=== PATIENT | female | born 1970 | race Caucasian/White ===

== ENCOUNTER 2019-08-08 15:26 | Emergency (ER) | payer BC, SELFPAY ==
--- NOTE | ~2019-08-08 | XR_ITS ---
EXAMINATION: XR chest 2V DATE: 08/08/2019 15:48 INDICATION: Cough. TECHNIQUE: Frontal and lateral views of the chest were obtained. COMPARISON: Chest 2 views 07/23/2017, CT abdomen and pelvis 08/12/2018 FINDINGS: The chest demonstrates clear lungs without pneumonia, pleural effusion, or pneumothorax. Th e heart size is normal. IMPRESSION: 1. No acute cardiopulmonary disease. Reviewed, dictated and finalized at location A. LOFT WORKER
[2019-08-08 15:35] VITALS: BP 140/65; PULSE 106; RESP 20; TEMP 36.9; O2SAT 99
--- NOTE | 2019-08-08 15:53 | ED.URI ---
HPI - URI/Sore Throat General Chief Complaint: Upper Respiratory Infection Stated Complaint: cough/fever/back pain/SOB Time Seen by Provider: 08/08/19 15:36 Source: patient and RN notes reviewed Mode of arrival: ambulatory Limitations: no limitations History of Present Illness HPI Narrative: Patient presents today with a 4-week history of cough. Reports it started out productive, but is now nonproductive. Associated symptoms include subjective fever with sweats and chills, shortness of breath, and right mid back pain. The back pain has been present for 3 days. Symptoms have been worsening since onset. Denies congestion, rhinorrhea, sore throat. No history of asthma or COPD. Patient takes warfarin for pulmonary embolism 2 years ago. States she checks her INR at home and it runs 2-3. She has been treating symptoms with Mucinex without relief. She is a former smoker. She quit 2 years ago. MD elicited complaint: cough Related Data Home Medications Medication Instructions Recorded Confirmed escitalopram oxalate mg 08/08/19 mesalamine PO 08/08/19 topiramate 08/08/19 warfarin 08/08/19 Allergies Allergy/AdvReac Type Severity Reaction Status Date / Time clindamycin Allergy Unknown Verified 03/05/18 09:00 rosuvastatin Allergy Unknown Feet Verified 07/11/17 21:20 cramping and aching Sulfa (Sulfonamide Allergy Unknown Verified 01/13/17 08:57 Antibiotics) Review of Systems Review of Systems: Narrative: CONSTITUTIONAL: Denies body aches,+ subjective fever, sweats, chills EYES: Denies visual changes, redness, or discharge. ENT: Denies rhinorrhea, congestion, sore throat, or otalgia. CARDIOVASCULAR: Denies chest pain, palpitations, or edema. RESPIRATORY: + Cough, shortness of breath GASTROINTESTINAL: Denies abdominal pain, nausea, vomiting, or diarrhea. GENITOURINARY: Denies dysuria or hematuria. SKIN: Denies rash, itching, or wounds. MUSCULOSKELETAL: Denies joint pain, or myalgia.+ Right mid back pain NEUROLOGIC: Denies headache, numbness, tingling, or weakness. PSYCH: Denies depression or anxiety. [facility] Past Medical History Medical History (Updated 08/08/19 @ 16:06 by Leandra Somers, PERFORATOR, ) GERD (gastroesophageal reflux disease) Pulmonary embolism Restless leg syndrome Ulcerative proctitis Family History Family History (Updated 01/13/17 @ 09:00 by DOCTOR UNKNOWN) Father Hypertension Malignant neoplasm of prostate Mother Family history of malignant neoplasm of breast in first degree relative Other Depression Social History Social History Smoking status: Former smoker Second hand tobacco smoke exposure: Yes Smoking end date: 07/07/16 Alcohol intake: current Comments At time of signature, I have reviewed and agree with nursing past medical, surgical, social and family history unless otherwise noted. Please see nursing chart for further information. There is no relevant family history pertinent to the presenting complaint Exam Narrative: Exam Narrative: GENERAL: Mildly ill-appearing, well-nourished, and in no acute distress. HEAD: Normocephalic, atraumatic. EYES: EOMI. No redness or drainage. Conjunctivae normal. ENT: Mucous membranes pink and moist. Nares clear. No rhinorrhea. TMs normal bilaterally. Throat normal. Uvula midline. NECK: Normal AROM. Supple. No lymphadenopathy. CHEST: No respiratory distress. Diminished in right base. HEART: Regular rate and rhythm. No murmur appreciated. Normal peripheral pulses. MUSCULOSKELETAL: No bony tenderness of the spine. No posterior rib tenderness.. EXTREMITIES: Normal range of motion. No edema. SKIN: Warm, dry, no rash. NEURO: No focal deficits. Alert and oriented x3. Gait steady. PSYCH: Normal affect. No signs of depression or anxiety. Course Vital Signs Vital signs: Vital Signs Temperature 98.4 F 08/08/19 15:35 Pulse Rate 106 H 08/08/19 15:35 Respiratory Rate 20 08/08/19 15:35 Blood
== END 2019-08-08 16:26 | disposition home or self-care (01) ==
PROVIDERS: Emergency Provider Nurse Practitioner; PCP Family Medicine
DX: J40 Bronchitis, not specified as acute or chronic (principal); Z86.711 Personal history of pulmonary embolism; Z79.01 Long term (current) use of anticoagulants; Z87.891 Personal history of nicotine dependence
CPT/HCPCS: 71046; 99213; G0463

== ENCOUNTER 2019-12-10 09:18 | Outpatient (CLI) | payer BC, SELFPAY ==
[2019-12-10 10:56] LABS: Folic Acid > 20.0 ng/mL (2.76->20)
== END 2019-12-10 09:19 | disposition home or self-care (01) ==
LOC: ANHLAB 09:20
PROVIDERS: PCP Family Medicine; Visit Provider Family Medicine
DX: R20.0 Anesthesia of skin (principal); R20.2 Paresthesia of skin
CPT/HCPCS: 36415; 82607; 82746

== ENCOUNTER → 2020-02-24 10:35 | Outpatient (CLI) | payer BC, SELFPAY ==
--- NOTE | ~2020-02-24 | XR_ITS ---
EXAMINATION: XR lumbar spine 2-3V DATE: 02/24/2020 11:06 INDICATION: Chronic low back pain TECHNIQUE: Anteroposterior and lateral views of the lumbar spine, and cone-down lateral view of the l umbosacral junction were obtained. COMPARISON: None. FINDINGS: Lumbar levocurvature is noted. There are bilateral L5 pars defects. There are 3 mm of anter olisthesis of L5 on S1. Vertebral body alignment is otherwise maintained. The vertebral body heights are normal. There is mild loss of intervertebral disc space height at L5-S1. Phleboliths are noted in the pelvis. The bowel gas pattern is normal. IMPRESSION: 1. Bilateral L5 pars defects and mild lower lumbar spondylosis without acute findings. Reviewed, dictated and finalized at location A. IMPRESSION: 1. Bilateral L5 pars defects and mild lower lumbar spondylosis without acute fi ndings.
== END ==
PROVIDERS: PCP Family Medicine; Visit Provider Physician Assistant
DX: M54.41 Lumbago with sciatica, right side (principal); M43.8X6 Other specified deforming dorsopathies, lumbar region; M47.816 Spondylosis without myelopathy or radiculopathy, lumbar region
CPT/HCPCS: 72100

== ENCOUNTER 2020-07-26 08:39 | Outpatient (NON) | payer BC, SELFPAY ==
[2020-07-26 21:57] LABS: SARS-CoV-2 RNA PCR Positive
== END 2020-07-26 08:40 ==
PROVIDERS: Nurse Practitioner Family; PCP Family Medicine; Visit Provider Family Medicine
DX: U07.1 COVID-19 (principal)
CPT/HCPCS: C9803; U0003; U0005

== ENCOUNTER 2020-08-01 10:34 | Emergency (ER) | payer BC, SELFPAY ==
--- NOTE | ~2020-08-01 | XR_ITS ---
EXAMINATION: XR chest 1V portable DATE: 08/01/2020 11:10 INDICATION: Shortness of breath. COVID-19 positive. TECHNIQUE: A single frontal view of the chest was obtained. COMPARISON: Chest 2 views 08/08/2019, CT abdomen and pelvis 08/12/2018 FINDINGS: There are airspace opacities in the mid and lower lung zones with a peripheral predominance . No pleural effusion or pneumothorax. The heart size is normal. IMPRESSION: 1. Airspace opacities in the mid and lower lung zones, consistent with COVID-19 pneumonia. Reviewed, dictated and finalized at location A. ESS MANAGER
--- NOTE | 2020-08-01 10:43 | ECG_ITS ---
Measurements Intervals [place] Rate: 109 P: 41 WI: 132 QRS: 23 QRSD: 94 T: 71 QT: 341 QTc: 460 Interpretive Statements SINUS TACHYCARDIA BORDERLINE ST-T WAVE ABNORMALITY- HIGH LATERAL LEADS ABNORMAL ECG Electronically Signed On 08-01-2020 11:07:36 SUPERVISOR MACHINE WORKERS by Tyler Villegas D.O.
[2020-08-01 10:50] VITALS: BP 126/94; PULSE 118; RESP 19; TEMP 37.6; O2SAT 96
[2020-08-01 10:54] LABS: Basophils Percent Auto 0.2 % (0.2-1.2); Eosinophils Percent Auto 0.2 % (0-4.4); Hematocrit 44.5 % (37.0-47.0); Hemoglobin 14.9 g/dL (12.0-15.0); Immature Granulocyte Absolute 0.01 K/mm3 (0.00-0.031); Immature Granulocyte Percent A 0.2 % (0-0.5); Lymphocytes Absolute Auto 1.01 K/mm3 (0.9-3.2); Mean Corpuscular HGB Conc 33.5 g/dl (32-36); Mean Corpuscular Hemoglobin 30.3 pg (26-34); Mean Corpuscular Volume 90.4 fl (80-100); Monocytes Absolute Auto 0.2 K/mm3 (0.1-0.6); Monocytes Percent Auto 3.7 % (2.6-8.5); Neutrophils Absolute Auto 3.4 K/mm3 (1.3-6.7); Neutrophils Percent Auto 73.7 % (45.5-73.1); Platelet Count Result 262 k/mm3 (150-375); Red Blood Count 4.92 M/mm3 (4.2-5.4); Red Cell Distribution Width 13.2 % (11.5-14.5); White Blood Count 4.6 K/mm3 (4.5-10.0)
[2020-08-01 11:06] LABS: Anion Gap 12 mmol/L (8-16); Blood Urea Nitrogen 12 mg/dL (7-17); Carbon Dioxide 22 mmol/L (22-30); Chloride 102 mmol/L (98-107); Estimated Glomerular Filt Rate > 60; Glucose 158 mg/dL (65-105); Lactic Acid Reflex 1.6 mmol/L (0.7-2.1); Potassium 3.6 mmol/L (3.4-5.0); Sodium 136 mmol/L (137-145)
[2020-08-01] MEDS: ONDANSETRON INJ 4 MG/2 ML VIAL IV PUSH (11:21)
--- NOTE | 2020-08-01 11:48 | ED.FEVER ---
HPI - Fever General Chief Complaint: Fever Stated Complaint: COVID+ N/V Time Seen by Provider: 08/01/20 10:59 Source: patient Mode of arrival: ambulatory Limitations: no limitations History of Present Illness HPI Narrative: A 50-year-old female presents to the emergency department with complaints of fever chills, headache, body aches, cough and shortness of breath. Patient states that she has been diagnosed with COVID-19. She states that this was on last Friday and that she has been declining ever since. Patient states that she has been taking [id number] medications without any relief. She does note that she is getting more tired and has an increase in her headache. Related Data Home Medications Medication Instructions Recorded Confirmed mesalamine PO 08/08/19 02/24/20 warfarin 08/08/19 02/24/20 topiramate 50 mg tablet 75 mg PO .qhs tablet 10/22/19 02/24/20 levothyroxine 137 mcg tablet 137 mcg PO DAILY 05/25/20 linaclotide 290 mcg capsule 290 mcg PO QAM 05/25/20 melatonin 3 mg capsule mg PO 05/25/20 niacin 500 mg tablet 500 mg PO DAILY 05/25/20 progesterone micronized 200 mg 300 mg PO ONCE cap 05/25/20 capsule Allergies Allergy/AdvReac Type Severity Reaction Status Date / Time clindamycin Allergy Unknown hives Verified 05/25/20 08:52 rosuvastatin Allergy Unknown Feet Verified 05/25/20 08:52 cramping and aching Sulfa (Sulfonamide Allergy Unknown hives Verified 05/25/20 08:52 Antibiotics) Review of Systems Review of Systems: Narrative: CONSTITUTIONAL: Endorses fever, chills, malaise and fatigue. EYES: Denies visual changes, redness, or discharge. ENT: Denies rhinorrhea, congestion, sore throat, or otalgia. CARDIOVASCULAR: Denies chest pain, palpitations, or edema. RESPIRATORY: Endorses cough and shortness of breath. GASTROINTESTINAL: Denies abdominal pain, nausea, vomiting, or diarrhea. GENITOURINARY: Denies dysuria or hematuria. SKIN: Denies rash or itching. MUSCULOSKELETAL: Denies back pain, joint pain, or myalgia. NEUROLOGIC: Denies numbness, dizziness, or weakness. Endorses headache PSYCHIATRIC: Denies anxiety or depression. [facility] Past Medical History Medical History GERD (gastroesophageal reflux disease) Pulmonary embolism Restless leg syndrome Ulcerative colitis, chronic Surgical History Surgical History H/O: hysterectomy History of appendectomy Hx of breast reduction, elective [place] teeth removed Family History Family History Father Hypertension Malignant neoplasm of prostate Mother Family history of malignant neoplasm of breast in first degree relative Other Depression Social History Social History Smoking packs per day: 1 Smoking cigarettes per day: 20.0 Years smoked: 30 Smoking pack-years: 30.00 Smoking status: Former smoker Second hand tobacco smoke exposure: Yes Smoking end date: 07/07/16 Alcohol intake: current Substance use: never Substance use type: does not use Gender identity (if verbalized by the patient): Female Exam Narrative: Exam Narrative: GENERAL: Well-appearing, well-nourished, and in no acute distress. HEAD: Normocephalic, atraumatic. EYES: PERRLA and EOMI. ENT: Nares clear, no rhinorrhea or epistaxis. Mucous membranes moist. Oropharynx without tonsillar hypertrophy exudate or other lesions. Bilateral TMs pearly carbajal nonbulging NECK: Supple. No adenopathy or masses. No carotid bruits or JVD CHEST: Clear to auscultation. No respiratory distress. No wheezes rales or rhonchi HEART: Regular rate and rhythm. No murmur heard. Normal peripheral pulses. ABDOMEN: Soft, nontender, nondistended, normal active bowel sounds. EXTREMITIES: Normal range of motion. No edema. SKIN: Warm, dry, no rash. NEURO: No f
[2020-08-01] MEDS: LACTATED RINGERS 1,000 ML 999 ML IV CONT (11:59)
[2020-08-01] MEDS: KETOROLAC 15 MG/ML VIAL (*BKC) IV PUSH (12:00)
[2020-08-01] MEDS: DEXAMETHASONE SOD PHOS INJ 4 MG/ML VIAL 6 MG IV PUSH (12:00)
[2020-08-01 12:40] VITALS: BP 125/96; PULSE 114; RESP 22; O2SAT 95
[2020-08-01] MEDS: guaiFENesin/DEXTROMETHORPHAN 10 ML UDC PO (12:40)
[2020-08-01 13:38] VITALS: BP 130/88; PULSE 114; RESP 13; O2SAT 96
[2020-08-01 15:03] VITALS: BP 126/88; PULSE 110; RESP 19; O2SAT 92
== END 2020-08-01 15:04 | disposition home or self-care (01) ==
PROVIDERS: Emergency Provider Emergency Medicine; PCP Family Medicine
DX: U07.1 COVID-19 (principal); K21.9 Gastro-esophageal reflux disease without esophagitis; Z86.711 Personal history of pulmonary embolism; G25.81 Restless legs syndrome; Z79.01 Long term (current) use of anticoagulants; Z87.891 Personal history of nicotine dependence; R91.8 Other nonspecific abnormal finding of lung field; R00.0 Tachycardia, unspecified; R94.31 Abnormal electrocardiogram [ECG] [EKG]
CPT/HCPCS: 36415; 71045; 80048; 83605; 85025; 87040; 93005; 96361; 96374; 96375; 99284; A9270; J1100; J1885; J2405; J7120

== ENCOUNTER 2022-01-16 16:47 | Outpatient (CLI) | payer BC, SELFPAY ==
--- NOTE | ~2022-01-16 | XR_ITS ---
EXAMINATION: XR chest 2V 01/16/2022 17:03 INDICATION: Chest pain PROCEDURE: 2 view chest COMPARISON: Comparison to multiple prior studies sequentially, with oldest reviewed study dated 07/2013. FINDINGS: The lungs are clear. The cardiomediastinal silhouette is within normal limits. There are no pleural effusions. There is no pneumothorax suspected. IMPRESSION: 1: NO ACUTE CARDIOPULMONARY DISEASE. Reviewed, dictated and finalized at location A.
== END 2022-01-16 16:48 | disposition home or self-care (01) ==
PROVIDERS: PCP Family Medicine; Visit Provider Nurse Practitioner Family
DX: R07.89 Other chest pain (principal)
CPT/HCPCS: 71046

== ENCOUNTER → 2022-03-19 12:48 | Outpatient (CLI) | payer BC, SELFPAY ==
--- NOTE | ~2022-03-19 | CT_ITS ---
EXAMINATION: CT sinus wo con DATE: 03/19/2022 13:26 INDICATION: Chronic sinusitis TECHNIQUE: Computed tomography (CT) of the paranasal sinuses was performed without intravenous contra st. The dose-length product (DLP) was 298.59 mGy-cm. Iterative reconstruction was used. COMPARISON: None FINDINGS: There is normal development and pneumatization of the paranasal sinuses. There is minimal o pacification anteriorly in the right ethmoid air cells at the communication with the right frontal si nus. The frontal, sphenoid, left ethmoid, and maxillary sinuses are clear. The bilateral ostiomeatal complexes are patent. Visualized soft tissues are unremarkable. IMPRESSION: 1. Minimal opacification of the right ethmoid air cells anteriorly at the communication with the righ t frontal sinus. Reviewed, dictated and finalized at location B. IMPRESSION: 1. Minimal opacification of the right ethmoid air cells anteriorly at the commu nication with the right frontal sinus.
== END ==
PROVIDERS: PCP Family Medicine; Visit Provider Otolaryngology
DX: J32.9 Chronic sinusitis, unspecified (principal)
CPT/HCPCS: 70486

== ENCOUNTER → 2023-03-03 07:32 | Outpatient (CLI) | payer BC, SELFPAY ==
--- NOTE | ~2023-03-03 | MM_ITS ---
EXAMINATION: MM screening [facility] BI w sergio HISTORY: Screening mammogram TECHNIQUE: Craniocaudal and mediolateral oblique 3-D tomosynthesis images were obtained and synthetic 2-D images were generated. CAD analysis was submitted and interpreted. COMPARISON: 03/31/2009, 09/17/2006 BREAST PARENCHYMAL COMPOSITION: There are scattered areas of fibroglandular density. FINDINGS: No suspicious mass, calcification, or architectural distortion are identified in either shireen ast to suggest malignancy. There has been no suspicious interval change. IMPRESSION: 1. No mammographic evidence of malignancy. 2. Recommend routine screening mammography in one year. BI-RADS Category 1: Negative Reviewed, dictated and finalized at location A.
== END ==
PROVIDERS: PCP Family Medicine; Visit Provider Obstetrics & Gynecology
DX: Z12.31 Encounter for screening mammogram for malignant neoplasm of breast (principal)
CPT/HCPCS: 77063; 77067

== ENCOUNTER → 2023-05-09 10:29 | Outpatient (CLI) | payer BC, SELFPAY ==
--- NOTE | ~2023-05-09 | XR_ITS ---
XR lumbar spine 2-3V DATE: 05/09/2023 11:24 INDICATION: Lumbago with right sciatica TECHNIQUE: Standing AP, lateral and coned lateral lumbosacral views COMPARISON: 12/29/2009 CT abdomen pelvis images are not available but bilateral L5 spondylolysis was r eported. FINDINGS: Diffuse osteopenia. Mild dextroscoliosis of the lower thoracic and lumbar spine. There is grade 1 anterolisthesis at L5-S1 due to bilateral L5 pars interarticularis defects. Otherwise there is normal alignment of the lumbar spine. No fracture or bone destruction is evident. Included lower thoracic and lumbar pedicles are intact. There is moderate loss of interspace height at L5-S1. There is moderate degenerative disc disease at L3-4. The sacroiliac joints are intact. IMPRESSION: Osteopenia Mild dextro scoliosis Bilateral L5 pars intra-articular is defects with grade 1 anterolisthesis at L5-S1 Moderate degenerative disc disease at L3-4 and L5-S1 Reviewed, dictated and finalized at location B. IMPRESSION: Osteopenia Mild dextro scoliosis Bilateral L5 pars intra-articular is defects with grade 1 anterolisthesis at L5 -S1 Moderate degenerative disc disease at L3-4 and L5-S1
--- NOTE | ~2023-05-09 | XR_ITS ---
XR thoracic spine 2V DATE: 05/09/2023 11:24 INDICATION: Back pain TECHNIQUE: Standing AP and lateral and swimmer views COMPARISON: None FINDINGS: There is osteopenia. Very slight dextroscoliosis of the thoracic spine. There is minimal degenerative spurring of the thoracic spine. No fracture or dislocation or bone destruction is detected. The pedicles are intact. No paraspinal so ft tissue thickening. IMPRESSION: Osteopenia and minimal degenerative spurring Reviewed, dictated and finalized at location B.
== END ==
PROVIDERS: PCP Physician Assistant; Visit Provider Physician Assistant
DX: M41.85 Other forms of scoliosis, thoracolumbar region (principal); M51.36 Other intervertebral disc degeneration, lumbar region; M51.37 Other intervertebral disc degeneration, lumbosacral region; M54.41 Lumbago with sciatica, right side; G89.29 Other chronic pain
CPT/HCPCS: 72070; 72100

== ENCOUNTER 2023-08-15 13:31 | Outpatient (CLI) | payer BC, SELFPAY ==
--- NOTE | ~2023-08-15 | MR_ITS ---
EXAMINATION: MR lumbar spine wo con DATE: 08/15/2023 14:12 INDICATION: Lumbago with sciatica, right-sided. TECHNIQUE: Magnetic resonance imaging (MRI) of the lumbar spine was performed without intravenous con trast. Sequences included sagittal T2-weighted FSE, sagittal T2-weighted FS FSE, sagittal T1-weighted FSE, and axial T2-weighted FSE. COMPARISON: Lumbar spine radiographs 05/09/2023 FINDINGS: There is 10 degrees dextroscoliosis of thoracolumbar spine. There are chronic bilateral L5 pars defects. There is 4 mm anterolisthesis of L5 on S1. Vertebral body heights are normal. There is mildly decreased disc height at L5-S1. The distal spinal cord signal intensity is normal. The conus m edullaris is at L1. There is a 15 mm cyst in right kidney. The following disc levels are specifically discussed: L1-L2: The disc does not extend beyond the endplate margin. There is moderate right and mild left fac et joint osteoarthritis. There is no neural foraminal stenosis. There is no central canal stenosis. L2-L3: The disc does not extend beyond the endplate margin. There is severe right and mild left facet joint osteoarthritis. There is no neural foraminal stenosis. There is no central canal stenosis. L3-L4: There is a left foraminal protrusion. There is mild bilateral facet joint osteoarthritis. Ther e is no neural foraminal stenosis. There is no central canal stenosis. L4-L5: The disc does not extend beyond the endplate margin. There is mild lateral facet joint osteoar thritis. There is no neural foraminal stenosis. There is no central canal stenosis. L5-S1: The disc is bulging. There is mild bilateral facet joint osteoarthritis. There is mild bilater al neural foraminal stenosis. There is mild central canal stenosis. IMPRESSION: 1. Mild lumbar spondylosis. 2. Chronic bilateral L5 pars defects with grade 1 anterolisthesis of L5 on S1. 3. Thoracolumbar dextroscoliosis. Reviewed, dictated and finalized at location E. TEACHER
== END 2023-08-15 13:32 | disposition home or self-care (01) ==
PROVIDERS: PCP Family Medicine; Visit Provider Physician Assistant
DX: M54.41 Lumbago with sciatica, right side (principal); G89.29 Other chronic pain; M47.816 Spondylosis without myelopathy or radiculopathy, lumbar region; M41.9 Scoliosis, unspecified
CPT/HCPCS: 72148

== ENCOUNTER 2023-08-19 10:10 | Outpatient (CLI) | payer BC, SELFPAY ==
--- NOTE | 2023-08-19 10:22 | EST_ITS ---
Patient Info Name: Zen Garcia Age: 53 years : 1970 Gender: Female Ht: 58 in Wt: 128 lbs BSA: 1.56 m2 HR: 105 bpm BP: 114 / 75 mmHg Heart Rhythm: Sinus Rhythm Exam Date: 08/19/2023 11:15 AM Exam Location: Echo Lab Patient Status: Outpatient Admit Date: 08/19/2023 Staff Ordering Physician: Cleveland Francisco PA-C Attending Provider: Cleveland Francisco PA-C Exercise Technologist: Jeana Wilson CT Exercise Physician: Tyler Villegas DO Exam Type: CA stress test treadmill Study Info Indications R07.89 - Other chest pain A treadmill exercise stress test was performed. Summary 1. 1. Negative [place] exercise stress test for ischemic ST changes by ECG criteria. 2. 2. Reduced functional capacity, achieving 8.9 METs of workload. 3. 3. Appropriate HR response to exercise. 4. 4. Appropriate HR recovery at 1 minute post exercise. 5. 5. No imaging with stress testing. 6. 6. Patient informed of the above results. Protocol: [place] Stress ECG Details Stage: REST Duration (min): 0 min : 50 sec Speed (mph): 0.0 Grade (%): 0 HR (bpm): 105 SBP (mmHg): 114 DBP (mmHg): 75 METS: --- Stage: REST Duration (min): 6 min : 25 sec Speed (mph): 0.0 Grade (%): 0 HR (bpm): 99 SBP (mmHg): 114 DBP (mmHg): 75 METS: --- Stage: STAGE 1 Duration (min): 1 min : 0 sec Speed (mph): 1.7 Grade (%): 10 HR (bpm): 123 SBP (mmHg): 114 DBP (mmHg): 75 METS: --- Stage: STAGE 1 Duration (min): 2 min : 0 sec Speed (mph): 1.7 Grade (%): 10 HR (bpm): 127 SBP (mmHg): 114 DBP (mmHg): 75 METS: --- Stage: STAGE 1 Duration (min): 3 min : 0 sec Speed (mph): 1.7 Grade (%): 10 HR (bpm): 129 SBP (mmHg): 121 DBP (mmHg): 73 METS: --- Stage: STAGE 2 Duration (min): 1 min : 0 sec Speed (mph): 2.5 Grade (%): 12 HR (bpm): 132 SBP (mmHg): 121 DBP (mmHg): 73 METS: --- Stage: STAGE 2 Duration (min): 2 min : 0 sec Speed (mph): 2.5 Grade (%): 12 HR (bpm): 134 SBP (mmHg): 120 DBP (mmHg): 74 METS: --- Stage: STAGE 2 Duration (min): 3 min : 0 sec Speed (mph): 2.5 Grade (%): 12 HR (bpm): 138 SBP (mmHg): 120 DBP (mmHg): 74 METS: --- Stage: STAGE 3 Duration (min): 1 min : 0 sec Speed (mph): 3.4 Grade (%): 14 HR (bpm): 142 SBP (mmHg): 120 DBP (mmHg): 74 METS: --- Stage: STAGE 3 Duration (min): 1 min : 6 sec Speed (mph): 3.4 Grade (%): 14 HR (bpm): 134 SBP (mmHg): 120 DBP (mmHg): 74 METS: --- Stage: RECOVERY Duration (min): 0 min : 53 sec Speed (mph): 0.0 Grade (%): 0 HR (bpm): 142 SBP (mmHg): 165 DBP (mmHg): 88 METS: --- Stage: RECOVERY Duration (min): 1 min : 53 sec Speed (mph): 0.0 Grade (%): 0 HR (bpm): 133 SBP (mmHg): 165 DBP (mmHg): 88 METS: --- Stage: RECOVERY Duration (min): 2 min : 53 sec Speed (mph): 0.0 Grade (%): 0 HR (bpm): 128 SBP (mmHg): 143 DBP (mmHg):
== END 2023-08-19 10:11 | disposition home or self-care (01) ==
LOC: ANHCARD 10:11
PROVIDERS: PCP Family Medicine; Visit Provider Physician Assistant
DX: R07.89 Other chest pain (principal)
CPT/HCPCS: 93017

== ENCOUNTER 2023-08-26 17:17 | Outpatient (CLI) | payer BC, SELFPAY ==
--- NOTE | ~2023-08-26 | XR_ITS ---
EXAMINATION: XR chest 2V DATE: 08/26/2023 17:13 INDICATION: Cough, unspecified. TECHNIQUE: Frontal and lateral views of the chest were obtained. COMPARISON: Chest 2 views 01/16/2022 FINDINGS: There is no pneumonia, pleural effusion, or pneumothorax. The heart size is normal. IMPRESSION: 1. No acute cardiopulmonary disease. Reviewed, dictated and finalized at location E. SURY ASSISTANT
[2023-08-26 19:13] LABS: Influenza A QL RT-PCR Positive (Negative); Influenza B QL RT-PCR Negative (Negative); RSV RNA, RT-PCR Negative (Negative); SARS-CoV-2 RNA PCR Negative (Negative)
== END 2023-08-26 17:18 | disposition home or self-care (01) ==
PROVIDERS: PCP Family Medicine; Visit Provider Physician Assistant
DX: R05.9 Cough, unspecified (principal); R50.9 Fever, unspecified; Z20.822 Contact with and (suspected) exposure to COVID-19
CPT/HCPCS: 71046; 87637

== ENCOUNTER 2023-09-01 20:55 | Emergency (ER) | payer BC, SELFPAY ==
--- NOTE | ~2023-09-01 | XR_ITS ---
EXAMINATION: XR chest 2V Exam Date/Time: 09/01/2023 21:20 HUMAN RESOURCES REPRESENTATIVE HISTORY: cough, weakness,dizziness, COMPARE TO LAST WEEK Comparison: 08/26/2023. RESULT: Lines, tubes, and devices: None. Lungs and pleura: Patchy areas of ill-defined groundglass opacity in the bilateral upper lobes, grea ter on the right. Cardiomediastinal silhouette: Stable. Other: No acute osseous or upper abdominal finding. IMPRESSION: Pulmonary opacities may represent atypical/viral infection in the appropriate clinical context. Reviewed, dictated and finalized at location K. N RESOURCES REPRESENTATIVE IMPRESSION: Pulmonary opacities may represent atypical/viral infection in the appropriate c linical context.
--- NOTE | ~2023-09-01 | CT_ITS ---
EXAMINATION: CTA chest PE protocol DATE: 09/01/2023 22:49 INDICATION: hemoptysis, rule out PE TECHNIQUE: Computed tomography angiography (CTA) of the chest was performed with 100 mL Omnipaque-350 intravenous contrast timed to evaluate the pulmonary arteries. Coronal maximum intensity projection 3D-reconstructions were created by the technologist. The dose-length product (DLP) was 238.55 mGy-cm. Automated exposure control and iterative reconstruction technique were employed. COMPARISON: None. FINDINGS: Lung parenchyma and airways: Peripheral groundglass opacities in the right upper lobe the largest of which demonstrates peripheral consolidation (reversed halo sign). Rounded focal peripheral consolidat ion in the left upper lobe. Patchy and centrilobular nodular groundglass opacities in the right lower lobe. Airways are clear. Pleura: Unremarkable. Thoracic inlet, axillae and chest wall: Unremarkable. Thoracic aorta: Normal. Mediastinum: Small hiatal hernia. Small uncomplicated distal esophageal diverticulum. Prominent left hilar and mediastinal lymph nodes. Enlarged right hilar lymph nodes. Heart and pericardium: Normal. Coronary artery calcifications: Absent. Upper abdomen: No significant finding. Bones: No acute osseous finding. Pulmonary arteries: Study quality: Adequate. No pulmonary emboli detected. IMPRESSION: No CT evidence of acute pulmonary embolus. Bilateral upper lobe opacities may represent fungal pneumonia (including angioinvasive fungal infecti on - particularly if the patient is immunocompromised), bacterial pneumonia, and other infections, in cluding including atypical infection such as tuberculosis and foley virus. Other less likely considerations include granulomatosis with polyarteritis, sarcoidosis, and radiatio n pneumonitis, among others. Right lower lobe opacities may represent an additional sites of infection although aspiration, includ ing hemoaspiration, could appear similarly. Right hilar and borderline mediastinal and left hilar lymphadenopathy. Reviewed, dictated and finalized at location K. [facility] ADMINISTRATOR IMPRESSION: No CT evidence of acute pulmonary embolus. Bilateral upper lobe opacities may represent fungal pneumonia (including angioi nvasive fungal infection - particularly if the patient is immunocompromised), b acterial pneumonia, and other infections, including including atypical infectio n such as tuberculosis and foley virus. Other less likely considerations include granulomatosis with polyarteritis, crescencio coidosis, and radiation pneumonitis, among others. Right lower lobe opacities may represent an additional sites of infection altho ugh aspiration, including hemoaspiration, could appear similarly. Right hilar and borderline mediastinal and left hilar lymphadenopathy.
--- NOTE | 2023-09-01 20:57 | ECG_ITS ---
Measurements Intervals [place] Rate: 134 P: 21 [place]: 114 QRS: 11 QRSD: 82 T: 67 QT: 280 QTc: 419 Interpretive Statements SINUS TACHYCARDIA WITH SHORT [place] INTERVAL NONSPECIFIC ST & T-WAVE ABNORMALITY BASELINE ARTIFACT ABNORMAL RHYTHM ECG COMPARED TO ECG 08/01/2020 10:46:22 T-WAVE ABNORMALITY NOW PRESENT Electronically Signed On 09-02-2023 12:29:33 ELEMENTARY SCHOOL BAND DIRECTOR by Padmini Wilson M.D.
[2023-09-01 20:58] VITALS: BP 147/97; PULSE 140; RESP 24; TEMP 36.9; O2SAT 100
[2023-09-01 21:25] LABS: Basophils Absolute Auto 0.1 K/mm3 (0.0-0.1); Basophils Percent Auto 0.4 % (0.2-1.2); Eosinophils Absolute Auto 0.4 K/mm3 (0-0.3); Eosinophils Percent Auto 3.5 % (0-4.4); Hematocrit 40.7 % (37.0-47.0); Hemoglobin 12.8 g/dL (12.0-15.0); Immature Granulocyte Absolute 0.05 K/mm3 (0.00-0.031); Immature Granulocyte Percent A 0.4 % (0-0.5); Lymphocytes Absolute Auto 4.12 K/mm3 (0.9-3.2); Lymphocytes Percent Auto 33.1 % (18.3-44.2); Mean Corpuscular HGB Conc 31.4 g/dl (32-36); Mean Corpuscular Hemoglobin 29.8 pg (26-34); Mean Corpuscular Volume 94.9 fl (80-100); Mean Platelet Volume 8.2 fl (7.4-10.4); Monocytes Absolute Auto 0.7 K/mm3 (0.1-0.6); Monocytes Percent Auto 5.9 % (2.6-8.5); Neutrophils Absolute Auto 7.1 K/mm3 (1.3-6.7); Neutrophils Percent Auto 56.7 % (45.5-73.1); Platelet Count Result 653 k/mm3 (150-375); Red Blood Count 4.29 M/mm3 (4.2-5.4); White Blood Count 12.5 K/mm3 (4.5-10.0)
[2023-09-01 21:36] LABS: Alanine Aminotransferase 22 U/L (6-35); Albumin Level 3.7 g/dL (3.5-5.1); Alkaline Phosphatase 121 U/L (38-126); Anion Gap 9 mmol/L (8-16); Aspartate Amino Transferase 31 U/L (14-36); Bilirubin,Total 0.4 mg/dL (0.2-1.3); Blood Urea Nitrogen 9 mg/dL (7-17); Carbon Dioxide 22 mmol/L (22-30); Chloride 111 mmol/L (98-107); Estimated Glomerular Filt Rate > 60; Glucose 115 mg/dL (65-110); Potassium 3.9 mmol/L (3.4-5.0); Sodium 142 mmol/L (137-145)
[2023-09-01] MEDS: SODIUM CHLORIDE 0.9% IV 1,000 ML 999 ML IV CONT ×2 (22:12)
[2023-09-01] MEDS: IPRATROPIUM BR 0.02% INH SOLN 0.5 MG/2.5 ML VIAL 1 MG INHALATION (22:17)
[2023-09-01] MEDS: ALBUTEROL SULFATE NEB 2.5 MG/3 ML INH INHALATION (22:18)
--- NOTE | 2023-09-01 22:18 | ED.GENADULT ---
HPI - General Adult General Chief complaint: Shortness of Breath/Dyspnea Stated complaint: short of breath Time Seen by Provider: 09/01/23 21:31 Source: patient Mode of arrival: ambulatory Limitations: no limitations History of Present Illness HPI narrative: This is a 53-year-old female with PMH of PE, restless leg who presents to the ED with chief complaint of cough x2 weeks. Reports she was diagnosed with flu a and B on 08/27/2023. Reports the cough is worsening and she is feeling more and more fatigued. Patient reports since then she has started to have hemoptysis and chest tightness. States she takes warfarin for past PE. Endorses shortness of breath. Endorses fevers greater than 100 every day for the past couple of weeks until today. Endorses sore throat and congestion. Denies abdominal pain, nausea, vomiting, syncope. Related Data Home Medications Medication Instructions Recorded Confirmed mesalamine 1.2 gram tablet,delayed PO 08/08/19 08/05/23 release levothyroxine 137 mcg tablet 137 mcg PO DAILY 05/25/20 08/05/23 linaclotide 290 mcg capsule 290 mcg PO QAM 05/25/20 08/05/23 (Linzess) melatonin 3 mg capsule mg PO 05/25/20 08/05/23 niacin 500 mg tablet 500 mg PO DAILY 05/25/20 08/05/23 warfarin 1 mg tablet PO 08/14/21 08/05/23 berberine-herbal comb no.18 capsule cap PO 04/12/22 08/05/23 cholecalciferol (vitamin D3) 50 50 mcg PO DAILY 04/12/22 08/05/23 mcg (2,000 unit) capsule coenzyme Q10 75 mg capsule (Ultra 75 mg PO DAILY 04/12/22 08/05/23 CoQ10) valacyclovir 1 gram tablet 2,000 mg PO Q12H PRN 04/12/22 08/05/23 (Valtrex) fremanezumab-vfrm 225 mg/1.5 mL 225 mg subcut MONTHLY 05/13/23 08/05/23 subcutaneous auto-injector (Ajovy) Allergies Allergy/AdvReac Type Severity Reaction Status Date / Time clindamycin Allergy Unknown hives Verified 08/05/23 08:29 rosuvastatin Allergy Unknown Feet Verified 08/05/23 08:29 cramping and aching Sulfa (Sulfonamide Allergy Unknown hives Verified 08/05/23 08:29 Antibiotics) Review of Systems Review of Systems: All systems as dictated in [facility] Past Medical History Medical History COVID-19 DVT (deep venous thrombosis) GERD (gastroesophageal reflux disease) History of Pulmonary embolism Restless leg syndrome Ulcerative colitis, chronic (vaginal after ) Ventral hernia Surgical History Surgical History H/O abdominoplasty H/O laparoscopy (~2011) Op Lap extensive adhesiolysis with the RSO Dr Ojeda. H/O: hysterectomy (~2001) History of appendectomy Lap Appendectomy History of section (~1995) History of mastopexy Ptosis-bilateral History of right salpingo-oophorectomy (~2011) Dr Ojeda [place] teeth removed Family History Family History Father Hypertension Malignant neoplasm of prostate Alzheimer disease Mother Family history of malignant neoplasm of breast in first degree relative Cerebrovascular accident Other Depression Social History Social History Smoking packs per day: 1 Smoking cigarettes per day: 20.0 Years smoked: 30 Smoking pack-years: 30.00 Smoking status: Current every day smoker Tobacco type: cigarettes Second hand tobacco smoke exposure: Yes Smoking end date: 07/07/16 Alcohol intake: current Alcohol use details: social drinker Substance use: never Substance use type: does not use Lack of Transportation: No Lack of Food: Never True Current Housing: I Have Housing Concerned About Future Housing: No Difficulty Paying Gas/Electric Bills: No Difficulty Paying for Meds: No Currently Unemployed: No Difficulty w/ Childcare or Family Care: No Living arrangements: with family Occupation/Education: occupation
[2023-09-01 22:19] VITALS: PULSE 109; RESP 20
[2023-09-01 22:32] VITALS: PULSE 111; RESP 14
[2023-09-01] MEDS: ORPHENADRINE CITRATE 100 MG TABLET.ER PO (23:25)
[2023-09-01 23:39] LABS: Procalcitonin 0.1 ng/mL
[2023-09-01 23:48] VITALS: BP 156/86; PULSE 104; RESP 15; O2SAT 98
[2023-09-02 00:26] LABS: Prothrombin Time 73.3 Seconds (11.1-14.7)
[2023-09-02 00:28] LABS: Influenza A QL RT-PCR Positive (Negative); Influenza B QL RT-PCR Negative (Negative); Partial Thromboplastin Time 134.3 SECONDS (22.3-36.8); RSV RNA, RT-PCR Negative (Negative); SARS-CoV-2 RNA PCR Negative (Negative)
[2023-09-02 00:29] LABS: INR 7.8
[2023-09-02] MEDS: AZITHROMYCIN 500 MG/NS 250 ML 500 MG/250 ML BAG 250 MG IVPB (00:33)
[2023-09-02] MEDS: ACETAMINOPHEN 500 MG TABLET 1000 MG PO (01:09)
[2023-09-02] MEDS: ONDANSETRON INJ 4 MG/2 ML VIAL IV PUSH (01:09)
[2023-09-02 01:40] LABS: Lactic Acid Reflex 2.3 mmol/L (0.7-2.0)
[2023-09-02 02:05] VITALS: BP 150/84; PULSE 98; RESP 16; O2SAT 100
[2023-09-02 04:28] LABS: Reflex Lactic Acid Yes or No Add Lactic
== END 2023-09-02 02:05 | disposition home or self-care (01) ==
PROVIDERS: Emergency Medicine; Emergency Provider Physician Assistant; PCP Family Medicine
DX: J10.00 Influenza due to other identified influenza virus with unspecified type of pneumonia (principal); Z20.822 Contact with and (suspected) exposure to COVID-19; G25.81 Restless legs syndrome; K51.90 Ulcerative colitis, unspecified, without complications; K21.9 Gastro-esophageal reflux disease without esophagitis; Z86.718 Personal history of other venous thrombosis and embolism; Z86.16 Personal history of COVID-19; Z86.711 Personal history of pulmonary embolism; Z87.891 Personal history of nicotine dependence; Z90.710 Acquired absence of both cervix and uterus; Z90.721 Acquired absence of ovaries, unilateral; Z90.79 Acquired absence of other genital organ(s); Z79.01 Long term (current) use of anticoagulants
CPT/HCPCS: 36415; 71046; 71275; 80053; 83605; 84145; 85025; 85610; 85730; 87637; 93005; 94640; 96361; 96365; 96367; 96375; 99284; A9270; J0456; J0696; J2405; J7030; Q9967

== ENCOUNTER 2023-09-10 09:17 | Outpatient (CLI) | payer BC, SELFPAY ==
--- NOTE | ~2023-09-10 | XR_ITS ---
EXAMINATION: XR ribs BI 3V w CXR 2V INDICATION: Pneumonia and rib pain from coughing TECHNIQUE: PA and lateral views of the chest and 3 views of the bilateral ribs were obtained. COMPARISON: 09/01/2023 FINDINGS: The previously described airspace opacities have nearly completely resolved. There is minim al persistent airspace opacity of the left lung base. No pleural effusion or pneumothorax. There is a minimally displaced anterior fracture of the left seventh rib. IMPRESSION: 1. Minimally displaced anterior fracture of the left seventh rib. 2. Subtle left basilar airspace opacities, likely resolving pneumonia. Reviewed, dictated and finalized at location B. SORTER
== END 2023-09-10 09:18 | disposition home or self-care (01) ==
LOC: ANHIMG 09:19
PROVIDERS: PCP Family Medicine; Visit Provider Physician Assistant Medical
DX: J18.9 Pneumonia, unspecified organism (principal); R07.81 Pleurodynia; S22.32XA Fracture of one rib, left side, initial encounter for closed fracture; R91.8 Other nonspecific abnormal finding of lung field
CPT/HCPCS: 71046; 71110

== ENCOUNTER 2023-10-20 12:51 | Outpatient (CLI) | payer BC, SELFPAY ==
--- NOTE | ~2023-10-20 | CT_ITS ---
CT Scan of the Chest without Contrast: Clinical Indication: Chest pain Technique: Contiguous sections were acquired throughout the chest without intravenous contrast. Dose reduction technique was used on this scan by utilizing automated exposure control and iterative recon struction technique. The dose-length product (DLP) was 115.97 mGy-cm. COMPARISON: 09/01/2023 Findings: There is no evidence of any significant mediastinal, hilar or axillary lymphadenopathy. The mediastin al soft tissues appear normal. There is no evidence of pleural or pericardial effusion. The lungs are clear. No pulmonary nodules or infiltrates are noted. Images through the upper abdomen reveal no abnormalities. Impression: No significant abnormalities seen. Reviewed, dictated and finalized at location . Impression: No significant abnormalities seen.
== END 2023-10-20 12:52 | disposition home or self-care (01) ==
PROVIDERS: PCP Family Medicine; Visit Provider Physician Assistant Medical
DX: R07.89 Other chest pain (principal); R93.89 Abnormal findings on diagnostic imaging of other specified body structures
CPT/HCPCS: 71250

== ENCOUNTER 2024-02-26 01:13 | Day surgery (SDC) | payer BC, SELFPAY ==
[2024-02-06 10:48] VITALS: BMI 25.4
--- NOTE | 2024-02-06 11:06 | SUR.PREOP ---
Spoke with patient regarding the medication Warfarin. Pt. verbalizes understanding that the last dose of Warfarin is to be taken on 02/21/2024 and the endoscopist will let the patient know when to resume at discharge.
[2024-02-26 07:38] VITALS: BP 137/103; PULSE 95; RESP 18; TEMP 36.1; O2SAT 99
[2024-02-26] MEDS: LACTATED RINGERS 1,000 ML 150 ML IV CONT (07:41)
--- NOTE | 2024-02-26 08:05 | WPDANESEPPF ---
Anes - Initial Pre Proc Eval Procedure: Operation Date: 02/26/24 08:30 Proposed Procedures p Esophagogastroduodenoscopy - Art Saenz MD Date/Time: 02/26/24 08:05 Surgeon: Art Saenz MD Pre Op Diagnosis: Other chest pain Patient Data Age: 53 Gender: F Height: 1.5 m Weight: 57 kg Last Vital Signs Temp 96.9 F L 02/26/24 07:38 Pulse 95 02/26/24 07:38 Resp 18 02/26/24 07:38 BP 137/103 H 02/26/24 07:38 Pulse Ox 99 02/26/24 07:38 O2 Del Method Room Air 02/26/24 07:38 Allergies Allergy/AdvReac Type Severity Reaction Status Date / Time clindamycin Allergy Unknown hives Verified 02/26/24 07:33 Sulfa (Sulfonamide Allergy Unknown hives Verified 02/26/24 07:33 Antibiotics) rosuvastatin AdvReac Unknown Feet Verified 02/26/24 07:33 cramping and aching Home Medications Medication Instructions Recorded Confirmed Type mesalamine 1.2 gram tablet,delayed 1.2 g PO BID 08/08/19 02/26/24 History release linaclotide 290 mcg capsule 290 mcg PO QAM 05/25/20 02/26/24 History (Linzess) melatonin 3 mg capsule 3 mg PO HS 05/25/20 02/26/24 History niacin 500 mg tablet 500 mg PO DAILY 05/25/20 02/26/24 History omeprazole 20 mg capsule,delayed 20 mg PO DAILY #90 caps 06/27/20 02/26/24 Rx release topiramate 50 mg tablet 100 mg PO DAILY #30 tabs 08/14/21 02/26/24 Rx vortioxetine 20 mg tablet 20 mg PO DAILY #30 tabs 08/14/21 02/26/24 Rx (Trintellix) warfarin 1 mg tablet 1 mg PO DAILY 08/14/21 02/26/24 History vilazodone 20 mg tablet (Viibryd) 20 mg PO DAILY #90 tabs 01/16/22 02/26/24 Rx berberine-herbal comb no.18 capsule 1 cap PO DAILY 04/12/22 02/26/24 History cholecalciferol (vitamin D3) 50 50 mcg PO DAILY 04/12/22 02/26/24 History mcg (2,000 unit) capsule coenzyme Q10 75 mg capsule (Ultra 75 mg PO DAILY 04/12/22 02/26/24 History CoQ10) valacyclovir 1 gram tablet 2,000 mg PO Q12H PRN Cold Sores 04/12/22 02/26/24 History (Valtrex) fremanezumab-vfrm 225 mg/1.5 mL 225 mg subcut MONTHLY 05/13/23 02/26/24 History subcutaneous auto-injector (Ajovy) lisinopril 10 mg tablet 10 mg PO DAILY #90 tabs 08/05/23 02/26/24 Rx dextroamphetamine-amphetamine 10 10 mg PO BID #60 tabs 08/07/23 02/26/24 Rx mg tablet (Adderall) albuterol sulfate 90 mcg/actuation 1 inh inhalation Q4H PRN shortness 08/28/23 02/26/24 Rx aerosol inhaler of breath or wheezing #8.5 grams Patient hx anesthesia problems: none Family hx anesthesia problems: none Results Review: All pre-operative results and documents have been reviewed as part of the pre-operative evaluation. [facility] Past Medical History Medical History COVID-19 DVT (deep venous thrombosis) GERD (gastroesophageal reflux disease) History of Pulmonary embolism Restless leg syndrome Ulcerative colitis, chronic (vaginal after ) Ventral hernia Surgical History Surgical History H/O abdominoplasty H/O laparoscopy (~2011) Op Lap extensive adhesiolysis with the RSO Dr Ojeda. H/O: hysterectomy (~2001) History of appendectomy Lap Appendectomy History of section (~1995) History of mastopexy Ptosis-bilateral History of right salpingo-oophorectomy (~2011) Dr Ojeda [place] teeth removed Family History Family History Father Hypertension Malignant neoplasm of prostate Alzheimer disease Mother Family history of malignant neoplasm of breast in first degree relative Cerebrovascular accident Other Depression Social History Social History (Updated 10/23/23 @ 08:41 by Ashely Hoover [facility]) Smoking packs per day: 0.5 Smoking cigarettes per day: 10.0 Years smoked: 30 Smoking pack-years: 15.00 Smoking status: Current every day smoker Tobacco type: cigarettes Second hand tobacco smok
--- NOTE | 2024-02-26 08:24 | PM.HPGS ---
History of Present Illness History of Present Illness Consent: Risks, benefits, and alternatives have been discussed and questions answered. Patient agrees to proceed with procedure. Chief complaint: Other chest pain Narrative: Zen Garcia is a 53 year old female with intermittent chest pain, on omeprazole for more than 20 years Review of Systems Review of Systems: All systems reviewed & are unremarkable except as noted in HPI and below PMFSH Past Medical History Medical History (Updated 02/26/24 @ 08:25 by Art Saenz MD) COVID-19 DVT (deep venous thrombosis) GERD (gastroesophageal reflux disease) History of Non-cardiac chest pain Pulmonary embolism Restless leg syndrome Ulcerative colitis, chronic (vaginal after ) Ventral hernia Surgical History Surgical History H/O abdominoplasty H/O laparoscopy (~2011) Op Lap extensive adhesiolysis with the RSO Dr Ojeda. H/O: hysterectomy (~2001) History of appendectomy Lap Appendectomy History of section (~1995) History of mastopexy Ptosis-bilateral History of right salpingo-oophorectomy (~2011) Dr Ojeda [place] teeth removed Family History Family History Father Hypertension Malignant neoplasm of prostate Alzheimer disease Mother Family history of malignant neoplasm of breast in first degree relative Cerebrovascular accident Other Depression Social History Social History (Updated 10/23/23 @ 08:41 by Ashely Hoover CMA) Smoking packs per day: 0.5 Smoking cigarettes per day: 10.0 Years smoked: 30 Smoking pack-years: 15.00 Smoking status: Current every day smoker Tobacco type: cigarettes Second hand tobacco smoke exposure: Yes Smoking end date: 07/07/16 Alcohol intake: current Drinks per week: 2 Alcohol use details: social drinker Substance use: never Substance use type: does not use Lack of Transportation: YES Lack of Food: Never True Current Housing: I Have Housing Concerned About Future Housing: No Difficulty Paying Gas/Electric Bills: No Difficulty Paying for Meds: No Currently Unemployed: No Education: Associate Degree Difficulty w/ Childcare or Family Care: No Living arrangements: other Additional living arrangements comments: with sp Occupation/Education: occupation Gender identity (if verbalized by the patient): Female Sexual Orientation (if Verbalized by the Patient): Straight or Heterosexual Spiritual care concerns: No Meds Home Medications and Allergies Home Medications Medication Instructions Recorded Confirmed Type mesalamine 1.2 gram tablet,delayed 1.2 g PO BID 08/08/19 02/26/24 History release linaclotide 290 mcg capsule 290 mcg PO QAM 05/25/20 02/26/24 History (Linzess) melatonin 3 mg capsule 3 mg PO HS 05/25/20 02/26/24 History niacin 500 mg tablet 500 mg PO DAILY 05/25/20 02/26/24 History omeprazole 20 mg capsule,delayed 20 mg PO DAILY #90 caps 06/27/20 02/26/24 Rx release topiramate 50 mg tablet 100 mg PO DAILY #30 tabs 08/14/21 02/26/24 Rx vortioxetine 20 mg tablet 20 mg PO DAILY #30 tabs 08/14/21 02/26/24 Rx (Trintellix) warfarin 1 mg tablet 1 mg PO DAILY 08/14/21 02/26/24 History vilazodone 20 mg tablet (Viibryd) 20 mg PO DAILY #90 tabs 01/16/22 02/26/24 Rx berberine-herbal comb no.18 capsule 1 cap PO DAILY 04/12/22 02/26/24 History cholecalciferol (vitamin D3) 50 50 mcg PO DAILY 04/12/22 02/26/24 History mcg (2,000 unit) capsule coenzyme Q10 75 mg capsule (Ultra 75 mg PO DAILY 04/12/22 02/26/24 History CoQ10) valacyclovir 1 gram tablet 2,000 mg PO Q12H PRN Cold Sores 04/12/22 02/26/24 History (Valtrex) fremanezumab-vfrm 225 mg/1.5 mL 225 mg subcut MONTHLY 05/13/23 02/26/24 History subcutaneous auto-injector (Ajovy) lisinopril 10 mg tablet 10 mg PO DAILY #90 tabs
--- NOTE | 2024-02-26 08:25 | SUR.PREOP ---
0815: DR SHEPARD MADE AWARE OF PT BLOOD PRESSURES, NO NEW ORDERS, DR SEEING PT.
[2024-02-26 08:37] VITALS: BP 135/74; PULSE 98; RESP 19; O2SAT 97
[2024-02-26 08:47] VITALS: BP 113/62; PULSE 93; RESP 23; O2SAT 98
[2024-02-26 08:57] VITALS: BP 127/72; PULSE 83; RESP 22; O2SAT 100
== END 2024-02-26 09:14 ==
PROVIDERS: PCP Family Medicine; Referring Provider Family Medicine; Visit Provider Internal Medicine Gastroenterology
PROC: 0DJ08ZZ Inspection of Upper Intestinal Tract, Via Natural or Artificial Opening Endoscopic (ICD-10-PCS; CPT 43235; principal; 2024-02-26 08:30)
DX: R07.89 Other chest pain (principal); K29.70 Gastritis, unspecified, without bleeding; K44.9 Diaphragmatic hernia without obstruction or gangrene; K21.9 Gastro-esophageal reflux disease without esophagitis; G25.81 Restless legs syndrome; F17.210 Nicotine dependence, cigarettes, uncomplicated; Z79.01 Long term (current) use of anticoagulants; Z79.51 Long term (current) use of inhaled steroids; Z98.890 Other specified postprocedural states; Z86.718 Personal history of other venous thrombosis and embolism; Z80.42 Family history of malignant neoplasm of prostate; Z80.3 Family history of malignant neoplasm of breast; Z82.49 Family history of ischemic heart disease and other diseases of the circulatory system
CPT/HCPCS: 43239; 88305; J2704; J7120

== ENCOUNTER 2024-04-09 15:03 | Outpatient (CLI) | payer BC, SELFPAY ==
--- NOTE | ~2024-04-09 | MM_ITS ---
EXAMINATION: MM screening shaq BI w sergio HISTORY: Screening TECHNIQUE: Craniocaudal and mediolateral oblique 3-D tomosynthesis images were obtained and synthetic 2-D images were generated. CAD analysis was submitted and interpreted. COMPARISON: Comparison to multiple prior studies sequentially, with oldest reviewed study dated 08/2016. BREAST PARENCHYMAL COMPOSITION: Dense: The breasts are heterogeneously dense, which may obscure small masses FINDINGS: There is no evidence of suspicious mass, calcification, or architectural distortion to sugg est malignancy in either breast. There has been no suspicious interval change. IMPRESSION: 1. No mammographic evidence of malignancy. 2. Recommend routine screening mammography in one year. BI-RADS Category 1: Negative Reviewed, dictated and finalized at location B.
== END 2024-04-09 15:04 | disposition home or self-care (01) ==
LOC: ANHIMG 15:27
PROVIDERS: PCP Family Medicine; Visit Provider Obstetrics & Gynecology
DX: Z12.31 Encounter for screening mammogram for malignant neoplasm of breast (principal); Z80.3 Family history of malignant neoplasm of breast
CPT/HCPCS: 77063; 77067

== ENCOUNTER 2024-09-29 12:05 | Outpatient (CLI) | payer BC, SELFPAY ==
--- NOTE | ~2024-09-29 | XR_ITS ---
3 VIEWS LUMBAR SPINE Ordering provider: Albertina Lea DC History: . Segmental and somatic dysfunction of lumbar region . Comparison: May 09, 2023 FINDINGS: VERTEBRAL BODIES: No visible fracture or subluxation. Spondylolysis at the level of L5-S1 with spondy lolisthesis. DISK SPACES: Normal. SOFT TISSUES: Normal. IMPRESSION: No acute osseous abnormality lumbar spine. Spondylolisthesis with spondylolysis at the level of L5-S1. Reviewed, dictated and finalized at location A.
--- NOTE | ~2024-09-29 | XR_ITS ---
[id number] Ordering provider: Albertina Lea DC History: . Radiculopathy, cervicothoracic region . Comparison: None. FINDINGS: VERTEBRAL BODIES: Normal height and alignment. No visible fracture or subluxation. The dens is intact . DISK SPACES: Well maintained. PARASPINOUS SOFT TISSUES: No prevertebral soft tissue swelling. IMPRESSION: No acute osseous abnormality cervical spine. . Reviewed, dictated and finalized at location A.
--- NOTE | ~2024-09-29 | XR_ITS ---
3 VIEWS THORACIC SPINE Ordering provider: Albertina Lea DC History: . Segmental and somatic dysfunction of thoracic region . Comparison: None. FINDINGS: VERTEBRAL BODIES: Normal height and alignment. No visible fracture or subluxation. DISK SPACES: Multilevel degenerative disc disease. SOFT TISSUES: Normal. IMPRESSION: No acute osseous abnormality of the thoracic spine. Multilevel degenerative disc disease. Reviewed, dictated and finalized at location A.
== END 2024-09-29 12:06 | disposition home or self-care (01) ==
PROVIDERS: PCP Family Medicine
DX: M51.34 Other intervertebral disc degeneration, thoracic region (principal); M43.17 Spondylolisthesis, lumbosacral region; M99.01 Segmental and somatic dysfunction of cervical region; M99.02 Segmental and somatic dysfunction of thoracic region; M99.03 Segmental and somatic dysfunction of lumbar region; M54.41 Lumbago with sciatica, right side
CPT/HCPCS: 72040; 72072; 72100

== ENCOUNTER 2024-10-05 10:29 | Outpatient (CLI) | payer BC, SELFPAY ==
--- NOTE | ~2024-10-05 | MR_ITS ---
MR breast BI wo/w con 10/05/2024 16:24 CDT INDICATION: Dense breast. TECHNIQUE: MRI of the breasts perform using standard protocol pre-and post IV contrast with the follo wing sequences: Axial T2 STIR, axial T1, axial vibrant T1 with fat suppression precontrast and multip hasic postcontrast. ProHance 11 mL administered intravenously. COMPARISON: Comparison to multiple prior studies sequentially, with oldest reviewed study dated 09/17. FINDINGS: The breasts are composed of heterogeneously content. Right breast: There are no abnormalities on the precontrast sequences. There is minimal background pa renchymal enhancement. No enhancing lesions following contrast administration. No areas of enhancem ent meeting threshold criteria on CAD analysis. No evidence of signal abnormalities in the axillary or internal mammary node distributions. LEFT BREAST: No signal abnormalities on precontrast sequences. There is mild background parenchymal enhancement. There are scattered nodular areas of nonmass-like enhancement in the lateral aspect of t he left breast, likely background enhancement. No enhancing lesions following contrast administration . No areas of enhancement meeting threshold criteria on CAD analysis. No evidence of signal abnorm alities in the axillary or internal mammary node distributions. IMPRESSION: 1: Right breast: Negative. No evidence of malignancy. BI-RADS category 1. Recommend annual mammo graphy follow-up. 2: Left breast: Scattered areas of nodular non-masslike enhancement lateral aspect of the left breas t, likely background enhancement. Recommend correlation with left breast ultrasound to exclude underl ema mass. BI-RADS CATEGORY 0 - INCOMPLETE STUDY, NEED ADDITIONAL IMAGING EVALUATION. Reviewed, dictated and finalized at location A. IMPRESSION: 1: Right breast: Negative. No evidence of malignancy. BI-RADS category 1. Recommend annual mammography follow-up. 2: Left breast: Scattered areas of nodular non-masslike enhancement lateral as pect of the left breast, likely background enhancement. Recommend correlation w ith left breast ultrasound to exclude underlying mass. BI-RADS CATEGORY 0 - INC OMPLETE STUDY, NEED ADDITIONAL IMAGING EVALUATION.
--- OUTSIDE RECORDS SUMMARY | 2024-10-05 11:33 | XMS_ITS | Encounter Summary ---
Author Organization [facility] [employer] 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 Gender Identity Not on file Sexual Orientation Straight 12/29/2020 8: 23 AM CDT documented as of this encounter Plan of Treatment Not on file documented as of this encounter Procedures Procedure Name Priority Date/Time Associated Diagnosis Comments VASCULAR LABORATORY REPORT 10/20/2017 10:34 AM CDT documented in this encounter Results * VASCULAR LABORATORY REPORT (10/20/2017 10:34 AM CDT) Anatomical Region Laterality Modality Ultrasound us Provider Scanning CV VASCULAR PROCEDURES Final R esult documented in this encounter Visit Diagnoses Not on filedocumented in this encounter Care Teams Retail Sales Clerk Relationship Specialty Start Date End Date Bayron Ferraro MD [address] [place] [address] PCP - General 03/26/17 Rossi Mckeon MD [address] [place] [address] Medical Oncologist/Dentist Attendant Hematology 08/24/20 documented as of this encounter
--- OUTSIDE RECORDS SUMMARY | 2024-10-05 11:33 | XMS_ITS | Encounter Summary ---
Author Organization [facility] Address [address] [place] [address] Phone Care Team Providers Care Homeowner Association Manager Name Role Phone Bayron Ferraro MD Primary Care Provider Rossi Mckeon MD Unavailable [phone] Encounter Details Date Type Department Care Team (Latest Contact Info) Description 01/24/2018 Orders Only [facility] Scanning, Provider Social History Tobacco Use Types Packs/Day Years Used Date Smoking Tobacco: Former Smokeless Tobacco: Never Comments Unknown Sex and Gender Information Value Date Recorded Sex Assigned at Not on file 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 Gender Identity Not on file Sexual Orientation Straight 12/29/2020 8: 23 AM CDT documented as of this encounter Plan of Treatment Not on file documented as of this encounter Procedures Procedure Name Priority Date/Time Associated Diagnosis Comments SCAN - LABS 01/24/2018 documented in this encounter Results * SCAN - LABS (01/24/2018) us Provider Scanning Edited Result - Final documented in this encounter Visit Diagnoses Not on filedocumented in this encounter Care Teams Homeowner Association Manager Relationship Specialty Start Date End Date Bayron Ferraro MD [address] [place] [address] PCP - General 03/26/17 Rossi Mckeon MD [address] [place] [address] Medical Oncologist/Shipping Inspector Hematology 08/24/20 documented as of this encounter
--- OUTSIDE RECORDS SUMMARY | 2024-10-05 11:33 | XMS_ITS ---
Author Organization [facility] [employer] [facility] Address [facility] [facility] [address] [facility] [address] [place] [address] Care Team Providers Care Sales Process Manager Name Role Phone Bayron Ferraro MD Primary Care Provider Tonja Chowdary Unavailable [phone] REASON FOR VISIT RE:Important Update [facility] Social History Sex Assigned At : Social History Observation Description Sex Assigned At Female Encounters Encounter Location Date Provider Diagnosis [place] [address] [facility] [address] [place] [address] 10/04/2024 Tonja Inman Plan Of Treatment Next Appt Details Provider Name:Tonja Inman , 12/27/2024 08:15:00 AM, [address], [facility] [address], [place], [address], Progress Notes * RUCHI AN LDOB:[birth year] (54 yo F)Acc No.[id number]:10/04/2024 Patient: RUCHI SHEIKH :1970 A ge:54 Y S ex:Female Address:[address] [place] [address], [address] * true * Date: Generated for Printi ng/Faxing/eTransmitting on: 0 10/05/2024 11:33 AM CDT
--- OUTSIDE RECORDS SUMMARY | 2024-10-05 11:34 | XMS_ITS | Encounter Summary ---
Author Organization [facility] [employer] [facility] Address [address] [place] [address] Phone Care Team Providers Care Ear Nose And Throat Specialist Name Role Phone Bayron Ferraro MD Primary Care Provider Rossi Mckeon MD Unavailable [phone] Encounter Details Date Type Department Care Team (Latest Contact Info) Description 02/16/2020 Orders Only [facility] Scanning, Provider Social History Tobacco Use Types Packs/Day Years Used Date Smoking Tobacco: Former Cigarettes Q uit: 09/2017 Smokeless Tobacco: Never Alcohol Use Standard Drinks/Week Comments Yes 0 (1 standard drink = 0.6 oz pur e alcohol) occasional Comments No Sex and Gender Information Value Date Recorded Sex Assigned at Not on file 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 Gender Identity Not on file Sexual Orientation Straight 12/29/2020 8: 23 AM CDT documented as of this encounter Plan of Treatment Not on file documented as of this encounter Procedures Procedure Name Priority Date/Time Associated Diagnosis Comments SCAN - LABS 02/16/2020 documented in this encounter Results * SCAN - LABS (02/16/2020) us Provider Scanning Final Result documented in this encounter Visit Diagnoses Not on filedocumented in this encounter Care Teams Ear Nose And Throat Specialist Relationship Specialty Start Date End Date Bayron Ferraro MD [address] [place] [address] PCP - General 03/26/17 Rossi Mckeon MD [address] [place] [address] Medical Oncologist/Mercury Cracking Tester Hematology 08/24/20 documented as of this encounter
--- OUTSIDE RECORDS SUMMARY | 2024-10-05 11:34 | XMS_ITS | Encounter Summary ---
Author Organization [facility] [employer] [facility] Address [address] [place] [address] Phone Care Team Providers Care Rad Technologist Name Role Phone Bayron Ferraro MD Primary Care Provider Rossi Mckeon MD Unavailable [phone] Encounter Details Date Type Department Care Team (Latest Contact Info) Description 04/18/2020 Orders Only [facility] Scanning, Provider Social History Tobacco Use Types Packs/Day Years Used Date Smoking Tobacco: Former Cigarettes Q uit: 09/2017 Smokeless Tobacco: Never Alcohol Use Standard Drinks/Week Comments Yes 0 (1 standard drink = 0.6 oz pur e alcohol) occasional Comments No Sex and Gender Information Value Date Recorded Sex Assigned at Not on file 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 Gender Identity Not on file Sexual Orientation Straight 12/29/2020 8: 23 AM CDT documented as of this encounter Plan of Treatment Not on file documented as of this encounter Procedures Procedure Name Priority Date/Time Associated Diagnosis Comments SCAN - LABS 04/18/2020 documented in this encounter Results * SCAN - LABS (04/18/2020) us Provider Scanning Final Result documented in this encounter Visit Diagnoses Not on filedocumented in this encounter Care Teams Rad Technologist Relationship Specialty Start Date End Date Bayron Ferraro MD [address] [place] [address] PCP - General 03/26/17 Rossi Mckeon MD [address] [place] [address] Medical Oncologist/Bank Worker Hematology 08/24/20 documented as of this encounter
--- OUTSIDE RECORDS SUMMARY | 2024-10-05 11:34 | XMS_ITS | CONTINUITY OF CARE DOCUMENT ---
Author Name jo ann cherry Address Unknown Organization [facility] Address [address] [place] [address] Phone [phone] Care Team Providers Care Plumber And Tinner Name Role Phone Alejandro SHELBY, Denise Unavailable [phone] ZACHARY CLARKE MD Unavailable [phone] INSURANCE PROVIDERS Payer name Policy type / Coverage type Zuleika red libertarian ID [employer] [facility] Other [id number]
--- OUTSIDE RECORDS SUMMARY | 2024-10-05 11:34 | XMS_ITS | Encounter Summary ---
Author Organization [facility] Address [address] [place] [address] Phone Care Team Providers Care Art Installer Name Role Phone Bayron Ferraro MD Primary Care Provider Rossi Mckeon MD Unavailable [phone]- [phone] Encounter Details Date Type Department Care Team (Latest Contact Info) Description 12/03/2019 Orders Only [facility] Scanning, Provider Social History Tobacco Use Types Packs/Day Years Used Date Smoking Tobacco: Former Cigarettes Q uit: 09/2017 Smokeless Tobacco: Never Alcohol Use Standard Drinks/Week Comments Yes 0 (1 standard drink = 0.6 oz pur e alcohol) occasional Comments No Sex and Gender Information Value Date Recorded Sex Assigned at Not on file Legal 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 Female 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 Gender Identity Not on file Sexual Orientation Straight 12/29/2020 8: 23 AM CDT documented as of this encounter Plan of Treatment Not on file documented as of this encounter Procedures Procedure Name Priority Date/Time Associated Diagnosis Comments SCAN - LABS 12/03/2019 documented in this encounter Results * SCAN - LABS (12/03/2019) us Provider Scanning Final Result documented in this encounter Visit Diagnoses Not on filedocumented in this encounter Care Teams Art Installer Relationship Specialty Start Date End Date Bayron Ferraro MD [address] [place] [address] PCP - General 03/26/17 Rossi Mckeon MD [address] [place] [address] Medical Oncologist/Supervisor Roving Hematology 08/24/20 documented as of this encounter
--- OUTSIDE RECORDS SUMMARY | 2024-10-05 11:34 | XMS_ITS | Encounter Summary ---
Author Organization [facility] Address [address] [place] [address] Phone Care Team Providers Care Nba Player Name Role Phone Bayron Ferraro MD Primary Care Provider Rossi Mckeon MD Unavailable [phone]- [phone] Encounter Details Date Type Department Care Team (Latest Contact Info) Description 11/19/2019 Orders Only [facility] Scanning, Provider Social History Tobacco Use Types Packs/Day Years Used Date Smoking Tobacco: Former Cigarettes Q uit: 09/2017 Smokeless Tobacco: Never Alcohol Use Standard Drinks/Week Comments Yes 0 (1 standard drink = 0.6 oz pur e alcohol) occasional Comments No Sex and Gender Information Value Date Recorded Sex Assigned at Not on file Legal Sex Female 7:48 PM 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 Gender Identity Not on file Sexual Orientation Straight 12/29/2020 8: 23 AM CDT documented as of this encounter Plan of Treatment Not on file documented as of this encounter Procedures Procedure Name Priority Date/Time Associated Diagnosis Comments SCAN - LABS 11/19/2019 documented in this encounter Results * SCAN - LABS (11/19/2019) us Provider Scanning Final Result documented in this encounter Visit Diagnoses Not on filedocumented in this encounter Care Teams Nba Player Relationship Specialty Start Date End Date Bayron Ferraro MD [address] [place] [address] PCP - General 03/26/17 Rossi Mckeon MD [address] [place] [address] Medical Oncologist/Senior Research Fellow Hematology 08/24/20 documented as of this encounter
--- OUTSIDE RECORDS SUMMARY | 2024-10-05 11:34 | XMS_ITS ---
Author Organization [facility] Address [address] [place] [address] Care Team Providers Care Mechanical Assembly Technician Name Role Phone Bayron Ferraro MD Primary Care Provider Unavaila Ronak Fragoso Unavailable [phone] Betito Gastelum Unavailable Unavailable REASON FOR VISIT UC Warfarin 4ft11 125 Encounters Encounter Location Date Provider Diagnosis [facility] [address] [place] [address] 08/05/2024 Ronak Santoyo Encounter for screening for malignant neoplasm of colon Z12.11 and Ulcerative colitis K51.90 Assessments Encounter Date Diagnosis (ICD Code) Assessment Notes Treatment Notes Treatment Clinical Notes Section Notes 08/05/2024 Encounter for screening for malignant neoplasm of colon (ICD-10 - Z12.11) 08/05/2024 Ulcerative colitis (ICD-10 - K51.90) Plan Of Treatment Next Appt Details Follow Up: Repeat in 2 years , Reason: Progress Notes * Zen AN LDOB:[birth year] (54 yo F)Acc No.[id number]:08/05/2024 Patient: Zen SHEIKH Joshua Provider: Jesse Santoyo MD :1970 A ge:54 Y S ex:Female Date:08/05/2024 [place] [place] Pcp:Bayron Ferraro MD Subjective: * Chief Complaints: * U C Warfarin 4ft11 125 * Medical History: * Surgical History: * Hospitalization/Major Diagno stic Procedure: * Medications: Objective: * Vitals: Assessment: * Assessment: 1. E ncounter for screening for malignant neoplasm of colon - Z12.11 (Primary) 2 . U lcerative colitis - K51.90 Plan: * Treatment: * Procedure Codes: 4 5380 COLONOSCOPY AND BIOPSY, Modifiers: 33 * Follow Up: R aquiles in 2 years * Images: * ON THERAPIST Sign off status: Completed true * Provider: Jesse Santoyo MD Date: 0 08/05/2024 Generated for Eliseo paula/Kari/Juvencioitting on: 0 10/05/2024 11:33 AM CDT
--- OUTSIDE RECORDS SUMMARY | 2024-10-05 11:34 | XMS_ITS | Encounter Summary ---
Author Organization [facility] Address [address] [place] [address] Phone Care Team Providers Care Balance Bridge Assembler Name Role Phone Bayron Ferraro MD Primary Care Provider Rossi Mckeon MD Unavailable [phone]- [phone] Encounter Details Date Type Department Care Team (Latest Contact Info) Description 01/26/2020 Orders Only [facility] Scanning, Provider Social History Tobacco Use Types Packs/Day Years Used Date Smoking Tobacco: Former Cigarettes Q uit: 09/2017 Smokeless Tobacco: Never Alcohol Use Standard Drinks/Week Comments Yes 0 (1 standard drink = 0.6 oz pur e alcohol) occasional Comments No Sex and Gender Information Value Date Recorded Sex Assigned at Not on file Legal Sex Female 7:48 PM 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 Gender Identity Not on file Sexual Orientation Straight 12/29/2020 8: 23 AM CDT documented as of this encounter Plan of Treatment Not on file documented as of this encounter Procedures Procedure Name Priority Date/Time Associated Diagnosis Comments SCAN - LABS 01/26/2020 documented in this encounter Results * SCAN - LABS (01/26/2020) us Provider Scanning Final Result documented in this encounter Visit Diagnoses Not on filedocumented in this encounter Care Teams Balance Bridge Assembler Relationship Specialty Start Date End Date Bayron Ferraro MD [address] [place] [address] PCP - General 03/26/17 Rossi Mckeon MD [address] [place] [address] Medical Oncologist/Composition Worker Hematology 08/24/20 documented as of this encounter
--- OUTSIDE RECORDS SUMMARY | 2024-10-05 11:34 | XMS_ITS | Encounter Summary ---
Author Organization [facility] Address [address] [place] [address] Phone Care Team Providers Care Plastic Tubing Insulation Supervisor Name Role Phone Bayron Ferraro MD Primary Care Provider Rossi Mckeon MD Unavailable [phone]- [phone] Encounter Details Date Type Department Care Team (Latest Contact Info) Description 02/01/2020 Orders Only [facility] Scanning, Provider Social History Tobacco Use Types Packs/Day Years Used Date Smoking Tobacco: Former Cigarettes Q uit: 09/2017 Smokeless Tobacco: Never Alcohol Use Standard Drinks/Week Comments Yes 0 (1 standard drink = 0.6 oz pur e alcohol) occasional Comments No Sex and Gender Information Value Date Recorded Sex Assigned at Not on file Legal Sex Female 7:48 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 Gender Identity Not on file Sexual Orientation Straight 12/29/2020 8: 23 AM CDT documented as of this encounter Plan of Treatment Not on file documented as of this encounter Procedures Procedure Name Priority Date/Time Associated Diagnosis Comments SCAN - LABS 02/01/2020 documented in this encounter Results * SCAN - LABS (02/01/2020) us Provider Scanning Final Result documented in this encounter Visit Diagnoses Not on filedocumented in this encounter Care Teams Plastic Tubing Insulation Supervisor Relationship Specialty Start Date End Date Bayron Ferraro MD [address] [place] [address] PCP - General 03/26/17 Rossi Mckeon MD [address] [place] [address] Medical Oncologist/Outreach Worker Hematology 08/24/20 documented as of this encounter
--- OUTSIDE RECORDS SUMMARY | 2024-10-05 11:34 | XMS_ITS | Encounter Summary ---
Author Organization [facility] Address [address] [place] [address] Phone Care Team Providers Care Dry Transfer Worker Name Role Phone Bayron Ferraro MD Primary Care Provider Rossi Mckeon MD Unavailable [phone]- [phone] Encounter Details Date Type Department Care Team (Late st Contact Info) Description 08/12/2018 Orders Only [facility] Scanning, Provider Social History Tobacco Use Types Packs/Day Years Used Date Smoking Tobacco: Former Cigarettes Q uit: 09/2017 Smokeless Tobacco: Never Alcohol Use Standard Drinks/Week Comments Yes 0 (1 standard drink = 0.6 oz pur e alcohol) occasional Comments No Sex and Gender Information Value Date Recorded Sex Assigned at Not on file Legal Sex Female 7:48 PM HOSPITAL EDUCATOR Gender Identity Not on file Sexual Orientation Straight 12/29/2020 8: 23 AM CDT documented as of this encounter Plan of Treatment Not on file documented as of this encounter Procedures Procedure Name Priority Date/Time Associated Diagnosis Comments SCAN - RADIOLOGY/IMAGING 08/12/2018 documented in this encounter Results * SCAN - RADIOLOGY/IMAGING (08/12/2018) Anatomical Region Laterality Modality Other us Provider Scanning Final Result documented in this encounter Visit Diagnoses Not on filedocumented in this encounter Care Teams Dry Transfer Worker Relationship Specialty Start Date End Date Bayron Ferraro MD [address] [place] [address] PCP - General 03/26/17 Rossi Mckeon MD [address] [place] [address] Medical Oncologist/Head Of Stock Hematology 08/24/20 documented as of this encounter
--- OUTSIDE RECORDS SUMMARY | 2024-10-05 11:34 | XMS_ITS | Encounter Summary ---
Author Organization [facility] Address [address] [place] [address] Phone Care Team Providers Care Music Educator Name Role Phone Bayron Ferraro MD Primary Care Provider Rossi Mckeon MD Unavailable [phone]- [phone] Encounter Details Date Type Department Care Team (Latest Contact Info) Description 12/02/2022 Orders Only [facility] Scanning, Provider Social History Tobacco Use Types Packs/Day Years Used Date Smoking Tobacco: Former Cigarettes Q uit: 09/2017 Smokeless Tobacco: Never Alcohol Use Standard Drinks/Week Comments Yes 0 (1 standard drink = 0.6 oz pur e alcohol) occasional Comments No Sex and Gender Information Value Date Recorded Sex Assigned at Not on file Legal Sex Female 7:48 PM SHANK 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 Gender Identity Not on file Sexual Orientation Straight 12/29/2020 8: 23 AM CDT documented as of this encounter Plan of Treatment Not on file documented as of this encounter Procedures Procedure Name Priority Date/Time Associated Diagnosis Comments SCAN - LABS 12/02/2022 documented in this encounter Results * SCAN - LABS (12/02/2022) us Provider Scanning Final Result documented in this encounter Visit Diagnoses Not on filedocumented in this encounter Care Teams Music Educator Relationship Specialty Start Date End Date Bayron Ferraro MD [address] [place] [address] PCP - General 03/26/17 Rossi Mckeon MD [address] [place] [address] Medical Oncologist/Floating Derrick Operator Hematology 08/24/20 documented as of this encounter
--- OUTSIDE RECORDS SUMMARY | 2024-10-05 11:34 | XMS_ITS | Encounter Summary ---
Author Organization [facility] Address [address] [place] [address] Phone Care Team Providers Care Assembly Operator Name Role Phone Bayron Ferraro MD Primary Care Provider Rossi Mckeon MD Unavailable [phone] Encounter Details Date Type Department Care Team (Latest Contact Info) Description 11/07/2022 Orders Only [facility] Scanning, Provider Social History Tobacco Use Types Packs/Day Years Used Date Smoking Tobacco: Former Cigarettes Q uit: 09/2017 Smokeless Tobacco: Never Alcohol Use Standard Drinks/Week Comments Yes 0 (1 standard drink = 0.6 oz pur e alcohol) occasional Comments No Sex and Gender Information Value Date Recorded Sex Assigned at Not on file Legal Sex Female 7:48 PM MOLD LOFT WORKER Gender Identity Not on file Sexual Orientation Straight 12/29/2020 8: 23 AM CDT documented as of this encounter Plan of Treatment Not on file documented as of this encounter Procedures Procedure Name Priority Date/Time Associated Diagnosis Comments SCAN - LABS 11/07/2022 documented in this encounter Results * SCAN - LABS (11/07/2022) us Provider Scanning Final Result documented in this encounter Visit Diagnoses Not on filedocumented in this encounter Care Teams Assembly Operator Relationship Specialty Start Date End Date Bayron Ferraro MD [address] [place] [address] PCP - General 03/26/17 Rossi Mckeon MD [address] [place] [address] Medical Oncologist/Line Builder Hematology 08/24/20 documented as of this encounter
--- OUTSIDE RECORDS SUMMARY | 2024-10-05 11:34 | XMS_ITS | Referral Summary ---
Author Organization [facility] Address [address] [place] [address] Care Team Providers Care Poured Pipe Maker Name Role Phone Bayron Ferraro MD Primary Care Provider Rossi Mckeon MD Unavailable +- [phone] Encounters Date Type Department Care Team Description 10/04/2024 Anticoagulation Visit [facility] Hematology [address] [facility] Floor 6 [place] [address] Lorraine Hood, RN 09/24/2024 Anticoagulation Visit [facility] Hematology [address] [facility] [address] 6 [place] [address] Lorraine Hood, RN 09/16/2024 Anticoagulation Visit [facility] Physicians [facility] Oncology [address] [place] [address] Jeana Morales NP 09/13/2024 Telephone [facility] General Neurology [address] [facility] 6th Floor [address] [place] [address] Marimar Frausto PA Ajovy PA Renewal 09/07/2024 1:18 PM CRANE LADLE PERSON - 09/07/2024 11:59 PM CRANE LADLE PERSON Hospital Encounter [facility] [address] [place] [address] Kevan Lemos MD Lumbar radiculitis (Primary Dx); Anterolisthesis of lumbar spine Discharge Disposition: Discharge to home or self care 08/31/2024 Anticoagulation Visit [facility] Hematology [address] [facility] Floor 6 [place] [address] Lorraine Hood, YURIY 08/24/2024 Orders Only [facility] Orthopaedic Surgery [address] [facility] 1st Floor [address] [place] [address] Kevan Lemos MD Anterolisthesis of lumbar spine (Primary Dx) 08/11/2024 Anticoagulation Visit [facility] Hematology [address] [facility] Floor 6 [place] [address] Lorraine Hood RN 08/04/2024 Telephone [facility] Orthopaedic Surgery [address] [place] [address] 2nd Floor [address] [place] [address] Kevan Lemos MD 08/02/2024 9:08 AM CRANE LADLE PERSON - 08/02/2024 11:59 PM CRANE LADLE PERSON Hospital Encounter [facility] ([facility]) [address] [place] [address] Kevan Lemos MD Right leg pain (Primary Dx); Bilateral low back pain, unspecified chronicity, unspecified whether sciatica present Discharge Disposition: Discharge to home or self care 07/20/2024 Anticoagulation Visit [facility] Hematology [facility] [facility] Floor 6 [place] [address] Lorraine Hood, YURIY 07/14/2024 Orders Only [facility] Orthopaedic Surgery [address] [facility] Medical Office Building [address] [place] [address] Kevan Lemos MD 07/14/2024 Telephone [facility] Orthopaedic Surgery [address] [facility] 1st Floor [address] [place] [address] Fariha Charles CMA from Last 3 Months Allergies Active Allergy Reactions Criticality Noted Date Comments Amoxicillin-Pot Clavulanate Itching,Other (See comments) Low 01/02/2022 Gave pt yeast infection Clindamycin Unknown 10/18/2017 Sulfasalazine Hives Medium 08/15/2023 Medications niacin 500 mg tabletIndications :hyperlipidemia Take 1 tablet (500 mg total) by mouth daily with breakfast Active thyroid (ARMOUR THYROID) 90 mg tablet daily. Active coenzyme Q10 100 mg capsule daily. Active MELATONIN ORAL TAKE 1 CAPSULE AT BEDTIME NEEDED. Active cholecalciferol (VITAMIN D-3) 5,000 unit capsule pt states once daily Active progesterone (PROMETRIUM) 200 mg capsule daily. Active vortioxetine (TRINTELLIX) 20 mg tabletIndications :major depressive disorder 1 tablet (20 mg total) daily Active dextroamphetamine -amphetamine (ADDERALL) 15 mg tablet 0.6667 tablets (10 mg total) 2 (two) times a day Active enoxaparin (LOVENOX) 100 mg/mL syringeIndication s:DVT (deep venous thrombosis) (HCC),Other pulmonary embolism without acute cor pulmonale, unspecified chronicity (HCC) Inject 0.9 mL (90 mg total) under the skin daily 5 mL 1 1 Active vilazodone (VIIBRYD) 40 mg tabletIndications :major depressive disorder 1 tablet (40 mg total) daily Active omeprazole (PriLOSEC) 40 mg capsule 2 Active Linzess 72 mcg capsule Take by mouth daily 2 Active valACYclovir (VALTREX) 500 mg tablet Take 1 tablet (500 mg total) by mouth daily 3 Active folic acid (FOLVITE) 1 mg tablet 4 Active lisinopriL (PRINIVIL,ZESTRIL ) 10 mg tablet Take 1 tablet (10 mg total) by mouth daily 3 Active atomoxetine (STRATTERA) 60 mg capsule 4 Active mesalamine (LIALDA) 1.2 gram EC tablet Take 2 tablets (2.4 g total) by mouth 2 (two) times a day 4 Active varenicline tartrate (CHANTIX ANTONINO) 0.5 mg (11)- 1 mg (42) tablet 4 Active warfarin (COUMADIN) 3 mg tabletIndications :Deep vein thrombosis (DVT) of other vein of lower extremity, unspecified chronicity, unspecified laterality (HCC),Other pulmonary embolism without acute cor pulmonale, unspecified chronicity (HCC) TAKE 1 TABLET(3 MG) BY MOUTH DAILY 90 tablet 3 4 Active topiramate (TOPAMAX) 100 mg tabletIndications :Migraine without aura and without status migrainosus, not intractable TAKE 2 TABLETS(200 MG) BY MOUTH EVERY MORNING 180 tablet 3 4 Active fremanezumab-vfrm (Ajovy Autoinjector) 225 mg/1.5 mL auto-injector subcutaneous auto-injectorIndi cations:Migraine without aura and without status migrainosus, not intractable Inject 1.5 mL (225 mg total) under the skin every 30 (thirty) days 1.5 mL 11 4 Active rizatriptan (MAXALT) 10 mg tabletIndications :Migraine Take 1 tablet (10 mg total) by mouth once as needed for migraine May repeat in 2 hours if unresolved. Do not exceed 30 mg in 24 hours. 9 tablet 5 4 03/26/20 25 Active traMADoL (ULTRAM) 50 mg tablet Take 1 tablet (50 mg total) by mouth every 8 (eight) hours as needed for pain 30 tablet 5 Active Active Problems Problem Noted Date Diagnosed Date Abdominal bloating 12/31/2023 Flatulence, eructation and gas pain 12/31/2023 GERD (gastroesophageal reflux disease) 4 Ulcerative (chronic) proctitis without complicat ions 12/31/2023 Anemia 08/24/2020 Migraine without aura and wi thout status migrainosus, not intractable 10/21/2019 Other pulmonary embolism without acute cor pulmo nale 12/09/2017 DVT (deep venous thrombosis) 10/21/2017 Headache 03/26/2017 Ulcerative colitis 05/11/2011 Social History Tobacco Use Types Packs/Day Years Used Date Smoking Tobacco: Every Day Cigarettes 0.3 0.8 Started: 12/31/2023; Last attempted to quit: 09/2017 Smokeless Tobacco: Never Tobacco Cessation:Ready to Q uit: Not Asked; Counseling Given: Not Answered Comments:Quit about a week ago. Alcohol Use Standard Drinks/Week Comments Yes 0 (1 standard drink = 0.6 oz pur e alcohol) occasional Comments No Sex and Gender Information Value Date Recorded Sex Assigned at Not on file Legal Sex Female 7:48 PM CRANE LADLE PERSON Gender Identity Not on file Sexual Orientation Straight 12/29/2020 8: 23 AM CDT Last Filed Vital Signs Vital Sign Reading Time Taken Comments Blood Pressure 120/73 09/07/2024 2:21 PM CRANE LADLE PERSON Pulse 112 09/07/2024 2:21 PM CRANE LADLE PERSON Temperature 36.7 C (98.1 F) 08/15/2023 10:35 AM CRANE LADLE PERSON Respiratory Rate 16 09/07/2024 2:21 PM CRANE LADLE PERSON Oxygen Saturation 99% 08/15/2023 10:35 AM CRANE LADLE PERSON Inhaled Oxygen Concentration - - Weight 57.3 kg (126 lb 6.4 oz) 06/07/2024 1:47 P M CRANE LADLE PERSON Height 151.3 cm (4' 11.57 ) 06/07/2024 1:[address] Body Mass Index 25.05 06/07/2024 1:47 PM CRANE LADLE PERSON Plan of Treatment Not on file Procedures Procedure Name Priority Date/Time Associated Diagnosis Comments PROTIME-INR Routine 10/04/2024 PROTIME-INR Routine 09/24/2024 PROTIME-INR Routine 09/16/2024 TRANSFORAMINAL EPIDURAL INJECTION LUMBAR SACRAL 1 LEVEL RIGHT Schedule Routine, Read Routine (OP Routine) 09/07/2024 2:15 PM CRANE LADLE PERSON Anterolisthesis of lumbar spine PROTIME-INR Routine 08/10/2024 TRANSFORAMINAL EPIDURAL INJECTION LUMBAR SACRAL 1 LEVEL RIGHT Schedule Routine, Read Routine (OP Routine) 08/02/2024 9:43 AM CRANE LADLE PERSON Bilateral low back pain, unspecified chronicity, unspecified whether sciatica present Right leg pain PROTIME-INR Routine 07/14/2024 COLONOSCOPY REPORT 10/13/2017 from Last 3 Months or Most Recently Relevant to Health Maintenance Results * (ABNORMAL) Protime-INR (10/04/2024) INR 2.00(A) 0.90 - 1.10 EXTERNAL LAB Blood Result [facility] Provider MD LAB BLOOD ORDERABLES Trina l Result Performing Organization Address [facility] de Phone Number EXTERNAL LAB * (ABNORMAL) Protime-INR (09/24/2024) INR 2.30(A) 0.90 - 1.10 EXTERNAL LAB Blood Result [facility] Provider MD LAB BLOOD ORDERABLES Trina l Result Performing Organization Address [facility] de Phone Number EXTERNAL LAB * (ABNORMAL) Protime-INR (09/16/2024) INR 1.40(A) 0.90 - 1.10 EXTERNAL LAB Blood 09/16/2024 Result [facility] Provider MD LAB BLOOD ORDERABLES Trina l Result Performing Organization Address [facility] de Phone Number EXTERNAL LAB * IR Transforaminal Epidural Injection Lumbar Sacral 1 Level Right (09/07/2024 2:15 PM CRANE LADLE PERSON) Narrative [facility]_PACS[facility] - 09/07/2024 2:17 PM CRANE LADLE PERSON The images from this study are not interpreted by Radiology. Please refer to the physician's procedure / OR operative note. Result [facility] Kevan Lemos MD IMG IR PROCEDURES Final Res ult Performing Organization Address [facility] de Phone Number [facility]_P[facility] * (ABNORMAL) Protime-INR (08/10/2024) INR 2.00(A) 0.90 - 1.10 EXTERNAL LAB Blood Result [facility] Provider MD LAB BLOOD ORDERABLES Trina l Result Performing Organization Address [facility] de Phone Number EXTERNAL LAB * IR Transforaminal Epidural Injection Lumbar Sacral 1 Level Right (08/02/2024 9:43 AM CRANE LADLE PERSON) Narrative RAMA_MARLENI[facility] - 08/02/2024 9:43 AM CRANE LADLE PERSON The images from this study are not interpreted by Radiology. Please refer to the physician's procedure / OR operative note. Kevan Lemos MD IMG IR PROCEDURES Final Res ult Performing Organization Address [facility]/ZIP Co de Phone Number [facility] * (ABNORMAL) Protime-INR (07/14/2024) INR 2.00(A) 0.90 - 1.10 EXTERNAL LAB Blood Historical Provider LAB BLOOD ORDERABLES Trina l Result Performing Organization Address [facility] Co de Phone Number EXTERNAL LAB * COLONOSCOPY REPORT (10/13/2017) Anatomical Region Laterality Modality Other Provider Scanning GI PROCEDURE ORDERABLES Final Result from Last 3 Months or Most Recently Relevant to Health Maintenance Insurance [facility] PPO [facility] HMO/PPO Address: [facility] [id number] [place] [id number] [employer] [facility] PPO [place] Advance Directives For more information, please contact: [phone] * Full Code (Latest Code Status on File) Date Activated Date Inactivated Comments 07/14/2018 8:43 AM 07/14/2018 1:17 PM Care Teams Poured Pipe Maker Relationship Specialty Start Date End Date Bayron Ferraro MD [address] [facility] [address] [place] [address] PCP - General 03/26/17 Rossi Mckeon MD [address] [place] [address] Medical Oncologist/Programmer Operator Numerical Control Hematology 08/24/20
--- OUTSIDE RECORDS SUMMARY | 2024-10-05 11:34 | XMS_ITS | Encounter Summary ---
Author Organization [facility] [employer] [facility] Address [address] [place] [address] Phone Care Team Providers Care Catering Assistant Name Role Phone Bayron Ferraro MD Primary Care Provider Rossi Mckeon MD Unavailable [phone] Encounter Details Date Type Department Care Team (Latest Contact Info) Description 04/25/2020 Orders Only [facility] Scanning, Provider Social History Tobacco Use Types Packs/Day Years Used Date Smoking Tobacco: Former Cigarettes Q uit: 09/2017 Smokeless Tobacco: Never Alcohol Use Standard Drinks/Week Comments Yes 0 (1 standard drink = 0.6 oz pur e alcohol) occasional Comments No Sex and Gender Information Value Date Recorded Sex Assigned at Not on file Legal Sex Female 7:48 PM QUALITY REP Gender Identity Not on file Sexual Orientation Straight 12/29/2020 8: 23 AM CDT documented as of this encounter Plan of Treatment Not on file documented as of this encounter Procedures Procedure Name Priority Date/Time Associated Diagnosis Comments SCAN - LABS 04/25/2020 documented in this encounter Results * SCAN - LABS (04/25/2020) us Provider Scanning Final Result documented in this encounter Visit Diagnoses Not on filedocumented in this encounter Care Teams Catering Assistant Relationship Specialty Start Date End Date Bayron Ferraro MD [address] [place] [address] PCP - General 03/26/17 Rossi Mckeon MD [address] [place] [address] Medical Oncologist/Feeder Operator Automatic Hematology 08/24/20 documented as of this encounter
--- OUTSIDE RECORDS SUMMARY | 2024-10-05 11:34 | XMS_ITS | Encounter Summary ---
Author Organization [facility] [employer] [facility] Address [address] [place] [address] Phone Care Team Providers Care Green Material Value Added Assessor Name Role Phone Bayron Ferraro MD Primary Care Provider Rossi Mckeon MD Unavailable [phone] Encounter Details Date Type Department Care Team (Latest Contact Info) Description 09/20/2019 Orders Only [facility] Scanning, Provider Social History Tobacco Use Types Packs/Day Years Used Date Smoking Tobacco: Former Cigarettes Q uit: 09/2017 Smokeless Tobacco: Never Alcohol Use Standard Drinks/Week Comments Yes 0 (1 standard drink = 0.6 oz pur e alcohol) occasional Comments No Sex and Gender Information Value Date Recorded Sex Assigned at Not on file Legal Sex Female 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 Gender Identity Not on file Sexual Orientation Straight 12/29/2020 8: 23 AM CDT documented as of this encounter Plan of Treatment Not on file documented as of this encounter Procedures Procedure Name Priority Date/Time Associated Diagnosis Comments SCAN - LABS 09/20/2019 documented in this encounter Results * SCAN - LABS (09/20/2019) us Provider Scanning Final Result documented in this encounter Visit Diagnoses Not on filedocumented in this encounter Care Teams Green Material Value Added Assessor Relationship Specialty Start Date End Date Bayron Ferraro MD [address] [place] [address] PCP - General 03/26/17 Rossi Mckeon MD [address] [place] [address] Medical Oncologist/Data Virtualization Consultant Hematology 08/24/20 documented as of this encounter
--- OUTSIDE RECORDS SUMMARY | 2024-10-05 11:34 | XMS_ITS | Encounter Summary ---
Author Organization [facility] [employer] [facility] Address [address] [place] [address] Phone Care Team Providers Care Rounder Hand Name Role Phone Bayron Ferraro MD Primary Care Provider Rossi Mckeon MD Unavailable [phone] Encounter Details Date Type Department Care Team (Latest Contact Info) Description 03/07/2020 Orders Only [facility] Scanning, Provider Social History Tobacco Use Types Packs/Day Years Used Date Smoking Tobacco: Former Cigarettes Q uit: 09/2017 Smokeless Tobacco: Never Alcohol Use Standard Drinks/Week Comments Yes 0 (1 standard drink = 0.6 oz pur e alcohol) occasional Comments No Sex and Gender Information Value Date Recorded Sex Assigned at Not on file 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 Sex Female 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 Gender Identity Not on file Sexual Orientation Straight 12/29/2020 8: 23 AM CDT documented as of this encounter Plan of Treatment Not on file documented as of this encounter Procedures Procedure Name Priority Date/Time Associated Diagnosis Comments SCAN - LABS 03/07/2020 documented in this encounter Results * SCAN - LABS (03/07/2020) us Provider Scanning Final Result documented in this encounter Visit Diagnoses Not on filedocumented in this encounter Care Teams Rounder Hand Relationship Specialty Start Date End Date Bayron Ferraro MD [address] [place] [address] PCP - General 03/26/17 Rossi Mckeon MD [address] [place] [address] Medical Oncologist/Ingot Supervisor Hematology 08/24/20 documented as of this encounter
--- OUTSIDE RECORDS SUMMARY | 2024-10-05 11:34 | XMS_ITS | Clinical Summary ---
Author Organization [employer] [facility] [place] Address [address] [place] [address] Phone Care Team Providers Care Clothing Cutter Name Role Phone Bayron Ferraro MD Primary Care Provider Allergies Active Allergy Reactions Criticality Noted Date Comments Amoxicillin-Pot Clavulanate Other (See Comments) 01/02/2022 Gave pt yeast infection Clindamycin Unknown 09/04/2009 Medications omeprazole (PRILOSEC) 20 mg Oral CpDR Take 20 mg by mouth daily. Active escitalopram oxalate (LEXAPRO) 20 mg tablet 5 Active topiramate (TOPAMAX) 100 mg tablet 5 Active topiramate (TOPAMAX) 50 mg tablet 5 Active rOPINIRole (REQUIP) 1 mg tablet 5 Active warfarin (COUMADIN) 3 mg tablet TAKE 1 TABLET(3 MG) BY MOUTH DAILY 1 Active linaCLOtide (LINZESS) 145 mcg capsule Take 145 mcg by mouth 2 times daily. 9 Active niacin (NIACOR) 500 mg tablet Take 500 mg by mouth. Active progesterone micronized (PROMETRIUM) 200 mg Capsule daily. Active thyroid, pork, (ARMOUR THYROID) 90 mg tablet daily. Active coenzyme Q10 100 mg Capsule daily. Active dextroamphetamine -amphetamine (ADDERALL) 20 mg tablet 20 mg. Active atomoxetine HCl (STRATTERA ORAL) Take by mouth. Active linaCLOtide (LINZESS) 72 mcg Capsule capsule 1 Active dextroamphetamine -amphetamine (ADDERALL) 15 mg tablet TAKE 1 TABLET BY MOUTH IN THE MORNING AND AT NOON 2 Active vilazodone (VIIBRYD) 40 mg Tablet TAKE 1 TABLET BY MOUTH EVERY DAY IN THE EVENING 2 Active Ajovy Autoinjector 225 mg/1.5 mL Auto-Injector 2 Active Active Problems Patient Care Coordination No te Formatting of this note migh t be different from the original. Pt denies any family hx of ovarian ca Primary Care: Bayron Ferraro MD (General) Referring Provider: Ashlyn Ojeda MD [address] [facility] [address] [place] [address] Other: Dr. Ojeda Problem Noted Date Diagnosed Date Axillary swelling 03/10/2015 Family history of malignant neoplasm of breast 0 09/04/2009 Benign breast lumps 09/04/2009 Crohn disease Psychiatric disorder HTN (hypertension) Resolved Problems Problem Noted Date Diagnosed Date Resolved Date Abnormal mammogram, unspecified 04/29/2013 03/10/2015 Family History Medical History Relation Name Comments Prostate Cancer Father Cancer Maternal Grandfather brain Cancer Maternal Grandmother brain Breast Cancer Mother Ovarian Cancer Neg Hx Relation Name Status Comments Father Maternal Grandfather Maternal Grandmother Mother Alive Social History Tobacco Use Types Packs/Day Years Used Date Smoking Tobacco: Every Day Tobacco Cessation:Ready to Q uit: No; Counseling Given: No Alcohol Use Standard Drinks/Week Comments Yes 0 (1 standard drink = 0.6 oz pur e alcohol) Comments No Sex and Gender Information Value Date Recorded Sex Assigned at Not on file Legal Sex Female 5:51 AM VETERINARIAN SMALL ANIMAL Gender Identity Not on file Sexual Orientation Not on file Occupation Industry Job Start Date Job End Date Not on file Not on file Not on file Not on file Not on file Not on file Not on file Not on file Last Filed Vital Signs Vital Sign Reading Time Taken Comments Blood Pressure 132/82 09/02/2022 9:02 AM VETERINARIAN SMALL ANIMAL Pulse 118 09/02/2022 9:02 AM VETERINARIAN SMALL ANIMAL Temperature 37.3 C (99.1 F) 09/02/2022 9:02 AM VETERINARIAN SMALL ANIMAL Respiratory Rate - - Oxygen Saturation 96% 09/02/2022 9:02 AM VETERINARIAN SMALL ANIMAL Inhaled Oxygen Concentration - - Weight 58.1 kg (128 lb) 09/02/2022 9:02 AM VETERINARIAN SMALL ANIMAL Height 148.6 cm (4' 10.5 ) 09/02/2022 9:02 AM CS T Body Mass Index 26.3 09/02/2022 9:02 AM VETERINARIAN SMALL ANIMAL Plan of Treatment Health Maintenance Due Date Last Done Comments DTAP/TDAP/TD VACCINES (1 - Tdap) 1990 HEPATITIS B VACCINES (1 of 3 - 19+ 3-dose series) 1990 PAP SMEAR 2001 FIT-DNA Q 3 years 2016 FIT/FOBT Q 1 year 2016 ZOSTER VACCINE (1 of 2) 2021 BREAST CANCER SCREENING 01/02/2023 01/03/20, 12/28/2020, 12/16/2019, Additional history exists Flex Sig/CT Colonography Q 5 years 07/14/20232018 INFLUENZA VACCINE (#1) 2024 COLORECTAL SCREENING 05/15/2031 05/15/2021, 07/14/19 Colorectal Cancer Screening 05/15/2031 Procedures Procedure Name Priority Date/Time Associated Diagnosis Comments MAMMO 3D ZARIA SCREEN BILAT W OR WO CAD Routine 01/02/2022 7:23 AM CDT Family history of malignant neoplasm of breast Visit for screening mammogram from Last 3 Months or Most Recently Relevant to Health Maintenance Results * MAMMO SCRN BILAT 3D ZARIA W OR WO CAD (01/02/2022 7:23 AM CDT) Anatomical Region Laterality Modality Breast Bilateral Mammography 01/02/2022 7:25 AM CDT Impressions 01/02/2022 8:41 AM CDT IMPRESSION: No mammographic evidence of malignancy in the bilateral breasts. Routine screening mammography is recommended in 1 year. OVERALL FINAL ASSESSMENT: BI-RADS CATEGORY 2 - Benign findings DICTATION LOCATION: [facility] 01/02/2022 8:41 AM CDT EXAMINATION: BILATERAL SCREENING DIGITAL MAMMOGRAPHY WITH TOMOSYNTHESIS AND CAD DATE: 01/02/2022 7:23 AM HISTORY: Routine screening mammography. COMPARISON: Multiple prior mammograms with dates ranging from 12/28/2020 to 05/06/2016. TECHNIQUE: A bilateral screening mammogram was performed. Low-dose full-field digital breast tomosynthesis examination was performed with 2D and 3D acquisitions. Examination is read in conjunction with computer aided detection. BREAST COMPOSITION: There are scattered areas of fibroglandular density. FINDINGS: There are post-operative findings of prior bilateral reduction mammoplasty. There are no suspicious masses, suspicious calcifications, or other suspicious findings in either breast. There has been no suspicious interval change. Computer aided detection was used in the interpretation of this examination. Procedure Note Milton Estevez MD - 01/02/2022 EXAMINATION: BILATERAL SCREENING DIGITAL MAMMOGRAPHY WITH TOMOSYNTHESIS AND CAD DATE: 01/02/2022 7:23 AM HISTORY: Routine screening mammography. COMPARISON: Multiple prior mammograms with dates ranging from 12/28/2020 to 05/06/2016. TECHNIQUE: A bilateral screening mammogram was performed. Low-dose full-field digital breast tomosynthesis examination was performed with 2D and 3D acquisitions. Examination is read in conjunction with computer aided detection. BREAST COMPOSITION: There are scattered areas of fibroglandular density. FINDINGS: There are post-operative findings of prior bilateral reduction mammoplasty. There are no suspicious masses, suspicious calcifications, or other suspicious findings in either breast. There has been no suspicious interval change. Computer aided detection was used in the interpretation of this examination. IMPRESSION: No mammographic evidence of malignancy in the bilateral breasts. Routine screening mammography is recommended in 1 year. OVERALL FINAL ASSESSMENT: BI-RADS CATEGORY 2 - Benign findings DICTATION LOCATION: [facility] Jessenia Alarcon NP MAMMO ORDERABLES Final Result from Last 3 Months or Most Recently Relevant to Health Maintenance Insurance [facility] Care Teams Clothing Cutter Relationship Specialty Start Date End Date Bayron Ferraro MD [address] [facility] [address] [place] [address] PCP - General Family Practice 04/01/14
--- OUTSIDE RECORDS SUMMARY | 2024-10-05 11:34 | XMS_ITS | Encounter Summary ---
Author Organization [facility] Address [address] [place] [address] Phone Care Team Providers Care Continuous Improvement Consultant Name Role Phone Bayron Ferraro MD Primary Care Provider Rossi Mckeon MD Unavailable [phone]- [phone] Encounter Details Date Type Department Care Team (Latest Contact Info) Description 01/18/2020 Orders Only [facility] Scanning, Provider Social History Tobacco Use Types Packs/Day Years Used Date Smoking Tobacco: Former Cigarettes Q uit: 09/2017 Smokeless Tobacco: Never Alcohol Use Standard Drinks/Week Comments Yes 0 (1 standard drink = 0.6 oz pur e alcohol) occasional Comments No Sex and Gender Information Value Date Recorded Sex Assigned at Not on file 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 Gender Identity Not on file Sexual Orientation Straight 12/29/2020 8: 23 AM CDT documented as of this encounter Plan of Treatment Not on file documented as of this encounter Procedures Procedure Name Priority Date/Time Associated Diagnosis Comments SCAN - LABS 01/18/2020 documented in this encounter Results * SCAN - LABS (01/18/2020) us Provider Scanning Final Result documented in this encounter Visit Diagnoses Not on filedocumented in this encounter Care Teams Continuous Improvement Consultant Relationship Specialty Start Date End Date Bayron Ferraro MD [address] [place] [address] PCP - General 03/26/17 Rossi Mckeon MD [address] [place] [address] Medical Oncologist/Outside Sales Account Manager Hematology 08/24/20 documented as of this encounter
--- OUTSIDE RECORDS SUMMARY | 2024-10-05 11:34 | XMS_ITS | Encounter Summary ---
Author Organization [facility] Address [address] [place] [address] Phone Care Team Providers Care Toxics Program Officer Name Role Phone Bayron Ferraro MD Primary Care Provider Rossi Mckeon MD Unavailable [phone]- [phone] Encounter Details Date Type Department Care Team (Latest Contact Info) Description 03/29/2020 Orders Only [facility] Scanning, Provider Social History Tobacco Use Types Packs/Day Years Used Date Smoking Tobacco: Former Cigarettes Q uit: 09/2017 Smokeless Tobacco: Never Alcohol Use Standard Drinks/Week Comments Yes 0 (1 standard drink = 0.6 oz pur e alcohol) occasional Comments No Sex and Gender Information Value Date Recorded Sex Assigned at Not on file Legal Sex Female 7: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 FIRER 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 Gender Identity Not on file Sexual Orientation Straight 12/29/2020 8: 23 AM CDT documented as of this encounter Plan of Treatment Not on file documented as of this encounter Procedures Procedure Name Priority Date/Time Associated Diagnosis Comments SCAN - LABS 03/29/2020 documented in this encounter Results * SCAN - LABS (03/29/2020) us Provider Scanning Final Result documented in this encounter Visit Diagnoses Not on filedocumented in this encounter Care Teams Toxics Program Officer Relationship Specialty Start Date End Date Bayron Ferraro MD [address] [place] [address] PCP - General 03/26/17 Rossi Mckeon MD [address] [place] [address] Medical Oncologist/Charter Pilot Hematology 08/24/20 documented as of this encounter
--- OUTSIDE RECORDS SUMMARY | 2024-10-05 11:34 | XMS_ITS | Clinical Summary ---
Author Organization [facility] Address [facility] [place] [address] Care Team Providers Care Shrimp Picker Name Role Phone Geovanni Fuentes MD Primary Care Provi salena Allergies No known active allergies Medications amphetamine-dex troamphetamine (ADDERALL) 15 MG tablet 15 mg 2 (two) times daily. 11/29/2021 Active vitamin D3, cholecalciferol , (CHOLECALCIFERO L) 5000 UNITS capsule pt states once daily Active coenzyme Q10 100 MG capsule daily. Activ e linaCLOtide (LINZESS) 72 MCG capsule Take 1 capsule by mouth daily. Active mesalamine EC (LIALDA) 1.2 g Tab EC tablet Take 2 tablets by mouth 2 (two) times daily. Active niacin 500 MG Tab Take 500 mg by mouth daily. Active omeprazole (PRILOSEC) 20 MG capsule Take 20 mg by mouth daily. Active progesterone (PROMETRIUM) 200 MG capsule daily. Activ e thyroid (ARMOUR) 90 MG OR TABS tablet daily. Activ e topiramate (TOPAMAX) 100 MG tablet Take 2 tabs (200mg) by mouth every morning 03/04/2022 Active vilazodone (VIIBRYD) 40 MG tablet Take 1 tablet by mouth every evening. 12/27/2021 Active vilazodone (VIIBRYD) 40 MG tablet 40 mg daily. Active azithromycin (ZITHROMAX) 250 MG tablet Take once daily starting on 07/23/2022 4 tablet 07/22/2022 Active Active Problems Problem Noted Date Diagnosed Date CHF (congestive heart failure) ([facility]) 10/08/2017 Pulmonary embolus ([facility]) 10/08/2017 Social History Tobacco Use Types Packs/Day Years Used Date Smoking Tobacco: Never Assessed Comments Unknown Sex and Gender Information Value Date Recorded Sex Assigned at Not on file Legal Sex Female 5:14 PM CDT Gender Identity Not on file Sexual Orientation Not on file Last Filed Vital Signs Vital Sign Reading Time Taken Comments Blood Pressure 144/99 07/22/2022 3:52 PM MOTOR VEHICLE DISPATCHER Pulse 88 07/22/2022 3:52 PM MOTOR VEHICLE DISPATCHER Temperature 37.1 C (98.7 F) 07/22/2022 3:52 PM MOTOR VEHICLE DISPATCHER Respiratory Rate 20 07/22/2022 3:52 PM MOTOR VEHICLE DISPATCHER Oxygen Saturation 99% 07/22/2022 3:52 PM MOTOR VEHICLE DISPATCHER Inhaled Oxygen Concentration - - Weight 67.1 kg (148 lb) 07/22/2022 3:52 PM MOTOR VEHICLE DISPATCHER Height 142.2 cm (4' 8 ) 07/22/2022 3:52 PM MOTOR VEHICLE DISPATCHER Body Mass Index 33.18 07/22/2022 3:52 PM MOTOR VEHICLE DISPATCHER Plan of Treatment Health Maintenance Due Date Last Done Comments Cervical Cancer Screening Pa p Smear (Age 30 to 64) Every 3 Years 1971 Colorectal Cancer Screening Colonoscopy (10 Years) 1971 Annual Physical 1974 Pneumococcal Vaccine: Pediatrics (0 to 5 Years) and At-Risk Patients (6 to 64 Years) (1 of 2 - PCV) 1977 Hepatitis C 1989 DTaP, Tdap and Td Vaccines ( 1 - Tdap) 1990 Hepatitis B Vaccines (1 of 3 - 19+ 3-dose series) 1990 Cervical Cancer Screening Pa p with HPV Testing (Age 30 to 64) Every 5 Years 2001 Cervical Cancer Screening wi th HPV 2001 Mammogram Screening 2011 Zoster Vaccines (1 of 2) 2021 COVID-19 Vaccine (2023-2 5 season) 2024 12/26/2020, 11/28/2020 Influenza Adult (#1) 2024 Meningococcal B Vaccine Aged Out No l onger eligible based on patient's age to complete this topic Meningococcal Vaccine Aged Out No jeff romaine eligible based on patient's age to complete this topic RSV Immunizations Under 20 Months Aged Out No longer eligible b ased on patient's age to complete this topic Insurance [employer] BLUE CROSS BLUE SHIELD BLUE CROSS BLUE SHIELD Care Teams Shrimp Picker Relationship Specialty Start Date End Date Geovanni Fuentes MD [address] [place] [address]; [place] [address] PCP - General GASTROENTEROLOGY 04/20/19
--- OUTSIDE RECORDS SUMMARY | 2024-10-05 11:34 | XMS_ITS | Encounter Summary ---
Author Organization [facility] Address [address] [place] [address] Phone Care Team Providers Care Patient Navigator Name Role Phone Bayron Ferraro MD Primary Care Provider Rossi Mckeon MD Unavailable [phone]- [phone] Encounter Details Date Type Department Care Team (Latest Contact Info) Description 04/16/2023 Orders Only [facility] Scanning, Provider Social History Tobacco Use Types Packs/Day Years Used Date Smoking Tobacco: Former Cigarettes Q uit: 09/2017 Smokeless Tobacco: Never Alcohol Use Standard Drinks/Week Comments Yes 0 (1 standard drink = 0.6 oz pur e alcohol) occasional Comments No Sex and Gender Information Value Date Recorded Sex Assigned at Not on file 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 Female 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 Gender Identity Not on file Sexual Orientation Straight 12/29/2020 8: 23 AM CDT documented as of this encounter Plan of Treatment Not on file documented as of this encounter Procedures Procedure Name Priority Date/Time Associated Diagnosis Comments SCAN - LABS 04/16/2023 documented in this encounter Results * SCAN - LABS (04/16/2023) us Provider Scanning Final Result documented in this encounter Visit Diagnoses Not on filedocumented in this encounter Care Teams Patient Navigator Relationship Specialty Start Date End Date Bayron Ferraro MD [address] [place] [address] PCP - General 03/26/17 Rossi Mckeon MD [address] [place] [address] Medical Oncologist/Him Tech Hematology 08/24/20 documented as of this encounter
--- OUTSIDE RECORDS SUMMARY | 2024-10-05 11:34 | XMS_ITS | Encounter Summary ---
Author Organization [facility] Address [address] [place] [address] Phone Care Team Providers Care Spinning Supervisor Name Role Phone Bayron Ferraro MD Primary Care Provider Rossi Mckeon MD Unavailable [phone]- [phone] Encounter Details Date Type Department Care Team (Late st Contact Info) Description 10/04/2024 Anticoagulation Visit [place] [address] [facility] [address] [place] [address] Lorraine Hood, RN Social History Tobacco Use Types Packs/Day Years Used Date Smoking Tobacco: Every Day Cigarettes 0.3 0.8 Started: 12/31/2023; Last attempted to quit: 09/2017 Smokeless Tobacco: Never Comments:Quit about a week a go. 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 Gender Identity Not on file Sexual Orientation Straight 12/29/2020 8: 23 AM CDT documented as of this encounter Plan of Treatment Not on file documented as of this encounter Procedures Procedure Name Priority Date/Time Associated Diagnosis Comments PROTIME-INR Routine 10/04/2024 documented in this encounter Results * (ABNORMAL) Protime-INR (10/04/2024) INR 2.00(A) 0.90 - 1.10 EXTERNAL LAB Blood us Historical Provider LAB BLOOD ORDERABLES Trina l Result EXTERNAL LAB documented in this encounter Visit Diagnoses Not on filedocumented in this encounter Care Teams Spinning Supervisor Relationship Specialty Start Date End Date Bayron Ferraro MD [address] [place] [address] PCP - General 03/26/17 Rossi Mckeon MD [address] [place] [address] Medical Oncologist/Airplane Electrician Hematology 08/24/20 documented as of this encounter
--- OUTSIDE RECORDS SUMMARY | 2024-10-05 11:34 | XMS_ITS ---
Author Organization [facility] Address [address] [place] [address] [address] [place] [address] Care Team Providers Care Scenic Designer Name Role Phone Bayron Ferraro MD Primary Care Provider Unavaila Ronak Fragoso Unavailable [phone] Betito Gastelum Unavailable REASON FOR VISIT prep questions 08/05/24 appt Encounters Encounter Location Date Provider Diagnosis [facility] [address] [place] [address] [address] [place] [address] 08/04/2024 Ronak Santoyo Plan Of Treatment No Information Progress Notes * Zen AN LDOB:[birth year] (54 yo F)Acc No.[id number]:08/04/2024 Patient: Zen SHEIKH :1970 A ge:54 Y S ex:Female Address:[address] [place], [address] * true * Date: Generated for Printi ng/Faxing/eTransmitting on: 0 10/05/2024 11:34 AM CDT
--- OUTSIDE RECORDS SUMMARY | 2024-10-05 11:35 | XMS_ITS | Encounter Summary ---
Author Organization [facility] [employer] [facility] Address [address] [place] [address] Phone Care Team Providers Care Computer Engineer Name Role Phone Bayron Ferraro MD Primary Care Provider Rossi Mckeon MD Unavailable [phone]- [phone] Encounter Details Date Type Department Care Team (Latest Contact Info) Description 06/14/2020 Orders Only [facility] Scanning, Provider Social History Tobacco Use Types Packs/Day Years Used Date Smoking Tobacco: Former Cigarettes Q uit: 09/2017 Smokeless Tobacco: Never Alcohol Use Standard Drinks/Week Comments Yes 0 (1 standard drink = 0.6 oz pur e alcohol) occasional Comments No Sex and Gender Information Value Date Recorded Sex Assigned at Not on file Legal Sex Female 7:48 PM PROMOTIONS PRODUCER Gender Identity Not on file Sexual Orientation Straight 12/29/2020 8: 23 AM CDT documented as of this encounter Plan of Treatment Not on file documented as of this encounter Procedures Procedure Name Priority Date/Time Associated Diagnosis Comments SCAN - LABS 06/14/2020 documented in this encounter Results * SCAN - LABS (06/14/2020) us Provider Scanning Final Result documented in this encounter Visit Diagnoses Not on filedocumented in this encounter Care Teams Computer Engineer Relationship Specialty Start Date End Date Bayron Ferraro MD [address] [place] [address] PCP - General 03/26/17 Rossi Mckeon MD [address] [place] [address] Medical Oncologist/Personalized Living Manager Nurse Hematology 08/24/20 documented as of this encounter
--- OUTSIDE RECORDS SUMMARY | 2024-10-05 11:35 | XMS_ITS | Encounter Summary ---
Author Organization [facility] [employer] [facility] Address [address] [place] [address] Phone Care Team Providers Care Hand Stripper Name Role Phone Bayron Ferraro MD Primary Care Provider Rossi Mckeon MD Unavailable [phone]- [phone] Encounter Details Date Type Department Care Team (Latest Contact Info) Description 09/13/2020 Orders Only [facility] Scanning, Provider Social History Tobacco Use Types Packs/Day Years Used Date Smoking Tobacco: Former Cigarettes Q uit: 09/2017 Smokeless Tobacco: Never Alcohol Use Standard Drinks/Week Comments Yes 0 (1 standard drink = 0.6 oz pur e alcohol) occasional Comments No Sex and Gender Information Value Date Recorded Sex Assigned at Not on file 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 Gender Identity Not on file Sexual Orientation Straight 12/29/2020 8: 23 AM CDT documented as of this encounter Plan of Treatment Not on file documented as of this encounter Procedures Procedure Name Priority Date/Time Associated Diagnosis Comments SCAN - LABS 09/13/2020 documented in this encounter Results * SCAN - LABS (09/13/2020) us Provider Scanning Final Result documented in this encounter Visit Diagnoses Not on filedocumented in this encounter Care Teams Hand Stripper Relationship Specialty Start Date End Date Bayron Ferraro MD [address] [place] [address] PCP - General 03/26/17 Rossi Mckeon MD [address] [place] [address] Medical Oncologist/Steam Shovel Oiler Hematology 08/24/20 documented as of this encounter
--- OUTSIDE RECORDS SUMMARY | 2024-10-05 11:35 | XMS_ITS | Encounter Summary ---
Author Organization [facility] Address [address] [place] [address] Phone Care Team Providers Care Rn Spine Name Role Phone Bayron Ferraro MD Primary Care Provider Rossi Mckeon MD Unavailable [phone]- [phone] Encounter Details Date Type Department Care Team (Latest Contact Info) Description 07/25/2020 Orders Only [facility] Scanning, Provider Social History Tobacco Use Types Packs/Day Years Used Date Smoking Tobacco: Former Cigarettes Q uit: 09/2017 Smokeless Tobacco: Never Alcohol Use Standard Drinks/Week Comments Yes 0 (1 standard drink = 0.6 oz pur e alcohol) occasional Comments No Sex and Gender Information Value Date Recorded Sex Assigned at Not on file 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 Gender Identity Not on file Sexual Orientation Straight 12/29/2020 8: 23 AM CDT documented as of this encounter Plan of Treatment Not on file documented as of this encounter Procedures Procedure Name Priority Date/Time Associated Diagnosis Comments SCAN - LABS 07/25/2020 documented in this encounter Results * SCAN - LABS (07/25/2020) us Provider Scanning Final Result documented in this encounter Visit Diagnoses Not on filedocumented in this encounter Care Teams Rn Spine Relationship Specialty Start Date End Date Bayron Ferraro MD [address] [place] [address] PCP - General 03/26/17 Rossi Mckeon MD [address] [place] [address] Medical Oncologist/Jewel Staker Hematology 08/24/20 documented as of this encounter
--- OUTSIDE RECORDS SUMMARY | 2024-10-05 11:35 | XMS_ITS ---
Author Organization [facility] [employer] [facility] Address [address] [place] [address] Care Team Providers Care Crepe Box Tender Name Role Phone Bayron Ferraro MD Primary Care Provider Tonja Chowdary Unavailable [phone] REASON FOR VISIT Refill Medications Medication SIG (Take, Route, Fr equency, Duration) Notes Start Date End Date Status Trintellix 20 MG 1 tablet Oral Once a day for 30 days Active Social History Sex Assigned At : Social History Observation Description Sex Assigned At Female Encounters Encounter Location Date Provider Diagnosis [facility] [employer] [facility] [address] [place] [address] 09/27/2024 Tonja Inman Major depressive disorder, recurrent, in remission, unspecified F33.40 Assessments Encounter Date Diagnosis (ICD Code) Assessment Notes Treatment Notes Treatment Clinical Notes Section Notes 09/27/2024 Major depressive disorder, recurrent, in remission, unspecified (ICD-10 - F33.40) Plan Of Treatment Medication Medication Name Sig Start Date Stop Date Notes Trintellix 20 MG 1 tablet Oral Once a day for 30 days Next Appt Details Provider Name:Tonja Inman , 12/27/2024 08:15:00 AM, [address], [place], [address], Progress Notes * RUCHI AN LDOB:[birth year] (54 yo F)Acc No.[id number]:09/27/2024 Patient: RUCHI SHEIKH :1970 A ge:54 Y S ex:Female Address:[address] [place] [address], [address] * Refills Refill Trintellix Tablet, 20 MG, Oral, 30 Tablet, 1 tablet, Once a day, 30 days, Refills=0 * true * Date: Generated for Eliseo paula/Kari/Eddie on: 0 10/05/2024 11:35 AM CDT
--- OUTSIDE RECORDS SUMMARY | 2024-10-05 11:35 | XMS_ITS | Continuity of Care Document ---
Author Organization [facility] Address [address] [place] [address] Phone Care Team Providers Care Creel Selector Name Role Phone Estela SHELBY, Sergio Unavailable Unavailable Advance Directives Directive Yes / No Effective Date File Name No Information Encounters Encounter Description Practice Location Reason(s) For Visit Diagnoses Date Provider Providers Copied on Encounter [facility] , [address] [facility] [address], [place], [address], [place] [phone] [facility] No Information [address] [facility] [address] , [place], [place], [id number] . tel: [phone] Family History Family Member Type Diagnosis Age At Onset No Information Payers Payer name Insurance type Covered constitution party ID Authoriza tion(s) No Information Social History Type Description Quantity Date Captured Comments Sex Female Smoking Status No Information Chief Complaint And Reason For Visit No Information Reason For Referral Reason For Referral No Information History Of Present Illness Encounter Date Complaint History Of Prese nt Illness No Information Functional Status Date Functional Assessmen t No Information Instructions Date Instruction Additional Infor mation No Information Assessments Type Assessment Date No Information Patient Care Teams Name Effective Dates (start - stop) Status Members No Information
--- OUTSIDE RECORDS SUMMARY | 2024-10-05 11:35 | XMS_ITS | Patient Health Record ---
Author Organization [facility] Address [address] [facility] [address] [place] [address] Care Team Providers Care Kennel Keeper Name Role Phone Bayron Ferraro MD Primary Care Provider UnavailRonak Ontiveros Unavailable [phone] Betito Gastelum Unavailable Unavailable Abby Estrada Unavailable [phone] Allergies Allergen (clinical drug ingredient) Drug/Non Drug Allergy documented on EMR Reaction Allergy Type Onset Date Status clindamycin Clindamycin HCl Rash Drug Allergy Active sulfasalazine Sulfasalazine Unknown Drug Allergy Active Results Component Value Reference Range Notes Pathology Report Reviewed date:08/10/2024 02:17:53 PM Interpretation: Performing Lab: Notes/Report: DIAGNOSES A. Right Colon , Biopsy: -Colonic mucosa with no diagnostic abnormality. -No evidence of chronic or active colitis, including lymphocytic and collagenous colitis. -Negative for dysplasia or malignancy. B. Left Colon , Biopsy: -Colonic mucosa with no diagnostic abnormality. -No evidence of chronic or active colitis, including lymphocytic and collagenous colitis. -Negative for dysplasia or malignancy. CLINICAL HISTORY High risk screening for colorectal malignant neoplasm due to ulcerative pancolitis of 8 or more years duration. GROSSING DESCRIPTION A. The specimen is received in a Formalin-filled container labeled with the patient's name and designated Right Colon It contains 3 fragments of magdaleno tissue that measure 1x1x1, 3x1x1 and 4x1x1 mm. The specimen was entirely submitted into a single cassette for processing. B. The specimen is received in a Formalin-filled container labeled with the patient's name and designated Left Colon It contains 2 fragments of magdaleno tissue that measure 2x2x1 and 3x2x1 mm. The specimen was entirely submitted into a single cassette for processing. MICROSCOPIC DESCRIPTION Complete 100 microscopic examination is performed. The findings are included in the diagnosis rendered. Specimens A and B were evaluated with H&E stain. Textual Pathology Report SEE NOTES Reason For Referral No Information Medications Medication SIG (Take, Route, Frequency, Duration) Notes Start Date End Date Status Mesalamine 1.2 GM TAKE 2 TABLETS BY MOUTH TWICE DAILY for 90 days Active Folic Acid 1 MG TAKE 1 TABLET BY MOUTH EVERY DAY for 90 Active Omeprazole 20 MG TAKE 1 CAPSULE BY MOUTH DAILY for 30 days Active OTC/Vitamins Vit D Active Sutab 2531-867-939 MG [address] dose the evening before and second dose the morning of colonoscopy Orally Twice a day for 1 days Date of colon -08/05 Cell number -[phone] Normal or 2 day colon prep Pt wants Sutab 06/14/2024 Active Linzess 72 MCG TAKE 1 CAPSULE BY MOUTH EVERY DAY for 90 days Active Omeprazole 40 MG TAKE 1 CAPSULE BY MOUTH EVERY DAY 30 MINUTES BEFORE BREAKFAST for 90 days Active Immunizations Vaccine Route Administration Date Status Comme nts DTaP Unknown 01/19/2024 Administered Social History Tobacco Use: Social History Observation Description Date Details (start date - stop date) Current Smoker NA - NA Tobacco Use/Smoking Question Answer Notes Are you a current smoker How often do you smoke cigarettes? every day Problems Problem Type SNOMED Code ICD Code Onset Dates Problem Status W/U Status Risk Notes Problem [id number] Ulcerative (chronic) proctitis without complications (K51.20) Active confirmed She continues to do well. Continue current regimen. She will be due for surveillance in 2025. Problem 427814090 GERD (gastroesophagea l reflux disease) (K21.9) Active confirmed Continue omeprazole 40mg daily. Labs ordered today. Problem Abdominal bloating (112759994) Abdominal bloating (R14.0) Active confirmed I suspect s ome of this is due to her constipation. She is doing ok on Linzess right now. However, given the bloating symptoms, will switch to motegrity 2mg daily. She will try this for 4 weeks and then give me an update. Problem Ulcerative colitis (32532227) UC (ulcerative colitis) (K51.90) Active confirmed Problem Flatulence, eructation and gas pain (163227181) Abdominal distension (R14.0) Active confirmed I am her second opinion regarding this issue. She has not had any abdominal imaging outside of a KUB and small bowel series. Abdominal ultrasound ordered today. I am also giving her neomycin for possible persistent SIBO for 10 days. Future treatments may include atrantil. Vital Signs Height 59 in 06/10/2024 Weight 126 lbs 06/10/2024 BMI 25.45 kg/m2 06/10/2024 Procedures Procedure Date Ordered Date Performed Result Body Sit e Colonoscopy 06/10/2024 N/A Encounters Encounter Location Date Provider Diagnosis [facility], [facility] [address] [facility] [place] [address] 06/10/2024 Abby Estrada UC (ulcerative colitis) K51.90 ; Abdominal bloating R14.0 ; GERD (gastroesophageal reflux disease) K21.9 and Chronic constipation K59.09 [facility] [address] [place] [address] 08/05/2024 Merged With [facility] Encounter for screening for malignant neoplasm of colon Z12.11 and Ulcerative colitis K51.90 [facility], [facility] [address] [facility] [place] [address] 10/08/2023 [facility], [address] [place] [address] 10/13/2023 [facility], [facility] [address] [facility] [place] [address] 12/10/2023 [facility], [address] [place] [address] 02/04/2024 [facility], [facility] [address] [facility] [place] [address] 03/03/2024 [facility], [address] [place] [address] 04/06/2024 Ronak Ramgopal [facility] [address] [facility] [place] [address] [facility] [address] [facility] [place] [address] 04/06/2024 [facility] [address] [facility] [place] [address] 04/06/2024 [facility] [address] [place] [address] [place] [address] 04/06/2024 [facility] [address] [facility] [place] [address] 06/10/2024 Merged With [facility] UC (ulcerative colitis) K51.90 [facility] [address] [facility] [place] [address] 06/11/2024 Merged With [facility] [address] [facility] [place] [address] 06/11/2024 Merged With [facility] [address] [place] [address] [place] [address] 06/16/2024 [facility] UC (ulcerative colitis) K51.90 [facility] [address] [place] [address] [place] [address] 06/22/2024 [facility] [address] [facility] [place] [address] 06/28/2024 Merged With [facility] [address] [place] [address] [place] [address] 07/13/2024 [facility] [address] [facility] [place] [address] 08/04/2024 Merged With [facility] Assessments Encounter Date Diagnosis (ICD Code) Assessment Notes Treatment Notes Treatment Clinical Notes Section Notes 06/10/2024 UC (ulcerative colitis) (ICD-10 - K51.90) Procedure risks, benefits, alternatives, and indications were discussed. She replied understanding and wishes to proceed. 06/16/2024 UC (ulcerative colitis) (ICD-10 - K51.90) 08/05/2024 Encounter for screening for malignant neoplasm of colon (ICD-10 - Z12.11) 08/05/2024 Ulcerative colitis (ICD-10 - K51.90) 06/10/2024 Abdominal bloating (ICD-10 - R14.0) ULCERATIVE COLITIS: Currently on mesalamine daily. Previous cramping, bloating, nausea, and loose stools improved after lactose-free diet. Continues to have cramping roughly once weekly loose stools 4 times a week. Reviewed 2020 colonoscopy. Differentials include uncontrolled ulcerative colitis, C. difficile, IBS, secondary to medications, and others. CHRONIC CONSTIPATION: Constipation has resolved on Linzess 72 mcg. Having 4 loose stools a week. She is happy with this. Differentials include uncontrolled IBD, food sensitivities, cdiff, and others. ABDOMINAL BLOATING: Intermittent abdominal bloating occurring once weekly. Symptoms have improved with lactose free diet. Differentials include lactose intolerance, IBS, IBD, celiac disease, H. pylori, and others. GERD: Well-controlled on omeprazole 40 mg daily. 06/10/2024 UC (ulcerative colitis) (ICD-10 - K51.90) ULCERATIVE COLITIS: Currently on mesalamine daily. Previous cramping, bloating, nausea, and loose stools improved after lactose-free diet. Continues to have cramping roughly once weekly loose stools 4 times a week. Reviewed 2020 colonoscopy. Differentials include uncontrolled ulcerative colitis, C. difficile, IBS, secondary to medications, and others. CHRONIC CONSTIPATION: Constipation has resolved on Linzess 72 mcg. Having 4 loose stools a week. She is happy with this. Differentials include uncontrolled IBD, food sensitivities, cdiff, and others. ABDOMINAL BLOATING: Intermittent abdominal bloating occurring once weekly. Symptoms have improved with lactose free diet. Differentials include lactose intolerance, IBS, IBD, celiac disease, H. pylori, and others. GERD: Well-controlled on omeprazole 40 mg daily. 06/10/2024 GERD (gastroesophage al reflux disease) (ICD-10 - K21.9) ULCERATIVE COLITIS: Currently on mesalamine daily. Previous cramping, bloating, nausea, and loose stools improved after lactose-free diet. Continues to have cramping roughly once weekly loose stools 4 times a week. Reviewed 2020 colonoscopy. Differentials include uncontrolled ulcerative colitis, C. difficile, IBS, secondary to medications, and others. CHRONIC CONSTIPATION: Constipation has resolved on Linzess 72 mcg. Having 4 loose stools a week. She is happy with this. Differentials include uncontrolled IBD, food sensitivities, cdiff, and others. ABDOMINAL BLOATING: Intermittent abdominal bloating occurring once weekly. Symptoms have improved with lactose free diet. Differentials include lactose intolerance, IBS, IBD, celiac disease, H. pylori, and others. GERD: Well-controlled on omeprazole 40 mg daily. 06/10/2024 Chronic constipation (ICD-10 - K59.09) ULCERATIVE COLITIS: Currently on mesalamine daily. Previous cramping, bloating, nausea, and loose stools improved after lactose-free diet. Continues to have cramping roughly once weekly loose stools 4 times a week. Reviewed 2020 colonoscopy. Differentials include uncontrolled ulcerative colitis, C. difficile, IBS, secondary to medications, and others. CHRONIC CONSTIPATION: Constipation has resolved on Linzess 72 mcg. Having 4 loose stools a week. She is happy with this. Differentials include uncontrolled IBD, food sensitivities, cdiff, and others. ABDOMINAL BLOATING: Intermittent abdominal bloating occurring once weekly. Symptoms have improved with lactose free diet. Differentials include lactose intolerance, IBS, IBD, celiac disease, H. pylori, and others. GERD: Well-controlled on omeprazole 40 mg daily. 06/10/2024 Other After my visit with Ms. Garcia, I recommend the followin. Continue mesalamine as prescribed. She will notify our office if she develops side effects. 2. She will continue to avoid lactose foods and read labels carefully. If bloating worsens, she will notify our office. 3. Complete stool testing. 4. She recently canceled May colonoscopy, will reach out to Dr. Santoyo to determine if he would like her to reschedule at this time. 5. She will decrease omeprazole to 20 mg daily given history of osteoporosis. Medication profile and side effects reviewed. Continue antireflux diet and lifestyle modifications. 6. Continue Linzess 72 mcg. Briefly discussed option to trial other medication to limit loose stools. She is happy with current regimen. Encouraged her to start a fiber supplement daily. 7. Recent bloodwork will be sent to our office for provider kenisha and her chart. Pending review, she may warrant additional testing. Ms. Garcia verbalized a clear understanding of the plan and recommendations. All questions answered. She may call our office for new GI complaints or alarm symptoms as needed. ULCERATIVE COLITIS: Currently on mesalamine daily. Previous cramping, bloating, nausea, and loose stools improved after lactose-free diet. Continues to have cramping roughly once weekly loose stools 4 times a week. Reviewed 2020 colonoscopy. Differentials include uncontrolled ulcerative colitis, C. difficile, IBS, secondary to medications, and others. CHRONIC CONSTIPATION: Constipation has resolved on Linzess 72 mcg. Having 4 loose stools a week. She is happy with this. Differentials include uncontrolled IBD, food sensitivities, cdiff, and others. ABDOMINAL BLOATING: Intermittent abdominal bloating occurring once weekly. Symptoms have improved with lactose free diet. Differentials include lactose intolerance, IBS, IBD, celiac disease, H. pylori, and others. GERD: Well-controlled on omeprazole 40 mg daily. Plan Of Treatment Pending Test Test Name Order Date Colonoscopy 03/09/2021 Colonoscopy 06/10/2024 CALPROTECTIN, STOOL 06/10/2024 C difficile Toxins A+B, EIA 06/10/2024 CMP: COMPLETE METABOLIC PANEL 08/13/2022 CMP: COMPLETE METABOLIC PANEL 05/09/2021 CMP: COMPLETE METABOLIC PANEL 06/16/2024 CBC With Differential/Platelet 4 CBC With Differential/Platelet 3 CBC With Differential/Platelet 1 CRP 05/09/2021 CRP 08/13/2022 CRP 06/16/2024 Insurance Providers Payer Name Payer Address Payer Phone Subscriber Number Group Number Insured Name Patient Relationship to Insured Coverage Start Date Coverage End Date Blue Access PPO E2 [address] [place] [address] [id number] Jose Angel Garcia Spouse - patient is the spouse of the insured Medical (General) History Medical History History ICD Code GERD Ulcerative Colitis Colon Polyps IBS Restless Leg Syndrome Depression ADD Hypothyroidism Coronary Artery Disease Pulmonary Embolus Migraine Headaches Hypertension Blood Clots osteoporosis Surgical History Surgery Date(Month/Year) Colonoscopy 05/2021 Oophorectomy Appendectomy Section Hysterectomy Sinus Surgery Breast Surgery Ovarian Cyst Cosmetic Surgery Hospitalization History Reason Date(Month/Year) Migraine 09/2016 Blood clots found in right lung, right k idney and on aorta 09/2017 [facility] 07/2022
--- OUTSIDE RECORDS SUMMARY | 2024-10-05 11:35 | XMS_ITS | Encounter Summary ---
Author Organization [facility] Address [address] [place] [address] Phone Care Team Providers Care Learning Support Services Director Name Role Phone Bayron Ferraro MD Primary Care Provider Rossi Mckeon MD Unavailable [phone] Encounter Details Date Type Department Care Team (Latest Contact Info) Description 08/24/2020 Orders Only [facility] Scanning, Provider Social History Tobacco Use Types Packs/Day Years Used Date Smoking Tobacco: Former Cigarettes Q uit: 09/2017 Smokeless Tobacco: Never Alcohol Use Standard Drinks/Week Comments Yes 0 (1 standard drink = 0.6 oz pur e alcohol) occasional Comments No Sex and Gender Information Value Date Recorded Sex Assigned at Not on file 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 Gender Identity Not on file Sexual Orientation Straight 12/29/2020 8: 23 AM CDT documented as of this encounter Plan of Treatment Not on file documented as of this encounter Procedures Procedure Name Priority Date/Time Associated Diagnosis Comments SCAN - LABS 08/24/2020 documented in this encounter Results * SCAN - LABS (08/24/2020) us Provider Scanning Final Result documented in this encounter Visit Diagnoses Not on filedocumented in this encounter Care Teams Learning Support Services Director Relationship Specialty Start Date End Date Bayron Ferraro MD [address] [place] [address] PCP - General 03/26/17 Rossi Mckeon MD [address] [place] [address] Medical Oncologist/Drywall Hanger Helper Hematology 08/24/20 documented as of this encounter
--- OUTSIDE RECORDS SUMMARY | 2024-10-05 11:35 | XMS_ITS | Encounter Summary ---
Author Organization [facility] Address [address] [place] [address] Phone Care Team Providers Care Machine Striper Name Role Phone Bayron Ferraro MD Primary Care Provider Rossi Mckeon MD Unavailable [phone] Encounter Details Date Type Department Care Team (Latest Contact Info) Description 07/01/2020 Orders Only [facility] Scanning, Provider Social History Tobacco Use Types Packs/Day Years Used Date Smoking Tobacco: Former Cigarettes Q uit: 09/2017 Smokeless Tobacco: Never Alcohol Use Standard Drinks/Week Comments Yes 0 (1 standard drink = 0.6 oz pur e alcohol) occasional Comments No Sex and Gender Information Value Date Recorded Sex Assigned at Not on file Legal Sex Female 7:48 PM HIM TECH Gender Identity Not on file Sexual Orientation Straight 12/29/2020 8: 23 AM CDT documented as of this encounter Plan of Treatment Not on file documented as of this encounter Procedures Procedure Name Priority Date/Time Associated Diagnosis Comments SCAN - LABS 07/01/2020 documented in this encounter Results * SCAN - LABS (07/01/2020) us Provider Scanning Final Result documented in this encounter Visit Diagnoses Not on filedocumented in this encounter Care Teams Machine Striper Relationship Specialty Start Date End Date Bayron Ferraro MD [address] [place] [address] PCP - General 03/26/17 Rossi Mckeon MD [address] [place] [address] Medical Oncologist/Canvas Worker Apprentice Hematology 08/24/20 documented as of this encounter
--- OUTSIDE RECORDS SUMMARY | 2024-10-05 11:35 | XMS_ITS | Encounter Summary ---
Author Organization [facility] Address [address] [place] [address] Phone Care Team Providers Care Utility Aircrewman Name Role Phone Bayron Ferraro MD Primary Care Provider Rossi Mckeon MD Unavailable [phone] Encounter Details Date Type Department Care Team (Latest Contact Info) Description 11/13/2020 Orders Only [facility] Scanning, Provider Social History Tobacco Use Types Packs/Day Years Used Date Smoking Tobacco: Former Cigarettes Q uit: 09/2017 Smokeless Tobacco: Never Alcohol Use Standard Drinks/Week Comments Yes 0 (1 standard drink = 0.6 oz pur e alcohol) occasional Comments No Sex and Gender Information Value Date Recorded Sex Assigned at Not on file Legal Sex Female 7:48 PM FAMILY LAW SPECIALIST Gender Identity Not on file Sexual Orientation Straight 12/29/2020 8: 23 AM CDT documented as of this encounter Plan of Treatment Not on file documented as of this encounter Procedures Procedure Name Priority Date/Time Associated Diagnosis Comments SCAN - LABS 11/13/2020 documented in this encounter Results * SCAN - LABS (11/13/2020) us Provider Scanning Final Result documented in this encounter Visit Diagnoses Not on filedocumented in this encounter Care Teams Utility Aircrewman Relationship Specialty Start Date End Date Bayron Ferraro MD [address] [place] [address] PCP - General 03/26/17 Rossi Mckeon MD [address] [place] [address] Medical Oncologist/Pelt Inspector Hematology 08/24/20 documented as of this encounter
--- OUTSIDE RECORDS SUMMARY | 2024-10-05 11:35 | XMS_ITS | Encounter Summary ---
Author Organization [facility] Address [address] [place] [address] Phone Care Team Providers Care Delivery Person Name Role Phone Bayron Ferraro MD Primary Care Provider Rossi Mckeon MD Unavailable [phone] Encounter Details Date Type Department Care Team (Latest Contact Info) Description 08/16/2020 Orders Only [facility] Scanning, Provider Social History Tobacco Use Types Packs/Day Years Used Date Smoking Tobacco: Former Cigarettes Q uit: 09/2017 Smokeless Tobacco: Never Alcohol Use Standard Drinks/Week Comments Yes 0 (1 standard drink = 0.6 oz pur e alcohol) occasional Comments No Sex and Gender Information Value Date Recorded Sex Assigned at Not on file Legal Sex Female 7:48 PM NATURAL GAS BASIS TRADER Gender Identity Not on file Sexual Orientation Straight 12/29/2020 8: 23 AM CDT documented as of this encounter Plan of Treatment Not on file documented as of this encounter Procedures Procedure Name Priority Date/Time Associated Diagnosis Comments SCAN - LABS 08/16/2020 documented in this encounter Results * SCAN - LABS (08/16/2020) us Provider Scanning Final Result documented in this encounter Visit Diagnoses Not on filedocumented in this encounter Care Teams Delivery Person Relationship Specialty Start Date End Date Bayron Ferraro MD [address] [place] [address] PCP - General 03/26/17 Rossi Mckeon MD [address] [place] [address] Medical Oncologist/Pediatric Associate Hematology 08/24/20 documented as of this encounter
--- OUTSIDE RECORDS SUMMARY | 2024-10-05 11:35 | XMS_ITS | Clinical Summary ---
Author Organization [facility] Address [address] [place] [address] Care Team Providers Care Patient Appointment Coordinator Name Role Phone Bayron Ferraro MD Primary Care Provider Rossi Mckeon MD Unavailable +1- [phone] Allergies Active Allergy Reactions Criticality Noted Date [...] thrombosis) 10/21/2017 Headache 03/26/2017 Ulcerative colitis 05/11/2011 Encounters Date Type Department Care Team Description 10/04/2024 Anticoagulation Visit [facility] Hematology [facility] [address] [place] [address] Lorraine Hood, RN 09/24/2024 Anticoagulation Visit [facility] Hematology [facility] [address] [place] [address] Lorraine Hood, RN 09/16/2024 Anticoagulation Visit [facility] Physicians [facility] Oncology [address] [place] [address] Jeana Morales NP 09/13/2024 Telephone [facility] General Neurology [address] [facility] 6th Floor [address] [place] [address] Marimar Frausto PA Ajovy PA Renewal 09/07/2024 1:18 PM SUPERVISOR DETASSELING CREW - 09/07/2024 11:59 PM SUPERVISOR DETASSELING CREW Hospital Encounter [facility] Rad[facility] [address] [place] [address] Kevan Lemos MD Lumbar radiculitis (Primary Dx); Anterolisthesis of lumbar spine Discharge Disposition: Discharge to home or self care 08/31/2024 Anticoagulation Visit [facility] Hematology [facility] [address] [place] [address] Lorraine Hood, RN 08/24/2024 Orders Only [facility] Orthopaedic Surgery [address] [facility] 1st Floor [address] [place] [address] Kevan Lemos MD Anterolisthesis of lumbar spine (Primary Dx) 08/11/2024 Anticoagulation Visit [facility] Hematology [address] [facility] Floor 6 [place] [address] Lorraine Hood, RN 08/04/2024 Telephone [facility] Orthopaedic Surgery [address] [facility] 2nd Floor [address] [place] [address] Kevan Lemos MD 08/02/2024 9:08 AM SUPERVISOR DETASSELING CREW - 08/02/2024 11:59 PM SUPERVISOR DETASSELING [employer]W Hospital Encounter [facility] Radiology [facility] [address] [place] [address] Kevan Lemos MD Right leg pain (Primary Dx); Bilateral low back pain, unspecified chronicity, unspecified whether sciatica present Discharge Disposition: Discharge to home or self care 07/20/2024 Anticoagulation Visit [facility] Hematology [address] [facility] Floor 6 [place] [address] Lorraine Hood, RN 07/14/2024 Orders Only [facility] Orthopaedic Surgery [address] [facility] Medical Office Building [address] [place] [address] Kevan Lemos MD 07/14/2024 Telephone [facility] Orthopaedic Surgery [address] [facility] 1st Floor [address] [place] [address] Fariha Charles CMA from Last 3 Months Surgical History Surgery Date Site/Laterality Comments OR TOTAL ABDOMINAL HYSTERECT W/WO RMVL TUBE OVARY Hysterectomy - (Added by TW Conv) OR APPENDECTOMY Appendectomy - (Added by TW Conv) OR DELIVERY ONLY Section - (Added by TW Conv) REDUCTION MAMMAPLASTY 05/07/2018 - 06/05/2018 ABDOMINOPLASTY 05/07/2018 - 06/05/2018 OOPHERECTOMY FL FLUORO GUIDED LUMBAR PUNCTURE 08/02/2024 Right FL FLUORO GUIDED LUMBAR PUNCTURE 09/07/2024 Right Medical History Medical History Date Comments Irritable bowel syndrome without diarrhea Irritable bowel syndrome - (Added by TW Conv) Pulmonary embolism (HCC) History of blood clots Awareness under anesthesia GERD (gastroesophageal reflux disease) Crohn disease (HCC) pt unsure if it is this diagnosis or Ulcerative colitis Ulcerative colitis (HCC) pt unsu re if it is this diagnosis or crohns Hyperlipidemia Family History Medical History Relation Name Comments Prostate cancer Father Family histo ry of malignant neoplasm of prostate - (Added by TW Conv)/Family history of malignant neoplasm of prostate - (Added by TW Conv) Breast cancer Mother Family history of malignant neoplasm of breast - (Added by TW Conv)/Family history of malignant neoplasm of breast - (Added by TW Conv) Broken bones Neg Hx Hip fracture Neg Hx Kyphosis Neg Hx Osteoporosis Neg Hx Scoliosis Neg Hx Relation Name Status Comments Father Mother Social History Tobacco Use Types Packs/Day Years [...] on file Legal Sex Female 7:48 PM SUPERVISOR DETASSELING CREW Gender Identity Not on file Sexual Orientation Straight 12/29/2020 8: 23 AM CDT Obstetrics History Last Filed Vital Signs Vital Sign Reading Time Taken Comments Blood Pressure 120/73 09/07/2024 2:21 PM SUPERVISOR DETASSELING CREW Pulse 112 09/07/2024 2:21 PM SUPERVISOR DETASSELING CREW Temperature 36.7 C (98.1 F) 08/15/2023 10:35 AM SUPERVISOR DETASSELING CREW Respiratory Rate 16 09/07/2024 2:21 PM SUPERVISOR DETASSELING CREW Oxygen Saturation 99% 08/15/2023 10:35 AM SUPERVISOR DETASSELING CREW Inhaled Oxygen Concentration - - Weight 57.3 kg (126 lb 6.4 oz) 06/07/2024 1:47 P M SUPERVISOR DETASSELING CREW Height 151.3 cm (4' 11.57 ) 06/07/2024 1:[address] Body Mass Index 25.05 06/07/2024 1:47 PM SUPERVISOR DETASSELING CREW Plan of Treatment Health Maintenance Due Date Last Done Comments Depression Screening 1971 Hepatitis C Screening 1971 Hepatitis B Screening 1989 Regular Well Visit/Exam 18-64 1989 Pneumococcal vaccine <65 (1 of 2 - PCV) 1990 Zoster Vaccine (1 of 2) 2021 Breast Cancer Screening-Mammogram 01/02/2023 01/02/2022, 01/02/2022, 12/28/2020, Additional history exists Influenza Vaccine (Season Ended) 2025 Colon Cancer Screening-Colonoscopy 10/14/2027 10/13/2017, 07/25/2016, 07/27/2015, Additional history exists DTaP/Tdap/Td Vaccine (2 - Td or Tdap) 01/30/2034 01/31/2024 Procedures Procedure Name Priority Date/Time Associated Diagnosis Comments PROTIME-INR Routine 10/04/2024 PROTIME-INR Routine 09/24/2024 PROTIME-INR Routine 09/16/2024 TRANSFORAMINAL EPIDURAL INJECTION LUMBAR SACRAL 1 LEVEL RIGHT Schedule Routine, Read Routine (OP Routine) 09/07/2024 2:15 PM SUPERVISOR DETASSELING CREW Anterolisthesis of lumbar spine PROTIME-INR Routine 08/10/2024 TRANSFORAMINAL EPIDURAL INJECTION LUMBAR SACRAL 1 LEVEL RIGHT Schedule Routine, Read Routine (OP Routine) 08/02/2024 9:43 AM SUPERVISOR DETASSELING CREW Bilateral low back pain, unspecified chronicity, unspecified whether sciatica present Right leg pain PROTIME-INR Routine 07/14/2024 COLONOSCOPY REPORT 10/13/2017 from Last 3 Months or Most Recently Relevant to Health Maintenance Results * (ABNORMAL) Protime-INR (10/04/2024) INR 2.00(A) 0.90 - 1.10 EXTERNAL LAB Blood us Historical Provider LAB BLOOD ORDERABLES Trina l Result Performing Organization Address [facility] de Phone Number EXTERNAL LAB * (ABNORMAL) Protime-INR (09/24/2024) INR 2.30(A) 0.90 - 1.10 EXTERNAL LAB Blood Result [facility] Provider MD LAB BLOOD ORDERABLES Trina l Result Performing Organization Address [facility] de Phone Number EXTERNAL LAB * (ABNORMAL) Protime-INR (09/16/2024) INR 1.40(A) 0.90 - 1.10 EXTERNAL LAB Blood 09/16/2024 Result [facility] Provider MD LAB BLOOD ORDERABLES Trina l Result Performing Organization Address [facility] Phone Number EXTERNAL LAB * IR Transforaminal Epidural Injection Lumbar Sacral 1 Level Right (09/07/2024 2:15 PM SUPERVISOR DETASSELING CREW) Narrative [facility] - 09/07/2024 2:17 PM SUPERVISOR DETASSELING CREW The images from this study are not interpreted by Radiology. Please refer to the physician's procedure / OR operative note. Result [facility] Kevan Lemos MD IMG IR PROCEDURES Final Res ult Performing Organization Address [facility] de Phone Number [facility] * (ABNORMAL) Protime-INR (08/10/2024) INR 2.00(A) 0.90 - 1.10 EXTERNAL LAB Blood Result [facility] Historical Provider MD LAB BLOOD ORDERABLES Trina l Result Performing Organization Address [facility] de Phone Number EXTERNAL LAB * IR Transforaminal Epidural Injection Lumbar Sacral 1 Level Right (08/02/2024 9:43 AM SUPERVISOR DETASSELING CREW) Narrative [facility] - 08/02/2024 9:43 AM SUPERVISOR DETASSELING CREW The images from this study are not interpreted by Radiology. Please refer to the physician's procedure / OR operative note. Kevan Lemos MD IMG IR PROCEDURES Final Res ult Performing Organization Address [facility]/ZIP Co de Phone Number [facility] * (ABNORMAL) Protime-INR (07/14/2024) INR 2.00(A) 0.90 - 1.10 EXTERNAL LAB Blood Historical Provider MD LAB BLOOD ORDERABLES Trina l Result Performing Organization Address [facility] Co de Phone Number EXTERNAL LAB * COLONOSCOPY REPORT (10/13/2017) Anatomical Region Laterality Modality Other Provider Scanning GI PROCEDURE ORDERABLES Final Result from Last 3 Months or Most Recently Relevant to Health Maintenance Insurance [facility] PPO [facility] [facility] PPO [facility] ACCESS CHOICE [place] Advance Directives For more information, please contact: [phone] * Full Code (Latest Code Status on File) Date Activated Date Inactivated Comments 07/14/2018 8:43 AM 07/14/2018 1:17 PM Care Teams Patient Appointment Coordinator Relationship Specialty Start Date End Date Bayron Ferraro MD [address] [facility] [address] [place] [address] PCP - General 03/26/17 Rossi Mckeon MD [address] [place] [address] Medical Oncologist/Photoengraver Hematology 08/24/20
--- OUTSIDE RECORDS SUMMARY | 2024-10-05 11:35 | XMS_ITS | Encounter Summary ---
Author Organization [facility] [employer] [facility] Address [address] [place] [address] Phone Care Team Providers Care Outsewer Name Role Phone Bayron Ferraro MD Primary Care Provider Rossi Mckeon MD Unavailable [phone]- [phone] Encounter Details Date Type Department Care Team (Latest Contact Info) Description 05/10/2020 Orders Only [facility] Scanning, Provider Social History Tobacco Use Types Packs/Day Years Used Date Smoking Tobacco: Former Cigarettes Q uit: 09/2017 Smokeless Tobacco: Never Alcohol Use Standard Drinks/Week Comments Yes 0 (1 standard drink = 0.6 oz pur e alcohol) occasional Comments No Sex and Gender Information Value Date Recorded Sex Assigned at Not on file Legal Sex Female 7:48 PM CASTER HELPER Gender Identity Not on file Sexual Orientation Straight 12/29/2020 8: 23 AM CDT documented as of this encounter Plan of Treatment Not on file documented as of this encounter Procedures Procedure Name Priority Date/Time Associated Diagnosis Comments SCAN - LABS 05/10/2020 documented in this encounter Results * SCAN - LABS (05/10/2020) us Provider Scanning Final Result documented in this encounter Visit Diagnoses Not on filedocumented in this encounter Care Teams Outsewer Relationship Specialty Start Date End Date Bayron Ferraro MD [address] [place] [address] PCP - General 03/26/17 Rossi Mckeon MD [address] [place] [address] Medical Oncologist/Developmental Therapist Hematology 08/24/20 documented as of this encounter
--- OUTSIDE RECORDS SUMMARY | 2024-10-05 11:35 | XMS_ITS | Encounter Summary ---
Author Organization [facility] [employer] [facility] Address [address] [place] [address] Phone Care Team Providers Care Restaurant Managing Partner Name Role Phone Bayron Ferraro MD Primary Care Provider Rossi Mckeon MD Unavailable [phone]- [phone] Encounter Details Date Type Department Care Team (Latest Contact Info) Description 10/02/2020 Orders Only [facility] Scanning, Provider Social History Tobacco Use Types Packs/Day Years Used Date Smoking Tobacco: Former Cigarettes Q uit: 09/2017 Smokeless Tobacco: Never Alcohol Use Standard Drinks/Week Comments Yes 0 (1 standard drink = 0.6 oz pur e alcohol) occasional Comments No Sex and Gender Information Value Date Recorded Sex Assigned at Not on file Legal Sex Female 7:48 PM FLATWORK ASSEMBLER Gender Identity Not on file Sexual Orientation Straight 12/29/2020 8: 23 AM CDT documented as of this encounter Plan of Treatment Not on file documented as of this encounter Procedures Procedure Name Priority Date/Time Associated Diagnosis Comments SCAN - LABS 10/02/2020 documented in this encounter Results * SCAN - LABS (10/02/2020) us Provider Scanning Final Result documented in this encounter Visit Diagnoses Not on filedocumented in this encounter Care Teams Restaurant Managing Partner Relationship Specialty Start Date End Date Bayron Ferraro MD [address] [place] [address] PCP - General 03/26/17 Rossi Mckeon MD [address] [place] [address] Medical Oncologist/Chief Passenger Ship Steward/Stewardess Hematology 08/24/20 documented as of this encounter
--- OUTSIDE RECORDS SUMMARY | 2024-10-05 11:35 | XMS_ITS | Encounter Summary ---
Author Organization [facility] [employer] [facility] Address [address] [place] [address] Phone Care Team Providers Care Keying Machine Operator Name Role Phone Bayron Ferraro MD Primary Care Provider Rossi Mckeon MD Unavailable [phone]- [phone] Encounter Details Date Type Department Care Team (Latest Contact Info) Description 05/31/2020 Orders Only [facility] Scanning, Provider Social History Tobacco Use Types Packs/Day Years Used Date Smoking Tobacco: Former Cigarettes Q uit: 09/2017 Smokeless Tobacco: Never Alcohol Use Standard Drinks/Week Comments Yes 0 (1 standard drink = 0.6 oz pur e alcohol) occasional Comments No Sex and Gender Information Value Date Recorded Sex Assigned at Not on file Legal Sex Female 7:48 PM CHIEF VENDOR QUALITY Gender Identity Not on file Sexual Orientation Straight 12/29/2020 8: 23 AM CDT documented as of this encounter Plan of Treatment Not on file documented as of this encounter Procedures Procedure Name Priority Date/Time Associated Diagnosis Comments SCAN - LABS 05/31/2020 documented in this encounter Results * SCAN - LABS (05/31/2020) us Provider Scanning Final Result documented in this encounter Visit Diagnoses Not on filedocumented in this encounter Care Teams Keying Machine Operator Relationship Specialty Start Date End Date Bayron Ferraro MD [address] [place] [address] PCP - General 03/26/17 Rossi Mckeon MD [address] [place] [address] Medical Oncologist/Power Plant Assistant Hematology 08/24/20 documented as of this encounter
--- OUTSIDE RECORDS SUMMARY | 2024-10-05 11:35 | XMS_ITS | Encounter Summary ---
Author Organization [facility] [employer] [facility] Address [address] [place] [address] Phone Care Team Providers Care Monkey Keeper Name Role Phone Bayron Ferraro MD Primary Care Provider Rossi Mckeon MD Unavailable [phone]- [phone] Encounter Details Date Type Department Care Team (Latest Contact Info) Description 01/24/2021 Orders Only [facility] Scanning, Provider Social History Tobacco Use Types Packs/Day Years Used Date Smoking Tobacco: Former Cigarettes Q uit: 09/2017 Smokeless Tobacco: Never Alcohol Use Standard Drinks/Week Comments Yes 0 (1 standard drink = 0.6 oz pur e alcohol) occasional Comments No Sex and Gender Information Value Date Recorded Sex Assigned at Not on file Legal Sex Female 7:48 PM INVESTMENT ANALYST Gender Identity Not on file Sexual Orientation Straight 12/29/2020 8: 23 AM CDT documented as of this encounter Plan of Treatment Not on file documented as of this encounter Procedures Procedure Name Priority Date/Time Associated Diagnosis Comments SCAN - LABS 01/24/2021 documented in this encounter Results * SCAN - LABS (01/24/2021) us Provider Scanning Final Result documented in this encounter Visit Diagnoses Not on filedocumented in this encounter Care Teams Monkey Keeper Relationship Specialty Start Date End Date Bayron Ferraro MD [address] [place] [address] PCP - General 03/26/17 Rossi Mckeon MD [address] [place] [address] Medical Oncologist/Cage Supervisor Hematology 08/24/20 documented as of this encounter
--- OUTSIDE RECORDS SUMMARY | 2024-10-05 11:35 | XMS_ITS | Encounter Summary ---
Author Organization [facility] [employer] [facility] Address [address] [place] [address] Phone Care Team Providers Care Golf Club Manager Name Role Phone Bayron Ferraro MD Primary Care Provider Rossi Mckeon MD Unavailable [phone]- [phone] Encounter Details Date Type Department Care Team (Latest Contact Info) Description 12/19/2020 Orders Only [facility] Scanning, Provider Social History Tobacco Use Types Packs/Day Years Used Date Smoking Tobacco: Former Cigarettes Q uit: 09/2017 Smokeless Tobacco: Never Alcohol Use Standard Drinks/Week Comments Yes 0 (1 standard drink = 0.6 oz pur e alcohol) occasional Comments No Sex and Gender Information Value Date Recorded Sex Assigned at Not on file Legal Sex Female 7:48 PM CLEANING TEAM MEMBER Gender Identity Not on file Sexual Orientation Straight 12/29/2020 8: 23 AM CDT documented as of this encounter Plan of Treatment Not on file documented as of this encounter Procedures Procedure Name Priority Date/Time Associated Diagnosis Comments SCAN - LABS 12/19/2020 documented in this encounter Results * SCAN - LABS (12/19/2020) us Provider Scanning Final Result documented in this encounter Visit Diagnoses Not on filedocumented in this encounter Care Teams Golf Club Manager Relationship Specialty Start Date End Date Bayron Ferraro MD [address] [place] [address] PCP - General 03/26/17 Rossi Mckeon MD [address] [place] [address] Medical Oncologist/Biofuels Production Manager Hematology 08/24/20 documented as of this encounter
--- OUTSIDE RECORDS SUMMARY | 2024-10-05 11:35 | XMS_ITS | Encounter Summary ---
Author Organization [facility] [employer] [facility] Address [address] [place] [address] Phone Care Team Providers Care [facility] Name Role Phone Bayron Ferraro MD Primary Care Provider Rossi Mckeon MD Unavailable [phone]- [phone] Encounter Details Date Type Department Care Team (Latest Contact Info) Description 10/24/2020 Orders Only [facility] Scanning, Provider Social History Tobacco Use Types Packs/Day Years Used Date Smoking Tobacco: Former Cigarettes Q uit: 09/2017 Smokeless Tobacco: Never Alcohol Use Standard Drinks/Week Comments Yes 0 (1 standard drink = 0.6 oz pur e alcohol) occasional Comments No Sex and Gender Information Value Date Recorded Sex Assigned at Not on file Legal Sex Female 7:48 PM REFRACTORY BRICKLAYER Gender Identity Not on file Sexual Orientation Straight 12/29/2020 8: 23 AM CDT documented as of this encounter Plan of Treatment Not on file documented as of this encounter Procedures Procedure Name Priority Date/Time Associated Diagnosis Comments SCAN - LABS 10/24/2020 documented in this encounter Results * SCAN - LABS (10/24/2020) us Provider Scanning Final Result documented in this encounter Visit Diagnoses Not on filedocumented in this encounter Care Teams [facility] Relationship Specialty Start Date End Date Bayron Ferraro MD [address] [place] [address] PCP - General 03/26/17 Rossi Mckeon MD [address] [place] [address] Medical Oncologist/Call Center Receptionist Hematology 08/24/20 documented as of this encounter
--- OUTSIDE RECORDS SUMMARY | 2024-10-05 11:35 | XMS_ITS | Encounter Summary ---
Author Organization [facility] [employer] of [facility] Address [address] [place] [address] Phone Care Team Providers Care Double Cut Off Saw Operator Name Role Phone Bayron Ferraro MD Primary Care Provider Rossi Mckeon MD Unavailable [phone]- [phone] Encounter Details Date Type Department Care Team (Latest Contact Info) Description 05/24/2020 Orders Only [facility] Scanning, Provider Social History Tobacco Use Types Packs/Day Years Used Date Smoking Tobacco: Former Cigarettes Q uit: 09/2017 Smokeless Tobacco: Never Alcohol Use Standard Drinks/Week Comments Yes 0 (1 standard drink = 0.6 oz pur e alcohol) occasional Comments No Sex and Gender Information Value Date Recorded Sex Assigned at Not on file Legal Sex Female 7:48 PM GERIATRIC PHYSICAL THERAPIST Gender Identity Not on file Sexual Orientation Straight 12/29/2020 8: 23 AM CDT documented as of this encounter Plan of Treatment Not on file documented as of this encounter Procedures Procedure Name Priority Date/Time Associated Diagnosis Comments SCAN - LABS 05/24/2020 documented in this encounter Results * SCAN - LABS (05/24/2020) us Provider Scanning Final Result documented in this encounter Visit Diagnoses Not on filedocumented in this encounter Care Teams Double Cut Off Saw Operator Relationship Specialty Start Date End Date Bayron Ferraro MD [address] [place] [address] PCP - General 03/26/17 Rossi Mckeon MD [address] [place] [address] Medical Oncologist/Cardiac Surgeon Hematology 08/24/20 documented as of this encounter
--- OUTSIDE RECORDS SUMMARY | 2024-10-05 11:35 | XMS_ITS ---
Author Organization [facility] [employer] Address [address] [place] [address] Care Team Providers Care Workforce Management Manager Name Role Phone Bayron Ferraro MD Primary Care Provider Unavaila Tonja Funes Unavailable [phone] Allergies Allergen (clinical drug ingredient) Drug/Non Drug Allergy documented on EMR Reaction Allergy Type Onset Date Status Substance with sulfonamide structure and antibacterial mechanism of action (substance) SULFA (SULFONAMIDE ANTIBIOTICS) (uncoded) Unknown Allergy 09/11/2023 Active amoxicillin Amoxicillin Unknown Drug Allergy 09/11/2023 Ac tive clindamycin Clindamycin Unknown Drug Allergy 09/11/2023 Ac tive rosuvastatin Rosuvastatin Unknown Drug Allergy 09/11/[address] Woo's Pt, Patient states the last time she did a UDS it got sent out she had a bill for over a hundred dollars, would like to speak with Tonja ventura Medications Medication SIG (Take, Route, Frequency, Duration) Notes Start Date End Date Status Omeprazole 40 MG TAKE 1 CAPSULE BY MO UT EVERY DAY 30 MINUTES BEFORE BREAKFAST Oral for 90 Days Active Lisinopril 10 MG TAKE 1 TABLET BY KAYCE TH DAILY Oral for 90 Days Active valACYclovir HCl 1 GM TAKE 2 TABLETS BY MOUTH NOW. REPEAT IN 12 HOURS FOR OUTBREAK Oral for 30 Days Active Linzess 72 MCG TAKE 1 CAPSULE BY MO UTH EVERY DAY Oral for 90 Days Activ e Ajovy 225 MG/1.5ML INJECT 1.5ML UNDER T HE SKIN EVERY 30 DAYS Subcutaneous for 30 Days Active Mesalamine 1.2 GM TAKE 2 TABLETS BY MO UT TWICE DAILY Oral for 90 Days Active Trintellix 20 MG 1 tablet Oral Once a day for 30 days Active valACYclovir HCl 500 MG TAKE 1 TABLET BY MOUTH DAILY Oral for 90 Days Active Vilazodone HCl 40 MG TAKE 1 TABLET Oral Once a day for 90 days Active Atomoxetine HCl 60 MG TAKE 1 CAPSULE Ora l Once a day for 90 days Active Folic Acid 1 MG TAKE 1 TABLET BY KAYCE TH EVERY DAY Oral for 90 Days Activ e Amphetamine-Dextroamphetam ine 20 MG 1 tablet Oral Twice a day for 30 days 09/28/2024 Active Albuterol Sulfate HFA 108 (90 Base) MCG/ACT INHALE 1 PUFF EVERY 4 HOURS NEEDED FOR SHORTNESS OF BREATH OR WHEEZING Inhalation for 33 Days Active Social History Sex Assigned At : Social History Observation Description Sex Assigned At Female AUDIT-C (Standard) Question Answer Notes Did you have a drink contain ing alcohol in the past year? Yes How often did you have six o r more drinks on one occasion in the past year? Never (0 point) How many drinks did you have on a typical day when you were drinking in the past year? 1 or 2 drinks (0 point) How often did you have a dri nk containing alcohol in the past year? 2 to 4 times a month (2 points) Problems Problem Type SNOMED Code ICD Code Onset Dates Problem Status W/U Status Risk Notes Problem Recurrent major depression (31536170) Major depressive disorder, recurrent, in remission, unspecified (F33.40) Active confirmed Problem Depression Screening (365981752) Encounter for screening for depression (Z13.31) Active confirmed Problem Essential hypertension (72753401) Benign essential HTN (I10) Active confirmed Problem [id number] MDD (major depressive disorder), recurrent episode, mild (F33.0) Active confirmed Problem [id number] Tobacco use (Z72.0) Active confirmed Vital Signs Blood pressure systolic 139 mm Hg 09/29/19 25 Blood pressure diastolic 94 mm Hg 025 Heart Rate 120 /min 09/28/2024 Height 58.00 in 09/28/2024 Weight 126.0 lbs 09/28/2024 BMI 26.33 kg/m2 09/28/2024 Height-cm 147.32 cm 09/28/2024 Weight-kg 57.15 kg 09/28/2024 Encounters Encounter [facility] Date [facility] [address] [place] [address] 09/28/2024 Tonja Inman Encounter for screen ing for depression Z13.31 ; MDD (major depressive disorder), recurrent episode, mild F33.0 ; Attention-deficit hyperactivity disorder, predominantly inattentive type F90.0 ; Generalized anxiety disorder F41.1 ; Benign essential HTN I10 ; Tobacco use Z72.0 ; Nicotine use Z72.0 ; Encounter for screening for cardiovascular disorders Z13.6 and Dietary counseling and surveillance Z71.3 Assessments Encounter Date Diagnosis (ICD Code) Assessment Notes Treatment Notes Treatment Clinical Notes Section Notes 09/28/2024 Encounter for screening for depression (ICD-10 - Z13.31) 1. Depression Viibyrd 40 mg daily- eat 350 calories wiht rx Trintellix 20 mg daily- rx sent 09/27/24 2. anxiety 3. ADHD Straterra 60 mg daily in am Adderall 20 mg twice a day ADHD stimulates education NO CONTROL SUBSTANCE PRESCRIBED BY LUZ MARINA WITH CANNABIS USE OR OTHER ILLEGAL DRUG USE Discuss with patient risk of misuse, abuse, and addiction before prescribing stimulant medicines. Desk Operator patients not to share their prescribed stimulant with anyone else. Educate patients and their families on these serious risks, proper storage of the medicine, and proper disposal of any unused medicine. Educated patient will monitor Throughout treatment, regularly assess and monitor them for signs and symptoms of nonmedical use, addiction, and potential diversion, which may be evidenced by more frequent renewal. requests than warranted by the prescribed dosage. Random UDS [place] prescription reviewed local pharmacy in [facility], no early refills on control substance educated on non-stimulate and stimulates 4. HTN educated on healthy b/p 120/80 monitor b/p at home see PCP, heart healthy diet and excise limit salt intake limit soda intake and caffiene increase water on B/P RX Discuss cardiovascular health and B/P and risk of stimualtes and HTN, 5. tobacco use Do not smoke. Nicotine and other chemicals in cigarettes and cigars can cause lung damage. Ask your healthcare provider for information if you currently smoke and need help to quit. E-cigarettes or smokeless tobacco still contain nicotine. Talk to your healthcare provider before you use these products. education on decrease to stopping nicotine products and stop smoking hotline given -Quit - Yes [place] Tobacco Quitline Call a Smoking Quitline The [employer]'s Smoking Quitline, (4-873-39E-QUIT) Smokefree.gov, which connects you with your State's Quitline, (8-707-RITKWML) Veterans Smoking Quitline, (9-711-WUKQULY) educated on all medications, benefits, side effects and risk, and educated on depression, anxiety, and ADHD, mood d/o and educated on compliance of medications, metabolic and movement d/o education appointment is, continue therapy discussion with patient about course of treatment and patient instructions. education on serotonin syndrome SSRI/SNRI side effects discussed including but not limited to, gastric upset, nausea, vomiting, diarrhea and/or constipation, weight changes, sexual side effects including loss of libido, increased suicidal thoughts/behavior s in children and young adults, and serotonin syndrome. websites http_s://www.[facility] .nih.gov/health/t opics/mental-heal th-medications http_s://www.ralph .org/About-Mental -Illness/Treatmen ts/Mental-Health- Medications http_s://www.ralph .org/About-Mental -Illness/Mental-H ealth-Conditions http_s://ConnectEdu/depressi on/the-cognitive- rgnwftky-sr-svoaz ssion#treatments http__s://www.[facility].nih.gov/health/ topics/mental-hea lth-medications http__s://www.Misoca i.org/About-Menta l-Illness/Treatme nts/Mental-Health -Medications http_s://keysha.nih .gov/publications /drugfacts/cannab is-marijuana http_s://www.[employer]/rosalba rii-bdq-cpieksou- marijuana-adhd/ Medication Management and Follow-Up - Plan: - Schedule follow-up appointments every 1-3 months to monitor the patient's response to the medication regimen. - Reinforce the importance of avoiding recreational drug use due to potential neurotoxicity and interactions with prescribed medications. 09/28/2024 MDD (major depressive disorder), recurrent episode, mild (ICD-10 - F33.0) 1. Depression Viibyrd 40 mg daily- eat 350 calories wiht rx Trintellix 20 mg daily- rx sent 09/27/24 2. anxiety 3. ADHD Straterra 60 mg daily in am Adderall 20 mg twice a day ADHD stimulates education NO CONTROL SUBSTANCE PRESCRIBED BY LUZ MARINA WITH CANNABIS USE OR OTHER ILLEGAL DRUG USE Discuss with patient risk of misuse, abuse, and addiction before prescribing stimulant medicines. Desk Operator patients not to share their prescribed stimulant with anyone else. Educate patients and their families on these serious risks, proper storage of the medicine, and proper disposal of any unused medicine. Educated patient will monitor Throughout treatment, regularly assess and monitor them for signs and symptoms of nonmedical use, addiction, and potential diversion, which may be evidenced by more frequent renewal. requests than warranted by the prescribed dosage. Random UDS [place] prescription reviewed local pharmacy in [facility], no early refills on control substance educated on non-stimulate and stimulates 4. HTN educated on healthy b/p 120/80 monitor b/p at home see PCP, heart healthy diet and excise limit salt intake limit soda intake and caffiene increase water on B/P RX Discuss cardiovascular health and B/P and risk of stimualtes and HTN, 5. tobacco use Do not smoke. Nicotine and other chemicals in cigarettes and cigars can cause lung damage. Ask your healthcare provider for information if you currently smoke and need help to quit. E-cigarettes or smokeless tobacco still contain nicotine. Talk to your healthcare provider before you use these products. education on decrease to stopping nicotine products and stop smoking hotline given 642-Quit - Yes [place] Tobacco Quitline Call a Smoking Quitline The [employer]'s Smoking Quitline, (0-960-40E-QUIT) Smokefree.gov, which connects you with your State's Quitline, (1-245-DYVSDWT) Veterans Smoking Quitline, (1-947-LMGFLPM) educated on all medications, benefits, side effects and risk, and educated on depression, anxiety, and ADHD, mood d/o and educated on compliance of medications, metabolic and movement d/o education appointment is, continue therapy discussion with patient about course of treatment and patient instructions. education on serotonin syndrome SSRI/SNRI side effects discussed including but not limited to, gastric upset, nausea, vomiting, diarrhea and/or constipation, weight changes, sexual side effects including loss of libido, increased suicidal thoughts/behavior s in children and young adults, and serotonin syndrome. websites http_s://www.[facility] .nih.gov/health/t opics/mental-heal th-medications http_s://www.ralph .org/About-Mental -Illness/Treatmen ts/Mental-Health- Medications http_s://www.ralph .org/About-Mental -Illness/Mental-H ealth-Conditions http_s://ConnectEdu/depressi on/the-cognitive- hfecugbs-od-zognh ssion#treatments http__s://www.[facility].nih.gov/health/ topics/mental-hea lth-medications http__s://www.[employer]/About-Menta l-Illness/Treatme nts/Mental-Health -Medications http_s://keysha.nih .gov/publications /drugfacts/cannab is-marijuana http_s://www.[employer]/canna hdc-hpq-fawkgnvz- marijuana-adhd/ Medication Management and Follow-Up - Plan: - Schedule follow-up appointments every 1-3 months to monitor the patient's response to the medication regimen. - Reinforce the importance of avoiding recreational drug use due to potential neurotoxicity and interactions with prescribed medications. 09/28/2024 Attention-deficit hyperactivity disorder, predominantly inattentive type (ICD-10 - F90.0) 1. Depression Viibyrd 40 mg daily- eat 350 calories wiht rx Trintellix 20 mg daily- rx sent 09/27/24 2. anxiety 3. ADHD Straterra 60 mg daily in am Adderall 20 mg twice a day ADHD stimulates education NO CONTROL SUBSTANCE PRESCRIBED BY LUZ MARINA WITH CANNABIS USE OR OTHER ILLEGAL DRUG USE Discuss with patient risk of misuse, abuse, and addiction before prescribing stimulant medicines. Desk Operator patients not to share their prescribed stimulant with anyone else. Educate patients and their families on these serious risks, proper storage of the medicine, and proper disposal of any unused medicine. Educated patient will monitor Throughout treatment, regularly assess and monitor them for signs and symptoms of nonmedical use, addiction, and potential diversion, which may be evidenced by more frequent renewal. requests than warranted by the prescribed dosage. Random UDS [place] prescription reviewed local pharmacy in [place], no early refills on control substance educated on non-stimulate and stimulates 4. HTN educated on healthy b/p 120/80 monitor b/p at home see PCP, heart healthy diet and excise limit salt intake limit soda intake and caffiene increase water on B/P RX Discuss cardiovascular health and B/P and risk of stimualtes and HTN, 5. tobacco use Do not smoke. Nicotine and other chemicals in cigarettes and cigars can cause lung damage. Ask your healthcare provider for information if you currently smoke and need help to quit. E-cigarettes or smokeless tobacco still contain nicotine. Talk to your healthcare provider before you use these products. education on decrease to stopping nicotine products and stop smoking hotline given 870-Quit - Yes [place] Tobacco Quitline Call a Smoking Quitline The [employer] Smoking Quitline, (8-274-89F-QUIT) Smokefree.gov, which connects you with your State's Quitline, (8-038-LRVBVSR) Veterans Smoking Quitline, (2-760-PRSHPCT) educated on all medications, benefits, side effects and risk, and educated on depression, anxiety, and ADHD, mood d/o and educated on compliance of medications, metabolic and movement d/o education appointment is, continue therapy discussion with patient about course of treatment and patient instructions. education on serotonin syndrome SSRI/SNRI side effects discussed including but not limited to, gastric upset, nausea, vomiting, diarrhea and/or constipation, weight changes, sexual side effects including loss of libido, increased suicidal thoughts/behavior s in children and young adults, and serotonin syndrome. websites http_s://www.[facility] .nih.gov/health/t opics/mental-heal th-medications http_s://www.ralph .org/About-Mental -Illness/Treatmen ts/Mental-Health- Medications http_s://www.ralph .org/About-Mental -Illness/Mental-H ealth-Conditions http_s://psychcen tral.com/depressi on/the-cognitive- inuuutbe-su-icvwp ssion#treatments http__s://www.nim h.nih.gov/health/ topics/mental-hea [facility]-medications http__s://www.nam i.org/About-Menta l-Illness/Treatme nts/Mental-Health -Medications http_s://keysha.nih .gov/publications /drugfacts/cannab is-marijuana http_s://wwwGlobal [employer]ind/cannarpan dzs-bhb-zeteoyua- marijuana-adhd/ Medication Management and Follow-Up - Plan: - Schedule follow-up appointments every 1-3 months to monitor the patient's response to the medication regimen. - Reinforce the importance of avoiding recreational drug use due to potential neurotoxicity and interactions with prescribed medications. 09/28/2024 Generalized anxiety disorder (ICD-10 - F41.1) 1. Depression Viibyrd 40 mg daily- eat 350 calories wiht rx Trintellix 20 mg daily- rx sent 09/27/24 2. anxiety 3. ADHD Straterra 60 mg daily in am Adderall 20 mg twice a day ADHD stimulates education NO CONTROL SUBSTANCE PRESCRIBED BY LUZ MARINA WITH CANNABIS USE OR OTHER ILLEGAL DRUG USE Discuss with patient risk of misuse, abuse, and addiction before prescribing stimulant medicines. Desk Operator patients not to share their prescribed stimulant with anyone else. Educate patients and their families on these serious risks, proper storage of the medicine, and proper disposal of any unused medicine. Educated patient will monitor Throughout treatment, regularly assess and monitor them for signs and symptoms of nonmedical use, addiction, and potential diversion, which may be evidenced by more frequent renewal. requests than warranted by the prescribed dosage. Random [facility] prescription reviewed local pharmacy in [facility], no early refills on control substance educated on non-stimulate and stimulates 4. HTN educated on healthy b/p 120/80 monitor b/p at home see PCP, heart healthy diet and excise limit salt intake limit soda intake and caffiene increase water on B/P RX Discuss cardiovascular health and B/P and risk of stimualtes and HTN, 5. tobacco use Do not smoke. Nicotine and other chemicals in cigarettes and cigars can cause lung damage. Ask your healthcare provider for information if you currently smoke and need help to quit. E-cigarettes or smokeless tobacco still contain nicotine. Talk to your healthcare provider before you use these products. education on decrease to stopping nicotine products and stop smoking hotline given -Quit - Yes [place] Tobacco Quitline Call a Smoking Quitline The [employer]'s Smoking Quitline, (6-368-01C-QUIT) Smokefree.gov, which connects you with your State's Quitline, (1-474-VEQOSJM) Veterans Smoking Quitline, (2-428-VJZUPIM) educated on all medications, benefits, side effects and risk, and educated on depression, anxiety, and ADHD, mood d/o and educated on compliance of medications, metabolic and movement d/o education appointment is, continue therapy discussion with patient about course of treatment and patient instructions. education on serotonin syndrome SSRI/SNRI side effects discussed including but not limited to, gastric upset, nausea, vomiting, diarrhea and/or constipation, weight changes, sexual side effects including loss of libido, increased suicidal thoughts/behavior s in children and young adults, and serotonin syndrome. websites http_s://www.nim .nih.gov/health/t opics/mental-heal th-medications http_s://www.ralph .org/About-Mental -Illness/Treatmen ts/Mental-Health- Medications http_s://www.ralph .org/About-Mental -Illness/Mental-H ealth-Conditions http_s://psychcen GENELINKl.com/depressi on/the-cognitive- gvzjyqsn-fe-ururn ssion#treatments http__s://www.nim .nih.gov/health/ topics/mental-hea lth-medications http__s://www.Misoca i.org/About-Menta l-Illness/Treatme nts/Mental-Health -Medications http_s://keysha.nih .gov/publications /drugfacts/cannab is-marijuana http_s://www.[employer]/canna rni-uqs-otlccqtt- marijuana-adhd/ Medication Management and Follow-Up - Plan: - Schedule follow-up appointments every 1-3 months to monitor the patient's response to the medication regimen. - Reinforce the importance of avoiding recreational drug use due to potential neurotoxicity and interactions with prescribed medications. 09/28/2024 Benign essential HTN (ICD-10 - I10) 1. Depression Viibyrd 40 mg daily- eat 350 calories wiht rx Trintellix 20 mg daily- rx sent 09/27/24 2. anxiety 3. ADHD Straterra 60 mg daily in am Adderall 20 mg twice a day ADHD stimulates education NO CONTROL SUBSTANCE PRESCRIBED BY LUZ MARINA WITH CANNABIS USE OR OTHER ILLEGAL DRUG USE Discuss with patient risk of misuse, abuse, and addiction before prescribing stimulant medicines. Desk Operator patients not to share their prescribed stimulant with anyone else. Educate patients and their families on these serious risks, proper storage of the medicine, and proper disposal of any unused medicine. Educated patient will monitor Throughout treatment, regularly assess and monitor them for signs and symptoms of nonmedical use, addiction, and potential diversion, which may be evidenced by more frequent renewal. requests than warranted by the prescribed dosage. Random UDS [place] prescription reviewed local pharmacy in [facility], no early refills on control substance educated on non-stimulate and stimulates 4. HTN educated on healthy b/p 120/80 monitor b/p at home see PCP, heart healthy diet and excise limit salt intake limit soda intake and caffiene increase water on B/P RX Discuss cardiovascular health and B/P and risk of stimualtes and HTN, 5. tobacco use Do not smoke. Nicotine and other chemicals in cigarettes and cigars can cause lung damage. Ask your healthcare provider for information if you currently smoke and need help to quit. E-cigarettes or smokeless tobacco still contain nicotine. Talk to your healthcare provider before you use these products. education on decrease to stopping nicotine products and stop smoking hotline given -Quit - Yes [place] Tobacco Quitline Call a Smoking Quitline The [employer]'s Smoking Quitline, (7-921-07V-QUIT) Smokefree.gov, which connects you with your State's Quitline, (2-486-UJFTFBL) Veterans Smoking Quitline, (5-248-RDOKMON) educated on all medications, benefits, side effects and risk, and educated on depression, anxiety, and ADHD, mood d/o and educated on compliance of medications, metabolic and movement d/o education appointment is, continue therapy discussion with patient about course of treatment and patient instructions. education on serotonin syndrome SSRI/SNRI side effects discussed including but not limited to, gastric upset, nausea, vomiting, diarrhea and/or constipation, weight changes, sexual side effects including loss of libido, increased suicidal thoughts/behavior s in children and young adults, and serotonin syndrome. websites http_s://www.[facility] .nih.gov/health/t opics/mental-heal th-medications http_s://www.[employer] .org/About-Mental -Illness/Treatmen ts/Mental-Health- Medications http_s://www.[employer] .org/About-Mental -Illness/Mental-H ealth-Conditions http_s://ConnectEdu/depressi on/the-cognitive- xcpdekdg-rq-zrvqb ssion#treatments http__s://www.[facility].nih.gov/health/ topics/mental-hea lth-medications http__s://www.[employer]/About-Menta l-Illness/Treatme nts/Mental-Health -Medications http_s://keysha.nih .gov/publications /drugfacts/cannab is-marijuana http_s://www.[employer]/Simioarpan atm-ejc-acutxjjy- marijuana-adhd/ Medication Management and Follow-Up - Plan: - Schedule follow-up appointments every 1-3 months to monitor the patient's response to the medication regimen. - Reinforce the importance of avoiding recreational drug use due to potential neurotoxicity and interactions with prescribed medications. 09/28/2024 Tobacco use (ICD-10 - Z72.0) 1. Depression Viibyrd 40 mg daily- eat 350 calories wiht rx Trintellix 20 mg daily- rx sent 09/27/24 2. anxiety 3. ADHD Straterra 60 mg daily in am Adderall 20 mg twice a day ADHD stimulates education NO CONTROL SUBSTANCE PRESCRIBED BY LUZ MARINA WITH CANNABIS USE OR OTHER ILLEGAL DRUG USE Discuss with patient risk of misuse, abuse, and addiction before prescribing stimulant medicines. Desk Operator patients not to share their prescribed stimulant with anyone else. Educate patients and their families on these serious risks, proper storage of the medicine, and proper disposal of any unused medicine. Educated patient will monitor Throughout treatment, regularly assess and monitor them for signs and symptoms of nonmedical use, addiction, and potential diversion, which may be evidenced by more frequent renewal. requests than warranted by the prescribed dosage. Random UDS [place] prescription reviewed local pharmacy in [place], no early refills on control substance educated on non-stimulate and stimulates 4. HTN educated on healthy b/p 120/80 monitor b/p at home see PCP, heart healthy diet and excise limit salt intake limit soda intake and caffiene increase water on B/P RX Discuss cardiovascular health and B/P and risk of stimualtes and HTN, 5. tobacco use Do not smoke. Nicotine and other chemicals in cigarettes and cigars can cause lung damage. Ask your healthcare provider for information if you currently smoke and need help to quit. E-cigarettes or smokeless tobacco still contain nicotine. Talk to your healthcare provider before you use these products. education on decrease to stopping nicotine products and stop smoking hotline given 101-Quit - Yes [place] Tobacco Quitline Call a Smoking Quitline The [employer] Smoking Quitline, (5-916-51M-QUIT) Smokefree.gov, which connects you with your State's Quitline, (5-242-AMQOVKD) [facility] Smoking Quitline, (3-822-PQAGIRJ) educated on all medications, benefits, side effects and risk, and educated on depression, anxiety, and ADHD, mood d/o and educated on compliance of medications, metabolic and movement d/o education appointment is, continue therapy discussion with patient about course of treatment and patient instructions. education on serotonin syndrome SSRI/SNRI side effects discussed including but not limited to, gastric upset, nausea, vomiting, diarrhea and/or constipation, weight changes, sexual side effects including loss of libido, increased suicidal thoughts/behavior s in children and young adults, and serotonin syndrome. websites http_s://www.nimh .nih.gov/health/t opics/mental-heal th-medications http_s://www.ralph .org/About-Mental -Illness/Treatmen ts/Mental-Health- Medications http_s://www.ralph .org/About-Mental -Illness/Mental-H ealth-Conditions http_s://psychcen GENELINKl.com/depressi on/the-cognitive- zpjptgsl-tw-yyoup ssion#treatments http__s://www.[facility].nih.gov/health/ topics/mental-hea lth-medications http__s://www.nam i.org/About-Menta l-Illness/Treatme nts/Mental-Health -Medications http_s://keysha.nih .gov/publications /drugfacts/cannab is-marijuana http_s://wwwGlobal Grind/canna lqf-zkz-tjerbjpy- marijuana-adhd/ Medication Management and Follow-Up - Plan: - Schedule follow-up appointments every 1-3 months to monitor the patient's response to the medication regimen. - Reinforce the importance of avoiding recreational drug use due to potential neurotoxicity and interactions with prescribed medications. 09/28/2024 Nicotine use (ICD-10 - Z72.0) 1. Depression Viibyrd 40 mg daily- eat 350 calories wiht rx Trintellix 20 mg daily- rx sent 09/27/24 2. anxiety 3. ADHD Straterra 60 mg daily in am Adderall 20 mg twice a day ADHD stimulates education NO CONTROL SUBSTANCE PRESCRIBED BY LUZ MARINA WITH CANNABIS USE OR OTHER ILLEGAL DRUG USE Discuss with patient risk of misuse, abuse, and addiction before prescribing stimulant medicines. Desk Operator patients not to share their prescribed stimulant with anyone else. Educate patients and their families on these serious risks, proper storage of the medicine, and proper disposal of any unused medicine. Educated patient will monitor Throughout treatment, regularly assess and monitor them for signs and symptoms of nonmedical use, addiction, and potential diversion, which may be evidenced by more frequent renewal. requests than warranted by the prescribed dosage. Random UDS [place] prescription reviewed local pharmacy in [place], no early refills on control substance educated on non-stimulate and stimulates 4. HTN educated on healthy b/p 120/80 monitor b/p at home see PCP, heart healthy diet and excise limit salt intake limit soda intake and caffiene increase water on B/P RX Discuss cardiovascular health and B/P and risk of stimualtes and HTN, 5. tobacco use Do not smoke. Nicotine and other chemicals in cigarettes and cigars can cause lung damage. Ask your healthcare provider for information if you currently smoke and need help to quit. E-cigarettes or smokeless tobacco still contain nicotine. Talk to your healthcare provider before you use these products. education on decrease to stopping nicotine products and stop smoking hotline given -Quit - Yes [place] Tobacco Quitline Call a Smoking Quitline The [employer] Smoking Quitline, (8-624-10H-QUIT) Smokefree.gov, which connects you with your State's Quitline, (4-164-GPKKBOJ) [facility] Smoking Quitline, (9-341-XPNTXQZ) educated on all medications, benefits, side effects and risk, and educated on depression, anxiety, and ADHD, mood d/o and educated on compliance of medications, metabolic and movement d/o education appointment is, continue therapy discussion with patient about course of treatment and patient instructions. education on serotonin syndrome SSRI/SNRI side effects discussed including but not limited to, gastric upset, nausea, vomiting, diarrhea and/or constipation, weight changes, sexual side effects including loss of libido, increased suicidal thoughts/behavior s in children and young adults, and serotonin syndrome. websites http_s://www.nimh .nih.gov/health/t opics/mental-heal th-medications http_s://www.ralph .org/About-Mental -Illness/Treatmen ts/Mental-Health- Medications http_s://www.ralph .org/About-Mental -Illness/Mental-H ealth-Conditions http_s://psycheCirclel.ABB/depressi on/the-cognitive- rotlbsuv-nz-qzbfe ssion#treatments http__s://www.nim .nih.gov/health/ topics/mental-hea lth-medications http__s://www.nam i.org/About-Menta l-Illness/Treatme nts/Mental-Health -Medications http_s://keysha.nih .gov/publications /drugfacts/cannab is-marijuana http_s://www.[employer]/rosalba jvb-sez-wfroevtj- marijuana-adhd/ Medication Management and Follow-Up - Plan: - Schedule follow-up appointments every 1-3 months to monitor the patient's response to the medication regimen. - Reinforce the importance of avoiding recreational drug use due to potential neurotoxicity and interactions with prescribed medications. 09/28/2024 Encounter for screening for cardiovascular disorders (ICD-10 - Z13.6) 1. Depression Viibyrd 40 mg daily- eat 350 calories wiht rx Trintellix 20 mg daily- rx sent 09/27/24 2. anxiety 3. ADHD Straterra 60 mg daily in am Adderall 20 mg twice a day ADHD stimulates education NO CONTROL SUBSTANCE PRESCRIBED BY LUZ MARINA WITH CANNABIS USE OR OTHER ILLEGAL DRUG USE Discuss with patient risk of misuse, abuse, and addiction before prescribing stimulant medicines. Desk Operator patients not to share their prescribed stimulant with anyone else. Educate patients and their families on these serious risks, proper storage of the medicine, and proper disposal of any unused medicine. Educated patient will monitor Throughout treatment, regularly assess and monitor them for signs and symptoms of nonmedical use, addiction, and potential diversion, which may be evidenced by more frequent renewal. requests than warranted by the prescribed dosage. Random UDS [place] prescription reviewed local pharmacy in [facility], no early refills on control substance educated on non-stimulate and stimulates 4. HTN educated on healthy b/p 120/80 monitor b/p at home see PCP, heart healthy diet and excise limit salt intake limit soda intake and caffiene increase water on B/P RX Discuss cardiovascular health and B/P and risk of stimualtes and HTN, 5. tobacco use Do not smoke. Nicotine and other chemicals in cigarettes and cigars can cause lung damage. Ask your healthcare provider for information if you currently smoke and need help to quit. E-cigarettes or smokeless tobacco still contain nicotine. Talk to your healthcare provider before you use these products. education on decrease to stopping nicotine products and stop smoking hotline given Quit - Yes [place] Tobacco Quitline Call a Smoking Quitline The [employer] Smoking Quitline, (8-087-01T-QUIT) Smokefree.gov, which connects you with your State's Quitline, (9-193-LJGYQAF) [facility] Smoking Quitline, (5-638-JXOPHGZ) educated on all medications, benefits, side effects and risk, and educated on depression, anxiety, and ADHD, mood d/o and educated on compliance of medications, metabolic and movement d/o education appointment is, continue therapy discussion with patient about course of treatment and patient instructions. education on serotonin syndrome SSRI/SNRI side effects discussed including but not limited to, gastric upset, nausea, vomiting, diarrhea and/or constipation, weight changes, sexual side effects including loss of libido, increased suicidal thoughts/behavior s in children and young adults, and serotonin syndrome. websites http_s://www.[facility] .nih.gov/health/t opics/mental-heal th-medications http_s://www.ralph .org/About-Mental -Illness/Treatmen ts/Mental-Health- Medications http_s://www.Free & Clear .org/About-Mental -Illness/Mental-H ealth-Conditions http_s://ConnectEdu/depressi on/the-cognitive- bmwwqppg-ft-dabxe ssion#treatments http__s://www.[facility].nih.gov/health/ topics/mental-hea lth-medications http__s://www.Misoca i.[employer]/About-Menta l-Illness/Treatme nts/Mental-Health -Medications http_s://keysha.nih .gov/publications /drugfacts/cannab is-marijuana http_s://www.[employer]/rosalba bge-iww-yindzbsb- marijuana-adhd/ Medication Management and Follow-Up - Plan: - Schedule follow-up appointments every 1-3 months to monitor the patient's response to the medication regimen. - Reinforce the importance of avoiding recreational drug use due to potential neurotoxicity and interactions with prescribed medications. 09/28/2024 Dietary counseling and surveillance (ICD-10 - Z71.3) 1. Depression Viibyrd 40 mg daily- eat 350 calories wiht rx Trintellix 20 mg daily- rx sent 09/27/24 2. anxiety 3. ADHD Straterra 60 mg daily in am Adderall 20 mg twice a day ADHD stimulates education NO CONTROL SUBSTANCE PRESCRIBED BY LUZ MARINA WITH CANNABIS USE OR OTHER ILLEGAL DRUG USE Discuss with patient risk of misuse, abuse, and addiction before prescribing stimulant medicines. Desk Operator patients not to share their prescribed stimulant with anyone else. Educate patients and their families on these serious risks, proper storage of the medicine, and proper disposal of any unused medicine. Educated patient will monitor Throughout treatment, regularly assess and monitor them for signs and symptoms of nonmedical use, addiction, and potential diversion, which may be evidenced by more frequent renewal. requests than warranted by the prescribed dosage. Random UDS [place] prescription reviewed local pharmacy in [place], no early refills on control substance educated on non-stimulate and stimulates 4. HTN educated on healthy b/p 120/80 monitor b/p at home see PCP, heart healthy diet and excise limit salt intake limit soda intake and caffiene increase water on B/P RX Discuss cardiovascular health and B/P and risk of stimualtes and HTN, 5. tobacco use Do not smoke. Nicotine and other chemicals in cigarettes and cigars can cause lung damage. Ask your healthcare provider for information if you currently smoke and need help to quit. E-cigarettes or smokeless tobacco still contain nicotine. Talk to your healthcare provider before you use these products. education on decrease to stopping nicotine products and stop smoking hotline given 057-Quit - Yes [place] Tobacco Quitline Call a Smoking Quitline The [employer] Smoking Quitline, (8-495-60K-QUIT) Smokefree.gov, which connects you with your State's Quitline, (4-795-AEFOJFV) [facility] Smoking Quitline, (8-423-BEIZBGU) educated on all medications, benefits, side effects and risk, and educated on depression, anxiety, and ADHD, mood d/o and educated on compliance of medications, metabolic and movement d/o education appointment is, continue therapy discussion with patient about course of treatment and patient instructions. education on serotonin syndrome SSRI/SNRI side effects discussed including but not limited to, gastric upset, nausea, vomiting, diarrhea and/or constipation, weight changes, sexual side effects including loss of libido, increased suicidal thoughts/behavior s in children and young adults, and serotonin syndrome. websites http_s://www.[facility] .nih.gov/health/t opics/mental-heal th-medications http_s://www.ralph .org/About-Mental -Illness/Treatmen ts/Mental-Health- Medications http_s://www.ralph .org/About-Mental -Illness/Mental-H ealth-Conditions http_s://ConnectEdu/depressi on/the-cognitive- ktbxmdqb-pq-hovhz ssion#treatments http__s://www.[facility].nih.gov/health/ topics/mental-hea lth-medications http__s://www.nam i.org/About-Menta l-Illness/Treatme nts/Mental-Health -Medications http_s://keysha.nih .gov/publications /drugfacts/cannab is-marijuana http_s://www.[employer]/Simioarpan uml-ifz-wjygkpmx- marijuana-adhd/ Medication Management and Follow-Up - Plan: - Schedule follow-up appointments every 1-3 months to monitor the patient's response to the medication regimen. - Reinforce the importance of avoiding recreational drug use due to potential neurotoxicity and interactions with prescribed medications. Plan Of Treatment Medication Medication Name Sig Start Date Stop Date Notes Vilazodone HCl 40 MG TAKE 1 TABLET Oral Once a day for 90 days Atomoxetine HCl 60 MG TAKE 1 CAPSULE Ora l Once a day for 90 days Amphetamine-Dextroamphetamin e 20 MG 1 tablet Oral Twice a day for 30 days 09/28/2024 Next Appt Details Follow Up: 3 Months, Reason: medication follow up Provider Name:Tonja Inman , 12/27/2024 08:15:00 AM, [address] [facility], [facility] [address], [place], [address], Progress Notes * RUCHI AN LDOB:[birth year] (54 yo F)Acc No.[id number]:09/28/2024 Patient: RUCHI SHEIKH Provider: Alexandra INMAN PMHNP :1970 A ge:54 Y S ex:Female Date:09/28/2024 Address:[address] [place], [place] [id number] Pcp:Bayron Ferraro MD Subjective: * Chief Complaints: * 1 [address] Dr Woo's Pt. 2. Patient states the last time she did a UDS it got sent out she had a bill for over a hundred dollars, would like to speak with Tonja ventura. * HPI: D epression Screening: SIS-7 (2018 Edition) F eeling nervous, anxious, or on edge N ot at all N ot being able to stop or control worrying?Several days W orrying too much about different things S everal days T rouble relaxing N ot at all B eing so restless that it is hard to sit still N ot at all B ecoming easily annoyed or irritable N ot at all F eeling afraid as if something awful might happen N ot at all T otal SIS-7 Score 2 I f you checked any problems, how difficult have they made it for you to do your work, take care of things at home, or get along with other people? S omewhat difficult I nterpretation of Total ( 0 to 4) No Anxiety C [place]-Suicide Severity Rating Scale: Suicide Risk (CSRS-screener) i n the past one month Have you wished you were or wished you could go to sleep and not wake up? N o i n the past one month Have you actually had any thoughts of killing yourself? N o H ave you ever done anything, started to do anything, or prepared to do anything to end your life? N o D epression screening: PHQ-9 L ittle interest or pleasure in doing things?Several days F eeling down, depressed, or hopeless N ot at all T rouble falling or staying asleep, or sleeping too much M ore than half the days F eeling tired or having little energy N ot at all P oor appetite or overeating N ot at all F eeling bad about yourself or that you are a failure, or have let yourself or your family down N ot at all T rouble concentrating on things, such as reading the newspaper or watching television S everal days M oving or speaking so slowly that other people could have noticed; or the opposite, being so fidgety or restless that you have been moving around a lot more than usual N ot at all T houghts that you would be better off or of hurting yourself in some way N ot at all T otal Score 4 I nterpretation M inimal Depression Intervention D epression Screening Findings P ositve F ollow-Up for Depression M ental health treatment assessment, Patient follow-up to return when and if necessary, Psychiatric follow-up S uicide Risk Assessment Performed 0 09/28/2024 no SI/HI no plans or intent A dditional Evaluation for Depression P sychiatric interview and evaluation N terry of the standardized tool used for adult depression screening: [facility] F unctional Status: Transition from Dr. Woo Follow up for depression, anxiety, ADHD, chronic since last visit reported I been doing good and insurance charge to much for sending out UDS and educated on UDS policy, I feel depression and anxiety is good I have back pain, and effects mood with down not depressed type and not able to do things and see chiropractor and had steriod injection and made it worst, I have constant pain, and muscle tight feeling not released, I m ok doing UDS I take rx, I feel no sad or down no hopeless or helpless just frustrated not able to do normal things, sleep effected with pain, I sleep in shifts and ice and heat and OTC rx and average sleep 6 hours and appetite comes and goes weight stable, concentration and focus it is same and also comes and goes 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 I feel not anxious or restless, I feel back mainly, no agitation or irritable out of normal, no psychosis, no elysia no SI/HI, motivation and interest no issues, energy good, I have a lot I want to do. 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 I can rein myself in, say to myself, 'stop, you're doing it again, and have to rethink it.' My helps me recognize it as well. after stopping thyroid medication pt stopped having heart palpitations and is no longer hot all the time; bp was very elevated this morning, pt has always had mild tachycardia, repeat vital signs after meeting with me were better. P sychotherapy with Med eval: Therapy with Med eval P sychotherapy with Medication management Y es P sychotherapy done Time Spent Minute 2 0 to 30 min T ype of therapy done S upportive Therapy * ROS: r eports n o shortness of breath n o chest pain, no palpitations, no known heart murmur, and no ankle swelling; no cough. r eports no abdominal pain, no nausea, no vomiting, no constipation, normal appetite, no diarrhea, and no GERD; . r eports no headaches and no migraines but reports no loss of consciousness, no weakness, no numbness, no seizures, no dizziness, no tremor, no gait dysfunction, and no paralysis. r eports resltess and sleep disturbances r/t back pain, and no memory loss b ut reports mild depression, feeling safe in a relationship, no alcohol abuse, mild anxiety, no hallucinations, no suicidal thoughts, no mood swings, no agitation, r eports f atigue. reports no fever, no significant weight gain, and no significant weight loss. r eports wears glasses- readers reports no incontinence, no difficulty urinating, and no increased frequency. r eports no muscle aches, no muscle weakness, no arthralgias/joint pain, reported back pain, no swelling in the extremities, no neck pain, and no difficulty walking. * Medical History: P roblems: Attention deficit hyperactivity disorder, Chronic migraine without aura with status migrainosus, Gastroesophageal reflux disease, Generalized anxiety disorder, Irritable bowel syndrome, Long-term drug therapy, Recurrent major depression in remission, Restless legs, Severe recurrent major depression without psychotic features, Ulcerative colitis, ,, Past Psychiatric History: Anxiety Disorder. * Medications: T aking Vilazodone HCl 40 MG Tablet TAKE 1 TABLET Oral Once a day , Taking valACYclovir HCl 500 MG Tablet TAKE 1 TABLET BY MOUTH DAILY Oral , Taking Mesalamine 1.2 GM Tablet Delayed Release TAKE 2 TABLETS BY MOUTH TWICE DAILY Oral , Taking Ajovy 225 MG/1.5ML Solution Auto-injector INJECT 1.5ML UNDER THE SKIN EVERY 30 DAYS Subcutaneous , Taking valACYclovir HCl 1 GM Tablet TAKE 2 TABLETS BY MOUTH NOW. REPEAT IN 12 HOURS FOR OUTBREAK Oral , Taking Linzess 72 MCG Capsule TAKE 1 CAPSULE BY MOUTH EVERY DAY Oral , Taking Omeprazole 40 MG Capsule Delayed Release TAKE 1 CAPSULE BY MOUTH EVERY DAY 30 MINUTES BEFORE BREAKFAST Oral , Taking Lisinopril 10 MG Tablet TAKE 1 TABLET BY MOUTH DAILY Oral , Taking Folic Acid 1 MG Tablet TAKE 1 TABLET BY MOUTH EVERY DAY Oral , Taking Albuterol Sulfate HFA 108 (90 Base) MCG/ACT Aerosol Solution INHALE 1 PUFF EVERY 4 HOURS NEEDED FOR SHORTNESS OF BREATH OR WHEEZING Inhalation , Taking Atomoxetine HCl 60 MG Capsule TAKE 1 CAPSULE Oral Once a day , Taking Amphetamine-Dextroamphetamine 20 MG Tablet 1 tablet Oral Twice a day , Taking Trintellix 20 MG Tablet 1 tablet Oral Once a day , Discontinued Amphetamine-Dextroamphetamine 20 MG Tablet 1 tablet Orally Twice a day , Medication List reviewed and reconciled with the patient * Allergies: S ULFA (SULFONAMIDE ANTIBIOTICS): Allergy - Onset Date 09/11/2023, Amoxicillin: Allergy - Onset Date 09/11/2023, Clindamycin: Allergy - Onset Date 09/11/2023, Rosuvastatin: Allergy - Onset Date 09/11/2023. Objective: * Vitals: B P: 149/99 mm Hg,139/94mm Hg, HR:120/min, Wt:126.0lbs, Wt-k.15 kg, Ht: 58.00 in, Ht-cm: 147.32 cm, BMI:26.33Index, Body Surface Area: 1.53. * Examination: P sychiatry: Appearance: w ell-groomed, well-nourished, appears stated age. Abnormal body movements: n one. Affect / mood: a ppropriate, full range. Aggression: l ow. Anger control: g ood. Attention: g ood. Attitude: c ooperative. Gait s teady. Homicidal ideation: n one. Suicidal ideation: n one. Memory status: n o impairment noted. Degree of awareness of surroundings: w ithin normal limits.? Delusions: n o. Hallucinations: n o. Insight: g ood. Intellectual functioning: n o impairment noted. Comprehension - Intellectual function: a verage. Judgement: g ood. Orientation: a wake, alert and oriented x 3. Perceptual disorders: n o perceptual disorder noted. Psychomotor activity: w ithin normal range. Speech / language: a ppropriate pitch/modulation, clear and coherent, normal rate, volume, and articulation (RVR), proper grammar used. Thought content: a ppropriate. Thought process: i ntact. Assessment: * Assessment: 1. M DD (major depressive disorder), recurrent episode, mild - F33.0 (Primary) 2 . E ncounter for screening for depression - Z13.31 3 . A ttention-deficit hyperactivity disorder, predominantly inattentive type - F90.0 4 . G eneralized anxiety disorder - F41.1 5 . B enign essential HTN - I10 6 .?Tobacco use - Z72.0 7 . N icotine use - Z72.0 8 . E ncounter for screening for cardiovascular disorders - Z13.6 9 . D ietary counseling and surveillance - Z71.3 1. Depression Viibyrd 40 mg daily- eat 350 calories wiht rx Trintellix 20 mg daily- rx sent 09/27/24 2. anxiety 3. ADHD S traterra 60 mg daily in am Adderall 20 mg twice a day ADHD stimulates education NO CONTROL SUBSTANCE PRESCRIBED BY LUZ MARINA WITH CANNABIS USE OR OTHER ILLEGAL DRUG USE Discuss with patient risk of misuse, abuse, and addiction before prescribing stimulant medicines. C ounsel patients not to share their prescribed stimulant with anyone else. Educate patients and their families on these serious risks, proper storage of the medicine, and proper disposal of any unused medicine. Educated patient will monitor Throughout treatment, regularly assess and monitor them for signs and symptoms of nonmedical use, addiction, and potential diversion, which may be evidenced by more frequent renewal. requests than warranted by the prescribed dosage. Random UDS [place] prescription reviewed local [place] in [place], no early refills on control substance educated on non-stimulate and stimulates 4. HTN educated on healthy b/p 120/80 monitor b/p at home see PCP, heart healthy diet and excise limit salt intake limit soda intake and caffiene increase water o n B/P RX Discuss cardiovascular health and B/P and risk of stimualtes and HTN, 5. tobacco use Do not smoke. Nicotine and other chemicals in cigarettes and cigars can cause lung damage. Ask your healthcare provider for information if you currently smoke and need help to quit. E-cigarettes or smokeless tobacco still contain nicotine. Talk to your healthcare provider before you use these products. education on decrease to stopping nicotine products and stop smoking hotline given Quit - Yes [place] Tobacco Quitline Call a Smoking Quitline The National Cancer [place]'s Smoking Quitline, (3-534-48Y-QUIT) Smokefree.gov, which connects you with your State's Quitline, (0-174-WDPVPVM) Veterans Smoking Quitline, (2-031-EWCGAQD) educated on all medications, benefits, side effects and risk, and educated on depression, anxiety, and ADHD, mood d/o and educated on compliance of medications, metabolic and movement d/o education appointment is, continue therapy discussion with patient about course of treatment and patient instructions. education on serotonin syndrome SSRI/SNRI side effects discussed including but not limited to, gastric upset, nausea, vomiting, diarrhea and/or constipation, weight changes, sexual side effects including loss of libido, increased suicidal thoughts/behaviors in children and young adults, and serotonin syndrome. websites http_s://www.nimh.nih.gov/health/topics/vscory-rqhgqb-pkjmtxoulvp http_s://www.ralph.org/Vkokx-Hkvkks-Nlbcglc/Treatments/Vpgbxl-Eonsbj-Rphzzvfxdzd http_s://www.ralph.org/Fafbe-Ydezoz-Ioiyafj/Bhabnb-Rsgqay-Grlhiddhon http_s://psychcentral.com/depression/obv-bywujpiqc-ybeercpx-of-depression#treatm ents http__s://www.nimh.nih.gov/health/topics/jsrrlb-lhulmj-jbenlitqsme http__s://www.ralph.org/Xjvel-Ijvpxr-Quroxym/Treatments/Yvrdqk-Geyzpz-Ofcqnvrtsyp http_s://keysha.nih.gov/publications/drugfacts/cannabis-marijuana http_s://www.Spectraseis.ABB/eemapfre-mpu-aqltftra-marijuana-adhd/ Medication Management and Follow-Up - Plan: - Schedule follow-up appointments every 1-3 months to monitor the patient's response to the medication regimen. - Reinforce the importance of avoiding recreational drug use due to potential neurotoxicity and interactions with prescribed medications. Plan: * Treatment: 2. A ttention-deficit hyperactivity disorder, predominantly inattentive type Refill Amphetamine-Dextroamphetamine Tablet, 20 MG, 1 tablet, Oral, Twice a day, 30 days, 60, Refills 0; R efill Atomoxetine HCl Capsule, 60 MG, TAKE 1 CAPSULE, Oral, Once a day, 90 days, 90, Refills 0. * Procedure Codes: 9 6127 BEHAV ASSMT W/SCORE & DOCD/STAND INSTRUMENT, 62064 BEHAV ASSMT W/SCORE & DOCD/STAND INSTRUMENT, G9902 Pt scrn tbco and id as user, G8950 PREHTN/HTN BP DOC INDCD F/U DOC, G8431 CLIN DEPRESSION SCREEN DOC, G8753 MOST RECENT SYSTOLIC BP >= 140MM HG, G8431 CLIN DEPRESSION SCREEN DOC, G2211 VISIT COMPLEXITY INHERENT TO ONGOING CARE RELATED TO A PATIENT'S SINGLE, SERIOUS CONDITION OR A COMPLEX CONDITION, G8431 CLIN DEPRESSION SCREEN DOC * Follow Up: 3 Months (Reason: medication follow up) * Billing Information: * Visit Code: 96026 OFFICE OUTPATIENT VISIT 25 MINUTES DETAILED HISTORY AND EXAM/MODERATE MEDICAL DECISION MAKING. * Procedure Codes: 43356 BEHAV ASSMT W/SCORE & DOCD/STAND INSTRUMENT. 71764 BEHAV ASSMT W/SCORE & DOCD/STAND INSTRUMENT. G9902 Pt scrn tbco and id as user. G8950 PREHTN/HTN BP DOC INDCD F/U DOC. G8431 CLIN DEPRESSION SCREEN DOC. G8753 MOST RECENT SYSTOLIC BP >= 140MM HG. G8431 CLIN DEPRESSION SCREEN DOC. G2211 VISIT COMPLEXITY INHERENT TO ONGOING CARE RELATED TO A PATIENT'S SINGLE, SERIOUS CONDITION OR A COMPLEX CONDITION. G8431 CLIN DEPRESSION SCREEN DOC. * Sign off status: Completed true * Provider: Alexandra INMAN PMHNP Date: 0 09/28/2024 Generated for Eliseo paula/Kari/Eddie on: 0 10/05/2024 11:34 AM CDT History and Physical Notes * HPI (History of Present Illness) Category Sub-Category Detail Notes Category Not es Depression screening PHQ-9 Little inte rest or pleasure in doing things: Several days Feeling down, depressed, or hopeless: No t at all Trouble falling or staying a sleep, or sleeping too much: More than half the days Feeling tired or having little energy: N ot at all Poor appetite or overeating: Not at all Feeling bad about yourself o r that you are a failure, or have let yourself or your family down: Not at all Trouble concentrating on thi ngs, such as reading the newspaper or watching television: Several days Moving or speaking so slowly that other people could have noticed; or the opposite, being so fidgety or restless that you have been moving around a lot more than usual: Not at all Thoughts that you would be b melinda off or of hurting yourself in some way: Not at all Total Score: 4 Interpretation: Minimal Depression Intervention Depression Screening Findings: P ositve Follow-Up for Depression: [facility] treatment assessment, Patient follow-up to return when and if necessary, Psychiatric follow-up Suicide Risk Assessment Performed: 09/28 no SI/HI no plans or intent Additional Evaluation for De pression: Psychiatric interview and evaluation Name of the standardized too l used for adult depression screening:: Patient Health Questionnaire (PHQ-9) Functional Status Transition from Dr. Woo Follow up for depression, anxiety, ADHD, chronic since last visit reported I been doing good and insurance charge to much for sending out UDS and educated on UDS policy, I feel depression and anxiety is good I have back pain, and effects mood with down not depressed type and not able to do things and see chiropractor and had steriod injection and made it worst, I have constant pain, and muscle tight feeling not released, I m ok doing UDS I take rx, I feel no sad or down no hopeless or helpless just frustrated not able to do normal things, sleep effected with pain, I sleep in shifts and ice and heat and OTC rx and average sleep 6 hours and appetite comes and goes weight stable, concentration and focus it is same and also comes and goes 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 I feel not anxious or restless, I feel back mainly, no agitation or irritable out of normal, no psychosis, no elysia no SI/HI, motivation and interest no issues, energy good, I have a lot I want to do. 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 I can rein myself in, say to myself, 'stop, you're doing it again, and have to rethink it.' My helps me recognize it as well. after stopping thyroid medication pt stopped having heart palpitations and is no longer hot all the time; bp was very elevated this morning, pt has always had mild tachycardia, repeat vital signs after meeting with me were better Depression Screening SIS-7 (2018 Edition) Feeling nervous, anxious, or on edge: Not at all Not being able to stop or control worryi ng: Several days Worrying too much about different things : Several days Trouble relaxing: Not at all Being so restless that it is hard to sit still: Not at all Becoming easily annoyed or irritable: No t at all Feeling afraid as if something awful taye ht happen: Not at all Total SIS-7 Score: 2 If you checked any problems, how difficult have they made it for you to do your work, take care of things at home, or get along with other people?: Somewhat difficult Interpretation of Total: (0 to 4) No Anx iety Psychotherapy with Med eval Therapy with Med lalo l Psychotherapy with Medication management: Yes Psychotherapy done Time Spent Minute: 20 to 30 min Type of therapy done: Supportive Therapy [place]-Suicide Severity Rating Scale Suicide Risk (CSRS-screener) in the past one month Have you wished you were or wished you could go to sleep and not wake up?: No in the past one month Have y ou actually had any thoughts of killing yourself?: No Have you ever done anything, started to do anything, or prepared to do anything to end your life?: No Examination Category Sub-Category Detail Notes Category Not es Psychiatry Appearance: well-groomed, we ll-nourished, appears stated age Attitude: cooperative Psychomotor activity: within normal rang e Abnormal body movements: none Attention: good Degree of awareness of surroundings: wit hin normal limits Orientation: awake, alert and ary ented x 3 Affect / mood: appropriate, full ra nge Speech / language: appropriate pitch/mo dulation, clear and coherent, normal rate, volume, and articulation (RVR), proper grammar used Insight: good Judgement: good Thought process: intact Thought content: appropriate Perceptual disorders: no perceptual diso rder noted Aggression: low Anger control: good Suicidal ideation: none Homicidal ideation: none Intellectual functioning: no impairment noted Memory status: no impairment noted Delusions: no Hallucinations: no Comprehension - Intellectual function: a verage Gait steady
--- OUTSIDE RECORDS SUMMARY | 2024-10-05 11:35 | XMS_ITS ---
Author Organization [facility], [facility] Address [address] [place] [address] [address] [place] [address] Care Team Providers Care Chef Assistant Name Role Phone Bayron Ferraro MD Primary Care Provider Unavaila Ronak Fragoso Unavailable [phone] Betito Gastelum Unavailable Unavailable Encounters Encounter Location Date Provider Diagnosis [facility], [address] [place] [address] 07/13/2024 Ronak Santoyo Plan Of Treatment No Information Progress Notes * Zen AN LDOB:[birth year] (54 yo F)Acc No.[id number]:07/13/2024 Patient: Manda Zen LAWLER :1970 A ge:54 Y S ex:Female Address:[address] [place] [id number] * true * Date: Generated for Printi ng/Fajanieg/eTransmitting on: 0 10/05/2024 11:35 AM CDT
--- OUTSIDE RECORDS SUMMARY | 2024-10-05 11:35 | XMS_ITS | Encounter Summary ---
Author Organization [facility] [facility] Address [address] [place] [address] Phone Care Team Providers Care Paper Carrier Name Role Phone Bayron Ferraro MD Primary Care Provider Rossi Mckeon MD Unavailable [phone]- [phone] Encounter Details Date Type Department Care Team (Latest Contact Info) Description 08/18/2020 Orders Only [facility] Scanning, Provider Social History Tobacco Use Types Packs/Day Years Used Date Smoking Tobacco: Former Cigarettes Q uit: 09/2017 Smokeless Tobacco: Never Alcohol Use Standard Drinks/Week Comments Yes 0 (1 standard drink = 0.6 oz pur e alcohol) occasional Comments No Sex and Gender Information Value Date Recorded Sex Assigned at Not on file 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 Gender Identity Not on file Sexual Orientation Straight 12/29/2020 8: 23 AM CDT documented as of this encounter Plan of Treatment Not on file documented as of this encounter Procedures Procedure Name Priority Date/Time Associated Diagnosis Comments SCAN - LABS 08/18/2020 documented in this encounter Results * SCAN - LABS (08/18/2020) us Provider Scanning Final Result documented in this encounter Visit Diagnoses Not on filedocumented in this encounter Care Teams Paper Carrier Relationship Specialty Start Date End Date Bayron Ferraro MD [address] [place] [address] PCP - General 03/26/17 Rossi Mckeon MD [address] [place] [address] Medical Oncologist/Career Advisor Hematology 08/24/20 documented as of this encounter
--- OUTSIDE RECORDS SUMMARY | 2024-10-05 11:35 | XMS_ITS | Encounter Summary ---
Author Organization [facility] [employer] [facility] Address [address] [place] [address] Phone Care Team Providers Care Senior Mortgage Loan Processor Name Role Phone Bayron Ferraro MD Primary Care Provider Rossi Mckeon MD Unavailable [phone] Encounter Details Date Type Department Care Team (Latest Contact Info) Description 01/01/2021 Orders Only [facility] Scanning, Provider Social History Tobacco Use Types Packs/Day Years Used Date Smoking Tobacco: Former Cigarettes Q uit: 09/2017 Smokeless Tobacco: Never Alcohol Use Standard Drinks/Week Comments Yes 0 (1 standard drink = 0.6 oz pur e alcohol) occasional Comments No Sex and Gender Information Value Date Recorded Sex Assigned at Not on file 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 Gender Identity Not on file Sexual Orientation Straight 12/29/2020 8: 23 AM CDT documented as of this encounter Plan of Treatment Not on file documented as of this encounter Procedures Procedure Name Priority Date/Time Associated Diagnosis Comments SCAN - LABS 01/01/2021 documented in this encounter Results * SCAN - LABS (01/01/2021) us Provider Scanning Final Result documented in this encounter Visit Diagnoses Not on filedocumented in this encounter Care Teams Senior Mortgage Loan Processor Relationship Specialty Start Date End Date Bayron Ferraro MD [address] [place] [address] PCP - General 03/26/17 Rossi Mckeon MD [address] [place] [address] Medical Oncologist/Tax Adjuster Hematology 08/24/20 documented as of this encounter
--- OUTSIDE RECORDS SUMMARY | 2024-10-05 11:35 | XMS_ITS | Encounter Summary ---
Author Organization [facility] [employer] [facility] Address [address] [place] [address] Phone Care Team Providers Care Vp Marketing Name Role Phone Bayron Ferraro MD Primary Care Provider Rossi Mckeon MD Unavailable [phone]- [phone] Encounter Details Date Type Department Care Team (Latest Contact Info) Description 03/06/2021 Orders Only [facility] Scanning, Provider Social History Tobacco Use Types Packs/Day Years Used Date Smoking Tobacco: Former Cigarettes Q uit: 09/2017 Smokeless Tobacco: Never Alcohol Use Standard Drinks/Week Comments Yes 0 (1 standard drink = 0.6 oz pur e alcohol) occasional Comments No Sex and Gender Information Value Date Recorded Sex Assigned at Not on file 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 Gender Identity Not on file Sexual Orientation Straight 12/29/2020 8: 23 AM CDT documented as of this encounter Plan of Treatment Not on file documented as of this encounter Procedures Procedure Name Priority Date/Time Associated Diagnosis Comments SCAN - LABS 03/06/2021 documented in this encounter Results * SCAN - LABS (03/06/2021) us Provider Scanning Final Result documented in this encounter Visit Diagnoses Not on filedocumented in this encounter Care Teams Vp Marketing Relationship Specialty Start Date End Date Bayron Ferraro MD [address] [place] [address] PCP - General 03/26/17 Rossi Mckeon MD [address] [place] [address] Medical Oncologist/Staff Rn Hematology 08/24/20 documented as of this encounter
--- OUTSIDE RECORDS SUMMARY | 2024-10-05 11:36 | XMS_ITS | Encounter Summary ---
Author Organization [facility] [employer] [facility] Address [address] [place] [address] Phone Care Team Providers Care Latin Dance Instructor Name Role Phone Bayron Ferraro MD Primary Care Provider Rossi Mckeon MD Unavailable [phone]- [phone] Encounter Details Date Type Department Care Team (Latest Contact Info) Description 06/07/2020 Orders Only [facility] Scanning, Provider Social History Tobacco Use Types Packs/Day Years Used Date Smoking Tobacco: Former Cigarettes Q uit: 09/2017 Smokeless Tobacco: Never Alcohol Use Standard Drinks/Week Comments Yes 0 (1 standard drink = 0.6 oz pur e alcohol) occasional Comments No Sex and Gender Information Value Date Recorded Sex Assigned at Not on file 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 Gender Identity Not on file Sexual Orientation Straight 12/29/2020 8: 23 AM CDT documented as of this encounter Plan of Treatment Not on file documented as of this encounter Procedures Procedure Name Priority Date/Time Associated Diagnosis Comments SCAN - LABS 06/07/2020 documented in this encounter Results * SCAN - LABS (06/07/2020) us Provider Scanning Final Result documented in this encounter Visit Diagnoses Not on filedocumented in this encounter Care Teams Latin Dance Instructor Relationship Specialty Start Date End Date Bayron Ferraro MD [address] [place] [address] PCP - General 03/26/17 Rossi Mckeon MD [address] [place] [address] Medical Oncologist/Online Merchandising Coordinator Hematology 08/24/20 documented as of this encounter
== END 2024-10-05 10:30 | disposition home or self-care (01) ==
PROVIDERS: PCP Family Medicine; Visit Provider Surgery
DX: R92.333 Mammographic heterogeneous density, bilateral breasts (principal); Z80.3 Family history of malignant neoplasm of breast; R92.8 Other abnormal and inconclusive findings on diagnostic imaging of breast
CPT/HCPCS: 77049; A9579; C8908

== ENCOUNTER 2024-10-14 13:27 | Outpatient (CLI) | payer BC, SELFPAY ==
--- NOTE | ~2024-10-14 | US_ITS ---
US breast LT complete 10/14/2024 14:04 Indication: Nonmass-like enhancement seen in the left breast on prior MRI examination. Ultrasound rec ommended for correlation. Procedure: Complete left breast ultrasound including all 4 quadrants in the subareolar location Comparison: MRI dated 10/05/2024 and mammogram dated 04/09/2024 Findings: There is a 2 mm cyst of the left breast at 3:00, 6 cm from the nipple. No suspicious masses to suggest malignancy. Impression: 1: No sonographic evidence for malignancy in the left breast. Routine yearly screening mammogram and regular clinical breast examination are recommended. BI-RADS CATEGORY 2 - BENIGN FINDINGS Reviewed, dictated and finalized at location A. Impression: 1: No sonographic evidence for malignancy in the left breast. Routine yearly screening mammogram and regular clinical breast examination are recommended. BI-RADS CATEGORY 2 - BENIGN FINDINGS
--- OUTSIDE RECORDS SUMMARY | 2024-10-14 13:55 | XMS_ITS | Encounter Summary ---
Author Organization 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
--- OUTSIDE RECORDS SUMMARY | 2024-10-14 13:55 | XMS_ITS | Encounter Summary ---
Author Organization [facility] Address [address] [place] [address] Phone Care Team Providers Care Mold Shaker Name Role Phone Bayron Ferraro MD Primary Care Provider Rossi Mckeon MD Unavailable [phone] Encounter Details Date Type Department Care Team (Latest Contact Info) Description 01/24/2018 Orders Only [facility] Scanning, Provider Social History Tobacco Use Types Packs/Day Years Used Date Smoking Tobacco: Former Smokeless Tobacco: Never Comments Unknown Sex and Gender Information Value Date Recorded Sex Assigned at Not on file Legal Sex Female 7:48 PM STRAPPER Gender Identity Not on file Sexual Orientation [...] on filedocumented in this encounter Care Teams Mold Shaker Relationship Specialty Start Date End Date Bayron Ferraro MD [address] [place] [address] PCP - General 03/26/17 Rossi Mckeon MD [address] [place] [address] Medical Oncologist/Truck Dock Material Mover Hematology 08/24/20 documented as of this encounter
--- OUTSIDE RECORDS SUMMARY | 2024-10-14 13:56 | XMS_ITS | Encounter Summary ---
Author Organization [facility] [employer] [facility] Address [address] [place] [address] Phone Care Team Providers Care Trolley Car Overhauler Name Role Phone Bayron Ferraro MD Primary Care Provider Rossi Mckeon MD Unavailable [phone] Encounter Details Date Type Department Care Team [...] on file Legal Sex Female 7:48 PM TREE MARKER Gender Identity Not on file Sexual Orientation [...] on filedocumented in this encounter Care Teams Trolley Car Overhauler Relationship Specialty Start Date End Date Bayron Ferraro MD [address] [place] [address] PCP - General 03/26/17 Rossi Mckeon MD [address] [place] [address] Medical Oncologist/Intern Retail Hematology 08/24/20 documented as of this encounter
--- OUTSIDE RECORDS SUMMARY | 2024-10-14 13:56 | XMS_ITS | Clinical Summary ---
Author Organization [facility] Address [facility] [place] [address] Care Team Providers Care Emergency Medicine Specialist Name Role Phone Geovanni Fuentes MD Primary [...] Date Diagnosed Date CHF (congestive heart failure) ([facility]) 10/08/2017 Pulmonary embolus ([facility]) 10/08/2017 Social History Tobacco Use Types Packs/Day Years Used Date Smoking Tobacco: Never Assessed Comments Unknown Sex and Gender Information Value Date Recorded Sex Assigned at Not on file Legal Sex Female 5:14 PM CDT Gender Identity Not on file Sexual Orientation Not on file Last Filed Vital Signs Vital Sign Reading Time Taken Comments Blood Pressure 144/99 07/22/2022 3:52 PM SYSTEMS ADMIN Pulse 88 07/22/2022 3:52 PM SYSTEMS ADMIN Temperature 37.1 C (98.7 F) 07/22/2022 3:52 PM SYSTEMS ADMIN Respiratory Rate 20 07/22/2022 3:52 PM SYSTEMS ADMIN Oxygen Saturation 99% 07/22/2022 3:52 PM SYSTEMS ADMIN Inhaled Oxygen Concentration - - Weight 67.1 kg (148 lb) 07/22/2022 3:52 PM SYSTEMS ADMIN Height 142.2 cm (4' 8 ) 07/22/2022 3:52 PM SYSTEMS ADMIN Body Mass Index 33.18 07/22/2022 3:52 PM SYSTEMS ADMIN Plan of Treatment Health Maintenance Due Date [...] Vaccine (2023-2 5 season) 2024 12/26/2020, 11/28/2020 Meningococcal B Vaccine Aged Out No l [...] SHIELD BLUE CROSS BLUE SHIELD Care Teams Emergency Medicine Specialist Relationship Specialty Start Date End Date Geovanni Fuentes MD [address] [place] [address]; [place] [address] PCP - General GASTROENTEROLOGY 04/20/19
--- OUTSIDE RECORDS SUMMARY | 2024-10-14 13:56 | XMS_ITS | Encounter Summary ---
Author Organization [facility] Address [address] [place] [address] Phone Care Team Providers Care Home Health Rn Name Role Phone Bayron Ferraro MD Primary Care Provider Rossi Mckeon MD Unavailable +1- [phone] Encounter Details Date Type Department Care Team [...] on file Legal Sex Female 7:48 PM RADIOLOGICAL EQUIPMENT SPECIALIST Gender Identity Not on file Sexual [...] on filedocumented in this encounter Care Teams Home Health Rn Relationship Specialty Start Date End Date Bayron Ferraro MD [address] [place] [address] PCP - General 03/26/17 Rossi Mckeon MD [address] [place] [address] Medical Oncologist/Director Of Regional Sales Hematology 08/24/20 documented as of this encounter
--- OUTSIDE RECORDS SUMMARY | 2024-10-14 13:56 | XMS_ITS | Encounter Summary ---
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
--- OUTSIDE RECORDS SUMMARY | 2024-10-14 13:56 | XMS_ITS | Encounter Summary ---
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
--- OUTSIDE RECORDS SUMMARY | 2024-10-14 13:56 | XMS_ITS | Clinical Summary ---
Author Organization [facility] Address [address] [place] [address] Care Team Providers Care Testing Lead Name Role Phone Bayron Ferraro MD Primary Care Provider Rossi Mckeon MD Unavailable +1- [phone] Allergies Active Allergy Reactions Criticality Noted Date [...] Department Care Team Description 10/04/2024 Anticoagulation Visit [facility] Hematology [facility] [address] [place] [address] Lorraine Hood, RN 09/24/2024 Anticoagulation Visit [facility] Hematology [facility] [address] [place] [address] Lorraine Hood, RN 09/16/2024 Anticoagulation Visit [facility] Physicians [facility] Oncology [address] [facility] [address] [facility] [address] [place] [address] Jeana Morales NP 09/13/2024 Telephone [facility] General Neurology [address] [facility] 6th Floor [address] [place] [address] Marimar Frausto PA Ajovy PA Renewal 09/07/2024 1:18 PM AERIAL GUNNER SUPERINTENDENT - 09/07/2024 11:59 PM AERIAL GUNNER SUPERINTENDENT Hospital Encounter [facility] [address] [place] [address] Kevan Lemos MD Lumbar radiculitis (Primary Dx); Anterolisthesis of lumbar spine Discharge Disposition: Discharge to home or self care 08/31/2024 Anticoagulation Visit [facility] Hematology [facility] [address] [place] [address] Lorraine Hood, RN 08/24/2024 Orders Only [facility] Orthopaedic Surgery [address] [place] [address] Kevan Lemos MD Anterolisthesis of lumbar spine (Primary Dx) 08/11/2024 Anticoagulation Visit [facility] Hematology [address] [facility] Floor 6 [place] [address] Lorraine Hood, RN 08/04/2024 Telephone [facility] Orthopaedic Surgery [address] [facility] 2nd Floor [address] [place] [address] Kevan Lemos MD 08/02/2024 9:08 AM AERIAL GUNNER SUPERINTENDENT - 08/02/2024 11:59 PM AERIAL GUNNER SUPERINTENDENT Hospital Encounter [facility] [address] [place] [address] Kevan Lemos MD Right leg pain (Primary Dx); Bilateral low back pain, unspecified chronicity, unspecified whether sciatica present Discharge Disposition: Discharge to home or self care 07/20/2024 Anticoagulation Visit [facility] Hematology [address] [facility] Floor 6 [place] [address] Lorraine Hood, RN from Last 3 Months Surgical History Surgery Date Site/Laterality Comments NM TOTAL ABDOMINAL HYSTERECT W/WO RMVL TUBE OVARY Hysterectomy - (Added by TW Conv) NM APPENDECTOMY Appendectomy - (Added by TW Conv) NM DELIVERY ONLY Section - (Added by TW [...] on file Legal Sex Female 7:48 PM AERIAL GUNNER SUPERINTENDENT Gender Identity Not on file Sexual Orientation Straight 12/29/2020 8: 23 AM CDT Obstetrics History Last Filed Vital Signs Vital Sign Reading Time Taken Comments Blood Pressure 120/73 09/07/2024 2:21 PM AERIAL GUNNER SUPERINTENDENT Pulse 112 09/07/2024 2:21 PM AERIAL GUNNER SUPERINTENDENT Temperature 36.7 C (98.1 F) 08/15/2023 10:35 AM AERIAL GUNNER SUPERINTENDENT Respiratory Rate 16 09/07/2024 2:21 PM AERIAL GUNNER SUPERINTENDENT Oxygen Saturation 99% 08/15/2023 10:35 AM AERIAL GUNNER SUPERINTENDENT Inhaled Oxygen Concentration - - Weight 57.3 kg (126 lb 6.4 oz) 06/07/2024 1:47 P M AERIAL GUNNER SUPERINTENDENT Height 151.3 cm (4' 11.57 ) 06/07/2024 1:[address] Body Mass Index 25.05 06/07/2024 1:47 PM AERIAL GUNNER SUPERINTENDENT Plan of Treatment Health Maintenance Due Date [...] Read Routine (OP Routine) 09/07/2024 2:15 PM AERIAL GUNNER SUPERINTENDENT Anterolisthesis of lumbar spine PROTIME-INR Routine 08/10/2024 TRANSFORAMINAL EPIDURAL INJECTION LUMBAR SACRAL 1 LEVEL RIGHT Schedule Routine, Read Routine (OP Routine) 08/02/2024 9:43 AM AERIAL GUNNER SUPERINTENDENT Bilateral low back pain, unspecified chronicity, unspecified whether sciatica present Right leg pain COLONOSCOPY REPORT 10/13/2017 from Last 3 Months or Most Recently Relevant to Health Maintenance Results * (ABNORMAL) Protime-INR (10/04/2024) INR 2.00(A) 0.90 - 1.10 EXTERNAL LAB Blood Historical Provider MD LAB BLOOD ORDERABLES Trina l Result EXTERNAL LAB * (ABNORMAL) Protime-INR (09/24/2024) INR 2.30(A) 0.90 - 1.10 EXTERNAL LAB Blood Historical Provider LAB BLOOD ORDERABLES Trina l Result EXTERNAL LAB * (ABNORMAL) Protime-INR (09/16/2024) INR 1.40(A) 0.90 - 1.10 EXTERNAL LAB Blood 09/16/2024 Result [facility] Historical Provider MD LAB BLOOD ORDERABLES Trina l Result Performing Organization Address [facility] de Phone Number EXTERNAL LAB * IR Transforaminal Epidural Injection Lumbar Sacral 1 Level Right (09/07/2024 2:15 PM AERIAL GUNNER SUPERINTENDENT) Narrative [facility] - 09/07/2024 2:17 PM AERIAL GUNNER SUPERINTENDENT The images from this study are not interpreted by Radiology. Please refer to the physician's procedure / OR operative note. Kevan eLmos MD IMG IR PROCEDURES Final Res ult Performing Organization Address [facility] de Phone Number [facility] * (ABNORMAL) Protime-INR (08/10/2024) INR 2.00(A) 0.90 - 1.10 EXTERNAL LAB Blood Result [facility] Historical Provider LAB BLOOD ORDERABLES Trina l Result Performing Organization Address [facility] de Phone Number EXTERNAL LAB * IR Transforaminal Epidural Injection Lumbar Sacral 1 Level Right (08/02/2024 9:43 AM AERIAL GUNNER SUPERINTENDENT) Narrative [facility] - 08/02/2024 9:43 AM AERIAL GUNNER SUPERINTENDENT The images from this study are not interpreted by Radiology. Please refer to the physician's procedure / OR operative note. Kevan Lemos MD IMG IR PROCEDURES Final Res ult Performing Organization Address [facility] de Phone Number [facility] * COLONOSCOPY REPORT (10/13/2017) Anatomical Region Laterality Modality Other us Provider Scanning GI PROCEDURE ORDERABLES Final Result from Last 3 Months or Most Recently Relevant to Health Maintenance Insurance [facility] PPO [facility] PPO [facility] ANTHEM ACCESS [place] Advance Directives For more information, please contact: [phone] * Full Code (Latest Code Status on File) Date Activated Date Inactivated Comments 07/14/2018 8:43 AM 07/14/2018 1:17 PM Care Teams Testing Lead Relationship Specialty Start Date End Date Bayron Ferraro MD [address] [facility] [address] [place] [address] PCP - General 03/26/17 Rossi Mckeon MD [address] [place] [address] Medical Oncologist/Supervisor Drying And Winding Hematology 08/24/20
--- OUTSIDE RECORDS SUMMARY | 2024-10-14 13:56 | XMS_ITS | Patient Health Record ---
Author Organization [facility] Address [address] [facility] [address] [place] [address] Care Team Providers Care Tanning Drum Operator Name Role Phone Bayron Ferraro MD Primary Care Provider UnavailRonak Ontiveros Unavailable [phone] Betito Gastelum Unavailable Unavailable Abby Estrada Unavailable [phone] Allergies Allergen (clinical drug ingredient) Drug/Non Drug [...] days Active OTC/Vitamins Vit D Active Sutab 3088-229-038 MG [address] dose the evening before and second dose the morning of colonoscopy Orally Twice a day for 1 days Date of colon -08/05 Cell number -[phone] Normal or 2 day colon prep Pt [...] Problem Status W/U Status Risk Notes Problem [id number] Ulcerative (chronic) proctitis without complications (K51.20) Active confirmed She continues to do well. Continue current regimen. She will be due for surveillance in 2025. Problem [id number] GERD (gastroesophagea l reflux disease) (K21.9) Active confirmed Continue omeprazole 40mg daily. Labs ordered today. Problem Abdominal bloating (822026914) Abdominal bloating (R14.0) Active confirmed I suspect s ome of this is due to her constipation. She is doing ok on Linzess right now. However, given the bloating symptoms, will switch to motegrity 2mg daily. She will try this for 4 weeks and then give me an update. Problem Ulcerative colitis (53075847) UC (ulcerative colitis) (K51.90) Active confirmed Problem Flatulence, eructation and gas pain (921009900) Abdominal distension (R14.0) Active confirmed I am [...] N/A Encounters Encounter Location Date Provider Diagnosis [facility] [address] [facility] [place] [address] 06/10/2024 Abby Estrada UC (ulcerative colitis) K51.90 ; Abdominal bloating R14.0 ; GERD (gastroesophageal reflux disease) K21.9 and Chronic constipation K59.09 [facility] [address] [place] [address] 08/05/2024 [facility] Encounter for screening for malignant neoplasm of colon Z12.11 and Ulcerative colitis K51.90 [facility] [address] [facility] [place] [address] 12/10/2023 [facility], [address] [place] [address] 02/04/2024 [facility], [facility] [address] [facility] [place] [address] 03/03/2024 [facility], [address] [place] [address] 04/06/2024 [facility], [facility] [address] [facility] [place] [address] 04/06/2024 [facility], [facility] [address] [facility] [place] [address] 04/06/2024 Ronak Ramgopal [facility] [address] [place] [address] [place] [address] 04/06/2024 [facility] [address] [place] [address] [place] [address] 04/06/2024 [facility] [address] [place] [address] [place] [address] 06/10/2024 [facility] UC (ulcerative colitis) K51.90 [facility] [address] [place] [address] [place] [address] 06/11/2024 [facility] [address] [place] [address] [place] [address] 06/11/2024 [facility] [address] [place] [address] [place] [address] 06/16/2024 [facility] UC (ulcerative colitis) K51.90 [facility] [address] [place] [address] [place] [address] 06/22/2024 [facility] [address] [place] [address] [place] [address] 06/28/2024 [facility] [address] [place] [address] [place] [address] 07/13/2024 [facility] [address] [place] [address] [place] [address] 08/04/2024 Ronak Yarelis Assessments Encounter Date Diagnosis (ICD Code) Assessment [...] Coverage End Date [employer] Access PPO [address] [place] [address] [id number] Jose Angel Garcia Spouse - patient is [...] 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
--- OUTSIDE RECORDS SUMMARY | 2024-10-14 13:56 | XMS_ITS ---
Author Organization [employer] [facility] Address [address] [facility] [address] [place] [address] Care Team Providers Care Cord Maker Name Role Phone Bayron Ferraro MD Primary Care Provider Unavaila Ronak Fragoso Unavailable [phone] Betito Gastelum Unavailable Unavailable REASON FOR VISIT UC Warfarin 4ft11 125 Encounters Encounter Location Date Provider Diagnosis [facility] [address] [place] [address] 08/05/2024 Ronak Santoyo Encounter for screening for [...] Zen AN LDOB:[birth year] (54 yo F)Acc No.[id number]:08/05/2024 Patient: Zen SHEIKH Joshua Provider: Jesse Santoyo MD :1970 A ge:54 Y S ex:Female Date:08/05/2024 [address] [place] Pcp:Bayron Ferraro MD Subjective: * Chief Complaints: [...] BIOPSY, Modifiers: 33 * Follow Up: R epchad in 2 years * Images: * TIPPING MACHINE TENDER Sign off status: Completed true * Provider: Jesse Santoyo MD Date: 0 08/05/2024 Generated for Eliseo paula/Kari/Juvencioitting on: 0 10/14/2024 01:55 PM CDT
--- OUTSIDE RECORDS SUMMARY | 2024-10-14 13:56 | XMS_ITS | Encounter Summary ---
Author Organization [facility] Address [address] [place] [address] Phone Care Team Providers Care Records Supervisor Name Role Phone Bayron Ferraro MD Primary Care Provider Rossi Mckeon MD Unavailable [phone]- [phone] Encounter Details Date Type Department Care Team [...] on file Legal Sex Female 7:48 PM SUSTAINABILITY COMMUNICATOR Gender Identity Not on file Sexual Orientation [...] on filedocumented in this encounter Care Teams Records Supervisor Relationship Specialty Start Date End Date Bayron Ferraro MD [address] [place] [address] PCP - General 03/26/17 Rossi Mckeon MD [address] [place] [address] Medical Oncologist/Clinical Nursing Manager Hematology 08/24/20 documented as of this encounter
--- OUTSIDE RECORDS SUMMARY | 2024-10-14 13:56 | XMS_ITS | Encounter Summary ---
Author Organization [facility] [employer] [facility] Address [address] [place] [address] Phone Care Team Providers Care Journalism Professor Name Role Phone Bayron Ferraro MD Primary Care Provider Rossi Mckeon MD Unavailable [phone]- [phone] Encounter Details Date Type Department Care Team [...] on file Legal Sex Female 7:48 PM FUR EXAMINER Gender Identity Not on file Sexual Orientation [...] on filedocumented in this encounter Care Teams Journalism Professor Relationship Specialty Start Date End Date Bayron Ferraro MD [address] [place] [address] PCP - General 03/26/17 Rossi Mckeon MD [address] [place] [address] Medical Oncologist/Autobody Technician Hematology 08/24/20 documented as of this encounter
--- OUTSIDE RECORDS SUMMARY | 2024-10-14 13:56 | XMS_ITS | Encounter Summary ---
Author Organization [facility] [employer] [facility] Address [address] [place] [address] Phone Care Team Providers Care Termite Control Technician Name Role Phone Bayron Ferraro MD Primary Care Provider Rossi Mckeon MD Unavailable [phone]- [phone] Encounter Details Date Type Department Care Team [...] on file Legal Sex Female 7:48 PM COIL MAKER Gender Identity Not on file Sexual Orientation [...] on filedocumented in this encounter Care Teams Termite Control Technician Relationship Specialty Start Date End Date Bayron Ferraro MD [address] [place] [address] PCP - General 03/26/17 Rossi Mckeon MD [address] [place] [address] Medical Oncologist/Legal File Clerk Hematology 08/24/20 documented as of this encounter
--- OUTSIDE RECORDS SUMMARY | 2024-10-14 13:56 | XMS_ITS | Encounter Summary ---
Author Organization 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
--- OUTSIDE RECORDS SUMMARY | 2024-10-14 13:56 | XMS_ITS | Encounter Summary ---
Author Organization [facility] [employer] [facility] Address [address] [place] [address] Phone Care Team Providers Care Collection Analyst Name Role Phone Bayron Ferraro MD Primary Care Provider Rossi Mckeon MD Unavailable [phone]- [phone] Encounter Details Date Type Department Care Team [...] on file Legal Sex Female 7:48 PM GAS COMPRESSOR TURBINE OPERATOR Gender Identity Not on file Sexual [...] on filedocumented in this encounter Care Teams Collection Analyst Relationship Specialty Start Date End Date Bayron Ferraro MD [address] [place] [address] PCP - General 03/26/17 Rossi Mckeon MD [address] [place] [address] Medical Oncologist/Media Aid Hematology 08/24/20 documented as of this encounter
--- OUTSIDE RECORDS SUMMARY | 2024-10-14 13:56 | XMS_ITS | CONTINUITY OF CARE DOCUMENT ---
Author Name jo ann cherry Address Unknown Organization [facility] Address [address] [facility] [place] [address] Phone [phone] Care Team Providers Care Auto Cleaner Name Role Phone Alejandro SHELBY, Denise Unavailable [phone] ZACHARY CLARKE MD Unavailable INSURANCE PROVIDERS Payer name Policy type / Coverage type Zuleika red constitution party ID [employer] [facility] Other [id number]
--- OUTSIDE RECORDS SUMMARY | 2024-10-14 13:56 | XMS_ITS | Continuity of Care Document ---
Author Organization [facility] Address [address] [place] [address] Phone Care Team Providers Care Hearing Healthcare Practitioner Name Role Phone Estela SHELBY, Sergio Unavailable Unavailable Advance Directives Directive Yes / No Effective Date File Name No Information Encounters Encounter Description Practice Location Reason(s) For Visit Diagnoses Date Provider Providers Copied on Encounter [facility] , [address] [facility] [address], [place], [address], [place] [phone] [facility] After Tad No Information [address] [facility] [address] , [place], [place], [id number] . tel: [phone] Family History Family Member Type Diagnosis Age At Onset No Information Payers Payer name Insurance type Covered green party ID Authoriza tion(s) No Information Social [...]
--- OUTSIDE RECORDS SUMMARY | 2024-10-14 13:56 | XMS_ITS | Encounter Summary ---
Author Organization [facility] Address [address] [place] [address] Phone Care Team Providers Care Nuclear Medicine Officer Name Role Phone Bayron Ferraro MD Primary Care Provider Rossi Mckeon MD Unavailable [phone] Encounter Details Date Type Department Care Team [...] on file Legal Sex Female 7:48 PM CONSERVATION WORKER Gender Identity Not on file Sexual [...] on filedocumented in this encounter Care Teams Nuclear Medicine Officer Relationship Specialty Start Date End Date Bayron Ferraro MD [address] [place] [address] PCP - General 03/26/17 Rossi Mckeon MD [address] [place] [address] Medical Oncologist/Retirement Plan Specialist Hematology 08/24/20 documented as of this encounter
--- OUTSIDE RECORDS SUMMARY | 2024-10-14 13:56 | XMS_ITS | Clinical Summary ---
Author Organization [facility] Address [address] [place] [address] Phone Care Team Providers Care Regulatory Assistant Name Role Phone Bayron Ferraro MD Primary Care Provider [phone] Allergies Active Allergy Reactions Criticality Noted Date [...] (General) Referring Provider: Ashlyn Ojeda MD [address] [facility] [address] [place] [address] Other: Dr. Ojeda Problem Noted Date Diagnosed [...] on file Legal Sex Female 5:51 AM PLAY THERAPIST Gender Identity Not on file Sexual Orientation Not on file Occupation Industry Job Start Date Job End Date Not on file Not on file Not on file Not on file Not on file Not on file Not on file Not on file Last Filed Vital Signs Vital Sign Reading Time Taken Comments Blood Pressure 132/82 09/02/2022 9:02 AM PLAY THERAPIST Pulse 118 09/02/2022 9:02 AM PLAY THERAPIST Temperature 37.3 C (99.1 F) 09/02/2022 9:02 AM PLAY THERAPIST Respiratory Rate - - Oxygen Saturation 96% 09/02/2022 9:02 AM PLAY THERAPIST Inhaled Oxygen Concentration - - Weight 58.1 kg (128 lb) 09/02/2022 9:02 AM PLAY THERAPIST Height 148.6 cm (4' 10.5 ) 09/02/2022 9:02 AM CS T Body Mass Index 26.3 09/02/2022 9:02 AM PLAY THERAPIST Plan of Treatment Health Maintenance Due Date Last Done Comments DTAP/TDAP/TD VACCINES (1 - Tdap) 1990 HEPATITIS B VACCINES (1 of 3 - 19+ 3-dose series) 1990 FIT-DNA Q 3 years 2016 FIT/FOBT Q 1 year 2016 ZOSTER VACCINE (1 of 2) 2021 BREAST CANCER SCREENING 01/02/2023 01/03/20, 12/28/2020, 12/16/2019, Additional history exists Flex Sig/CT Colonography Q 5 years 07/14/20232018 INFLUENZA VACCINE (#1) 2024 COLORECTAL SCREENING 05/15/2031 05/15/2021, 07/14/19 Colorectal Cancer Screening 05/15/2031 Procedures Procedure Name Priority Date/Time Associated Diagnosis Comments MAMMO 3D ZAIRA SCREEN BILAT W OR WO CAD Routine [...] 2 - Benign findings DICTATION LOCATION: [facility] 01/02/2022 8:41 AM CDT EXAMINATION: BILATERAL SCREENING [...] 2 - Benign findings DICTATION LOCATION: [facility] Jessenia Alarcon NP MAMMO ORDERABLES Final Result from Last 3 Months or Most Recently Relevant to Health Maintenance Insurance BS BLUE PREFERRED Care Teams Regulatory Assistant Relationship Specialty Start Date End Date Bayron Ferraro MD [address] [facility] [address] [place] [id number] PCP - General Family Practice 04/01/14
--- OUTSIDE RECORDS SUMMARY | 2024-10-14 13:56 | XMS_ITS ---
Author Organization [facility] Address [address] [place] [address] [address] [place] [address] Care Team Providers Care Hazardous Waste Remover Name Role Phone Bayron Ferraro MD Primary Care Provider Unavaila Ronak Fragoso Unavailable [phone] Betito Gastelum Unavailable REASON FOR VISIT prep questions 08/05/24 appt Encounters Encounter Location Date Provider Diagnosis [facility] [address] [place] [address] [address] [place] [address] 08/04/2024 Ronak Santoyo Plan Of Treatment No Information Progress Notes * Zen AN LDOB:[birth year] (54 yo F)Acc No.[id number]:08/04/2024 Patient: Zen SHEIKH :1970 A ge:54 Y S ex:Female [address] [place], [address] * true * Date: Generated for Printi ng/Faxing/eTransmitting on: 0 10/14/2024 01:56 PM CDT
--- OUTSIDE RECORDS SUMMARY | 2024-10-14 13:56 | XMS_ITS | Patient Health Record ---
Author Organization [facility] [place] Address [address] [place] [address] Care Team Providers Care Steel Post Installer Name Role Phone Bayron Ferraro MD Primary Care Provider Unavaila Tonja Funes Unavailable [phone] Amna, Thena Unavailable [phone] Migration, Provider Unavailable Unavailable Allergies Allergen (clinical drug ingredient) Drug/Non Drug Allergy documented on EMR Reaction Allergy Type Onset Date Status Substance with sulfonamide structure and antibacterial mechanism of action (substance) SULFA (SULFONAMIDE ANTIBIOTICS) (uncoded) Unknown Allergy 09/11/2023 Active amoxicillin Amoxicillin Unknown Drug Allergy 09/11/2023 Ac tive clindamycin Clindamycin Unknown Drug Allergy 09/11/2023 Ac tive rosuvastatin Rosuvastatin Unknown Drug Allergy 09/11/2023 Active Results Component Value Reference Range Notes UDT Reviewed date:03/19/2024 12:02:45 PM Interpretation: Performing Lab: Notes/Report: THC N 0 - 50 ng/ml Cocaine N 0 - 300 ng/ml Amphetamine P 0 - 1000 ng/ml Buprenorphine (BUP) N 0 - 10 ng/ml Secobarbital (Bar) N 0 - 300 ng/ml Oxazepam (BZO) N 0 - 300 ng/ml 6-wrbdblzvcp-9,8-mceevtux-4,3-diphenylpyrrolidine (CHAMP P) N 0 - 300 ng/ml Methamphetamine (MET) N 0 - 1000 ng/ml Methylenedioxymethamphetamine (MDMA) N 0 - 500 ng/ml Morphine (MOP 300/[id number]) N 0 - 300 ng/ml Methadone (MTD) N 0 - 300 ng/ml Phencyclidine (PCP) N 0 - 25 ng/ml Nortriptyline (TCA) N 0 - 1000 ng/ml Oxycodone N 0 - 300 ng/ml x N 0 - 300 ng/ml Reason For Referral No Information Medications Medication SIG (Take, Route, Frequency, Duration) Notes Start Date End Date Status Atomoxetine HCl 60 MG TAKE 1 CAPSULE Ora l Once a day for 90 days Active Folic Acid 1 MG TAKE 1 TABLET BY KAYCE TH EVERY DAY Oral for 90 Days Activ e Omeprazole 40 MG TAKE 1 CAPSULE BY MO UTH EVERY DAY 30 MINUTES BEFORE BREAKFAST Oral for 90 Days Active Lisinopril 10 MG TAKE 1 TABLET BY KAYCE TH DAILY Oral for 90 Days Active valACYclovir HCl 1 GM TAKE 2 TABLETS BY MOUTH NOW. REPEAT IN 12 HOURS FOR OUTBREAK Oral for 30 Days Active Amphetamine-Dextroamphetam ine 20 MG 1 tablet Oral Twice a day for 30 days 09/28/2024 Active Linzess 72 MCG TAKE 1 CAPSULE BY MO UTH EVERY DAY Oral for 90 Days Activ e Mesalamine 1.2 GM TAKE 2 TABLETS BY MO UTH TWICE DAILY Oral for 90 Days Active Trintellix 20 MG 1 tablet Oral Once a day for 30 days Active Ajovy 225 MG/1.5ML INJECT 1.5ML UNDER T HE SKIN EVERY 30 DAYS Subcutaneous for 30 Days Active valACYclovir HCl 500 MG TAKE 1 TABLET BY MOUTH DAILY Oral for 90 Days Active Vilazodone HCl 40 MG TAKE 1 TABLET Oral Once a day for 90 days Active Albuterol Sulfate HFA 108 (90 Base) MCG/ACT INHALE 1 PUFF EVERY 4 HOURS NEEDED FOR SHORTNESS OF BREATH OR WHEEZING Inhalation for 33 Days Active Immunizations Vaccine Route Administration Date Status Comme nts Moderna Covid-19 Vaccine 1st dose Unknown 11/28/2020 Ad ministered Moderna Covid-19 Vaccine 1st dose Unknown 12/26/2020 Ad ministered Social History Tobacco Use: Social History Observation Description Date Details (start date - stop date) Current Smoker 12/05/1986 - NA Sex Assigned At : Social History Observation Description Sex Assigned At Female Tobacco Control (Standard) Question Answer Notes Tobacco use: Current smoker When did you start smoking? 12/05/1986 How often do you smoke cigarettes? Every day How many cigarettes a day do you smoke? 6-10 How soon after you wake up do you smoke your fir st cigarette? 6-30 minutes Are you interested in quitting? Ready to quit AUDIT-C (Standard) Question Answer Notes Did you [...] Problem Status W/U Status Risk Notes Problem Severe recurrent major depression without psychotic features (32472123) Major depressive disorder, recurrent severe without psychotic features (F33.2) Active confirmed Problem Recurrent major depression (68536774) Major depressive disorder, recurrent, in remission, unspecified (F33.40) Active confirmed Problem Generalized anxiety disorder (67853508) Generalized anxiety disorder (F41.1) Active confirmed Problem Attention deficit hyperactivity disorder, predominantly inattentive type (30648550) Attention-deficit hyperactivity disorder, predominantly inattentive type (F90.0) Active confirmed Problem 093260857 Tobacco use (Z72.0) Active confirmed Problem Binge eating disorder (514977455) Binge eating disorder (F50.81) Active confirmed Problem Depression Screening (043183001) Encounter for screening for depression (Z13.31) Active confirmed Problem [id number] MDD (major depressive disorder), recurrent episode, mild (F33.0) Active confirmed Problem Essential hypertension (35278661) Benign essential HTN (I10) Active confirmed Vital Signs Heart Rate 120 /min 09/28/2024 Height-cm 147.32 cm 09/28/2024 Blood pressure diastolic 94 mm Hg 09/28/2024 Weight-kg 57.15 kg 09/28/2024 Height 58.00 in 09/28/2024 Blood pressure systolic 139 mm Hg 09/28/2024 Weight 126.0 lbs 09/28/2024 BMI 26.33 kg/m2 09/28/2024 Encounters Encounter Location Date Provider Diagnosis [facility] [employer] [facility] [address] [facility] [address] [address] 11/06/2023 Provider Migration Attention-deficit hyperactivity disorder, predominantly inattentive type F90.0 [facility] [employer] [place] [address] [address] 11/25/2023 Provider Migration Major depressive disorder, recurrent severe without psychotic features F33.[address] [place] [address] [facility] [address] [facility] [address] [place] [address] 01/22/2024 Thena Amna Major depressive disorder, recurrent severe without psychotic features F33.2 ; Attention-deficit hyperactivity disorder, predominantly inattentive type F90.0 and Generalized anxiety disorder F41.[address] [facility] [address] [place] [address] 03/19/2024 Thena Amna Attention-deficit hyperactivity disorder, predominantly inattentive type F90.0 ; Major depressive disorder, recurrent severe without psychotic features F33.2 ; Generalized anxiety disorder F41.1 and Binge eating disorder F50.[address] [address] 06/18/2024 Thena Amna Attention-deficit hyperactivity disorder, predominantly inattentive type F90.0 ; Generalized anxiety disorder F41.1 ; Major depressive disorder, recurrent, in remission, unspecified F33.40 and Benign essential HTN I10 [address] [facility] [address] [place] [address] 09/28/2024 Tonja Inman Encounter for screening for depression Z13.31 ; MDD (major depressive disorder), recurrent episode, mild F33.0 ; Attention-deficit hyperactivity disorder, predominantly inattentive type F90.0 ; Generalized anxiety disorder F41.1 ; Benign essential HTN I10 ; Tobacco use Z72.0 ; Nicotine use Z72.0 ; Encounter for screening for cardiovascular disorders Z13.6 and Dietary counseling and surveillance Z71.[address] [place] [address] [facility] [address] [address] 11/05/2023 Provider Migration [address] [address] 11/06/2023 Provider Migration [facility], [address] [address] 11/22/2023 Provider Migration [address] [address] 11/23/2023 Provider Migration [facility], [address] [address] 12/19/2023 Thena Amna [facility], [facility] [address] [place] [address] 12/22/2023 Thena Amna [facility], [facility] [address] [place] [address] 03/01/2024 Thena Amna Attention-deficit hyperactivity disorder, predominantly inattentive type F90.0 [facility], [facility] [address] [place] [address] 03/01/2024 Thena Amna Attention-deficit hyperactivity disorder, predominantly inattentive type F90.0 [facility], [facility] [address] [place] [address] 09/27/2024 Tonja Storm Major depressive disorder, recurrent, in remission, unspecified F33.40 [facility], [facility] [address] [place] [address] 01/05/2024 Thena Amna Attention-deficit hyperactivity disorder, predominantly inattentive type F90.0 [facility], [facility] [address] [place] [address] 01/13/2024 Thena Amna [facility], [facility] [address] [place] [address] 03/01/2024 Thena Amna Attention-deficit hyperactivity disorder, predominantly inattentive type F90.0 [facility], [facility] [address] [place] [address] 03/02/2024 Thena Amna [facility], [facility] [address] [place] [address] 05/17/2024 Thena Amna [facility], [facility] [address] [place] [address] 05/26/2024 Thena Amna Attention-deficit hyperactivity disorder, predominantly inattentive type F90.0 [facility], [facility] [address] [place] [address] 06/18/2024 Thena Amna Attention-deficit hyperactivity disorder, predominantly inattentive type F90.0 [facility], [facility] [address] [place] [address] 07/13/2024 Thena Amna Attention-deficit hyperactivity disorder, predominantly inattentive type F90.0 [facility] [employer] [facility] [address] [place] [address] 07/15/2024 Kermit Amna [facility] [employer] [facility] [address] [place] [address] 08/02/[address] [facility] [address] [place] [address] 08/24/2024 Tonja Inman Attention-deficit hyperactivity disorder, predominantly inattentive type F90.0 [facility] [employer] [facility] [address] [place] [address] 10/04/2024 Tonja Inman Assessments Encounter Date Diagnosis (ICD Code) Assessment Notes Treatment Notes Treatment Clinical Notes Section Notes 01/05/2024 Attention-deficit hyperactivity disorder, predominantly inattentive type (ICD-10 - F90.0) 01/22/2024 Major depressive disorder, recurrent severe without psychotic features (ICD-10 - F33.2) 03/19/2024 Attention-deficit hyperactivity disorder, predominantly inattentive type (ICD-10 - F90.0) 06/18/2024 Attention-deficit hyperactivity disorder, predominantly inattentive type (ICD-10 - F90.0) 07/13/2024 Attention-deficit hyperactivity disorder, predominantly inattentive type (ICD-10 - F90.0) 08/24/2024 Attention-deficit hyperactivity disorder, predominantly inattentive type (ICD-10 - F90.0) 09/27/2024 Major depressive disorder, recurrent, in remission, unspecified (ICD-10 - F33.40) 05/26/2024 Attention-deficit hyperactivity disorder, predominantly inattentive type (ICD-10 - F90.0) 06/18/2024 Attention-deficit hyperactivity disorder, predominantly inattentive type (ICD-10 - F90.0) 03/01/2024 Attention-deficit hyperactivity disorder, predominantly inattentive type (ICD-10 - F90.0) 03/19/2024 Major depressive disorder, recurrent severe without psychotic features (ICD-10 - F33.2) 01/22/2024 Attention-deficit hyperactivity disorder, predominantly inattentive type (ICD-10 - F90.0) 03/01/2024 Attention-deficit hyperactivity disorder, predominantly inattentive type (ICD-10 - F90.0) 09/28/2024 Encounter for screening for depression (ICD-10 [...] abuse, and addiction before prescribing stimulant medicines. [employer] Analyst patients not to share their prescribed stimulant [...] warranted by the prescribed dosage. Random UDS [place] prescription reviewed local pharmacy in [facility], no early refills on control substance [...] nicotine products and stop smoking hotline given 14-Quit - Yes [place] Tobacco Quitline Call a Smoking Quitline The [employer] [place]'s Smoking Quitline, (2-335-37C-QUIT) Smokefree.gov, which connects you with your State's Quitline, (1-864-RWHUWTW) Veterans Smoking Quitline, (7-632-AGNZKUH) educated on all medications, benefits, side effects [...] effects including loss of libido, increased suicidal thoughts/behavio rs in children and young adults, and serotonin syndrome. websites http_s://www.[facility].nih.gov/health /topics/mental-h ealth-medication s http_s://www.nam i.org/About-Ment al-Illness/Treat ments/Mental-Hea lth-Medications http_s://www.nam i.org/About-Ment al-Illness/Menta h-Zpqljc-Tydywnx ons http_s://[employer]/deprgillian lira/the-cogniti sv-nybtnjhb-sd-d epression#treatm ents http__s://www.[facility].nih.gov/healt h/topics/mental- health-medicatio ns http__s://www.na mi.org/About-Men zohra-Illness/Ailyn tments/Mental-He alth-Medications http_s://keysha. h.gov/publicatio ns/drugfacts/can nabis-marijuana http_s://www.Sient[employer]/can uxjum-nut-xntrmk zb-ycmjxfmsu-wav d/ Medication Management and Follow-Up - Plan: - [...] abuse, and addiction before prescribing stimulant medicines. Detective [employer] Intelligence Analyst patients not to share their prescribed stimulant [...] warranted by the prescribed dosage. Random UDS [place] prescription reviewed local pharmacy in [place], no [...] stop smoking hotline given 057-Quit - Yes [place] Tobacco Quitline Call a Smoking Quitline The [employer] [place] Smoking Quitline, (3-974-24F-QUIT) Smokefree.gov, which connects you with your State's Quitline, (5-273-LVQBOAO) [facility] Smoking Quitline, (3-779-FTOUVUR) educated on all medications, benefits, side effects [...] effects including loss of libido, increased suicidal thoughts/behavio rs in children and young adults, and serotonin syndrome. websites http_s://www.nim h.nih.gov/health /topics/mental-h ealth-medication s http_s://www.nam i.org/About-Ment al-Illness/Treat ments/Mental-Hea lth-Medications http_s://www.nam i.org/About-Ment al-Illness/Menta d-Pkdhcc-Dwwdaxr ons http_s://psychce Conmio/karyn lira/the-cogniti fn-xpgcdppq-uk-d epression#treatm ents http__s://www.ni mh.nih.gov/healt h/topics/mental- health-medicatio ns http__s://www.na mi.org/About-Men zohra-Illness/Ailyn tments/Mental-He alth-Medications http_s://keysha.ni h.gov/publicatio ns/drugfacts/can nabis-marijuana http_s://www.[employer]mind/can qnjxz-fqe-kyfwuv sy-cidasitjj-gzz d/ Medication Management and Follow-Up - Plan: - Schedule follow-up appointments every 1-3 months to monitor the patient's response to the medication regimen. - Reinforce the importance of avoiding recreational drug use due to potential neurotoxicity and interactions with prescribed medications. 11/06/2023 Attention-deficit hyperactivity disorder, predominantly inattentive type (ICD-10 - F90.0) 11/25/2023 Major depressive disorder, recurrent severe without psychotic features (ICD-10 - F33.2) 09/28/2024 Attention-deficit hyperactivity disorder, predominantly inattentive type [...] abuse, and addiction before prescribing stimulant medicines. Detective And Intelligence Analyst patients not to share their prescribed stimulant [...] warranted by the prescribed dosage. Random UDS [place] prescription reviewed local pharmacy in [place], no [...] nicotine products and stop smoking hotline given 819-Quit - Yes [place] Tobacco Quitline Call a Smoking Quitline [employer] [place]'s Smoking Quitline, (8-520-16V-QUIT) Smokefree.gov, which connects you with your State's Quitline, (4-542-IIPKEXT) [facility] Smoking Quitline, (2-103-YDXJGZI) educated on all medications, benefits, side effects [...] effects including loss of libido, increased suicidal thoughts/behavio rs in children and young adults, and serotonin syndrome. websites http_s://www.nim h.nih.gov/health /topics/mental-h ealth-medication s http_s://www.nam i.org/About-Ment al-Illness/Treat ments/Mental-Hea lth-Medications http_s://www.nam i.org/About-Ment al-Illness/Menta n-Wvoxqx-Omadmbo ons http_s://psychce Conmio/deprgillian pankaj/the-cogniti zf-gnyquelx-wc-d epression#treatm ents http__s://www.ni .nih.gov/healt h/topics/mental- health-medicatio ns http__s://www.na mi.org/About-Men zohra-Illness/Ailyn tments/Mental-He alth-Medications http_s://keysha.ni h.gov/publicatio ns/drugfacts/can nabis-marijuana http_s://www.Spectralmind/can yorsr-khm-ncsotf js-qwccszdrm-mhv d/ Medication Management and Follow-Up - Plan: - Schedule follow-up appointments every 1-3 months to monitor the patient's response to the medication regimen. - Reinforce the importance of avoiding recreational drug use due to potential neurotoxicity and interactions with prescribed medications. 06/18/2024 Generalized anxiety disorder (ICD-10 - F41.1) 03/01/2024 Attention-deficit hyperactivity disorder, predominantly inattentive type (ICD-10 - F90.0) Electronic Prior Authorization was requested for Amphetamine-Dext roamphetamine 15 MG Tablet. Provider can order medication once approval received. 01/22/2024 Generalized anxiety disorder (ICD-10 - F41.1) 03/19/2024 Generalized anxiety disorder (ICD-10 - F41.1) 03/19/2024 Binge eating disorder (ICD-10 - F50.81) 06/18/2024 Major depressive disorder, recurrent, in remission, unspecified (ICD-10 - F33.40) 09/28/2024 Generalized anxiety disorder (ICD-10 - F41.1) [...] abuse, and addiction before prescribing stimulant medicines. Detective [employer] Intelligence Analyst patients not to share their prescribed stimulant [...] warranted by the prescribed dosage. Random UDS [place] prescription reviewed local pharmacy [place], no [...] nicotine products and stop smoking hotline given 309-Quit - Yes [place] Tobacco Quitline Call a Smoking Quitline [employer] [place] Smoking Quitline, (9-032-28P-QUIT) Smokefree.gov, which connects you with your State's Quitline, (4-262-CQDEVLH) [facility] Smoking Quitline, (0-561-XSXGFKQ) educated on all medications, benefits, side effects [...] effects including loss of libido, increased suicidal thoughts/behavio rs in children and young adults, and serotonin syndrome. websites http_s://www.nim h.nih.gov/health /topics/mental-h ealth-medication s http_s://www.nam i.org/About-Ment al-Illness/Treat ments/Mental-Hea lth-Medications http_s://www.nam i.org/About-Ment al-Illness/Menta u-Iuucww-Voagcbi ons http_s://psychce Conmio/karyn lira/the-cogniti bb-istwjgzt-jl-d epression#treatm ents http__s://www.ni .nih.gov/healt h/topics/mental- health-medicatio ns http__s://www.na mi.org/About-Men zohra-Illness/Ailyn tments/Mental-He alth-Medications http_s://keysha.ni h.gov/publicatio ns/drugfacts/can nabis-marijuana http_s://www.Spectralmind/can fgrtw-fiv-iifdpp ze-deovhmsnc-dvx d/ Medication Management and Follow-Up - Plan: - Schedule follow-up appointments every 1-3 months to monitor the patient's response to the medication regimen. - Reinforce the importance of avoiding recreational drug use due to potential neurotoxicity and interactions with prescribed medications. 06/18/2024 Benign essential HTN (ICD-10 - I10) 09/28/2024 Benign essential HTN (ICD-10 - I10) [...] abuse, and addiction before prescribing stimulant medicines. Detective [employer] Intelligence Analyst patients not to share their prescribed stimulant [...] warranted by the prescribed dosage. Random UDS [place] prescription reviewed local pharmacy in [facility], no early refills on control substance [...] stop smoking hotline given Quit - Yes [place] Tobacco Quitline Call a Smoking Quitline The [employer] [place] Smoking Quitline, (3-632-16Z-QUIT) Smokefree.gov, which connects you with your State's Quitline, (5-214-HDJPOVV) Veterans Smoking Quitline, (4-651-KBKLWGU) educated on all medications, benefits, side effects [...] effects including loss of libido, increased suicidal thoughts/behavio rs in children and young adults, and serotonin syndrome. websites http_s://www.nim h.nih.gov/health /topics/mental-h ealth-medication s http_s://www.nam i.org/About-Ment al-Illness/Treat ments/Mental-Hea lth-Medications http_s://www.nam i.org/About-Ment al-Illness/Menta f-Nisxxb-Efbsbvm ons http_s://psychce [employer].com/depres pankaj/the-cogniti sn-sikkbuvr-eu-d epression#treatm ents http__s://www.ni .nih.gov/healt h/topics/mental- health-medicatio ns http__s://www.na mi.org/About-Men zohra-Illness/Ailyn tments/Mental-He alth-Medications http_s://kyesha.ni h.gov/publicatio ns/drugfacts/can nabis-marijuana http_s://www.Sientra.[employer]/can shhau-oor-rtuljs an-zddoajepf-uol d/ Medication Management and Follow-Up - Plan: - [...] abuse, and addiction before prescribing stimulant medicines. Detective And Intelligence Analyst patients not to share their prescribed stimulant [...] warranted by the prescribed dosage. Random UDS [place] prescription reviewed local pharmacy in [facility], no early refills on control substance [...] stop smoking hotline given Quit - Yes [place] Tobacco Quitline Call a Smoking Quitline The [employer] [place] Smoking Quitline, (9-094-02L-QUIT) Smokefree.gov, which connects you with your State's Quitline, (8-550-LQCWNQY) Veterans Smoking Quitline, (1-515-UBGGVWA) educated on all medications, benefits, side effects [...] effects including loss of libido, increased suicidal thoughts/behavio rs in children and young adults, and serotonin syndrome. websites http_s://www.nim h.nih.gov/health /topics/mental-h ealth-medication s http_s://www.nam i.[employer]/About-Ment al-Illness/Treat ments/Mental-Hea lth-Medications http_s://www.nam ilink bird/About-Ment al-Illness/Menta t-Ybupuw-Vjuglbg ons http_s://psychSpecialty [employer]/depres pankaj/the-cogniti cs-kbidnwes-vf-d epression#treatm ents http__s://www.ni .nih.gov/healt h/topics/mental- health-medicatio ns http__s://www.na mi.org/About-Men zohra-Illness/Ailyn tments/Mental-He alth-Medications http_s://keysha.ni h.gov/publicatio ns/drugfacts/can nabis-marijuana http_s://www.[employer]/can wjtps-mcs-kwtvyb fr-mtctbpitq-uwl d/ Medication Management and Follow-Up - Plan: - [...] abuse, and addiction before prescribing stimulant medicines. Detective And Intelligence Analyst patients not to share their prescribed stimulant [...] warranted by the prescribed dosage. Random UDS [place] prescription reviewed local pharmacy in [facility], no early refills on control substance [...] nicotine products and stop smoking hotline given 486-Quit - Yes [place] Tobacco Quitline Call a Smoking Quitline The [employer] [place] Smoking Quitline, (4-099-25O-QUIT) Smokefree.gov, which connects you with your State's Quitline, (1-471-ABGSAMQ) Veterans Smoking Quitline, (9-114-QJZVQHV) educated on all medications, benefits, side effects [...] effects including loss of libido, increased suicidal thoughts/behavio rs in children and young adults, and serotonin syndrome. websites http_s://www.nim h.nih.gov/health /topics/mental-h ealth-medication s http_s://www.nam i.org/About-Ment al-Illness/Treat ments/Mental-Hea lth-Medications http_s://www.nam i.org/About-Ment al-Illness/Menta g-Iiavis-Mtiyzgv ons http_s://psychSpecialty [employer]/depres pankaj/the-cogniti he-xoohjouq-qs-d epression#treatm ents http__s://www.[facility].nih.gov/healt h/topics/mental- health-medicatio ns http__s://www.na mi.org/About-Men zohra-Illness/Ailyn tments/Mental-He alth-Medications http_s://keysha. h.gov/publicatio ns/drugfacts/can nabis-marijuana http_s://www.Spectralmind/can usdis-svl-hseqky os-hgvadypzo-jvd d/ Medication Management and Follow-Up - Plan: - [...] abuse, and addiction before prescribing stimulant medicines. Detective And Intelligence Analyst patients not to share their prescribed stimulant [...] warranted by the prescribed dosage. Random UDS [place] prescription reviewed local pharmacy [place], no [...] stop smoking hotline given -Quit - Yes [place] Tobacco Quitline Call a Smoking Quitline The National Cancer [place]'s Smoking Quitline, (1-574-83X-QUIT) Smokefree.gov, which connects you with your State's Quitline, (6-996-CZJNECO) [employer] Smoking Quitline, (0-845-SXSAYHV) educated on all medications, benefits, side effects [...] effects including loss of libido, increased suicidal thoughts/behavio rs in children and young adults, and serotonin syndrome. websites http_s://www.nim h.nih.gov/health /topics/mental-h ealth-medication s http_s://www.nam i.org/About-Ment al-Illness/Treat ments/Mental-Hea lth-Medications http_s://www.nam i.org/About-Ment al-Illness/Menta b-Xjvhnz-Zxvikct ons http_s://psychce AlterPoint.com/depres pankaj/the-cogniti af-autuagbb-he-d epression#treatm ents http__s://www.ni mh.nih.gov/healt h/topics/mental- health-medicatio ns http__s://www.na mi.org/About-Men zohra-Illness/Ailyn tments/Mental-He alth-Medications http_s://keysha.ni h.gov/publicatio ns/drugfacts/can nabis-marijuana http_s://www.Spectralmind/can uwmal-xit-hmjwpd tj-lpaienazp-nkw d/ Medication Management and Follow-Up - Plan: - [...] abuse, and addiction before prescribing stimulant medicines. Detective And Intelligence Analyst patients not to share their prescribed stimulant [...] warranted by the prescribed dosage. Random UDS [place] prescription reviewed local pharmacy in [facility], no early refills on control substance [...] stop smoking hotline given Quit - Yes [place] Tobacco Quitline Call a Smoking Quitline The National [employer] [place]'s Smoking Quitline, (5-617-74D-QUIT) Smokefree.gov, which connects you with your State's Quitline, (1-318-DXEGGSF) Veterans Smoking Quitline, (3-048-RJRFJVS) educated on all medications, benefits, side effects [...] effects including loss of libido, increased suicidal thoughts/behavio rs in children and young adults, and serotonin syndrome. websites http_s://www.nim h.nih.gov/health /topics/mental-h ealth-medication s http_s://www.nam i.org/About-Ment al-Illness/Treat ments/Mental-Hea lth-Medications http_s://www.nam i.org/About-Ment al-Illness/Menta v-Hrfvva-Lfvcyou ons http_s://psychce ntrPublic Mobile.com/depres pankaj/the-cogniti qq-oakavhgg-vs-d epression#treatm ents http__s://www.ni .nih.gov/healt h/topics/mental- health-medicatio ns http__s://www.na mi.org/About-Men zohra-Illness/Ailyn tments/Mental-He alth-Medications http_s://keysha.ni h.gov/publicatio ns/drugfacts/can nabis-marijuana http_s://www.Spectralmind/can yuebg-bek-mdxkvj rs-lordqquek-ybk d/ Medication Management and Follow-Up - Plan: - Schedule follow-up appointments every 1-3 months to monitor the patient's response to the medication regimen. - Reinforce the importance of avoiding recreational drug use due to potential neurotoxicity and interactions with prescribed medications. Plan Of Treatment Next Appt Details Provider Name:Tonja Inman , 12/27/2024 08:15:00 AM, [address], [address], [place], [address], Insurance Providers Payer Name Payer Address Payer Phone Subscriber Number Group Number Insured Name Patient Relationship to Insured Coverage Start Date Coverage End Date Bcbs-Ar Ppo [address] [place] [address] [id number] JOHN AN Spouse - patient is the spouse of the insured Medical (General) History Medical History History ICD Code Problems: Attention deficit hyperactivit y disorder Chronic migraine without aura with statu s migrainosus Gastroesophageal reflux disease Generalized anxiety disorder Irritable bowel syndrome Long-term drug therapy Recurrent major depression in remission Restless legs Severe recurrent major depression withou t psychotic features Ulcerative colitis , Past Psychiatric History: Anxiety Disord er undefined Surgical History Surgery Date(Month/Year) Hysterectomy/revise vagina (74051) Unlisted procedure breast () reduct ion Appendectomy (33453) Hysterectomy (77361) 09/02/2000 Sinus surgery 09/02/2001 Appendectomy (28905) 12/21/2005
--- OUTSIDE RECORDS SUMMARY | 2024-10-14 13:56 | XMS_ITS | Encounter Summary ---
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
--- OUTSIDE RECORDS SUMMARY | 2024-10-14 13:56 | XMS_ITS | Encounter Summary ---
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
--- OUTSIDE RECORDS SUMMARY | 2024-10-14 13:56 | XMS_ITS | Referral Summary ---
Author Organization [facility] Address [address] [place] [address] Care Team Providers Care U.S. Commissioner Name Role Phone Bayron Ferraro MD Primary Care Provider Rossi Mckeon MD Unavailable +- [phone] Encounters Date Type Department Care Team Description 10/04/2024 [facility] [address] [facility] [address] [place] [address] Lorraine Hood, RN 09/24/2024 Anticoagulation Visit [facility] [address] [facility] [address] [place] [address] Lorraine Hood, RN 09/16/2024 Anticoagulation Visit [facility] Oncology [address] [place] [address] Jeana Morales NP 09/13/2024 Telephone [facility] General Neurology [address] [facility] 6th [address] [place] [address] Marimar Frausto PA Ajovy PA Renewal 09/07/2024 1:18 PM DEVOPS SOLUTIONS ARCHITECT - 09/07/2024 11:59 PM DEVOPS SOLUTIONS ARCHITECT Hospital Encounter [facility] [address] [place] [address] Kevan Lemos MD Lumbar radiculitis (Primary Dx); Anterolisthesis of lumbar spine Discharge Disposition: Discharge to home or self care 08/31/2024 Anticoagulation Visit [facility] Hematology [address] [facility] [address] [place] [address] Lorraine Hood, RN 08/24/2024 Orders Only [facility] Orthopaedic Surgery [address] 1[address] [place] [address] Kevan Lemos MD Anterolisthesis of lumbar spine (Primary Dx) 08/11/2024 Anticoagulation Visit [facility] Hemat[facility] [address] [facility] [address] [place] [address] Lorraine Hood RN 08/04/2024 Telephone [facility] Orthopaedic Surgery [address] [facility] 2nd Floor [address] [place] [address] Kevan Lemos MD 08/02/2024 9:08 AM DEVOPS SOLUTIONS ARCHITECT - 08/02/2024 11:59 PM DEVOPS SOLUTIONS ARCHITECT Hospital Encounter [facility] [address] [place] [address] Kevan Lemos MD Right leg pain (Primary Dx); Bilateral low back pain, unspecified chronicity, unspecified whether sciatica present Discharge Disposition: Discharge to home or self care 07/20/2024 Anticoagulation Visit [facility] Hematology [address] [facility] [address] [place] [address] Lorraine Hood, RN from Last 3 Months Allergies Active Allergy [...] on file Legal Sex Female 7:48 PM DEVOPS SOLUTIONS ARCHITECT Gender Identity Not on file Sexual Orientation Straight 12/29/2020 8: 23 AM CDT Last Filed Vital Signs Vital Sign Reading Time Taken Comments Blood Pressure 120/73 09/07/2024 2:21 PM DEVOPS SOLUTIONS ARCHITECT Pulse 112 09/07/2024 2:21 PM [employer]OPS SOLUTIONS ARCHITECT Temperature 36.7 C (98.1 F) 08/15/2023 10:35 AM DEVOPS SOLUTIONS ARCHITECT Respiratory Rate 16 09/07/2024 2:21 PM DEVOPS SOLUTIONS ARCHITECT Oxygen Saturation 99% 08/15/2023 10:35 AM DEVOPS SOLUTIONS ARCHITECT Inhaled Oxygen Concentration - - Weight 57.3 kg (126 lb 6.4 oz) 06/07/2024 1:47 P M [employer] SOLUT[employer] ARCHITECT Height 151.3 cm (4' 11.57 ) 06/07/2024 1:[address] Body Mass Index 25.05 06/07/2024 1:47 PM DEVOPS SOLUTIONS ARCHITECT Plan of Treatment Not on file Procedures Procedure Name Priority Date/Time Associated Diagnosis Comments PROTIME-INR Routine 10/04/2024 PROTIME-INR Routine 09/24/2024 PROTIME-INR Routine 09/16/2024 TRANSFORAMINAL EPIDURAL INJECTION LUMBAR SACRAL 1 LEVEL RIGHT Schedule Routine, Read Routine (OP Routine) 09/07/2024 2:15 PM DEVOPS SOLUTIONS ARCHITECT Anterolisthesis of lumbar spine PROTIME-INR Routine 08/10/2024 TRANSFORAMINAL EPIDURAL INJECTION LUMBAR SACRAL 1 LEVEL RIGHT Schedule Routine, Read Routine (OP Routine) 08/02/2024 9:43 AM DEVOPS SOLUTIONS ARCHITECT Bilateral low back pain, unspecified chronicity, unspecified whether sciatica present Right leg pain COLONOSCOPY REPORT 10/13/2017 from Last 3 Months or Most Recently Relevant to Health Maintenance Results * (ABNORMAL) Protime-INR (10/04/2024) INR 2.00(A) 0.90 - 1.10 EXTERNAL LAB Blood us Historical Provider LAB BLOOD ORDERABLES Trina zoe Result EXTERNAL LAB * (ABNORMAL) Protime-INR (09/24/2024) INR 2.30(A) 0.90 - 1.10 EXTERNAL LAB Blood Result [facility] Provider MD LAB BLOOD ORDERABLES Trina l Result Performing Organization Address [facility] de Phone Number EXTERNAL LAB * (ABNORMAL) Protime-INR (09/16/2024) INR 1.40(A) 0.90 - 1.10 EXTERNAL LAB Blood 09/16/2024 Result [facility] Provider MD LAB BLOOD ORDERABLES Trina l Result Performing Organization Address [facility] Phone Number EXTERNAL LAB * IR Transforaminal Epidural Injection Lumbar Sacral 1 Level Right (09/07/2024 2:15 PM DEVOPS SOLUTIONS ARCHITECT) Narrative RAD_PACS_BJ - 09/07/2024 2:17 PM DEVOPS SOLUTIONS ARCHITECT The images from this study are not interpreted by Radiology. Please refer to the physician's procedure / OR operative note. Kevan Lemos MD IMG IR PROCEDURES Final Res ult Performing Organization Address [facility] de Phone Number RAD_PACS_[facility] * (ABNORMAL) Protime-INR (08/10/2024) INR 2.00(A) 0.90 - 1.10 EXTERNAL LAB Blood Result [facility] Provider MD LAB BLOOD ORDERABLES Trina l Result Performing Organization Address [facility] de Phone Number EXTERNAL LAB * IR Transforaminal Epidural Injection Lumbar Sacral 1 Level Right (08/02/2024 9:43 AM DEVOPS SOLUTIONS ARCHITECT) Narrative RAD_PACS_BJ - 08/02/2024 9:43 AM DEVOPS SOLUTIONS ARCHITECT The images from this study are not interpreted by Radiology. Please refer to the physician's procedure / OR operative note. Kevan Lemos MD IMG IR PROCEDURES Final Res ult Performing Organization Address [facility] de Phone Number RAD_PACS_[facility] * COLONOSCOPY REPORT (10/13/2017) Anatomical Region Laterality Modality Other Provider Scanning GI PROCEDURE ORDERABLES Final Result from Last 3 Months or Most Recently Relevant to Health Maintenance Insurance [facility] PPO [employer] PPO [facility] ACC[facility] [place] CHO[place] Advance Directives For more information, please contact: [phone] * Full Code (Latest Code Status on File) Date Activated Date Inactivated Comments 07/14/2018 8:43 AM 07/14/2018 1:17 PM Care Teams [place]. Commissioner Relationship Specialty Start Date End Date Bayron Ferraro MD [address] [facility] [address] [place] [address] PCP - General 03/26/17 Rossi Mckeon MD [address] [place] [address] Medical Oncologist/Finish Painter Hematology 08/24/20
--- OUTSIDE RECORDS SUMMARY | 2024-10-14 13:56 | XMS_ITS | Encounter Summary ---
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
--- OUTSIDE RECORDS SUMMARY | 2024-10-14 13:56 | XMS_ITS | Encounter Summary ---
Author Organization [facility] [employer] [facility] Address [address] [place] [address] Phone Care Team Providers Care Sheet Metal Duct Installer Helper Name Role Phone Bayron Ferraro MD Primary Care Provider Rossi Mckeon MD Unavailable +1- [phone] Encounter Details Date Type Department Care Team [...] on file Legal Sex Female 7:48 PM JAVA SDET Gender Identity Not on file Sexual Orientation [...] on filedocumented in this encounter Care Teams Sheet Metal Duct Installer Helper Relationship Specialty Start Date End Date Bayron Ferraro MD [address] [place] [address] PCP - General 03/26/17 Rossi Mckeon MD [address] [place] [address] Medical Oncologist/Account Manager Forest Service Hematology 08/24/20 documented as of this encounter
--- OUTSIDE RECORDS SUMMARY | 2024-10-14 13:56 | XMS_ITS | Encounter Summary ---
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
--- OUTSIDE RECORDS SUMMARY | 2024-10-14 13:57 | XMS_ITS | Encounter Summary ---
Author Organization [facility] [employer] [facility] Address [address] [place] [address] Phone Care Team Providers Care Teacher Early Childhood Development Name Role Phone Bayron Ferraro MD Primary Care Provider Rossi Mckeon MD Unavailable [phone]- [phone] Encounter Details Date Type Department Care Team [...] on file Legal Sex Female 7:48 PM RESEARCH ADMINISTRATOR Gender Identity Not on file Sexual Orientation [...] on filedocumented in this encounter Care Teams Teacher Early Childhood Development Relationship Specialty Start Date End Date Bayron Ferraro MD [address] [place] [address] PCP - General 03/26/17 Rossi Mckeon MD [address] [place] [address] Medical Oncologist/Regional Recruiter Hematology 08/24/20 documented as of this encounter
--- OUTSIDE RECORDS SUMMARY | 2024-10-14 13:57 | XMS_ITS | Encounter Summary ---
Author Organization [facility] [employer] [facility] Address [address] [place] [address] Phone Care Team Providers Care Restaurant Operations Manager Name Role Phone Bayron Ferraro MD Primary Care Provider Rossi Mckeon MD Unavailable [phone]- [phone] Encounter Details Date Type Department Care Team [...] on file Legal Sex Female 7:48 PM ECHO TECH Gender Identity Not on file Sexual [...] filedocumented in this encounter Care Teams Restaurant Operations Manager Relationship Specialty Start Date End Date Bayron Ferraro MD [address] [place] [address] PCP - General 03/26/17 Rossi Mckeon MD [address] [place] [address] Medical Oncologist/Sas Sql Developer Hematology 08/24/20 documented as of this encounter
--- OUTSIDE RECORDS SUMMARY | 2024-10-14 13:57 | XMS_ITS | Encounter Summary ---
Author Organization [facility] [employer] [facility] Address [address] [place] [address] Phone Care Team Providers Care Dry Heat Room Attendant Name Role Phone Bayron Ferraro MD Primary Care Provider Rossi Mckeon MD Unavailable [phone]- [phone] Encounter Details Date Type Department Care Team [...] on file Legal Sex Female 7:48 PM DRIVER SALES Gender Identity Not on file Sexual Orientation [...] filedocumented in this encounter Care Teams Dry Heat Room Attendant Relationship Specialty Start Date End Date Bayron Ferraro MD [address] [place] [address] PCP - General 03/26/17 Rossi Mckeon MD [address] [place] [address] Medical Oncologist/Nurse Plastics Hematology 08/24/20 documented as of this encounter
--- OUTSIDE RECORDS SUMMARY | 2024-10-14 13:57 | XMS_ITS | Encounter Summary ---
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
--- OUTSIDE RECORDS SUMMARY | 2024-10-14 13:57 | XMS_ITS | Encounter Summary ---
Author Organization [facility] [employer] [facility] Address [address] [place] [address] Phone Care Team Providers Care Physically Impaired Teacher Name Role Phone Bayron Ferraro MD Primary Care Provider Rossi Mckeon MD Unavailable [phone]- [phone] Encounter Details Date Type Department Care Team [...] on file Legal Sex Female 7:48 PM ELECTRIC KNIFE OPERATOR Gender Identity Not on file Sexual [...] on filedocumented in this encounter Care Teams Physically Impaired Teacher Relationship Specialty Start Date End Date Bayron Ferraro MD [address] [place] [address] PCP - General 03/26/17 Rossi Mckeon MD [address] [place] [address] Medical Oncologist/Senior It Specialist Hematology 08/24/20 documented as of this encounter
--- OUTSIDE RECORDS SUMMARY | 2024-10-14 13:57 | XMS_ITS | Encounter Summary ---
Author Organization [facility] [employer] of [facility] Address [address] [place] [address] Phone Care Team Providers Care Automatic Riveting Machine Operator Name Role Phone Bayron Ferraro MD Primary Care Provider Rossi Mckeon MD Unavailable [phone]- [phone] Encounter Details Date Type Department Care Team [...] on file Legal Sex Female 7:48 PM FISH SKINNING MACHINE FEEDER Gender Identity Not on file [...] on filedocumented in this encounter Care Teams Automatic Riveting Machine Operator Relationship Specialty Start Date End Date Bayron Ferraro MD [address] [place] [address] PCP - General 03/26/17 Rossi Mckeon MD [address] [place] [address] Medical Oncologist/Computer Engineering Technologist Hematology 08/24/20 documented as of this encounter
--- OUTSIDE RECORDS SUMMARY | 2024-10-14 13:57 | XMS_ITS | Encounter Summary ---
Author Organization [facility] [employer] of [facility] Address [address] [place] [address] Phone Care Team Providers Care Cook Specialty Name Role Phone Bayron Ferraro MD Primary Care Provider Rossi Mckeon MD Unavailable [phone]- [phone] Encounter Details Date Type Department Care Team [...] on file Legal Sex Female 7:48 PM IRRIGATION EQUIPMENT REMOVER Gender Identity Not on file Sexual Orientation [...] on filedocumented in this encounter Care Teams Cook Specialty Relationship Specialty Start Date End Date Bayron Ferraro MD [address] [place] [address] PCP - General 03/26/17 Rossi Mckeon MD [address] [place] [address] Medical Oncologist/Server Service Assistant Hematology 08/24/20 documented as of this encounter
--- OUTSIDE RECORDS SUMMARY | 2024-10-14 13:57 | XMS_ITS | Encounter Summary ---
Author Organization [facility] [employer] of [facility] Address [address] [place] [address] Phone Care Team Providers Care Phlebotomy Instructor Name Role Phone Bayron Ferraro MD Primary Care Provider Rossi Mckeon MD Unavailable [phone]- [phone] Encounter Details Date Type Department Care Team [...] on file Legal Sex Female 7:48 PM PIPELINES LABORER Gender Identity Not on file Sexual Orientation [...] on filedocumented in this encounter Care Teams Phlebotomy Instructor Relationship Specialty Start Date End Date Bayron Ferraro MD [address] [place] [address] PCP - General 03/26/17 Rossi Mckeon MD [address] [place] [address] Medical Oncologist/Color Blender Hematology 08/24/20 documented as of this encounter
--- OUTSIDE RECORDS SUMMARY | 2024-10-14 13:57 | XMS_ITS | Encounter Summary ---
Author Organization [facility] [employer] of [facility] Address [address] [place] [address] Phone Care Team Providers Care Horticultural Manager Name Role Phone Bayron Ferraro MD Primary Care Provider Rossi Mckeon MD Unavailable [phone]- [phone] Encounter Details Date Type Department Care Team [...] on file Legal Sex Female 7:48 PM RADIOLOGY CLERK Gender Identity Not on file Sexual Orientation [...] on filedocumented in this encounter Care Teams Horticultural Manager Relationship Specialty Start Date End Date Bayron Ferraro MD [address] [place] [address] PCP - General 03/26/17 Rossi Mckeon MD [address] [place] [address] Medical Oncologist/Agricultural Education Professor Hematology 08/24/20 documented as of this encounter
--- OUTSIDE RECORDS SUMMARY | 2024-10-14 13:57 | XMS_ITS ---
Author Organization [facility], [facility] Address [address] [place] [address] [address] [place] [address] Care Team Providers Care Arc And Gas Welder Name Role Phone Bayron Ferraro MD Primary Care Provider Unavaila Ronak Fragoso Unavailable [phone] Betito Gastelum Unavailable Unavailable Encounters Encounter Location Date Provider Diagnosis [facility], [address] [place] [address] 07/13/2024 Ronak Santoyo Plan Of Treatment No Information Progress Notes * Zen AN LDOB:[birth year] (54 yo F)Acc No.[id number]:07/13/2024 Patient: Manda Zen LAWLER :1970 A ge:54 Y S ex:Female Address:[address] [place] [address] * true * Date: Generated for Printi ng/Fajanieg/eTransmitting on: 0 10/14/2024 01:56 PM CDT
--- OUTSIDE RECORDS SUMMARY | 2024-10-14 13:57 | XMS_ITS | Encounter Summary ---
Author Organization [facility] of [facility] Address [address] [place] [address] Phone Care Team Providers Care Drum Sander Offbearer Name Role Phone Bayron Ferraro MD Primary Care Provider Rossi Mckeon MD Unavailable +1- [phone] Encounter Details Date Type Department Care Team [...] on file Legal Sex Female 7:48 PM SHOWER ROOM ATTENDANT Gender Identity Not on file Sexual Orientation [...] on filedocumented in this encounter Care Teams Drum Sander Offbearer Relationship Specialty Start Date End Date Bayron Ferraro MD [address] [place] [address] PCP - General 03/26/17 Rossi Mckeon MD [address] [place] [address] Medical Oncologist/Floor Covering Layer Hematology 08/24/20 documented as of this encounter
--- OUTSIDE RECORDS SUMMARY | 2024-10-14 13:57 | XMS_ITS | Encounter Summary ---
Author Organization [facility] Package [employer] of [facility] Address [address] [place] [address] Phone Care Team Providers Care Recycling Specialist Name Role Phone Bayron Ferraro MD Primary Care Provider Rossi Mckeon MD Unavailable +1- [phone] Encounter Details Date Type Department Care Team [...] on file Legal Sex Female 7:48 PM NUT PACKER Gender Identity Not on file Sexual Orientation [...] on filedocumented in this encounter Care Teams Recycling Specialist Relationship Specialty Start Date End Date Bayron Ferraro MD [address] [place] [address] PCP - General 03/26/17 Rossi Mckeon MD [address] [place] [address] Medical Oncologist/Brick Handler Hematology 08/24/20 documented as of this encounter
--- OUTSIDE RECORDS SUMMARY | 2024-10-14 13:57 | XMS_ITS | Encounter Summary ---
Author Organization [facility] [employer] of [facility] Address [address] [place] [address] Phone Care Team Providers Care General Farmer Name Role Phone Bayron Ferraro MD Primary Care Provider Rossi Mckeon MD Unavailable +1- [phone] Encounter Details Date Type Department Care Team [...] on file Legal Sex Female 7:48 PM COMPOSITE LAMINATOR Gender Identity Not on file Sexual Orientation [...] on filedocumented in this encounter Care Teams General Farmer Relationship Specialty Start Date End Date Bayron Ferraro MD [address] [place] [address] PCP - General 03/26/17 Rossi Mckeon MD [address] [place] [address] Medical Oncologist/Library Media Technician Hematology 08/24/20 documented as of this encounter
--- OUTSIDE RECORDS SUMMARY | 2024-10-14 13:57 | XMS_ITS | Encounter Summary ---
Author Organization [facility] of [facility] Address [address] [place] [address] Phone Care Team Providers Care Supervisor Metal Hanging Name Role Phone Bayron Ferraro MD Primary Care Provider Rossi Mckeon MD Unavailable +1- [phone] Encounter Details Date Type Department Care Team [...] on file Legal Sex Female 7:48 PM RECTIFICATION PRINTER Gender Identity Not on file Sexual Orientation [...] on filedocumented in this encounter Care Teams Supervisor Metal Hanging Relationship Specialty Start Date End Date Byaron Ferraro MD [address] [place] [address] PCP - General 03/26/17 Rossi Mckeon MD [address] [place] [address] Medical Oncologist/Analytical Lead Hematology 08/24/20 documented as of this encounter
--- OUTSIDE RECORDS SUMMARY | 2024-10-14 13:57 | XMS_ITS | Encounter Summary ---
Author Organization 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
--- OUTSIDE RECORDS SUMMARY | 2024-10-14 13:57 | XMS_ITS | Encounter Summary ---
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
--- OUTSIDE RECORDS SUMMARY | 2024-10-14 13:57 | XMS_ITS | Encounter Summary ---
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
--- OUTSIDE RECORDS SUMMARY | 2024-10-14 13:57 | XMS_ITS | Encounter Summary ---
Author Organization 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
--- OUTSIDE RECORDS SUMMARY | 2024-10-14 13:57 | XMS_ITS | Encounter Summary ---
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
== END 2024-10-14 13:28 | disposition home or self-care (01) ==
PROVIDERS: PCP Family Medicine; Visit Provider Surgery
DX: R92.8 Other abnormal and inconclusive findings on diagnostic imaging of breast (principal); R92.333 Mammographic heterogeneous density, bilateral breasts; Z80.3 Family history of malignant neoplasm of breast
CPT/HCPCS: 76641

== ENCOUNTER 2024-12-15 09:48 | Outpatient (CLI) | payer BC, SELFPAY ==
--- NOTE | ~2024-12-15 | CT_ITS ---
CT Scan of the Chest without Contrast: Clinical Indication: Lung cancer screening, nicotine dependence Technique: Contiguous sections were acquired throughout the chest without intravenous contrast. Dose reduction technique was used on this scan by utilizing automated exposure control and iterative recon struction technique. The dose-length product (DLP) was 40.85 mGy-cm. COMPARISON: 10/20/2023 Findings: There is no evidence of any significant mediastinal, hilar or axillary lymphadenopathy. The mediastin al soft tissues appear normal. There is no evidence of pleural or pericardial effusion. The lungs are clear. No pulmonary nodules or infiltrates are noted. Images through the upper abdomen reveal no abnormalities. Impression: Lung RADS 1: Negative. 12 month follow-up screening CT advised. Reviewed, dictated and finalized at location . Impression: Lung RADS 1: Negative. 12 month follow-up screening CT advised.
== END 2024-12-15 09:49 | disposition home or self-care (01) ==
PROVIDERS: PCP Family Medicine; Visit Provider Family Medicine
DX: Z12.2 Encounter for screening for malignant neoplasm of respiratory organs (principal); Z87.891 Personal history of nicotine dependence
CPT/HCPCS: 71271

== ENCOUNTER 2025-04-20 08:39 | Outpatient (CLI) | payer BC, SELFPAY ==
--- NOTE | ~2025-04-20 | MM_ITS ---
EXAMINATION: MM screening shaq BI w sergio HISTORY: Screening TECHNIQUE: Craniocaudal and mediolateral oblique 3-D tomosynthesis images were obtained and synthetic 2-D images were generated. CAD analysis was submitted and interpreted. COMPARISON: 03/03/2023 BREAST PARENCHYMAL COMPOSITION: The breasts are heterogeneously dense, which may obscure small masses. FINDINGS: There is no evidence of suspicious mass, calcification, or architectural distortion to suggest malignancy. There has been no suspicious interval change. IMPRESSION: 1. No mammographic evidence of malignancy. Recommend routine screening mammography in one year. BI-RADS Category 2: Benign finding(s) Reviewed, dictated and finalized at location Q. IMPRESSION: 1. No mammographic evidence of malignancy. Recommend routine screening mammogra phy in one year. BI-RADS Category 2: Benign finding(s)
--- OUTSIDE RECORDS SUMMARY | 2025-04-20 09:08 | XMS_ITS | Encounter Summary ---
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
--- OUTSIDE RECORDS SUMMARY | 2025-04-20 09:08 | XMS_ITS | Encounter Summary ---
Author Organization [facility] [employer] of [facility] Address [address] [place] [address] Phone Care Team Providers Care Body Service Team Member Name Role Phone Bayron Ferraro MD Primary Care Provider Rossi Mckeon MD Unavailable [phone]- [phone] Encounter Details Date Type Department Care Team [...] on file Legal Sex Female 7:48 PM ANTHROPOLOGIST Gender Identity Not on file Sexual Orientation [...] on filedocumented in this encounter Care Teams Body Service Team Member Relationship Specialty Start Date End Date Bayron Ferraro MD [address] [place] [address] PCP - General 03/26/17 Rossi Mckeon MD [address] [place] [address] Medical Oncologist/Apparel Manager Hematology 08/24/20 documented as of this encounter
--- OUTSIDE RECORDS SUMMARY | 2025-04-20 09:08 | XMS_ITS | Encounter Summary ---
Author Organization [facility] School of [facility] Address [address] [place] [address] Phone Care Team Providers Care Swinging Cut Off Saw Operator Name Role Phone Bayron Ferraro MD Primary Care Provider Rossi Mckeon MD Unavailable [phone]- [phone] Encounter Details Date Type Department Care Team (Latest Contact Info) Description 01/24/2018 Orders Only [facility] Scanning, Provider Social History Tobacco Use Types Packs/Day Years Used Date Smoking Tobacco: Former Smokeless Tobacco: Never Comments Unknown Sex and Gender Information Value Date Recorded Sex Assigned at Not on file Legal 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
--- OUTSIDE RECORDS SUMMARY | 2025-04-20 09:08 | XMS_ITS | Encounter Summary ---
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
--- OUTSIDE RECORDS SUMMARY | 2025-04-20 09:08 | XMS_ITS | Encounter Summary ---
Author Organization [facility] [employer] of [facility] Address [address] [place] [address] Phone Care Team Providers Care Hook And Eye Attacher Name Role Phone Bayron Ferraro MD Primary Care Provider Rossi Mckeon MD Unavailable +1- [phone] Encounter Details Date Type Department Care Team [...] on file Legal Sex Female 7:48 PM PAIN MANAGEMENT PHYSICIAN Gender Identity Not on file Sexual Orientation [...] on filedocumented in this encounter Care Teams Hook And Eye Attacher Relationship Specialty Start Date End Date Bayron Ferraro MD [address] [place] [address] PCP - General 03/26/17 Rossi Mckeon MD [address] [place] [address] Medical Oncologist/Electrical Hardware Engineer Hematology 08/24/20 documented as of this encounter
--- OUTSIDE RECORDS SUMMARY | 2025-04-20 09:08 | XMS_ITS | Encounter Summary ---
Author Organization [facility] [employer] of [facility] Address [address] [place] [address] Phone Care Team Providers Care E Business Project Manager Name Role Phone Bayron Ferraro MD Primary Care Provider Rossi Mckeon MD Unavailable [phone]- [phone] Encounter Details Date Type Department Care Team (Latest Contact Info) Description 10/20/2017 Orders Only [facility] CON[facility] Scanning, Provider Social History Tobacco Use Types Packs/Day Years Used Date Smoking Tobacco: Every Day Comments Unknown Sex and Gender Information Value Date Recorded Sex Assigned at Not on file 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
--- OUTSIDE RECORDS SUMMARY | 2025-04-20 09:08 | XMS_ITS | Encounter Summary ---
Author Organization [facility] [employer] of 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
--- OUTSIDE RECORDS SUMMARY | 2025-04-20 09:08 | XMS_ITS | Encounter Summary ---
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
--- OUTSIDE RECORDS SUMMARY | 2025-04-20 09:08 | XMS_ITS | Encounter Summary ---
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
--- OUTSIDE RECORDS SUMMARY | 2025-04-20 09:08 | XMS_ITS | Encounter Summary ---
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
--- OUTSIDE RECORDS SUMMARY | 2025-04-20 09:08 | XMS_ITS | Encounter Summary ---
Author Organization 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
--- OUTSIDE RECORDS SUMMARY | 2025-04-20 09:08 | XMS_ITS | Encounter Summary ---
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
--- OUTSIDE RECORDS SUMMARY | 2025-04-20 09:08 | XMS_ITS | Encounter Summary ---
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
--- OUTSIDE RECORDS SUMMARY | 2025-04-20 09:09 | XMS_ITS | Clinical Summary ---
Author Organization [facility] Address [address] [place] [address] Care Team Providers Care Ocean Rescue Lieutenant Name Role Phone Bayron Ferraro MD Primary Care Provider Rossi Mckeon MD Unavailable [phone] Allergies Active Allergy Reactions Criticality Noted Date Comments Amoxicillin-Pot Clavulanate Itching,Other (See comments) Low 01/02/2022 Gave pt yeast infection Clindamycin Unknown 10/18/2017 Sulfasalazine Hives Medium 08/15/2023 Medications niacin 500 mg tabletIndication s:hyperlipidemia Take 1 tablet (500 mg total) by mouth daily with breakfast Active thyroid (ARMOUR THYROID) 90 mg tablet daily. Active coenzyme Q10 100 mg capsule daily. Active MELATONIN ORAL TAKE 1 CAPSULE AT BEDTIME NEEDED. Active cholecalciferol (VITAMIN D-3) 5,000 unit capsule pt states once daily Active progesterone (PROMETRIUM) 200 mg capsule daily. Active vortioxetine (TRINTELLIX) 20 mg tabletIndication s:major depressive disorder 1 tablet (20 mg total) daily Active dextroamphetamin e-amphetamine (ADDERALL) 15 mg tablet 0.6667 tablets (10 mg total) 2 (two) times a day Active enoxaparin (LOVENOX) 100 mg/mL syringeIndicatio ns:DVT (deep venous thrombosis),Othe r pulmonary embolism without acute cor pulmonale, unspecified chronicity (HCC) Inject 0.9 mL (90 mg total) under the skin daily 5 mL 1 05/10/20 21 Active vilazodone (VIIBRYD) 40 mg tabletIndication s:major depressive disorder 1 tablet (40 mg total) daily Active omeprazole (PriLOSEC) 40 mg capsule 06/22/20 22 Active Linzess 72 mcg capsule Take by mouth daily 06/05/20 22 Active valACYclovir (VALTREX) 500 mg tablet Take 1 tablet (500 mg total) by mouth daily 06/05/20 23 Active folic acid (FOLVITE) 1 mg tablet 08/11/19 24 Active lisinopriL (PRINIVIL,ZESTRI L) 10 mg tablet Take 1 tablet (10 mg total) by mouth daily 06/30/20 23 Active atomoxetine (STRATTERA) 60 mg capsule 08/11/19 24 Active mesalamine (LIALDA) 1.2 gram EC tablet Take 2 tablets (2.4 g total) by mouth 2 (two) times a day 07/14/19 24 Active varenicline tartrate (CHANTIX ANTONINO) 0.5 mg (11)- 1 mg (42) tablet 08/05/19 24 Active topiramate (TOPAMAX) 100 mg tabletIndication s:Migraine without aura and without status migrainosus, not intractable TAKE 2 TABLETS(200 MG) BY MOUTH EVERY MORNING 180 tablet 3 03/26/20 24 Active rizatriptan (MAXALT) 10 mg tabletIndication s:Migraine Take 1 tablet (10 mg total) by mouth once as needed for migraine May repeat in 2 hours if unresolved. Do not exceed 30 mg in 24 hours. 9 tablet 5 03/26/20 24 Active traMADoL (ULTRAM) 50 mg tablet Take 1 tablet (50 mg total) by mouth every 8 (eight) hours as needed for pain 30 tablet 09/18/19 25 Active testosterone, bulk, powderIndication s:DVT (deep venous thrombosis) 1 08/24/19 25 Active diazePAM (VALIUM) 5 mg tabletIndication s:DVT (deep venous thrombosis) TAKE 1 TABLET BY MOUTH 1 TIME 1 HOUR BEFORE PROCEDURE 09/01/19 25 Active dextroamphetamin e-amphetamine (ADDERALL) 20 mg tabletIndication s:DVT (deep venous thrombosis) Take 1 tablet (20 mg total) by mouth 2 (two) times a day 09/29/19 25 Active warfarin (COUMADIN) 3 mg tabletIndication s:Deep vein thrombosis (DVT) of other vein of lower extremity, unspecified chronicity, unspecified laterality (HCC),Other pulmonary embolism without acute cor pulmonale, unspecified chronicity (HCC) TAKE 1 TABLET(3 MG) BY MOUTH DAILY 90 tablet 3 01/25/20 25 Active Ajovy Autoinjector 225 mg/1.5 mL auto-injector subcutaneous auto-injectorInd ications:Migrain e without aura and without status migrainosus, not intractable ADMINISTER 1.5 ML(225 MG) UNDER THE SKIN EVERY 30 DAYS 1.5 mL 1 04/14/20 25 Active fremanezumab-vfr m (Ajovy Autoinjector) 225 mg/1.5 mL auto-injector subcutaneous auto-injectorInd ications:Migrain e without aura and without status migrainosus, not intractable Inject 1.5 mL (225 mg total) under the skin every 30 (thirty) days 1.5 mL 1 02/22/20 25 025 Discontinued Active Problems Problem Noted Date Diagnosed Date Abdominal bloating 12/31/2023 Flatulence, eructation and gas pain 12/31/2023 GERD (gastroesophageal reflux disease) Ulcerative (chronic) proctitis without complicat ions 12/31/2023 Anemia 08/24/2020 Migraine without aura and wi thout status migrainosus, not intractable 10/21/2019 Other pulmonary embolism without acute cor pulmo nale 12/09/2017 DVT (deep venous thrombosis) 10/21/2017 Headache 03/26/2017 Ulcerative colitis 05/11/2011 Encounters Date Type Department Care Team Description 03/31/2025 Anticoagulation Visit [facility] Medicine Hematology [address] [place] [phone] Lorraine Hood RN 03/09/2025 Anticoagulation Visit [facility] Medicine Hematology [address] [place] [phone] Lorraine Hood RN 02/17/2025 Anticoagulation Visit [facility] Medicine Hematology [address] [place] [address], [place] [phone] Lorraine Hood RN 01/24/2025 Anticoagulation Visit [facility] Medicine Hematology [address] [place] [address] [address] [place] [address] Mariann Neidabernabe Briceno from Last 3 Months Surgical History Surgery Date Site/Laterality Comments FL TOTAL ABDOMINAL HYSTERECT W/WO RMVL TUBE OVARY Hysterectomy - (Added by Conv) [place] APPENDECTOMY Appendectomy - (Added by TW Conv) [place] DELIVERY ONLY Section - (Added by TW Conv) REDUCTION MAMMAPLASTY 05/07/2018 - 06/05/2018 ABDOMINOPLASTY 05/07/2018 - 06/05/2018 OOPHERECTOMY FL FLUORO GUIDED LUMBAR PUNCTURE 08/02/2024 Right FL FLUORO GUIDED LUMBAR PUNCTURE 09/07/2024 Right Medical History Medical History Date Comments Irritable bowel syndrome without diarrhea Irritable bowel syndrome - (Added by Conv) Pulmonary embolism History of blood clots Awareness under anesthesia GERD (gastroesophageal reflux disease) Crohn disease (HCC) pt unsure if it is this diagnosis or Ulcerative colitis Ulcerative colitis pt unsure if it is this diagnosis or crohns Hyperlipidemia Family History Medical History Relation Name Comments Prostate cancer Father Family histo ry of malignant neoplasm of prostate - (Added by Conv)/Family history of malignant neoplasm of prostate - (Added by Conv) Breast cancer Mother Family history of malignant neoplasm of breast - (Added by Conv)/Family history of malignant neoplasm of breast - (Added by Conv) Broken bones Neg Hx Hip fracture Neg Hx Kyphosis Neg Hx Osteoporosis Neg Hx Scoliosis Neg Hx Relation Name Status Comments Father Mother Social History Tobacco Use Types Packs/Day Years Used Date Smoking Tobacco: Every Day Cigarettes 0.3 1.3 Started: 12/31/2023; Last attempted to quit: 09/2017 Smokeless Tobacco: Never Tobacco Cessation:Ready to Q uit: Not Asked; Counseling Given: Not Answered Comments:Quit about a week ago. 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 Gender Identity Not on file Sexual Orientation Straight 12/29/2020 8: 23 AM CDT Obstetrics History Last Filed Vital Signs Vital Sign Reading Time Taken Comments Blood Pressure 122/84 11/22/2024 8:30 AM CDT Pulse 120 11/22/2024 8:30 AM CDT Temperature 36.4 C (97.6 F) 11/22/2024 8:30 AM CDT Respiratory Rate 18 11/22/2024 8:30 AM CDT Oxygen Saturation 100% 11/22/2024 8:30 AM CDT Inhaled Oxygen Concentration - - Weight 55.8 kg (123 lb) 11/22/2024 8:30 AM CDT Height 149.9 cm (4' 11) 11/22/2024 8:30 AM CDT Body Mass Index 24.84 11/22/2024 8:30 AM CDT Plan of Treatment Health Maintenance Due Date Last Done Comments Depression Screening 1971 Hepatitis C Screening 1971 Hepatitis B Screening 1989 Regular Well Visit/Exam 18-64 1989 Pneumococcal vaccine <65 (1 of 2 - PCV) 1990 Zoster Vaccine (1 of 2) 2021 Breast Cancer Screening-Mammogram 01/02/2023 01/02/2022, 01/02/2022, 12/28/2020, Additional history exists Influenza Vaccine (#1) 2025 Colon Cancer Screening-Colonoscopy 10/14/2027 10/13/2017, 07/25/2016, 07/27/2015, Additional history exists DTaP/Tdap/Td Vaccine (2 - Td or Tdap) 01/30/2034 01/31/2024 Procedures Procedure Name Priority Date/Time Associated Diagnosis Comments PROTIME-INR Routine 03/30/2025 PROTIME-INR Routine 03/09/2025 PROTIME-INR Routine 02/17/2025 PROTIME-INR Routine 01/23/2025 COLONOSCOPY REPORT 10/13/2017 from Last 3 Months or Most Recently Relevant to Health Maintenance Results * (ABNORMAL) Protime-INR (03/30/2025) INR 2.00(A) 0.90 - 1.10 EXTERNAL LAB Blood Result [facility] Provider MD LAB BLOOD ORDERABLES Trina l Result Performing Organization Address City/[facility] Co de Phone Number EXTERNAL LAB * (ABNORMAL) Protime-INR (03/09/2025) INR 3.00(A) 0.90 - 1.10 EXTERNAL LAB Blood Result [facility] Provider MD LAB BLOOD ORDERABLES Trina l Result Performing Organization Address City/[facility]/ZIP Co de Phone Number EXTERNAL LAB * (ABNORMAL) Protime-INR (02/17/2025) INR 2.00(A) 0.90 - 1.10 EXTERNAL LAB Blood Result [facility] Provider MD LAB BLOOD ORDERABLES Trina l Result Performing Organization Address [facility] Co de Phone Number EXTERNAL LAB * (ABNORMAL) Protime-INR (01/23/2025) INR 2.50(A) 0.90 - 1.10 EXTERNAL LAB Blood 01/23/2025 Result [facility] Provider MD LAB BLOOD ORDERABLES Trina l Result Performing Organization Address [facility] Co de Phone Number EXTERNAL LAB * COLONOSCOPY REPORT (10/13/2017) Anatomical Region Laterality Modality Other Result [facility] Provider Scanning GI PROCEDURE ORDERABLES Final Result from Last 3 Months or Most Recently Relevant to Health Maintenance [facility] [place] PPO [facility] ANTH ACCESS [place] Advance Directives For more information, please contact: [phone] * Full Code (Latest Code Status on File) Date Activated Date Inactivated Comments 07/14/2018 8:43 AM 07/14/2018 1:17 PM Care Teams Ocean Rescue Lieutenant Relationship Specialty Start Date End Date Bayron Ferraro MD [address] [place] [address] PCP - General 03/26/17 Rossi Mckeon MD [address] [place] [address] Medical Oncologist/Home Health Physical Therapist Hematology 08/24/20
--- OUTSIDE RECORDS SUMMARY | 2025-04-20 09:09 | XMS_ITS | Encounter Summary ---
Author Organization [facility] [employer] 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
--- OUTSIDE RECORDS SUMMARY | 2025-04-20 09:09 | XMS_ITS | Encounter Summary ---
Author Organization 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
--- OUTSIDE RECORDS SUMMARY | 2025-04-20 09:09 | XMS_ITS | Encounter Summary ---
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
--- OUTSIDE RECORDS SUMMARY | 2025-04-20 09:09 | XMS_ITS | Encounter Summary ---
Author Organization [facility] [employer] [facility] Address [address] [place] [address] Phone Care Team Providers Care Educational Consultant Name Role Phone Bayron Ferraro MD Primary Care Provider Rossi Mckeon MD Unavailable [phone]- [phone] Encounter Details Date Type Department Care Team (Latest Contact Info) Description 03/18/2024 Orders Only [facility] Scanning, Provider Social History Tobacco Use Types Packs/Day Years Used Date Smoking Tobacco: Former Cigarettes 0 12/31/2023 - 09/2017 Smokeless Tobacco: Never Comments:Quit about a week a go. 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 Gender Identity Not on file Sexual Orientation Straight 12/29/2020 8: 23 AM CDT documented as of this encounter Plan of Treatment Not on file documented as of this encounter Procedures Procedure Name Priority Date/Time Associated Diagnosis Comments SCAN - LABS 03/18/2024 documented in this encounter Results * SCAN - LABS (03/18/2024) us Provider Scanning Final Result documented in this encounter Visit Diagnoses Not on filedocumented in this encounter Care Teams Educational Consultant Relationship Specialty Start Date End Date Bayron Ferraro MD [address] [place] [address] PCP - General 03/26/17 Rossi Mckeon MD [address] [place] [address] Medical Oncologist/Service Delivery Manager Hematology 08/24/20 documented as of this encounter
--- OUTSIDE RECORDS SUMMARY | 2025-04-20 09:09 | XMS_ITS | Encounter Summary ---
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
--- OUTSIDE RECORDS SUMMARY | 2025-04-20 09:09 | XMS_ITS | Encounter Summary ---
Author Organization 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 Gender Identity Not on file Sexual Orientation Straight 12/29/2020 8: 23 AM CDT documented as of this encounter Plan of Treatment Not on file documented as of this encounter Procedures Procedure Name Priority Date/Time Associated Diagnosis Comments SCAN - LABS 01/15/2018 documented in this encounter Results * SCAN - LABS (01/15/2018) us Provider Scanning Final Result documented in this encounter Visit Diagnoses Not on filedocumented in this encounter Care Teams Telemarketer Supervisor Relationship Specialty Start Date End Date Bayron Ferraro MD [address] [facility] [address] [place] [address] PCP - General 03/26/17 Rossi Mckeon MD [address] [place] [address] Medical Oncologist/Anatomy Teacher Hematology 08/24/20 documented as of this encounter
--- OUTSIDE RECORDS SUMMARY | 2025-04-20 09:09 | XMS_ITS | Encounter Summary ---
Author Organization [facility] [employer] [facility] Address [address] [place] [address] Phone Care Team Providers Care Mechanic Driver Name Role Phone Bayron Ferraro MD Primary Care Provider Rossi Mckeon MD Unavailable [phone]- [phone] Encounter Details Date Type Department Care Team (Latest Contact Info) Description 07/22/2022 Orders Only [facility] Scanning, Provider Social History Tobacco Use Types Packs/Day Years Used Date Smoking Tobacco: Former Cigarettes Q uit: 09/2017 Smokeless Tobacco: Never Alcohol Use Standard Drinks/Week Comments Yes 0 (1 standard drink = 0.6 oz pur e alcohol) occasional Comments No Sex and Gender Information Value Date Recorded Sex Assigned at Not on file 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 Gender Identity Not on file Sexual Orientation Straight 12/29/2020 8: 23 AM CDT documented as of this encounter Plan of Treatment Not on file documented as of this encounter Procedures Procedure Name Priority Date/Time Associated Diagnosis Comments SCAN - LABS 07/22/2022 documented in this encounter Results * SCAN - LABS (07/22/2022) us Provider Scanning Final Result documented in this encounter Visit Diagnoses Not on filedocumented in this encounter Care Teams Mechanic Driver Relationship Specialty Start Date End Date Bayron Ferraro MD [address] [place] [address] PCP - General 03/26/17 Rossi Mckeon MD [address] [place] [address] Medical Oncologist/Fiberline Supervisor Hematology 08/24/20 documented as of this encounter
--- OUTSIDE RECORDS SUMMARY | 2025-04-20 09:09 | XMS_ITS | Clinical Summary ---
Author Organization [facility] [place] Address [address] [place] [address] Phone Care Team Providers Care Library Page Name Role Phone Bayron Ferraro MD Primary Care Provider [phone] Allergies Active Allergy Reactions Criticality Noted Date [...] (General) Referring Provider: Ashlyn Ojeda MD [address] [facility] [address] [place] [address] Other: Dr. 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 Gender Identity Not on file Sexual Orientation Not on file Occupation Industry Job Start Date Job End Date Not on file Not on file Not on file Not on file Not on file Not on file Not on file Not on file Last Filed Vital Signs Vital Sign Reading Time Taken Comments Blood Pressure 132/82 09/02/2022 9:02 AM SENIOR JAVA SOFTWARE ENGINEER Pulse 118 09/02/2022 9:02 AM SENIOR JAVA SOFTWARE ENGINEER Temperature 37.3 C (99.1 F) 09/02/2022 9:02 AM SENIOR JAVA SOFTWARE ENGINEER Respiratory Rate - - Oxygen Saturation 96% 09/02/2022 9:02 AM SENIOR JAVA SOFTWARE ENGINEER Inhaled Oxygen Concentration - - Weight 58.1 kg (128 lb) 09/02/2022 9:02 AM SENIOR JAVA SOFTWARE ENGINEER Height 148.6 cm (4' 10.5) 09/02/2022 9:02 AM CS T Body Mass Index 26.3 09/02/2022 9:02 AM SENIOR JAVA SOFTWARE ENGINEER Plan of Treatment Health Maintenance Due Date Last Done Comments DTAP/TDAP/TD VACCINES (1 - Tdap) 1990 HEPATITIS B VACCINES (1 of 3 - 19+ 3-dose series) 1990 FIT-DNA Q 3 years 2016 FIT/FOBT Q 1 year 2016 ZOSTER VACCINE (1 of 2) 2021 BREAST CANCER SCREENING 01/02/2023 01/03/20, 12/28/2020, 12/16/2019, Additional history exists Flex Sig/CT Colonography Q 5 years 07/14/20232018 INFLUENZA VACCINE (#1) 2025 COLORECTAL SCREENING 05/15/2031 05/15/2021, 07/14/19 Colorectal Cancer [...] Maintenance Insurance BS BLUE PREFERRED Care Teams Library Page Relationship Specialty Start Date End Date Bayron Ferraro MD [address] [facility] [address] [place] [id number] PCP - General Family Practice 04/01/14
--- OUTSIDE RECORDS SUMMARY | 2025-04-20 09:09 | XMS_ITS | Patient Health Record ---
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 Name Role Phone Bayron Ferraro MD Primary Care Provider Unavaila Tonja Funes Unavailable [phone] Kermit Woo Unavailable [phone] Allergies Allergen (clinical drug ingredient) Drug/Non Drug Allergy documented on EMR Reaction Allergy Type Onset Date Status Substance with sulfonamide structure and antibacterial mechanism of action (substance) SULFA (SULFONAMIDE ANTIBIOTICS) (uncoded) Unknown Allergy 09/11/2023 Active amoxicillin Amoxicillin Unknown Drug Allergy 09/11/2023 Ac tive clindamycin Clindamycin Unknown Drug Allergy 09/11/2023 Ac tive rosuvastatin Rosuvastatin Unknown Drug Allergy 09/11/2023 Active Results Component Value Reference Range Flag Notes Validity Testing Reviewed date:12/31/2024 03:47:39 PM Interpretation: Performing Lab:[address] [place] [address], [address] [place] [address], Director - [id number] Notes/Report: Not Medicated Consistent Not Medicated Consistent Not Medicated Consistent Not Medicated Consistent Specific [place] 1.027 1.003 - 1.030 pH 5.9 3.0 - 10.9 Oxidants -38 200 g/mL Creatinine 119.3 20.0 - 300.0 mg/dL Stimulants Reviewed date:12/31/2024 03:47:17 PM Interpretation: Performing Lab: Notes/Report: Phentermine NEGATIVE 100.0 ng/mL Not Medicate d Consistent Methylphenidate NEGATIVE 50.0 ng/mL Not Medic ated Consistent Methamphetamine NEGATIVE 100.0 ng/mL Not Medi cated Consistent Amphetamine 449.8 100.0 ng/mL POSITIVE Medicated Consistent Adderall Reviewed date:12/31/2024 03:47:29 PM Interpretation: Performing Lab: Notes/Report: An exception occurred while processing this report and so it has incomplete data. Please contact [employer] for assistance. PDF Report [email or web address] Reason For Referral No Information Medications Medication SIG (Take, Route, Frequency, Duration) Notes Start Date End Date Status Albuterol Sulfate HFA 108 (90 Base) MCG/ACT Aerosol Solution INHALE 1 PUFF EVERY 4 HOURS NEEDED FOR SHORTNESS OF BREATH OR WHEEZING Inhalation; Duration: 33 Days Active Folic Acid 1 MG Tablet TAKE 1 TABLET BY MOUTH EVERY DAY Oral; Duration: 90 Days Active Lisinopril 10 MG Tablet TAKE 1 TABLET BY MOUTH DAILY Oral; Duration: 90 Days Active Omeprazole 40 MG Capsule Delayed Release TAKE 1 CAPSULE BY MOUTH EVERY DAY 30 MINUTES BEFORE BREAKFAST Oral; Duration: 90 Days Active Trintellix 20 MG Tablet 1 tablet Oral Once a day; Duration: 90 days no PA needed 03/22/2025 Active Linzess 72 MCG Capsule TAKE 1 CAPSULE BY MOUTH EVERY DAY Oral; Duration: 90 Days Active Vilazodone HCl 40 MG Tablet TAKE 1 TABLET Oral Once a day; Duration: 90 days 03/22/2025 Active Atomoxetine HCl 60 MG Capsule TAKE 1 CAPSULE Oral Once a day; Duration: 90 days 03/22/2025 Active Amphetamine-Dextroamph etamine 20 MG Tablet 1 tablet Oral Twice a day; Duration: 30 days 04/19/2025 Active valACYclovir HCl 1 GM Tablet TAKE 2 TABLETS BY MOUTH NOW. REPEAT IN 12 HOURS FOR OUTBREAK Oral; Duration: 30 Days Active Ajovy 225 MG/1.5ML Solution Auto-injector INJECT 1.5ML UNDER THE SKIN EVERY 30 DAYS Subcutaneous; Duration: 30 Days Active valACYclovir HCl 500 MG Tablet TAKE 1 TABLET BY MOUTH DAILY Oral; Duration: 90 Days Not-Taking Mesalamine 1.2 GM Tablet Delayed Release TAKE 2 TABLETS BY MOUTH TWICE DAILY Oral; Duration: 90 Days Active Vilazodone HCl 40 MG Tablet TAKE 1 TABLET BY MOUTH DAILY; Duration: 90 Active Chantix 1 MG Tablet 1 tablet after eating Orally Twice a day Active Immunizations Vaccine Route Administration Date Status Comme nts Moderna Covid-19 Vaccine 1st dose Unknown 11/28/2020 Ad ministered Moderna Covid-19 Vaccine 1st dose Unknown 12/26/2020 Ad ministered Social History Tobacco Use: Social History Observation Description Date Details (start date - stop date) Current some da y smoker 12/05/1986 - NA Sex Assigned At : Social History Observation Description Sex Assigned At Female Social History Miscellaneous: Social Info Question Answer Notes Advance Care Planning Are you your own decision-maker Yes Do you have Power of Bisque Placer for Health or Medi jeffery? Yes Do you have a power of personal injury attorney for health? Yes Do you have power of personal injury attorney for Medical ? Yes If yes, then please bring the POA paperwork so that we can upload it. Yes Safety issues: Are there any firearms in the house? Ye s Social History Social Info Question Answer Notes Household: Marital Status: Number of Adults in household: 2 Number of Children in Household: 0 Level of Education: Finished College Drug/Alcohol: Social Info Question Answer Notes Drugs Have you used drugs other than those for medical reasons in the past 12 months? No AUDIT-C (Standard) Did you have a drink containing alcohol in the past year? Yes How often did you have six or more drinks on one occasion in the past year? Never (0 point) How many drinks did you have on a typical day when you were drinking in the past year? 1 or 2 drinks (0 point) How often did you have a drink containing alcohol in the past year? 2 to 4 times a month (2 points) Tobacco Use: Social Info Question Answer Notes Tobacco Control (Standard) Tobacco use: Current some d ay smoker When did you start smoking? 12/05/1986 How often do you smoke cigarettes? Every day How many cigarettes a day do you smoke? 6-10 How soon after you wake up do you smoke your first cigarette? 6-30 minutes Are you interested in quitting? Ready to quit Additional Details Category Social Info Options Details Miscellaneous: Occupation: Retired Migrated Social History Migrated Social History Alcohol Intake: Occasional 03/30/2020,Tobacco Years: Current every day smoker 11/23/2020,Smoking Status: 30 08/07/2023 Drug/Alcohol: Do you smoke marijuana? Den ies Do you drink alcohol? Yes Problems Problem Type SNOMED Code ICD Code Onset Dates Problem Status W/U Status Risk Notes Problem Severe recurrent major depression without psychotic features (90864639) Major depressive disorder, recurrent severe without psychotic features (F33.2) 11/25/19 24 Active confirmed Problem Recurrent major depression (40502017) Major depressive disorder, recurrent, in remission, unspecified (F33.40) Active confirmed Problem Generalized anxiety disorder (28103328) Generalized anxiety disorder (F41.1) Active confirmed Problem Attention deficit hyperactivity disorder, predominantly inattentive type (10544879) Attention-deficit hyperactivity disorder, predominantly inattentive type (F90.0) Active confirmed Problem Screening for cardiovascular system disease (729394902) Encounter for screening for cardiovascular disorders (Z13.6) Active confirmed Problem Dietary management surveillance (536063285) Dietary counseling and surveillance (Z71.3) Active confirmed Problem Tobacco use (842449053) Tobacco use (Z72.0) Active confirmed Problem Binge eating disorder (367152822) Binge eating disorder (F50.81) Active confirmed Problem Depression Screening (534713751) Encounter for screening for depression (Z13.31) Active confirmed Problem Mild recurrent major depression (10100174) MDD (major depressive disorder), recurrent episode, mild (F33.0) Active confirmed Problem Essential hypertension (41605990) Benign essential HTN (I10) Active confirmed Vital Signs Heart Rate 120 /min 03/22/2025 Respiratory Rate 17 /min 03/22/2025 Height-cm 147.32 cm 03/22/2025 Blood pressure diastolic 70 mm Hg 03/22/2025 Weight-kg 54.25 kg 03/22/2025 Height 58.00 in 03/22/2025 Blood pressure systolic 110 mm Hg 03/22/2025 Weight 119.6 lbs 03/22/2025 BMI 24.99 kg/m2 03/22/2025 Encounters Encounter Location Date Provider Diagnosis [facility] [address] [place] [address] 06/18/2024 Thena Amna Attention-deficit hyperactivity disorder, predominantly inattentive type F90.0 ; Generalized anxiety disorder F41.1 ; Major depressive disorder, recurrent, in remission, unspecified F33.40 and Benign essential HTN I10 [facility] [address] [place] [address] 09/28/2024 Tonja Inman Encounter for screen ing for depression Z13.31 ; MDD (major depressive disorder), recurrent episode, mild F33.0 ; Attention-deficit hyperactivity disorder, predominantly inattentive type F90.0 ; Generalized anxiety disorder F41.1 ; Benign essential HTN I10 ; Tobacco use Z72.0 ; Nicotine use Z72.0 ; Encounter for screening for cardiovascular disorders Z13.6 and Dietary counseling and surveillance Z71.3 [facility] [address] [place] [address] 12/27/2024 Tonja Therconrad Encounter for screen ing for depression Z13.31 ; MDD (major depressive disorder), recurrent episode, mild F33.0 ; Attention-deficit hyperactivity disorder, predominantly inattentive type F90.0 ; Generalized anxiety disorder F41.1 ; Benign essential HTN I10 ; Encounter for screening for cardiovascular disorders Z13.6 and Dietary counseling and surveillance Z71.3 [facility] [address] [facility] [address] [place] [address] 03/22/2025 Tonja Inman Encounter for screen ing for depression Z13.31 ; MDD (major depressive disorder), recurrent episode, mild F33.0 ; Attention-deficit hyperactivity disorder, predominantly inattentive type F90.0 ; Generalized anxiety disorder F41.1 and Benign essential HTN I10 [facility] [address] [facility] [address] [place] [address] 09/27/2024 Tonja Inman Major depressive disorder, recurrent, in remission, unspecified F33.40 [facility] [address] [address] 04/19/2025 Tonja Inman Attention-deficit hyperactivity disorder, predominantly inattentive type F90.0 [place] [address] [address] 05/17/2024 Thena Amna [place] [address] [place] [address] 05/26/2024 Thena Amna Attention-deficit hyperactivity disorder, predominantly inattentive type F90.0 [place] [address] [facility] [address] [place] [address] 06/18/2024 Thena Amna Attention-deficit hyperactivity disorder, predominantly inattentive type F90.0 [place] [address] [place] [address] 07/13/2024 Thena Amna Attention-deficit hyperactivity disorder, predominantly inattentive type F90.0 [facility] [address] [place] [address] 07/15/2024 Thena Amna [facility] [address] [place] [address] 08/02/2024 Thena Amna [facility] [address] [place] [address] 08/24/2024 Tonja Therconrad Attention-deficit hyperactivity disorder, predominantly inattentive type F90.0 [facility] [address] [place] [address] 10/04/2024 Tonja Thery [facility] [address] [place] [address] 11/22/2024 Tonja Thery Attention-deficit hyperactivity disorder, predominantly inattentive type F90.0 [facility] [address] [facility] [address] [place] [address] 03/02/2025 Tonja Thery Attention-deficit hyperactivity disorder, predominantly inattentive type F90.0 Assessments Encounter Date Diagnosis (ICD Code) Assessment Notes Treatment Notes Treatment Clinical Notes Section Notes 06/18/2024 Attention-deficit hyperactivity disorder, predominantly inattentive type [...] abuse, and addiction before prescribing stimulant medicines. Latent Print Examiner patients not to share their prescribed stimulant [...] warranted by the prescribed dosage. Random UDS [place] prescription reviewed local pharmacy in [facility], no early refills on control substance [...] nicotine products and stop smoking hotline given 46-Quit - Yes [place] Tobacco Quitline Call a Smoking Quitline The [employer] [place]'s Smoking Quitline, (7-528-30H-QUIT) Smokefree.gov, which connects you with your State's Quitline, (6-380-KVWSWUI) [facility] Smoking Quitline, (4-095-GMHVABA) educated on all medications, benefits, side effects [...] -Illness/Treatmen ts/Mental-Health- Medications http_s://www.ralph .org/About-Mental -Illness/Mental-H ealth-Conditions http_s://[employer]/depressi on/the-cognitive- uigbbwqu-xi-klpwp ssion#treatments http__s://www.[facility].nih.gov/health/ topics/mental-hea lth-medications http__s://www.Desall i.org/About-Menta l-Illness/Treatme nts/Mental-Health -Medications http_s://keysha.nih .gov/publications /drugfacts/cannab is-marijuana http_s://www.[employer]/canna fkx-isn-jkpxcdyn- marijuana-adhd/ Medication Management and Follow-Up - Plan: [...] abuse, and addiction before prescribing stimulant medicines. Latent Print Examiner patients not to share their prescribed stimulant [...] warranted by the prescribed dosage. Random UDS [place] prescription reviewed local pharmacy in [place], no [...] stop smoking hotline given -Quit - Yes [place] Tobacco Quitline Call a Smoking Quitline The [employer] [place]'s Smoking Quitline, (3-201-85O-QUIT) Smokefree.gov, which connects you with your State's Quitline, (1-852-YPJJQCL) Veterans Smoking Quitline, (6-541-OAJOWWR) educated on all medications, benefits, side effects [...] and young adults, and serotonin syndrome. websites http_s://www.[facility] .nih.gov/health/t opics/mental-heal th-medications http_s://www.ralph .org/About-Mental -Illness/Treatmen ts/Mental-Health- Medications http_s://www.ralph .org/About-Mental -Illness/Mental-H ealth-Conditions http_s://psychYouBeQB/depressi on/the-cognitive- nqkfkqjy-vu-ilnzr ssion#treatments http__s://www.[facility].nih.gov/health/ topics/mental-hea lth-medications http__s://www.nam i.org/About-Menta l-Illness/Treatme nts/Mental-Health -Medications http_s://keysha.nih .gov/publications /drugfacts/cannab is-marijuana http_s://www.[employer]/rosalba yir-gyi-fxvwbxnc- marijuana-adhd/ Medication Management and Follow-Up - Plan: - Schedule follow-up appointments every 1-3 months to monitor the patient's response to the medication regimen. - Reinforce the importance of avoiding recreational drug use due to potential neurotoxicity and interactions with prescribed medications. 11/22/2024 Attention-deficit hyperactivity disorder, predominantly inattentive type (ICD-10 - F90.0) 12/27/2024 Encounter for screening for depression (ICD-10 - Z13.31) 1. Depression Viibyrd 40 mg daily- eat 350 calories with rx Trintellix 20 mg daily- labs reviewed in [facility] in chart 11/28 2. anxiety Viibyrd 40 mg daily- eat 350 calories with rx Trintellix 20 mg daily- 3. ADHD Straterra 60 mg daily in am Adderall 20 mg twice a day ADHD stimulates education- discuss cardiovascular risk with stimulates and HTN NO CONTROL SUBSTANCE PRESCRIBED BY LUZ MARINA WITH CANNABIS USE OR OTHER ILLEGAL DRUG USE Discuss with patient risk of misuse, abuse, and addiction before prescribing stimulant medicines. Latent Print Examiner patients not to share their prescribed stimulant [...] than warranted by the prescribed dosage. Random S [place] prescription reviewed local pharmacy in [facility], no early refills on control substance educated on non-stimulate and stimulates PCP note reviewed in [facility] 4. HTN- manual B/P taken today in office- refer to PCP - reported seen PCP and just took B/P rx educated on healthy b/p 120/80 monitor b/p at home see PCP, heart healthy diet and excise limit salt intake limit soda intake and caffiene increase water on B/P RX Discuss cardiovascular health and B/P and risk of stimualtes and HTN, 5. tobacco use- reported stopped 3 days ago Do not smoke. Nicotine and other chemicals in cigarettes and cigars can cause lung damage. Ask your healthcare provider for information if you currently smoke and need help to quit. E-cigarettes or smokeless tobacco still contain nicotine. Talk to your healthcare provider before you use these products. education on decrease to stopping nicotine products and stop smoking hotline given -Quit - Yes [place] Tobacco Quitline Call a Smoking Quitline The [employer] [place] Smoking Quitline, (7-407-79U-QUIT) Smokefree.gov, which connects you with your State's Quitline, (7-077-KZENAUB) Veterans Smoking Quitline, (0-041-MIZLEWP) educated on all medications, benefits, side effects [...] -Illness/Treatmen ts/Mental-Health- Medications http_s://www.ralph .org/About-Mental -Illness/Mental-H ealth-Conditions http_s://psychShanghai Ulti[employer] Knowledge Delivery Systemsl.Avidbots/depressi on/the-cognitive- owztaaje-pm-xcdux ssion#treatments http__s://www.nim .nih.gov/health/ topics/mental-hea lth-medications http__s://www.nam i.org/About-Menta l-Illness/Treatme nts/Mental-Health -Medications http_s://keysha.nih .gov/publications /drugfacts/cannab is-marijuana http_s://www.[employer]/cannarpan cfn-jov-rmorcdtw- marijuana-adhd/ Medication Management and Follow-Up - Plan: - Schedule follow-up appointments every 1-3 months to monitor the patient's response to the medication regimen. - Reinforce the importance of avoiding recreational drug use due to potential neurotoxicity and interactions with prescribed medications. 03/02/2025 Attention-deficit hyperactivity disorder, predominantly inattentive type (ICD-10 - F90.0) 03/22/2025 Encounter for screening for depression (ICD-10 - Z13.31) 1. Depression Viibyrd 40 mg daily- eat 350 calories with rx Trintellix 20 mg daily- labs reviewed in [facility] in chart 11/28 2. anxiety Viibyrd 40 mg daily- eat 350 calories with rx Trintellix 20 mg daily- 3. ADHD Straterra 60 mg daily in am Adderall 20 mg twice a day ADHD stimulates education- discuss cardiovascular risk with stimulates and HTN NO CONTROL SUBSTANCE PRESCRIBED BY LUZ MARINA WITH CANNABIS USE OR OTHER ILLEGAL DRUG USE Discuss with patient risk of misuse, abuse, and addiction before prescribing stimulant medicines. Latent Print Examiner patients not to share their prescribed stimulant [...] warranted by the prescribed dosage. Random UDS [place] prescription reviewed local pharmacy in [facility], no early refills on control substance educated on non-stimulate and stimulates PCP note reviewed in [facility] 4. HTN- seen PCP and B/P rx educated on healthy b/p 120/80 monitor b/p at home see PCP, heart healthy diet and excise limit salt intake limit soda intake and caffiene increase water on B/P RX Discuss cardiovascular health and B/P and risk of stimualtes and HTN, 5. tobacco use- Do not smoke. Nicotine and other chemicals in cigarettes and cigars can cause lung damage. Ask your healthcare provider for information if you currently smoke and need help to quit. E-cigarettes or smokeless tobacco still contain nicotine. Talk to your healthcare provider before you use these products. education on decrease to stopping nicotine products and stop smoking hotline given -Quit - Yes [place] Tobacco Quitline Call a Smoking Quitline The [employer] [place]'s Smoking Quitline, (7-726-12G-QUIT) Smokefree.gov, which connects you with your State's Quitline, (0-786-NWZNEPJ) Veterans Smoking Quitline, (8-290-TUTXHEB) educated on all medications, benefits, side effects [...] -Illness/Treatmen ts/Mental-Health- Medications http_s://www.ralph .org/About-Mental -Illness/Mental-H ealth-Conditions http_s://[employer]/depressi on/the-cognitive- pburlhip-sf-uavcf ssion#treatments http__s://www.[facility].nih.gov/health/ topics/mental-hea lth-medications http__s://www.Desall i.org/About-Menta l-Illness/Treatme nts/Mental-Health -Medications http_s://keysha.nih .gov/publications /drugfacts/cannab is-marijuana http_s://www.[employer]/rosalba iwo-crk-kmsjfvdg- marijuana-adhd/ Medication Management and Follow-Up - Plan: - Schedule follow-up appointments every 1-3 months to monitor the patient's response to the medication regimen. - Reinforce the importance of avoiding recreational drug use due to potential neurotoxicity and interactions with prescribed medications. 04/19/2025 Attention-deficit hyperactivity disorder, predominantly inattentive type (ICD-10 - F90.0) 03/22/2025 MDD (major depressive disorder), recurrent episode, mild (ICD-10 - F33.0) 1. Depression Viibyrd 40 mg daily- eat 350 calories with rx Trintellix 20 mg daily- labs reviewed in [facility] in chart 11/28 2. anxiety Viibyrd 40 mg daily- eat 350 calories with rx Trintellix 20 mg daily- 3. ADHD Straterra 60 mg daily in am Adderall 20 mg twice a day ADHD stimulates education- discuss cardiovascular risk with stimulates and HTN NO CONTROL SUBSTANCE PRESCRIBED BY LUZ MARINA WITH CANNABIS USE OR OTHER ILLEGAL DRUG USE Discuss with patient risk of misuse, abuse, and addiction before prescribing stimulant medicines. Latent Print Examiner patients not to share their prescribed stimulant [...] warranted by the prescribed dosage. Random UDS [place] prescription reviewed local pharmacy in [facility], no early refills on control substance educated on non-stimulate and stimulates PCP note reviewed in [facility] 4. HTN- seen PCP and B/P rx educated on healthy b/p 120/80 monitor b/p at home see PCP, heart healthy diet and excise limit salt intake limit soda intake and caffiene increase water on B/P RX Discuss cardiovascular health and B/P and risk of stimualtes and HTN, 5. tobacco use- Do not smoke. Nicotine and other chemicals in cigarettes and cigars can cause lung damage. Ask your healthcare provider for information if you currently smoke and need help to quit. E-cigarettes or smokeless tobacco still contain nicotine. Talk to your healthcare provider before you use these products. education on decrease to stopping nicotine products and stop smoking hotline given Quit - Yes [place] Tobacco Quitline Call a Smoking Quitline The [employer] [place]'s Smoking Quitline, (0-381-63R-QUIT) Smokefree.gov, which connects you with your State's Quitline, (8-358-RCMZZOT) [facility] Smoking Quitline, (1-823-UJILUMK) educated on all medications, benefits, side effects [...] serotonin syndrome. websites http_s://www.nim .nih.gov/health/t opics/mental-heal th-medications http_s://www.[employer] .ABSMaterials/About-Mental -Illness/Treatmen ts/Mental-Health- Medications http_s://www.[employer] .[employer]SMaterials/About-Mental -Illness/Mental-H ealth-Conditions http_s://psychYouBeQB/depressi on/the-cognitive- jvxvjfrb-gx-uheoq ssion#treatments http__s://www.[facility].nih.gov/health/ topics/mental-hea lth-medications http__s://www.NextIO/About-Menta l-Illness/Treatme nts/Mental-Health -Medications http_s://keysha.nih .gov/publications /drugfacts/cannab is-marijuana http_s://www.[employer]/cannarpan xql-uqi-dvcggeje- marijuana-adhd/ Medication Management and Follow-Up - Plan: - Schedule follow-up appointments every 1-3 months to monitor the patient's response to the medication regimen. - Reinforce the importance of avoiding recreational drug use due to potential neurotoxicity and interactions with prescribed medications. 03/22/2025 Attention-deficit hyperactivity disorder, predominantly inattentive type (ICD-10 - F90.0) 1. Depression Viibyrd 40 mg daily- eat 350 calories with rx Trintellix 20 mg daily- labs reviewed in [facility] in chart 11/28 2. anxiety Viibyrd 40 mg daily- eat 350 calories with rx Trintellix 20 mg daily- 3. ADHD Straterra 60 mg daily in am Adderall 20 mg twice a day ADHD stimulates education- discuss cardiovascular risk with stimulates and HTN NO CONTROL SUBSTANCE PRESCRIBED BY LUZ MARINA WITH CANNABIS USE OR OTHER ILLEGAL DRUG USE Discuss with patient risk of misuse, abuse, and addiction before prescribing stimulant medicines. Latent Print Examiner patients not to share their prescribed stimulant [...] warranted by the prescribed dosage. Random UDS [place] prescription reviewed local pharmacy in [place], no early refills on control substance educated on non-stimulate and stimulates PCP note reviewed in [facility] 4. HTN- seen PCP and B/P rx educated on healthy b/p 120/80 monitor b/p at home see PCP, heart healthy diet and excise limit salt intake limit soda intake and caffiene increase water on B/P RX Discuss cardiovascular health and B/P and risk of stimualtes and HTN, 5. tobacco use- Do not smoke. Nicotine and other chemicals in cigarettes and cigars can cause lung damage. Ask your healthcare provider for information if you currently smoke and need help to quit. E-cigarettes or smokeless tobacco still contain nicotine. Talk to your healthcare provider before you use these products. education on decrease to stopping nicotine products and stop smoking hotline given 185-Quit - Yes [place] Tobacco Quitline Call a Smoking Quitline The [employer] [place]'s Smoking Quitline, (0-898-89F-QUIT) Smokefree.gov, which connects you with your State's Quitline, (2-475-VRZVBSZ) Veterans Smoking Quitline, (0-740-GAVRHNU) educated on all medications, benefits, side effects [...] -Illness/Treatmen ts/Mental-Health- Medications http_s://www.ralph .org/About-Mental -Illness/Mental-H ealth-Conditions http_s://psychYouBeQB/depressi on/the-cognitive- puasojaw-pl-xvbkw ssion#treatments http__s://www.[facility].nih.gov/health/ topics/mental-hea lth-medications http__s://www.NextIO/About-Menta l-Illness/Treatme nts/Mental-Health -Medications http_s://keysha.nih .gov/publications /drugfacts/cannab is-marijuana http_s://wwwTrainfox/cannarpan hjz-nht-ggutfbfa- marijuana-adhd/ Medication Management and Follow-Up - Plan: - Schedule follow-up appointments every 1-3 months to monitor the patient's response to the medication regimen. - Reinforce the importance of avoiding recreational drug use due to potential neurotoxicity and interactions with prescribed medications. 12/27/2024 MDD (major depressive disorder), recurrent episode, mild (ICD-10 - F33.0) 1. Depression Viibyrd 40 mg daily- eat 350 calories with rx Trintellix 20 mg daily- labs reviewed in [facility] in chart 11/28 2. anxiety Viibyrd 40 mg daily- eat 350 calories with rx Trintellix 20 mg daily- 3. ADHD Straterra 60 mg daily in am Adderall 20 mg twice a day ADHD stimulates education- discuss cardiovascular risk with stimulates and HTN NO CONTROL SUBSTANCE PRESCRIBED BY LUZ MARINA WITH CANNABIS USE OR OTHER ILLEGAL DRUG USE Discuss with patient risk of misuse, abuse, and addiction before prescribing stimulant medicines. Latent Print Examiner patients not to share their prescribed stimulant [...] warranted by the prescribed dosage. Random UDS [place] prescription reviewed local pharmacy [place], no early refills on control substance educated on non-stimulate and stimulates PCP note reviewed in [facility] 4. HTN- manual B/P taken today in office- refer to PCP - reported seen PCP and just took B/P rx educated on healthy b/p 120/80 monitor b/p at home see PCP, heart healthy diet and excise limit salt intake limit soda intake and caffiene increase water on B/P RX Discuss cardiovascular health and B/P and risk of stimualtes and HTN, 5. tobacco use- reported stopped 3 days ago Do not smoke. Nicotine and other chemicals in cigarettes and cigars can cause lung damage. Ask your healthcare provider for information if you currently smoke and need help to quit. E-cigarettes or smokeless tobacco still contain nicotine. Talk to your healthcare provider before you use these products. education on decrease to stopping nicotine products and stop smoking hotline given 595-Quit - Yes [place] Tobacco Quitline Call a Smoking Quitline The [employer] [place]'s Smoking Quitline, (8-487-24E-QUIT) Smokefree.gov, which connects you with your State's Quitline, (4-380-XWEJWUI) [facility] Smoking Quitline, (1-913-HWIFDWQ) educated on all medications, benefits, side effects [...] -Illness/Treatmen ts/Mental-Health- Medications http_s://www.ralph .org/About-Mental -Illness/Mental-H ealth-Conditions http_s://Domain [employer]/depressi on/the-cognitive- trgqflvt-cn-rtqfe ssion#treatments http__s://www.[facility].nih.gov/health/ topics/mental-hea lth-medications http__s://www.nam i.org/About-Menta l-Illness/Treatme nts/Mental-Health -Medications http_s://keysha.nih .gov/publications /drugfacts/cannab is-marijuana http_s://www.[employer]/canna vpj-adw-hyjqrdid- marijuana-adhd/ Medication Management and Follow-Up - Plan: - Schedule follow-up appointments every 1-3 months to monitor the patient's response to the medication regimen. - Reinforce the importance of avoiding recreational drug use due to potential neurotoxicity and interactions with prescribed medications. 12/27/2024 Attention-deficit hyperactivity disorder, predominantly inattentive type (ICD-10 - F90.0) 1. Depression Viibyrd 40 mg daily- eat 350 calories with rx Trintellix 20 mg daily- labs reviewed in [facility] in chart 11/28 2. anxiety Viibyrd 40 mg daily- eat 350 calories with rx Trintellix 20 mg daily- 3. ADHD Straterra 60 mg daily in am Adderall 20 mg twice a day ADHD stimulates education- discuss cardiovascular risk with stimulates and HTN NO CONTROL SUBSTANCE PRESCRIBED BY LUZ MARINA WITH CANNABIS USE OR OTHER ILLEGAL DRUG USE Discuss with patient risk of misuse, abuse, and addiction before prescribing stimulant medicines. Latent Print Examiner patients not to share their prescribed stimulant [...] warranted by the prescribed dosage. Random UDS [place] prescription reviewed local pharmacy in [facility], no early refills on control substance educated on non-stimulate and stimulates PCP note reviewed in [facility] 4. HTN- manual B/P taken today in office- refer to PCP - reported seen PCP and just took B/P rx educated on healthy b/p 120/80 monitor b/p at home see PCP, heart healthy diet and excise limit salt intake limit soda intake and caffiene increase water on B/P RX Discuss cardiovascular health and B/P and risk of stimualtes and HTN, 5. tobacco use- reported stopped 3 days ago Do not smoke. Nicotine and other chemicals in cigarettes and cigars can cause lung damage. Ask your healthcare provider for information if you currently smoke and need help to quit. E-cigarettes or smokeless tobacco still contain nicotine. Talk to your healthcare provider before you use these products. education on decrease to stopping nicotine products and stop smoking hotline given 471-Quit - Yes [place] Tobacco Quitline Call a Smoking Quitline The [employer] [place]'s Smoking Quitline, (9-063-04C-QUIT) SmokeAlma [place].gov, which connects you with your State's Quitline, (8-754-CVHENWW) Veterans Smoking Quitline, (4-560-MWGEWDW) educated on all medications, benefits, side effects [...] and young adults, and serotonin syndrome. websites http_s://www.[facility] .nih.gov/health/t opics/mental-heal th-medications http_s://www.ralph .org/About-Mental -Illness/Treatmen ts/Mental-Health- Medications http_s://www.ralph .org/About-Mental -Illness/Mental-H ealth-Conditions http_s://Domain [employer]/depressi on/the-cognitive- wxocamda-mn-rsquh ssion#treatments http__s://www.[facility].nih.gov/health/ topics/mental-hea lth-medications http__s://www.nam i.org/About-Menta l-Illness/Treatme nts/Mental-Health -Medications http_s://keysha.nih .gov/publications /drugfacts/cannab is-marijuana http_s://www.[employer]/rosalba bqz-fbs-qzkacltn- marijuana-adhd/ Medication Management and Follow-Up - Plan: [...] abuse, and addiction before prescribing stimulant medicines. Latent Print Examiner patients not to share their prescribed stimulant [...] warranted by the prescribed dosage. Random UDS [place] prescription reviewed local pharmacy [place], no [...] stop smoking hotline given -Quit - Yes [place] Tobacco Quitline Call a Smoking Quitline The [employer] [place] Smoking Quitline, (2-969-03F-QUIT) Smokefree.gov, which connects you with your State's Quitline, (9-508-RZYMVOQ) Veterans Smoking Quitline, (3-566-VAYEAHY) educated on all medications, benefits, side effects [...] and young adults, and serotonin syndrome. websites http_s://www.[facility] .nih.gov/health/t opics/mental-heal th-medications http_s://www.ralph .org/About-Mental -Illness/Treatmen ts/Mental-Health- Medications http_s://www.ralph .org/About-Mental -Illness/Mental-H ealth-Conditions http_s://Domain [employer]/depressi on/the-cognitive- jbvidwwh-ji-grvzx ssion#treatments http__s://www.[facility].nih.gov/health/ topics/mental-hea lth-medications http__s://www.Desall i.org/About-Menta l-Illness/Treatme nts/Mental-Health -Medications http_s://keysha.nih .gov/publications /drugfacts/cannab is-marijuana http_s://www.[employer]/rosalba njr-fuh-qkfnkemk- marijuana-adhd/ Medication Management and Follow-Up - Plan: - Schedule follow-up appointments every 1-3 months to monitor the patient's response to the medication regimen. - Reinforce the importance of avoiding recreational drug use due to potential neurotoxicity and interactions with prescribed medications. 06/18/2024 Generalized anxiety disorder (ICD-10 - F41.1) 06/18/2024 Major depressive disorder, recurrent, in remission, [...] abuse, and addiction before prescribing stimulant medicines. Latent Print Examiner patients not to share their prescribed stimulant [...] warranted by the prescribed dosage. Random UDS [place] prescription reviewed local pharmacy in [facility], no early refills on control substance [...] stop smoking hotline given -Quit - Yes [place] Tobacco Quitline Call a Smoking Quitline The [employer] [place]'s Smoking Quitline, (7-429-10Z-QUIT) Smokefree.gov, which connects you with your State's Quitline, (8-397-TTDIOUS) Veterans Smoking Quitline, (1-188-QZEWQJH) educated on all medications, benefits, side effects [...] serotonin syndrome. websites http_s://www.nimh .nih.gov/health/t opics/mental-heal th-medications http_s://www.[employer] .org/About-Mental -Illness/Treatmen ts/Mental-Health- Medications http_s://www.[employer] .org/About-Mental -Illness/Mental-H ealth-Conditions http_s://[employer]/depressi on/the-cognitive- vhnuxofw-hr-wqeip ssion#treatments http__s://www.[facility].nih.gov/health/ topics/mental-hea lth-medications http__s://www.NextIO/About-Menta l-Illness/Treatme nts/Mental-Health -Medications http_s://keysha.nih .gov/publications /drugfacts/cannab is-marijuana http_s://www.[employer]/MoviePassarpan juz-erk-lkxwqmye- marijuana-adhd/ Medication Management and Follow-Up - Plan: - Schedule follow-up appointments every 1-3 months to monitor the patient's response to the medication regimen. - Reinforce the importance of avoiding recreational drug use due to potential neurotoxicity and interactions with prescribed medications. 12/27/2024 Generalized anxiety disorder (ICD-10 - F41.1) 1. Depression Viibyrd 40 mg daily- eat 350 calories with rx Trintellix 20 mg daily- labs reviewed in [facility] in chart 11/28 2. anxiety Viibyrd 40 mg daily- eat 350 calories with rx Trintellix 20 mg daily- 3. ADHD Straterra 60 mg daily in am Adderall 20 mg twice a day ADHD stimulates education- discuss cardiovascular risk with stimulates and HTN NO CONTROL SUBSTANCE PRESCRIBED BY LUZ MARINA WITH CANNABIS USE OR OTHER ILLEGAL DRUG USE Discuss with patient risk of misuse, abuse, and addiction before prescribing stimulant medicines. Latent Print Examiner patients not to share their prescribed stimulant [...] warranted by the prescribed dosage. Random UDS [place] prescription reviewed local pharmacy [place], no early refills on control substance educated on non-stimulate and stimulates PCP note reviewed in [facility] 4. HTN- manual B/P taken today in office- refer to PCP - reported seen PCP and just took B/P rx educated on healthy b/p 120/80 monitor b/p at home see PCP, heart healthy diet and excise limit salt intake limit soda intake and caffiene increase water on B/P RX Discuss cardiovascular health and B/P and risk of stimualtes and HTN, 5. tobacco use- reported stopped 3 days ago Do not smoke. Nicotine and other chemicals in cigarettes and cigars can cause lung damage. Ask your healthcare provider for information if you currently smoke and need help to quit. E-cigarettes or smokeless tobacco still contain nicotine. Talk to your healthcare provider before you use these products. education on decrease to stopping nicotine products and stop smoking hotline given Quit - Yes [place] Tobacco Quitline Call a Smoking Quitline The [employer] [place]'s Smoking Quitline, (9-592-93T-QUIT) Smokefree.gov, which connects you with your State's Quitline, (1-857-RHDBTQK) [facility] Smoking Quitline, (6-820-AUDMYRM) educated on all medications, benefits, side effects [...] -Illness/Treatmen ts/Mental-Health- Medications http_s://www.ralph .org/About-Mental -Illness/Mental-H ealth-Conditions http_s://[employer]/depressi on/the-cognitive- ljrirmzk-im-uaulv ssion#treatments http__s://www.[facility].nih.gov/health/ topics/mental-hea lth-medications http__s://www.[employer]/About-Menta l-Illness/Treatme nts/Mental-Health -Medications http_s://keysha.nih .gov/publications /drugfacts/cannab is-marijuana http_s://www.[employer]/cannarpan itg-ain-skqrfkpy- marijuana-adhd/ Medication Management and Follow-Up - Plan: - Schedule follow-up appointments every 1-3 months to monitor the patient's response to the medication regimen. - Reinforce the importance of avoiding recreational drug use due to potential neurotoxicity and interactions with prescribed medications. 03/22/2025 Generalized anxiety disorder (ICD-10 - F41.1) 1. Depression Viibyrd 40 mg daily- eat 350 calories with rx Trintellix 20 mg daily- labs reviewed in [facility] in chart 11/28 2. anxiety Viibyrd 40 mg daily- eat 350 calories with rx Trintellix 20 mg daily- 3. ADHD Straterra 60 mg daily in am Adderall 20 mg twice a day ADHD stimulates education- discuss cardiovascular risk with stimulates and HTN NO CONTROL SUBSTANCE PRESCRIBED BY LUZ MARINA WITH CANNABIS USE OR OTHER ILLEGAL DRUG USE Discuss with patient risk of misuse, abuse, and addiction before prescribing stimulant medicines. Latent Print Examiner patients not to share their prescribed stimulant [...] warranted by the prescribed dosage. Random UDS [place] prescription reviewed local [place], no early refills on control substance educated on non-stimulate and stimulates PCP note reviewed in [facility] 4. HTN- seen PCP and B/P rx educated on healthy b/p 120/80 monitor b/p at home see PCP, heart healthy diet and excise limit salt intake limit soda intake and caffiene increase water on B/P RX Discuss cardiovascular health and B/P and risk of stimualtes and HTN, 5. tobacco use- Do not smoke. Nicotine and other chemicals in cigarettes and cigars can cause lung damage. Ask your healthcare provider for information if you currently smoke and need help to quit. E-cigarettes or smokeless tobacco still contain nicotine. Talk to your healthcare provider before you use these products. education on decrease to stopping nicotine products and stop smoking hotline given Quit - Yes [place] Tobacco Quitline Call a Smoking Quitline The [employer] [place] Smoking Quitline, (7-236-85J-QUIT) Smokefree.gov, which connects you with your State's Quitline, (5-740-FKWGRHT) [facility] Smoking Quitline, (3-928-LQQWMVG) educated on all medications, benefits, side effects [...] http_s://www.ralph .org/About-Mental -Illness/Mental-H ealth-Conditions http_s://psychcen tral.com/depressi on/the-cognitive- keqkziom-ut-xkgpw ssion#treatments http__s://www.nim h.nih.gov/health/ topics/mental-hea [facility]-medications http__s://www.nam i.org/About-Menta l-Illness/Treatme nts/Mental-Health -Medications http_s://keysha.nih .gov/publications /drugfacts/cannab is-marijuana http_s://wwwTrainfox/cannarpan emb-zvf-vqkvntyf- marijuana-adhd/ Medication Management and Follow-Up - Plan: [...] abuse, and addiction before prescribing stimulant medicines. Latent Print Examiner patients not to share their prescribed stimulant [...] than warranted by the prescribed dosage. Random [facility] prescription reviewed local pharmacy in [facility], no early refills on control substance [...] stop smoking hotline given -Quit - Yes [place] Tobacco Quitline Call a Smoking Quitline The [employer] [place] Smoking Quitline, (7-965-61M-QUIT) Smokefree.gov, which connects you with your State's Quitline, (9-836-CRXDGJT) Veterans Smoking Quitline, (7-182-PPIQWDU) educated on all medications, benefits, side effects [...] -Illness/Treatmen ts/Mental-Health- Medications http_s://www.ralph .org/About-Mental -Illness/Mental-H ealth-Conditions http_s://psychYouBeQB/depressi on/the-cognitive- xstmwuzs-gx-irnoa ssion#treatments http__s://www.nim .nih.gov/health/ topics/mental-hea lth-medications http__s://www.Desall i.org/About-Menta l-Illness/Treatme nts/Mental-Health -Medications http_s://keysha.nih .gov/publications /drugfacts/cannab is-marijuana http_s://www.[employer]/rosalba xqa-deo-dseyhyld- marijuana-adhd/ Medication Management and Follow-Up - Plan: - Schedule follow-up appointments every 1-3 months to monitor the patient's response to the medication regimen. - Reinforce the importance of avoiding recreational drug use due to potential neurotoxicity and interactions with prescribed medications. 12/27/2024 Benign essential HTN (ICD-10 - I10) 1. Depression Viibyrd 40 mg daily- eat 350 calories with rx Trintellix 20 mg daily- labs reviewed in [facility] in chart 11/28 2. anxiety Viibyrd 40 mg daily- eat 350 calories with rx Trintellix 20 mg daily- 3. ADHD Straterra 60 mg daily in am Adderall 20 mg twice a day ADHD stimulates education- discuss cardiovascular risk with stimulates and HTN NO CONTROL SUBSTANCE PRESCRIBED BY LUZ MARINA WITH CANNABIS USE OR OTHER ILLEGAL DRUG USE Discuss with patient risk of misuse, abuse, and addiction before prescribing stimulant medicines. Latent Print Examiner patients not to share their prescribed stimulant [...] warranted by the prescribed dosage. Random UDS [place] prescription reviewed local pharmacy in [facility], no early refills on control substance educated on non-stimulate and stimulates PCP note reviewed in [facility] 4. HTN- manual B/P taken today in office- refer to PCP - reported seen PCP and just took B/P rx educated on healthy b/p 120/80 monitor b/p at home see PCP, heart healthy diet and excise limit salt intake limit soda intake and caffiene increase water on B/P RX Discuss cardiovascular health and B/P and risk of stimualtes and HTN, 5. tobacco use- reported stopped 3 days ago Do not smoke. Nicotine and other chemicals in cigarettes and cigars can cause lung damage. Ask your healthcare provider for information if you currently smoke and need help to quit. E-cigarettes or smokeless tobacco still contain nicotine. Talk to your healthcare provider before you use these products. education on decrease to stopping nicotine products and stop smoking hotline given Quit - Yes [place] Tobacco Quitline Call a Smoking Quitline The [employer] [place] Smoking Quitline, (7-175-44V-QUIT) Smokefree.gov, which connects you with your State's Quitline, (2-878-BFKNFAI) [facility] Smoking Quitline, (1-066-BDBMWGT) educated on all medications, benefits, side effects [...] serotonin syndrome. websites http_s://www.nimh .nih.gov/health/t opics/mental-heal th-medications http_s://www.[employer] .[employer]/About-Mental -Illness/Treatmen ts/Mental-Health- Medications http_s://www.[employer] .[employer]/About-Mental -Illness/Mental-H ealth-Conditions http_s://[employer]/depressi on/the-cognitive- lhgwfqhf-vx-lytmz ssion#treatments http__s://www.[facility].nih.gov/health/ topics/mental-hea lth-medications http__s://www.NextIO/About-Menta l-Illness/Treatme nts/Mental-Health -Medications http_s://keysha.nih .gov/publications /drugfacts/cannab is-marijuana http_s://www.[employer]/cannarpan zlq-cei-riwwdyny- marijuana-adhd/ Medication Management and Follow-Up - Plan: - Schedule follow-up appointments every 1-3 months to monitor the patient's response to the medication regimen. - Reinforce the importance of avoiding recreational drug use due to potential neurotoxicity and interactions with prescribed medications. 06/18/2024 Benign essential HTN (ICD-10 - I10) 03/22/2025 Benign essential HTN (ICD-10 - I10) 1. Depression Viibyrd 40 mg daily- eat 350 calories with rx Trintellix 20 mg daily- labs reviewed in [facility] in chart 11/28 2. anxiety Viibyrd 40 mg daily- eat 350 calories with rx Trintellix 20 mg daily- 3. ADHD Straterra 60 mg daily in am Adderall 20 mg twice a day ADHD stimulates education- discuss cardiovascular risk with stimulates and HTN NO CONTROL SUBSTANCE PRESCRIBED BY LUZ MARINA WITH CANNABIS USE OR OTHER ILLEGAL DRUG USE Discuss with patient risk of misuse, abuse, and addiction before prescribing stimulant medicines. Latent Print Examiner patients not to share their prescribed stimulant [...] warranted by the prescribed dosage. Random UDS [place] prescription reviewed local pharmacy in [facility], no early refills on control substance educated on non-stimulate and stimulates PCP note reviewed in [facility] 4. HTN- seen PCP and B/P rx educated on healthy b/p 120/80 monitor b/p at home see PCP, heart healthy diet and excise limit salt intake limit soda intake and caffiene increase water on B/P RX Discuss cardiovascular health and B/P and risk of stimualtes and HTN, 5. tobacco use- Do not smoke. Nicotine and other chemicals in cigarettes and cigars can cause lung damage. Ask your healthcare provider for information if you currently smoke and need help to quit. E-cigarettes or smokeless tobacco still contain nicotine. Talk to your healthcare provider before you use these products. education on decrease to stopping nicotine products and stop smoking hotline given Quit - Yes [place] Tobacco Quitline Call a Smoking Quitline The [employer] [place] Smoking Quitline, (8-950-03P-QUIT) Smokefree.gov, which connects you with your State's Quitline, (7-156-AWCMFTJ) [facility] Smoking Quitline, (7-488-YWOILOZ) educated on all medications, benefits, side effects [...] and young adults, and serotonin syndrome. websites http_s://www.[facility] .nih.gov/health/t opics/mental-heal th-medications http_s://www.ralph .org/About-Mental -Illness/Treatmen ts/Mental-Health- Medications http_s://www.ralph .org/About-Mental -Illness/Mental-H ealth-Conditions http_s://[employer]/depressi on/the-cognitive- kbxnlvus-br-tugse ssion#treatments http__s://www.[facility].nih.gov/health/ topics/mental-hea lth-medications http__s://www.NextIO/About-Menta l-Illness/Treatme nts/Mental-Health -Medications http_s://keysha.nih .gov/publications /drugfacts/cannab is-marijuana http_s://www.[employer]/canna tfe-dbd-flaemkyg- marijuana-adhd/ Medication Management and Follow-Up - Plan: - Schedule follow-up appointments every 1-3 months to monitor the patient's response to the medication regimen. - Reinforce the importance of avoiding recreational drug use due to potential neurotoxicity and interactions with prescribed medications. 12/27/2024 Encounter for screening for cardiovascular disorders (ICD-10 - Z13.6) 1. Depression Viibyrd 40 mg daily- eat 350 calories with rx Trintellix 20 mg daily- labs reviewed in [facility] in chart 11/28 2. anxiety Viibyrd 40 mg daily- eat 350 calories with rx Trintellix 20 mg daily- 3. ADHD Straterra 60 mg daily in am Adderall 20 mg twice a day ADHD stimulates education- discuss cardiovascular risk with stimulates and HTN NO CONTROL SUBSTANCE PRESCRIBED BY LUZ MARINA WITH CANNABIS USE OR OTHER ILLEGAL DRUG USE Discuss with patient risk of misuse, abuse, and addiction before prescribing stimulant medicines. Latent Print Examiner patients not to share their prescribed stimulant [...] warranted by the prescribed dosage. Random UDS [place] prescription [place], no early refills on control substance educated on non-stimulate and stimulates PCP note reviewed in [facility] 4. HTN- manual B/P taken today in office- refer to PCP - reported seen PCP and just took B/P rx educated on healthy b/p 120/80 monitor b/p at home see PCP, heart healthy diet and excise limit salt intake limit soda intake and caffiene increase water on B/P RX Discuss cardiovascular health and B/P and risk of stimualtes and HTN, 5. tobacco use- reported stopped 3 days ago Do not smoke. Nicotine and other chemicals in cigarettes and cigars can cause lung damage. Ask your healthcare provider for information if you currently smoke and need help to quit. E-cigarettes or smokeless tobacco still contain nicotine. Talk to your healthcare provider before you use these products. education on decrease to stopping nicotine products and stop smoking hotline given -Quit - Yes [place] Tobacco Quitline Call a Smoking Quitline The [employer] [place]'s Smoking Quitline, (0-562-58S-QUIT) Smokefree.gov, which connects you with your State's Quitline, (6-558-MTPUZYE) [facility] Smoking Quitline, (5-597-JUHLRNY) educated on all medications, benefits, side effects [...] and young adults, and serotonin syndrome. websites http_s://www.[facility] .nih.gov/health/t opics/mental-heal th-medications http_s://www.ralph .org/About-Mental -Illness/Treatmen ts/Mental-Health- Medications http_s://www.ralph .org/About-Mental -Illness/Mental-H ealth-Conditions http_s://Domain Invest/depressi on/the-cognitive- abhswoth-yn-hrzht ssion#treatments http__s://www.[facility].nih.gov/health/ topics/mental-hea lth-medications http__s://www.nam i.org/About-Menta l-Illness/Treatme nts/Mental-Health -Medications http_s://keysha.nih .gov/publications /drugfacts/cannab is-marijuana http_s://wwwTrainfox/Clzby mmx-eof-tlkfeajr- marijuana-adhd/ Medication Management and Follow-Up - Plan: [...] abuse, and addiction before prescribing stimulant medicines. Latent Print Examiner patients not to share their prescribed stimulant [...] warranted by the prescribed dosage. Random UDS [place] reviewed local pharmacy in [place], no [...] stop smoking hotline given -Quit - Yes [place] Tobacco Quitline Call a Smoking Quitline The [employer] [place]'s Smoking Quitline, (8-185-87E-QUIT) Smokefree.gov, which connects you with your State's Quitline, (2-653-NAZIHQT) [facility] Smoking Quitline, (0-758-CSOAFJZ) educated on all medications, benefits, side effects [...] and young adults, and serotonin syndrome. websites http_s://www.[facility] .nih.gov/health/t opics/mental-heal th-medications http_s://www.ralph .org/About-Mental -Illness/Treatmen ts/Mental-Health- Medications http_s://www.ralph .org/About-Mental -Illness/Mental-H ealth-Conditions http_s://psychYouBeQB/depressi on/the-cognitive- sdsfkipo-zr-nnpzn ssion#treatments http__s://www.[facility].nih.gov/health/ topics/mental-hea lth-medications http__s://www.nam i.org/About-Menta l-Illness/Treatme nts/Mental-Health -Medications http_s://keysha.nih .gov/publications /drugfacts/cannab is-marijuana http_s://www.[employer]/rosalba xlw-zsm-twqubtql- marijuana-adhd/ Medication Management and Follow-Up - Plan: - Schedule follow-up appointments every 1-3 months to monitor the patient's response to the medication regimen. - Reinforce the importance of avoiding recreational drug use due to potential neurotoxicity and interactions with prescribed medications. 12/27/2024 Dietary counseling and surveillance (ICD-10 - Z71.3) 1. Depression Viibyrd 40 mg daily- eat 350 calories with rx Trintellix 20 mg daily- labs reviewed in [facility] in chart 11/28 2. anxiety Viibyrd 40 mg daily- eat 350 calories with rx Trintellix 20 mg daily- 3. ADHD Straterra 60 mg daily in am Adderall 20 mg twice a day ADHD stimulates education- discuss cardiovascular risk with stimulates and HTN NO CONTROL SUBSTANCE PRESCRIBED BY LUZ MARINA WITH CANNABIS USE OR OTHER ILLEGAL DRUG USE Discuss with patient risk of misuse, abuse, and addiction before prescribing stimulant medicines. Latent Print Examiner patients not to share their prescribed stimulant [...] than warranted by the prescribed dosage. Random S [place] prescription reviewed local pharmacy in [facility], no early refills on control substance educated on non-stimulate and stimulates PCP note reviewed in [facility] 4. HTN- manual B/P taken today in office- refer to PCP - reported seen PCP and just took B/P rx educated on healthy b/p 120/80 monitor b/p at home see PCP, heart healthy diet and excise limit salt intake limit soda intake and caffiene increase water on B/P RX Discuss cardiovascular health and B/P and risk of stimualtes and HTN, 5. tobacco use- reported stopped 3 days ago Do not smoke. Nicotine and other chemicals in cigarettes and cigars can cause lung damage. Ask your healthcare provider for information if you currently smoke and need help to quit. E-cigarettes or smokeless tobacco still contain nicotine. Talk to your healthcare provider before you use these products. education on decrease to stopping nicotine products and stop smoking hotline given -Quit - Yes [place] Tobacco Quitline Call a Smoking Quitline The [employer] [place]'s Smoking Quitline, (5-761-99F-QUIT) Smokefree.gov, which connects you with your State's Quitline, (5-482-NGAMTLL) [facility] Smoking Quitline, (0-900-BHUYKIO) educated on all medications, benefits, side effects [...] -Illness/Treatmen ts/Mental-Health- Medications http_s://www.ralph .org/About-Mental -Illness/Mental-H ealth-Conditions http_s://Domain Invest/depressi on/the-cognitive- dregvwax-ih-nbopf ssion#treatments http__s://www.nim .nih.gov/health/ topics/mental-hea lth-medications http__s://www.Desall i.org/About-Menta l-Illness/Treatme nts/Mental-Health -Medications http_s://keysha.nih .gov/publications /drugfacts/cannab is-marijuana http_s://www.[employer]/rosalba qku-feo-fewciaie- marijuana-adhd/ Medication Management and Follow-Up - Plan: [...] abuse, and addiction before prescribing stimulant medicines. Latent Print Examiner patients not to share their prescribed stimulant [...] warranted by the prescribed dosage. Random UDS [place] prescription reviewed local pharmacy in [facility], no early refills on control substance [...] nicotine products and stop smoking hotline given 28-Quit - Yes [place] Tobacco Quitline Call a Smoking Quitline The [employer] [place]'s Smoking Quitline, (9-973-22E-QUIT) Smokefree.gov, which connects you with your State's Quitline, (7-378-NXOHZVH) Veterans Smoking Quitline, (2-978-NULCBOR) educated on all medications, benefits, side effects [...] and young adults, and serotonin syndrome. websites http_s://www.[facility] .nih.gov/health/t opics/mental-heal th-medications http_s://www.ralph .org/About-Mental -Illness/Treatmen ts/Mental-Health- Medications http_s://www.SkillWiz .org/About-Mental -Illness/Mental-H ealth-Conditions http_s://Domain Invest/depressi on/the-cognitive- irafupze-ul-hziqo ssion#treatments http__s://www.[facility].nih.gov/health/ topics/mental-hea lth-medications http__s://www.Desall i.ABSMaterials/About-Menta l-Illness/Treatme nts/Mental-Health -Medications http_s://keysha.nih .gov/publications /drugfacts/cannab is-marijuana http_s://www.[employer]/rosalba fcg-evx-qjylrzyq- marijuana-adhd/ Medication Management and Follow-Up - Plan: [...] abuse, and addiction before prescribing stimulant medicines. Latent Print Examiner patients not to share their prescribed stimulant [...] warranted by the prescribed dosage. Random UDS [place] reviewed local pharmacy in [place], no [...] nicotine products and stop smoking hotline given 124-Quit - Yes [place] Tobacco Quitline Call a Smoking Quitline The [employer] [place] Smoking Quitline, (3-164-31O-QUIT) Smokefree.gov, which connects you with your State's Quitline, (3-006-VZZYHLS) [facility] Smoking Quitline, (5-594-UAZFCUQ) educated on all medications, benefits, side effects [...] ts/Mental-Health- Medications http_s://www.ralph .org/About-Mental -Illness/Mental-H ealth-Conditions http_s://psychcen Jukely.com/depressi on/the-cognitive- vqwpsuul-vp-judtg ssion#treatments http__s://www.nim .nih.gov/health/ topics/mental-hea [facility]-medications http__s://www.nam i.org/About-Menta l-Illness/Treatme nts/Mental-Health -Medications http_s://keysha.nih .gov/publications /drugfacts/cannab is-marijuana http_s://PowerCard/Clzby bbn-dch-sbjjqobg- marijuana-adhd/ Medication Management and Follow-Up - Plan: [...] abuse, and addiction before prescribing stimulant medicines. Latent Print Examiner patients not to share their prescribed stimulant [...] warranted by the prescribed dosage. Random UDS [place] prescription reviewed local pharmacy in [facility], no early refills on control substance [...] stop smoking hotline given Quit - Yes [place] Tobacco Quitline Call a Smoking Quitline The [employer] [place]'s Smoking Quitline, (0-952-47S-QUIT) Smokefree.gov, which connects you with your State's Quitline, (9-454-DMEUGPC) Veterans Smoking Quitline, (3-536-TTCZPWL) educated on all medications, benefits, side effects [...] -Illness/Treatmen ts/Mental-Health- Medications http_s://www.ralph .org/About-Mental -Illness/Mental-H ealth-Conditions http_s://psychRenovarl.com/depressi on/the-cognitive- tdroiegd-et-aqaqz ssion#treatments http__s://www.nim .nih.gov/health/ topics/mental-hea lth-medications http__s://www.nam i.org/About-Menta l-Illness/Treatme nts/Mental-Health -Medications http_s://keysha.nih .gov/publications /drugfacts/cannab is-marijuana http_s://www.[employer]/rosalba ocd-odg-lczsvitr- marijuana-adhd/ Medication Management and Follow-Up - Plan: - Schedule follow-up appointments every 1-3 months to monitor the patient's response to the medication regimen. - Reinforce the importance of avoiding recreational drug use due to potential neurotoxicity and interactions with prescribed medications. Plan Of Treatment Next Appt Details Provider Name:Tonja Inman , 06/21/2025 08:15:00 AM, [address], [address], [place], [address], Insurance Providers Payer Name Payer Address Payer Phone Subscriber Number Group Number Insured Name Patient Relationship to Insured Coverage Start Date Coverage End Date [employer] [employer] [address] [place] [address] [id number] JOHN AN Spouse - patient is the [...] undefined Surgical History Surgery Date(Month/Year) Hysterectomy/revise vagina (01808) Unlisted procedure breast (36673) reduct ion Appendectomy (54386) Hysterectomy (68104) 09/02/2000 Sinus surgery 09/02/2001 Appendectomy (67986) 12/21/2005
--- OUTSIDE RECORDS SUMMARY | 2025-04-20 09:09 | XMS_ITS | Encounter Summary ---
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
--- OUTSIDE RECORDS SUMMARY | 2025-04-20 09:09 | XMS_ITS | Encounter Summary ---
Author Organization 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
--- OUTSIDE RECORDS SUMMARY | 2025-04-20 09:09 | XMS_ITS | Encounter Summary ---
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
--- OUTSIDE RECORDS SUMMARY | 2025-04-20 09:09 | XMS_ITS | Encounter Summary ---
Author Organization 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
--- OUTSIDE RECORDS SUMMARY | 2025-04-20 09:09 | XMS_ITS | Encounter Summary ---
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
--- OUTSIDE RECORDS SUMMARY | 2025-04-20 09:09 | XMS_ITS | Encounter Summary ---
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
--- OUTSIDE RECORDS SUMMARY | 2025-04-20 09:09 | XMS_ITS | Patient Health Record ---
Author Organization [employer] Address [address] [facility] [address] [place] [address] Care Team Providers Care Physician Relations Specialist Name Role Phone Bayron Ferraro MD Primary Care Provider UnavailRonak Ontiveros Unavailable [phone] Betito Gastelum Unavailable Unavailable Abby Estrada Unavailable [phone] Allergies Allergen (clinical drug ingredient) Drug/Non Drug Allergy documented on EMR Reaction Allergy Type Onset Date Status clindamycin Clindamycin HCl Rash Drug Allergy Active Substance with sulfonamide structure and antibacterial mechanism of action (substance) Sulfa Antibiotics hives Drug Allergy active sulfasalazine Sulfasalazine Unknown Drug Allergy Active Results Component Value Reference Range Notes IRON AND TOTAL IRON BINDING CAPACITY (Not yet reviewed by provider) Interpretation: Performing Lab:[facility] [address] [facility], Phone - [phone], Director - [facility] Notes/Report: Iron Bind.Cap.(TIBC) 423 250-450 ug/dL UIBC 337 131-425 ug/dL Iron 86 27-159 ug/dL Iron Saturation 20 15-55 % FERRITIN (Not yet reviewed b y provider) Interpretation: Performing Lab:[facility] [address] [facility] [facility], Phone - [phone], Director - [facility] Notes/Report: Ferritin 24 15-150 ng/mL VITAMIN D,25-OH,TOTAL,IA (No t yet reviewed by provider) Interpretation: Performing Lab:[facility] [address] [facility] [facility] [place], Phone - [phone], Director - [facility] Notes/Report: Vitamin D, 25-Hydroxy 60.9 30.0-100.0 ng/mL Vitamin D deficiency has been defined by the [place] of Medicine and an Endocrine Society practice guideline as a level of serum 25-OH vitamin D less than 20 ng/mL (1,2). The Endocrine Society went on to further define vitamin D insufficiency as a level between 21 and 29 ng/mL (2). 1. IOM ([place] of Medicine). 2010. Dietary reference intakes for calcium and D. [place]: The National Academies Press. 2. Zohreh MF, Seth EVANS, Kristel HALLMAN, et al. Evaluation, treatment, and prevention of vitamin D deficiency: an Endocrine Society clinical practice guideline. JCEM. 2010; 96(7):1911-30. CMP: COMPLETE METABOLIC PANE L Reviewed date:02/23/2025 08:34:34 AM Interpretation: Performing Lab:, [place] [address] [address] , [place] [address] [facility] Notes/Report: NON-FASTING; NON-FASTING; NON-FASTING GLUCOSE 107 65-99 mg/dL Fasting reference interval For someone without known diabetes, a glucose value between 100 and 125 mg/dL is consistent with prediabetes and should be confirmed with a follow-up test. UREA NITROGEN (BUN) 17 7-25 mg/dL CREATININE 0.85 0.50-1.03 mg/dL EGFR 82 > OR = 60 mL/min/1.73m2 BUN/CREATININE RATIO SEE NOTE: 6-22 (calc) Not Reported: BUN and Creatinine are within reference range. SODIUM 138 135-146 mmol/L POTASSIUM 4.0 3.5-5.3 mmol/L CHLORIDE 104 98-110 mmol/L CARBON DIOXIDE 23 20-32 mmol/L CALCIUM 9.4 8.6-10.4 mg/dL PROTEIN, TOTAL 6.9 6.1-8.1 g/dL ALBUMIN 4.5 3.6-5.1 g/dL GLOBULIN 2.4 1.9-3.7 g/dL (calc) ALBUMIN/GLOBULIN RATIO 1.9 1.0-2.5 (calc) BILIRUBIN, TOTAL 0.5 0.2-1.2 mg/dL ALKALINE PHOSPHATASE 68 37-153 U/L AST 20 10-35 U/L ALT 15 6-29 U/L CBC With Differential/Platel et Reviewed date:02/23/2025 08:34:30 AM Interpretation: Performing Lab:[place] [address] [address] Leeanne Miller [address] Notes/Report: NON-FASTING; NON-FASTING; NON-FASTING WHITE BLOOD CELL COUNT 8.1 3.8-10.8 Thousand/ uL RED BLOOD CELL COUNT 4.60 3.80-5.10 Million/uL HEMOGLOBIN 14.9 11.7-15.5 g/dL HEMATOCRIT 46.4 35.0-45.0 % MCV 100.9 80.0-100.0 fL MCH 32.4 27.0-33.0 pg MCHC 32.1 32.0-36.0 g/dL For adults, a slight decrease in the calculated MCHC value (in the range of 30 to 32 g/dL) is most likely not clinically significant; however, it should be interpreted with caution in correlation with other red cell parameters and the patient's clinical condition. RDW 12.1 11.0-15.0 % PLATELET COUNT 428 140-400 Thousand/uL MPV 8.8 7.5-12.5 fL ABSOLUTE NEUTROPHILS 3038 9869-7580 cells/uL ABSOLUTE LYMPHOCYTES 4123 850-3900 cells/uL ABSOLUTE MONOCYTES 527 200-950 cells/uL ABSOLUTE EOSINOPHILS 365 15-500 cells/uL ABSOLUTE BASOPHILS 49 0-200 cells/uL NEUTROPHILS 37.5 LYMPHOCYTES 50.9 MONOCYTES 6.5 EOSINOPHILS 4.5 BASOPHILS 0.6 CRP Reviewed date:02/23/2025 08:34:34 AM Interpretation: Performing Lab:[place] [address] [address] Leeanne Miller [id number] [place] [address] Notes/Report: NON-FASTING; NON-FASTING; NON-FASTING C-REACTIVE PROTEIN <5.0 <8.0 mg/L Pathology Report Reviewed date:08/10/2024 02:17:53 PM Interpretation: [...] No Information Medications Medication SIG (Take, Route, Fr equency, Duration) Notes Start Date End Date Status OTC/Vitamins Vit D Active Chantix Active Mesalamine 1.2 GM TAKE 2 TABLETS BY MO UT TWICE DAILY for 90 days Active Linzess 72 MCG TAKE 1 CAPSULE BY MO UT EVERY DAY for 90 days Active Folic Acid 1 MG TAKE 1 TABLET BY KAYCE EVERY DAY for 90 Active Omeprazole 20 MG TAKE 1 CAPSULE BY MOUTH DAILY Active Omeprazole 40 MG TAKE 1 CAPSULE BY MO UT EVERY DAY 30 MINUTES BEFORE BREAKFAST for 90 days Active Famotidine 40 MG 1 tablet Orally Once a day at bedtime for 30 days 02/07/2025 Active Immunizations Vaccine Route Administration Date Status [...] Problem Status W/U Status Risk Notes Problem 60849066 Ulcerative (chronic) proctitis without complications (K51.20) Active confirmed She continues to do well. Continue current regimen. She will be due for surveillance in 2025. Problem 102734921 GERD (gastroesophagea l reflux disease) (K21.9) Active confirmed Continue omeprazole 40mg daily. Labs ordered today. Problem Abdominal bloating (979139976) Abdominal bloating (R14.0) Active confirmed I suspect s ome of this is due to her constipation. She is doing ok on Linzess right now. However, given the bloating symptoms, will switch to motegrity 2mg daily. She will try this for 4 weeks and then give me an update. Problem Ulcerative colitis (93909484) UC (ulcerative colitis) (K51.90) Active confirmed Problem Flatulence, eructation and gas pain (032327757) Abdominal distension (R14.0) Active confirmed I am her second opinion regarding this issue. She has not had any abdominal imaging outside of a KUB and small bowel series. Abdominal ultrasound ordered today. I am also giving her neomycin for possible persistent SIBO for 10 days. Future treatments may include atrantil. Problem 710291564 Macrocytosis (D75.89) Active confirmed Vital Signs Height 60 in 03/18/2025 Weight 119 lbs 03/18/2025 BMI 23.24 kg/m2 03/18/2025 Procedures Procedure Date Ordered Date Performed Result Body Sit e Colonoscopy 06/10/2024 N/A Encounters Encounter Location Date Provider Diagnosis [facility], [address] [place] [address] 06/10/2024 Abby Estrada UC (ulcerative colit is) K51.90 ; Abdominal bloating R14.0 ; GERD (gastroesophageal reflux disease) K21.9 and Chronic constipation K59.09 [facility] [address] [place] [address] 08/05/2024 Ronak Santoyo Encounter for screen ing for malignant neoplasm of colon Z12.11 and Ulcerative colitis K51.90 [facility], [address] [place] [address] 03/18/2025 Ronak Santoyo Macrocytosis D75.89 ; Thrombocytosis D75.839 ; UC (ulcerative colitis) K51.90 and Encounter for screening for malignant neoplasm of colon Z12.11 [facility], [address] [place] [address] 06/10/2024 Ronak Santoyo UC (ulcerative colit is) K51.90 [facility] [address] [place] [address] [place] [address] 06/11/2024 [facility] [address] [place] [address] [place] [address] 06/11/2024 [facility] [address] [place] [address] [place] [address] 06/16/2024 [facility] UC (ulcerative colit is) K51.90 [facility], [address] [place] [address] 06/22/2024 [facility], [address] [place] [address] 06/28/2024 [facility], [address] [place] [address] 07/13/2024 [facility] [address] [place] [address] [place] [address] 08/04/2024 [facility], [address] [place] [address] 01/03/2025 [facility] [address] [place] [address] [place] [address] 02/07/2025 Abby Etsrada GERD (gastroesophage al reflux disease) K21.9 and UC (ulcerative colitis) K51.90 [facility], [facility] [address] [facility] [place] [address] 02/23/2025 [facility] Assessments Encounter Date Diagnosis (ICD Code) Assessment Notes Treatment Notes Treatment Clinical Notes Section Notes 06/10/2024 UC (ulcerative colitis) (ICD-10 - K51.90) Procedure risks, benefits, alternatives, and indications were discussed. She replied understanding and wishes to proceed. 06/16/2024 UC (ulcerative colitis) (ICD-10 - K51.90) 08/05/2024 Encounter for screening for malignant neoplasm of colon (ICD-10 - Z12.11) 08/05/2024 Ulcerative colitis (ICD-10 - K51.90) 02/07/2025 GERD (gastroesophageal reflux disease) (ICD-10 - K21.9) 02/07/2025 UC (ulcerative colitis) (ICD-10 - K51.90) 06/10/2024 Abdominal bloating (ICD-10 [...] GERD: Well-controlled on omeprazole 40 mg daily. 03/18/2025 Thrombocytosis (ICD-10 - D75.839) 1. Continue mesalamine 4.8g daily 2. Continue folic acid 1mg daily 3. Continue linzess 72mcg daily 4. Obtain iron labs and B12 in setting of minor abnormalities on CBC 5. Up to date on colonoscopies 6. Followup in one year 03/18/2025 Macrocytosis (ICD-10 - D75.89) 1. Continue mesalamine 4.8g daily 2. Continue folic acid 1mg daily 3. Continue linzess 72mcg daily 4. Obtain iron labs and B12 in setting of minor abnormalities on CBC 5. Up to date on colonoscopies 6. Followup in one year 03/18/2025 UC (ulcerative colitis) (ICD-10 - K51.90) 1. Continue mesalamine 4.8g daily 2. Continue folic acid 1mg daily 3. Continue linzess 72mcg daily 4. Obtain iron labs and B12 in setting of minor abnormalities on CBC 5. Up to date on colonoscopies 6. Followup in one year 06/10/2024 GERD (gastroesophageal reflux disease) (ICD-10 - K21.9) ULCERATIVE COLITIS: [...] GERD: Well-controlled on omeprazole 40 mg daily. 03/18/2025 Encounter for screening for malignant neoplasm of colon (ICD-10 - Z12.11) 1. Continue mesalamine 4.8g daily 2. Continue folic acid 1mg daily 3. Continue linzess 72mcg daily 4. Obtain iron labs and B12 in setting of minor abnormalities on CBC 5. Up to date on colonoscopies 6. Followup in one year 06/10/2024 Other After my visit with Ms. [...] Name Order Date Colonoscopy 03/09/2021 Colonoscopy 06/10/2024 IRON AND TOTAL IRON BINDING CAPACITY 06/2025 CALPROTECTIN, STOOL 06/10/2024 FERRITIN 03/18/2025 VITAMIN D,25-OH,TOTAL,IA 03/18/2025 C difficile Toxins A+B, EIA 06/10/2024 CMP: COMPLETE METABOLIC PANEL 08/13/2022 CMP: COMPLETE METABOLIC PANEL 06/16/2024 CMP: COMPLETE METABOLIC PANEL 05/09/2021 CBC With Differential/Platelet 1 CBC With Differential/Platelet 4 CBC With Differential/Platelet 3 CRP 08/13/2022 CRP 06/16/2024 CRP 05/09/2021 Insurance Providers Payer Name Payer Address Payer Phone Subscriber Number Group Number Insured Name Patient Relationship to Insured Coverage Start Date Coverage End Date Blue Access PPO E2 [address] [place] [address] [id number] Jose Angel Garcia Spouse - patient is the spouse of the insured Medical (General) History Medical History History ICD Code Colon Polyps Ulcerative Colitis GERD Restless Leg Syndrome Depression ADD Hypothyroidism Coronary Artery Disease Pulmonary Embolus Migraine Headaches Hypertension Blood Clots osteoporosis Surgical History Surgery Date(Month/Year) Colonoscopy 07/2024 Oophorectomy Appendectomy Section Hysterectomy Sinus Surgery Breast Surgery Ovarian Cyst Cosmetic Surgery Hospitalization History Reason Date(Month/Year) Migraine 09/2016 Blood clots found in right lung, right k idney and on aorta 09/2017 [facility]:URI 07/2022
--- OUTSIDE RECORDS SUMMARY | 2025-04-20 09:09 | XMS_ITS | Encounter Summary ---
Author Organization [facility] [employer] [facility] Address [address] [place] [address] Phone Care Team Providers Care Board Setter Name Role Phone Bayron Ferraro MD Primary Care Provider Rossi Mckeon MD Unavailable [phone]- [phone] Encounter Details Date Type Department Care Team (Latest Contact Info) Description 06/10/2022 Orders Only [facility] Scanning, Provider Social History Tobacco Use Types Packs/Day Years Used Date Smoking Tobacco: Former Cigarettes Q uit: 09/2017 Smokeless Tobacco: Never Alcohol Use Standard Drinks/Week Comments Yes 0 (1 standard drink = 0.6 oz pur e alcohol) occasional Comments No Sex and Gender Information Value Date Recorded Sex Assigned at Not on file Legal 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 Gender Identity Not on file Sexual Orientation Straight 12/29/2020 8: 23 AM CDT documented as of this encounter Plan of Treatment Not on file documented as of this encounter Procedures Procedure Name Priority Date/Time Associated Diagnosis Comments SCAN - LABS 06/10/2022 documented in this encounter Results * SCAN - LABS (06/10/2022) us Provider Scanning Final Result documented in this encounter Visit Diagnoses Not on filedocumented in this encounter Care Teams Board Setter Relationship Specialty Start Date End Date Bayron Ferraro MD [address] [place] [address] PCP - General 03/26/17 Rossi Mckeon MD [address] [place] [address] Medical Oncologist/Resin Filterer Hematology 08/24/20 documented as of this encounter
--- OUTSIDE RECORDS SUMMARY | 2025-04-20 09:09 | XMS_ITS | Encounter Summary ---
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
--- OUTSIDE RECORDS SUMMARY | 2025-04-20 09:09 | XMS_ITS | Encounter Summary ---
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
--- OUTSIDE RECORDS SUMMARY | 2025-04-20 09:09 | XMS_ITS | Encounter Summary ---
Author Organization [facility] [employer] [facility] Address [address] [place] [address] Phone Care Team Providers Care Dairy And Food Laboratory Assistant Name Role Phone Bayron Ferraro MD Primary Care Provider Rossi Mckeon MD Unavailable [phone]- [phone] Encounter Details Date Type Department Care Team [...] on file Legal Sex Female 7:48 PM PATIENT SUPPORT REPRESENTATIVE Gender Identity Not on file Sexual Orientation [...] on filedocumented in this encounter Care Teams Dairy And Food Laboratory Assistant Relationship Specialty Start Date End Date Bayron Ferraro MD [address] [place] [address] PCP - General 03/26/17 Rossi Mckeon MD [address] [place] [address] Medical Oncologist/Clinical Social Worker Hematology 08/24/20 documented as of this encounter
--- OUTSIDE RECORDS SUMMARY | 2025-04-20 09:09 | XMS_ITS | Encounter Summary ---
Author Organization [facility] [employer] 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
--- OUTSIDE RECORDS SUMMARY | 2025-04-20 09:10 | XMS_ITS | Encounter Summary ---
Author Organization [facility] [employer] [facility] Address [address] [place] [address] Phone Care Team Providers Care Professor Of Theology Name Role Phone Bayron Ferraro MD Primary Care Provider Rossi Mckeon MD Unavailable [phone]- [phone] Encounter Details Date Type Department Care Team [...] on file Legal Sex Female 7:48 PM LEGAL WORD PROCESSOR Gender Identity Not on file Sexual Orientation [...] on filedocumented in this encounter Care Teams Professor Of Theology Relationship Specialty Start Date End Date Bayron Ferraro MD [address] [place] [address] PCP - General 03/26/17 Rossi Mckeon MD [address] [place] [address] Medical Oncologist/Wallpaper Inspector Hematology 08/24/20 documented as of this encounter
--- OUTSIDE RECORDS SUMMARY | 2025-04-20 09:10 | XMS_ITS | Encounter Summary ---
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
--- OUTSIDE RECORDS SUMMARY | 2025-04-20 09:10 | XMS_ITS | Encounter Summary ---
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
--- OUTSIDE RECORDS SUMMARY | 2025-04-20 09:10 | XMS_ITS | Encounter Summary ---
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
--- OUTSIDE RECORDS SUMMARY | 2025-04-20 09:10 | XMS_ITS | Encounter Summary ---
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
--- OUTSIDE RECORDS SUMMARY | 2025-04-20 09:10 | XMS_ITS | Encounter Summary ---
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
--- OUTSIDE RECORDS SUMMARY | 2025-04-20 09:10 | XMS_ITS | Encounter Summary ---
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
--- OUTSIDE RECORDS SUMMARY | 2025-04-20 09:10 | XMS_ITS | Encounter Summary ---
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
== END 2025-04-20 08:40 | disposition home or self-care (01) ==
PROVIDERS: PCP Family Medicine; Visit Provider Obstetrics & Gynecology
DX: Z12.31 Encounter for screening mammogram for malignant neoplasm of breast (principal)
CPT/HCPCS: 77063; 77067